=== PATIENT | male | born 1965 | race Caucasian/White ===

== ENCOUNTER 2018-01-13 07:07 | Inpatient (IN) | payer MEDICARE, SELFPAY ==
[2018-01-13] VITALS (44 sets, daily range): BP systolic 150–175; BP diastolic 70–99; PULSE 67–105; RESP 16–21; TEMP 36.5–37.9; O2SAT 87–97
--- NOTE | 2018-01-13 07:48 | DI.RAD_ITS ---
SYMPTOM/DIAGNOSIS: S/P FALL. RULE OUT ACUTE FRACTURE RIGHT WRIST: There is a nondisplaced fracture seen extending through the waist of the navicular. No additional fractures are seen. The carpal alignment appears normal. The distal radius and ulna appear intact. IMPRESSION: Nondisplaced scaphoid fracture.
--- NOTE | 2018-01-13 07:48 | DI.RAD_ITS ---
SYMPTOM/DIAGNOSIS: S/P FALL, R/O ACUTE FRACTURE RIGHT ELBOW: There is a fracture of the proximal radius which is intra-articular and mildly comminuted but not significantly displaced. The distal humerus and proximal ulna appear intact. IMPRESSION: Nondisplaced intra-articular fracture of the radial head.
--- NOTE | 2018-01-13 07:48 | DI.RAD_ITS ---
SYMPTOM/DIAGNOSIS: S/P FALL, R/O ACUTE FX RIGHT ANKLE: There is marked soft tissue swelling. There is a fracture seen extending transversely through the medial malleolus to the ankle mortise which is nondisplaced. No distal fibular fracture is seen. There is a comminuted fracture involving the mid portion of the calcaneus as well as the inferior portion of the tuberosity. There has been previous amputation of the 5th toe at the level of the mid 5th metatarsal. IMPRESSION: Nondisplaced medial malleolar fracture. No ankle mortise widening is seen. There is a comminuted calcaneal fracture.
--- NOTE | 2018-01-13 07:48 | DI.RAD_ITS ---
SYMPTOM/DIAGNOSIS: S/P FALL, H/O PELVIS FX, R/O ACUTE FX PELVIS: There has been no change in the hardware seen across the pubic symphysis. There are old fracture deformities. No acute fracture or dislocation is seen. There are mild degenerative changes of both hips, left greater than right. The S-I joints appear intact. IMPRESSION: Old pubic symphysis fractures with hardware. No acute abnormality.
--- NOTE | 2018-01-13 07:51 | W.ED.GENAD ---
Discharge Plan Disposition Patient Disposition: [facility] INPATIENT Condition: Stable Discharge Details Chief Complaint: Trauma Clinical Impression: Ankle fracture, right, Scaphoid fracture of wrist, Fracture of radial head, right, closed, Alcohol abuse Reason For Visit: R WRIST/R RADIAL HEAD/R ANKLE,FOOT FRACTURE,AMBULA Admit Date/Time: 01/13/18 13:22 Admit Provider: Paul Lazaro Attending Provider: Paul Lazaro Primary Care Provider: Sharon Sanabria V ED Provider: Sil Espinoza Discharge Data Discharge Date/Time-TO BE ENTERED AT DEPARTURE: 01/13/18 12:28 Medical Decision Making MDM Narrative Medical decision making narrative: 52-year-old male with history of daily alcohol use who presents with right wrist, right elbow, and right ankle injury after fall down 12 stairs yesterday. States he was drinking earlier in the day yesterday but denies any drinking at the time of the fall. Staff found the patient smelled of alcohol this morning but this was not significantly obvious to me. He does not appear acutely intoxicated. His blood pressure is 172/97. He has significant right wrist and right ankle edema and right ankle ecchymosis. He has tenderness to palpation of right radial head and right lateral epicondyle. He has no chest, abdomen, neck, back or head trauma or tenderness. Will check an alcohol level. Will obtain a right wrist, right forearm, right elbow, and right ankle x-ray. He denies head injury and does not appear acutely intoxicated for me, so I will not obtain head or C-spine CT. Also give a dose of Tylenol. 0955 -- labs and imaging reviewed -alcohol 42. Ankle notes nondisplaced medial malleolus fracture and comminuted calcaneal fracture but no ankle mortise widening. Wrist x-ray notes nondisplaced scaphoid fracture and elbow and forearm x-ray notes nondisplaced intra-articular radial head fracture. Pelvis x-ray notes old healed pelvic fractures with hardware intact but no acute fracture. We will plan for splint placement of ankle and upper extremity. Will call orthopedics for any recommendations as there are 2 fractures in the right upper extremity the patient will likely not be able to go home due to difficulty with ambulation. 1038 --discussed with Dr. Lazaro -recommends prepackaged thumb spica splint for right scaphoid and sling for radial head fracture. Will have orthopedic PA come down to place splint on right ankle. Agrees with plan for admission due to difficulty with ambulation with multiple fractures. Patient is agreeable to admission. Orthopedic PA placed splint at bedside. HPI - General Adult General Mode of arrival: wheelchair. Date/Time Provider Initiated Documentation: 01/13/18 07:35. Limitations to Documentation: no limitations. Information obtained by: patient. HPI Narrative: Patient is a 52-year-old male who presents with orthopedic pain after fall downstairs yesterday. Patient states he called out to him when he was inside the house and he turned around and slipped down approximately 12 stairs. Patient is complaining of pain in his right wrist, right elbow, and right ankle. He last took Motrin at 630 this morning. He denies head injury, neck pain, back pain, chest pain, abdominal pain, hip pain, knee pain, right shoulder pain or left upper extremity or left lower extremity pain. Patient was not able to ambulate on his right ankle this morning due to pain. Patient admits to drinking 3 beers daily and states he last drank yesterday but not around the time of the fall. Past medical history: Hypertension, gout, sarcoidosis Surgical history: Pelvis fracture ?5 due to trauma, bilateral knee arthroscopies, hernia repair, right fifth toe amputation Social history drinks 3 beers daily, denies tobacco or drugs Medications: Atenolol, hydrochlorothiazide, as needed ibuprofen Allergies: Denies PCP: Sharon Sanabria Related Data Home Medications Medication Instructions Recorded Confirmed atenolol 50 mg PO DAILY 07/13/12 01/13/18 hydrochlorothiazide 25 mg PO DAILY 01/15/13 01/13/18 ibuprofen [Ibuprofen Ib] 400 mg PO Q4H PRN PRN 02/16/16 01/13/18 Allergies Allergy/AdvReac Type Severity Reaction Status Date / Time No Known Allergies Allergy Unverified 01/13/18 07:41 General Stated Complaint: Trauma KALLI: 3 Review of Systems Review of Systems All systems reviewed & are unremarkable except as noted in HPI and below Constitutional Denies chills, Denies excessive sweating, Denies fatigue, Denies fever(s), Denies weakness and Denies weight loss Eyes Patient Reports system reviewed and no additional complaints, except as docu and Denies blurry vision ENT Denies vertigo, Denies dizziness, Denies otalgia, Denies nasal congestion, Denies sore throat and Denies throat swelling Cardiovascular Denies chest pain, Denies syncope, Denies rapid heart rate and Denies dyspnea Respiratory Denies dyspnea Gastrointestinal Denies abdominal pain, Denies diarrhea and Denies vomiting Genitourinary Denies hematuria, Denies dysuria and Denies flank pain Musculoskeletal Denies back pain and Reports other (Right wrist, right elbow, right ankle pain and swelling) Integumentary/Breasts Denies lesions and Denies rash Neurologic Denies behavioral changes, Denies confusion, Denies vertigo, Denies dizziness, Denies syncope and Denies weakness Psychiatric Denies behavioral changes, Denies confusion and Denies depression Endocrine Denies excessive sweating and Denies fatigue Hematologic/Lymphatic Denies easy bruising and Denies lymphadenopathy Allergic/Immunologic Denies throat swelling PFSH Social History Smoking/Tobacco Use Status: Never Exam Const General: cooperative Nutritional Appearance: well nourished Orientation: alert, awake and oriented x3 HENMT Head: normal to inspection Ears: hearing grossly normal bilaterally, external ears normal and TM's normal bilaterally General nose exam: external nose normal Face and sinus: normal facial exam Mouth: other (Tobacco chew noted in mouth and around oral mucosa. No oral or dental trauma.) Teeth and gingiva: dentition normal Throat: posterior oropharynx normal Eyes General: appearance normal, both eyes and all related structures Eyelids: eyelids normal Pupils: PERRL EOM: EOM intact bilaterally Neck Neck: normal visual inspection Lymphatic: no lymphadenopathy noted Chest Chest: normal inspection of the chest, normal palpation of entire chest wall, no crepitus, no localized rib tenderness and no tenderness Resp Effort & Inspection: normal respiratory effort and able to speak in complete sentences Auscultation: clear to auscultation bilaterally Cardio Rate: regular rate Rhythm: regular rhythm GI Inspection: normal to inspection Palpation: soft, not firm, no guarding, no hepatosplenomegaly, no masses and nontender Auscultation: normal bowel sounds Other: An approximate 2 x 3 cm area of ecchymosis with 1 cm superficial abrasion right lower quadrant which she states is from several days ago due to a superficial injury. There is no tenderness in this region. Male General Exam: Yes normal external exam Back/Spine/Pelvis Back: no CVA tenderness Thoracic/Lumbar Spine: thoracic and lumbar spine normal to inspection, No thoracic spinal tenderness and No lumbar spinal tenderness Skin General skin exam: no rashes or lesions noted Neuro General: alert and awake Cognition: normal cognition Speech: speech normal Gait: normal gait Motor: muscle tone normal throughout Sensory Exam: no sensory deficits noted Extrem Right upper extremity: shoulder/upper arm (Normal right shoulder exam.), elbow/forearm (Tenderness to palpation overlying right radial head and lateral epicondyle. No tenderness to palpation of olecranon or medial epicondyle. ) and wrist (Moderate edema and tenderness palpation of right dorsal and volar wrist. Right snuffbox tenderness. Moderate edema noted to right hand but without tenderness. No deformity noted) Left upper extremity: normal to inspection and full ROM Right lower extremity: hip/thigh (Hip with range of motion which patient states is chronic. No obvious hip deformity or pelvis instability.) and ankle (Moderate edema and ecchymosis and tenderness to palpation to right ankle, worse on medial aspect. No heel or plantar tenderness. No obvious deformity to right ankle. ) Left lower extremity: normal to inspection and full ROM Psych Appearance: grossly normal Mental Status: mental status grossly normal Speech and Movement: speech and movement normal Affect: normal affect Thought Process: normal Course Vital Signs Temperature 97.7 F 01/13/18 07:10 Pulse 90 01/13/18 07:10 Respiratory Rate 16 01/13/18 07:10 Blood Pressure 172/97 H 01/13/18 07:10 Pulse Oximetry 92 L 01/13/18 07:10 Temperature 97.7 F 01/13/18 07:10 Pulse 90 01/13/18 07:10 Respiratory Rate 16 01/13/18 07:10 Blood Pressure 172/97 H 01/13/18 07:10 Pulse Oximetry 92 L 01/13/18 07:10
--- NOTE | 2018-01-13 08:01 | ED.GENADUL_ITS ---
Discharge Plan Disposition Patient Disposition: [facility] INPATIENT Condition: Stable Discharge Details Chief Complaint: Trauma Clinical Impression: Ankle fracture, right, Scaphoid fracture of wrist, Fracture of radial head, right, closed, Alcohol abuse Reason For Visit: R WRIST/R RADIAL HEAD/R ANKLE,FOOT FRACTURE,AMBULA Admit Date/Time: 01/13/18 13:22 Admit Provider: Paul Lazaro Attending Provider: Paul Lazaro Primary Care Provider: Sharon Sanabria V ED Provider: Sil Espinoza Discharge Data Discharge Date/Time-TO BE ENTERED AT DEPARTURE: 01/13/18 12:28 Medical Decision Making MDM Narrative Medical decision making narrative: 52-year-old male with history of daily alcohol use who presents with right wrist, right elbow, and right ankle injury after fall down 12 stairs yesterday. States he was drinking earlier in the day yesterday but denies any drinking at the time of the fall. Staff found the patient smelled of alcohol this morning but this was not significantly obvious to me. He does not appear acutely intoxicated. His blood pressure is 172/97. He has significant right wrist and right ankle edema and right ankle ecchymosis. He has tenderness to palpation of right radial head and right lateral epicondyle. He has no chest, abdomen, neck, back or head trauma or tenderness. Will check an alcohol level. Will obtain a right wrist, right forearm, right elbow, and right ankle x-ray. He denies head injury and does not appear acutely intoxicated for me, so I will not obtain head or C-spine CT. Also give a dose of Tylenol. 0955 -- labs and imaging reviewed -alcohol 42. Ankle notes nondisplaced medial malleolus fracture and comminuted calcaneal fracture but no ankle mortise widening. Wrist x-ray notes nondisplaced scaphoid fracture and elbow and forearm x-ray notes nondisplaced intra-articular radial head fracture. Pelvis x -ray notes old healed pelvic fractures with hardware intact but no acute fracture. We will plan for splint placement of ankle and upper extremity. Will call orthopedics for any recommendations as there are 2 fractures in the right upper extremity the patient will likely not be able to go home due to difficulty with ambulation. 1038 --discussed with Dr. Lazaro -recommends prepackaged thumb spica splint for right scaphoid and sling for radial head fracture. Will have orthopedic PA come down to place splint on right ankle. Agrees with plan for admission due to difficulty with ambulation with multiple fractures. Patient is agreeable to admission. Orthopedic PA placed splint at bedside. HPI - General Adult General Mode of arrival: wheelchair . Date/Time Provider Initiated Documentation: 01/13/18 07:35 . Limitations to Documentation: no limitations . Information obtained by: patient . HPI Narrative: Patient is a 52-year-old male who presents with orthopedic pain after fall downstairs yesterday. Patient states he called out to him when he was inside the house and he turned around and slipped down approximately 12 stairs. Patient is complaining of pain in his right wrist, right elbow, and right ankle. He last took Motrin at 630 this morning. He denies head injury, neck pain, back pain, chest pain, abdominal pain, hip pain, knee pain, right shoulder pain or left upper extremity or left lower extremity pain. Patient was not able to ambulate on his right ankle this morning due to pain. Patient admits to drinking 3 beers daily and states he last drank yesterday but not around the time of the fall. Past medical history: Hypertension, gout, sarcoidosis Surgical history: Pelvis fracture ?5 due to trauma, bilateral knee arthroscopies , hernia repair, right fifth toe amputation Social history drinks 3 beers daily, denies tobacco or drugs Medications: Atenolol, hydrochlorothiazide, as needed ibuprofen Allergies: Denies PCP: Sharon Sanabria Related Data Home Medications Medication Instructions Recorded Confirmed atenolol 50 mg PO DAILY 07/13/12 01/13/18 hydrochlorothiazide 25 mg PO DAILY 01/15/13 01/13/18 ibuprofen [Ibuprofen Ib] 400 mg PO Q4H PRN PRN 02/16/16 01/13/18 Allergies Allergy/AdvReac Type Severity Reaction Status Date / Time No Known Allergies Allergy Unverified 01/13/18 07:41 General Stated Complaint: Trauma KALLI: 3 Review of Systems Review of Systems All systems reviewed & are unremarkable except as noted in HPI and below Constitutional Denies chills, Denies excessive sweating, Denies fatigue, Denies fever(s), Denies weakness and Denies weight loss Eyes Patient Reports system reviewed and no additional complaints, except as docu and Denies blurry vision ENT Denies vertigo, Denies dizziness, Denies otalgia, Denies nasal congestion, Denies sore throat and Denies throat swelling Cardiovascular Denies chest pain, Denies syncope, Denies rapid heart rate and Denies dyspnea Respiratory Denies dyspnea Gastrointestinal Denies abdominal pain, Denies diarrhea and Denies vomiting Genitourinary Denies hematuria, Denies dysuria and Denies flank pain Musculoskeletal Denies back pain and Reports other (Right wrist, right elbow, right ankle pain and swelling) Integumentary/Breasts Denies lesions and Denies rash Neurologic Denies behavioral changes, Denies confusion, Denies vertigo, Denies dizziness, Denies syncope and Denies weakness Psychiatric Denies behavioral changes, Denies confusion and Denies depression Endocrine Denies excessive sweating and Denies fatigue Hematologic/Lymphatic Denies easy bruising and Denies lymphadenopathy Allergic/Immunologic Denies throat swelling PFSH Social History Smoking/Tobacco Use Status: Never Exam Const General: cooperative Nutritional Appearance: well nourished Orientation: alert, awake and oriented x3 HENMT Head: normal to inspection Ears: hearing grossly normal bilaterally, external ears normal and TM's normal bilaterally General nose exam: external nose normal Face and sinus: normal facial exam Mouth: other (Tobacco chew noted in mouth and around oral mucosa. No oral or dental trauma.) Teeth and gingiva: dentition normal Throat: posterior oropharynx normal Eyes General: appearance normal, both eyes and all related structures Eyelids: eyelids normal Pupils: PERRL EOM: EOM intact bilaterally Neck Neck: normal visual inspection Lymphatic: no lymphadenopathy noted Chest Chest: normal inspection of the chest, normal palpation of entire chest wall, no crepitus, no localized rib tenderness and no tenderness Resp Effort & Inspection: normal respiratory effort and able to speak in complete sentences Auscultation: clear to auscultation bilaterally Cardio Rate: regular rate Rhythm: regular rhythm GI Inspection: normal to inspection Palpation: soft, not firm, no guarding, no hepatosplenomegaly, no masses and nontender Auscultation: normal bowel sounds Other: An approximate 2 x 3 cm area of ecchymosis with 1 cm superficial abrasion right lower quadrant which she states is from several days ago due to a superficial injury. There is no tenderness in this region. Male General Exam: Yes normal external exam Back/Spine/Pelvis Back: no CVA tenderness Thoracic/Lumbar Spine: thoracic and lumbar spine normal to inspection, No thoracic spinal tenderness and No lumbar spinal tenderness Skin General skin exam: no rashes or lesions noted Neuro General: alert and awake Cognition: normal cognition Speech: speech normal Gait: normal gait Motor: muscle tone normal throughout Sensory Exam: no sensory deficits noted Extrem Right upper extremity: shoulder/upper arm (Normal right shoulder exam.), elbow/ forearm (Tenderness to palpation overlying right radial head and lateral epicondyle. No tenderness to palpation of olecranon or medial epicondyle. ) and wrist (Moderate edema and tenderness palpation of right dorsal and volar wrist. Right snuffbox tenderness. Moderate edema noted to right hand but without tenderness. No deformity noted) Left upper extremity: normal to inspection and full ROM Right lower extremity: hip/thigh (Hip with range of motion which patient states is chronic. No obvious hip deformity or pelvis instability.) and ankle ( Moderate edema and ecchymosis and tenderness to palpation to right ankle, worse on medial aspect. No heel or plantar tenderness. No obvious deformity to right ankle. ) Left lower extremity: normal to inspection and full ROM Psych Appearance: grossly normal Mental Status: mental status grossly normal Speech and Movement: speech and movement normal Affect: normal affect Thought Process: normal Course Vital Signs Temperature 97.7 F 01/13/18 07:10 Pulse 90 01/13/18 07:10 Respiratory Rate 16 01/13/18 07:10 Blood Pressure 172/97 H 01/13/18 07:10 Pulse Oximetry 92 L 01/13/18 07:10 Temperature 97.7 F 01/13/18 07:10 Pulse 90 01/13/18 07:10 Respiratory Rate 16 01/13/18 07:10 Blood Pressure 172/97 H 01/13/18 07:10 Pulse Oximetry 92 L 01/13/18 07:10
[2018-01-13] MEDS: Acetaminophen 325 MG TAB 650 MG PO ×2 (08:05→19:54)
[2018-01-13 08:26] LABS: ETHANOL BLOOD 42.1 mg/dL (<3)
--- NOTE | 2018-01-13 08:59 | DI.RAD_ITS ---
SYMPTOM/DIAGNOSIS: S/P FALL, R/O ACUTE FRACTURE RIGHT FOREARM: There is a fracture of the radial head which was nondisplaced. No additional fractures are seen more distally in the radius or ulna. IMPRESSION: Nondisplaced radial head fracture.
[2018-01-13] MEDS: oxyCODONE 5 MG TAB PO (10:26)
--- NOTE | 2018-01-13 12:37 | NUR.NOTE ---
Pt is admitted to [facility] room 234. Pts vitals are stable. Pt is in 10/10 pain. Awaiting doctors orders. Nursing Note:
[2018-01-13] MEDS: MORPHine 10 MG/ML VIAL IVP ×8 (13:40→22:27)
[2018-01-13] MEDS: Normal Saline Flush 10 ML SYR ×2 (13:41→17:29)
[2018-01-13] MEDS: Ketorolac 30 MG/ML VIAL IVP ×2 (14:08→19:55)
[2018-01-13] MEDS: Normal Saline Flush 10 ML SYR 20 ML ×2 (15:06→20:56)
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
--- NOTE | 2018-01-13 16:45 | W.PM.HP.N ---
Assessment and Plan (1) Alcoholism: Current visit: Yes Status: Chronic Robb relates that he has never had withdrawal symptomatology or DTs when he is not had his typical 3-4 beers a day. 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 History of fall with multiple fractures- plan is admit to Dr. Lazaro for pain control and long-term fracture management. All his fractures are appropriately splinted today. Dr. Lazaro will devise a fracture management plan. (2) Multiple fractures: Current visit: Yes Status: Acute Robb is a 52-year-old male who was admitted today under Dr. Lazaro service following a fall yesterday at 5-6 PM down approximately 12 stairs. robb relates he was with another person at the time who helped him out to his pickup truck and there was no loss of consciousness noted. He drove himself home and then had to crawl into his bedroom. Multiple pain complaints today resulted in him being evaluated in [facility] er where multiple fractures were found during his workup to include right dominant scaphoid fracture through the waist, right nondisplaced medial malleolar fracture without mortise widenin, right comminuted mid calcaneal fracture. 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 These fractures were appropriately splinted and his radial head fracture was treated with a sling. robb is being admitted to [facility] for pain control and for assistance with activities of daily living secondary to his multiple fractures. his present living situation is that he lives with his elderly dad Review of Systems Cardiovascular Denies chest pain and Denies irregular heart rhythm Respiratory Denies cough Gastrointestinal Denies abdominal pain, Denies nausea and Denies vomiting Musculoskeletal Reports as per [facility] Social History Smoking/Tobacco Use Status: Never Meds Home Medications Medication Instructions Recorded Confirmed Type atenolol 50 mg PO DAILY 07/13/12 01/13/18 History hydrochlorothiazide 25 mg PO DAILY 01/15/13 01/13/18 History ibuprofen [Ibuprofen Ib] 400 mg PO Q4H PRN PRN 02/16/16 01/13/18 History Allergies Allergy/AdvReac Type Severity Reaction Status Date / Time No Known Allergies Allergy Unverified 01/13/18 07:41 Exam Chest Chest: normal inspection of the chest and no localized rib tenderness Resp Effort & Inspection: normal respiratory effort and able to speak in complete sentences Auscultation: clear to auscultation bilaterally Cardio Rate: regular rate Rhythm: regular rhythm Heart Sounds: S1 normal and S2 normal Bruits: no abdominal aortic bruits Extrem Right lower extremity: edema Results Labs : 01/14/18 07:05 01/14/18 07:05 Laboratory Results - last 24 hr 01/13/18 08:09 Ethyl Alcohol 42.1
[2018-01-13] MEDS: Enoxaparin 40 MG/0.4 ML SYR SC (17:08)
[2018-01-13] MEDS: oxyCODONE-CR 10 MG TABCR PO (17:08)
--- NOTE | 2018-01-13 17:09 | HPE_ITS ---
Assessment and Plan (1) Alcoholism: Current visit: Yes Status: Chronic Robb relates that he has never had withdrawal symptomatology or DTs when he is not had his typical 3-4 beers a day. 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 History of fall with multiple fractures- plan is admit to Dr. Lazaro for pain control and long-term fracture management. All his fractures are appropriately splinted today. Dr. Lazaro will devise a fracture management plan. (2) Multiple fractures: Current visit: Yes Status: Acute Robb is a 52-year-old male who was admitted today under Dr. Lazaro service following a fall yesterday at 5-6 PM down approximately 12 stairs. robb relates he was with another person at the time who helped him out to his pickup truck and there was no loss of consciousness noted. He drove himself home and then had to crawl into his bedroom. Multiple pain complaints today resulted in him being evaluated in [facility] er where multiple fractures were found during his workup to include right dominant scaphoid fracture through the waist, right nondisplaced medial malleolar fracture without mortise widenin, right comminuted mid calcaneal fracture. 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 These fractures were appropriately splinted and his radial head fracture was treated with a sling. robb is being admitted to [facility] for pain control and for assistance with activities of daily living secondary to his multiple fractures. his present living situation is that he lives with his elderly dad Review of Systems Cardiovascular Denies chest pain and Denies irregular heart rhythm Respiratory Denies cough Gastrointestinal Denies abdominal pain, Denies nausea and Denies vomiting Musculoskeletal Reports as per [facility] Social History Smoking/Tobacco Use Status: Never Meds Home Medications Medication Instructions Recorded Confirmed Type atenolol 50 mg PO DAILY 07/13/12 01/13/18 History hydrochlorothiazide 25 mg PO DAILY 01/15/13 01/13/18 History ibuprofen [Ibuprofen Ib] 400 mg PO Q4H PRN PRN 02/16/16 01/13/18 History Allergies Allergy/AdvReac Type Severity Reaction Status Date / Time No Known Allergies Allergy Unverified 01/13/18 07:41 Exam Chest Chest: normal inspection of the chest and no localized rib tenderness Resp Effort & Inspection: normal respiratory effort and able to speak in complete sentences Auscultation: clear to auscultation bilaterally Cardio Rate: regular rate Rhythm: regular rhythm Heart Sounds: S1 normal and S2 normal Bruits: no abdominal aortic bruits Extrem Right lower extremity: edema Results Labs : 01/14/18 07:05 01/14/18 07:05 Laboratory Results - last 24 hr 01/13/18 08:09 Ethyl Alcohol 42.1
[2018-01-13] MEDS: Docusate Sodium 100 MG CAP PO (19:53)
[2018-01-13] MEDS: LORazepam 1 MG TAB PO/SL (19:56)
[2018-01-13] MEDS: DEXTROSE 5%-0.9% SALINE 1,000 ML 60 ML IV (22:58)
[2018-01-14] MEDS: Ketorolac 30 MG/ML VIAL IVP ×4 (01:57→19:34)
[2018-01-14] MEDS: MORPHine 10 MG/ML VIAL IVP ×10 (03:56→22:11)
[2018-01-14] MEDS: oxyCODONE-CR 10 MG TABCR PO ×2 (05:53→17:16)
[2018-01-14] MEDS: Normal Saline Flush 10 ML SYR 20 ML (07:37)
[2018-01-14 07:41] LABS: Anion Gap 5.2 mmol/L (3-11); BUN 16 mg/dL (7-18); CO2 29.8 mmol/L (21.0-32.0); CREATININE 0.88 mg/dL (0.70-1.30); Calcium 8.4 mg/dL (8.5-10.1); Chloride 101 mmol/L (98-107); Glucose 114 mg/dL (70-100); Potassium 3.8 mmol/L (3.5-5.1); Sodium 136 mmol/L (136-145)
[2018-01-14 07:42] LABS: HCT 41.4 % (40.0-50.0); HGB 13.7 g/dL (13.5-17.5); Mean Corp. HGB Concentration 33.1 g/dL (32.0-36.0); Mean Corpuscular Hemoglobin 33.3 pg (27.0-33.0); Mean Corpuscular Volume 100.5 fL (80-95); Mean Platelet Volume 11.1 fL (8.0-11.0); Platelet Count 234 x1000/uL (130-400); RBC 4.12 m/cumm (4.50-6.00); RBC Distribution Width 13.9 % (11.8-14.1); White Blood Cell Count 9.83 k/cumm (4.4-10.8)
[2018-01-14 07:45] VITALS: BP 178/97; PULSE 82; RESP 19; TEMP 37.8; O2SAT 92
[2018-01-14] MEDS: Atenolol 50 MG TAB PO (08:29)
[2018-01-14] MEDS: Multivitamin w/Minerals TAB 1 TAB PO (08:29)
[2018-01-14] MEDS: Folic Acid 1 MG TAB PO (08:29)
[2018-01-14] MEDS: Docusate Sodium 100 MG CAP PO ×2 (08:29→19:33)
[2018-01-14] MEDS: Acetaminophen 325 MG TAB 650 MG PO (08:29)
[2018-01-14] MEDS: Thiamine 100 MG TAB PO (08:30)
[2018-01-14] MEDS: Pantoprazole 40 MG TABCR PO (08:30)
[2018-01-14] MEDS: Hydrochlorothiazide 25 MG TAB PO (08:30)
--- NOTE | 2018-01-14 08:44 | PHARADMIT ---
Addendum entered by Ksenia Sanchez 01/16/18 09:01: Pharmacy Note Subjective Multiple right side fractures, Discharge once comfortable taking PO pain Meds Objective BP 170/95, PAIN 7/10, NO LABS Assessment still getting Morphine 6mg IV also has fentanyl patch and PO oxycontin, CIWA med ordered but no CIWA score listed Plan follow pain control Original Note: Addendum entered by Jose Guzman III 01/15/18 09:04: Pharmacy Note Subjective Multiple right side fractures (wrist ankle) from fall down a flight of stairs. Patient admits to 3-4 beers per day, but told he does not need CIWA. Objective VS-OK (BP-157/89) pain:8/10 no new Labs, No BM since admission. Assessment On Oxycontin & Percoet fot PO pain control, still getting Morphine 6mg IV. Plan Will be non-weight bearing on right leg x 6 weeks, CM working on setting things up for discharge. Discharge once comfortable taking PO pain Meds. Original Note: Admission Pharmacy Clinical Review R.WRIST, RAIDAL HEAD/R ANKLE, FOOT FRACTURE, Code Status Full Code Current Weight Wgt- 120.5 kg Renally Cleared and Narrow Therapeutic Index Meds CrCl~ 112 mL/min Meds-OK QTc Value / Action Taken program na BP Control, Fever BP-150/81 Tmax-37.3 Electrolytes reviewed Na- 136 K+3.8 DVT Prophylaxis Lovenox 40m Opiate Usage / Scheduled Bowel Regimen Ordered Yes Yes Plt/SCr for Heparin / Enoxaparin Plts-234 SCr- 0.88 INR for Warfarin na H/H stable, WBC/Bands h&h- 13.7/41.4 WBC-9.83 Antibiotic appropriateness none Cultures and Sensitivities none Surgical ABX d/c within 24 hr na DM control / Insulin Dosing BG- 114 Heart Failure (Check EF%) (KIP's, B-Block, Diuretics) Atenolol, HCTZ IV to PO Switch No Home Meds Reviewed Yes Home Meds Not Ordered Ibuprofen Comments ETOH-42.1
[2018-01-14 09:05] VITALS: O2SAT 93
[2018-01-14] MEDS: Normal Saline Flush 10 ML SYR IVP ×6 (09:15→19:40)
--- NOTE | 2018-01-14 09:44 | PT.INIE ---
PT Notes Inpatient Physical Therapy Evaluation Date: 01/14/18 Referring Doctor: Paul Lazaro PT Orders: PT CONSULT: multiple fractures, mobilize bed to chair. NWB on R Precautions: NWB R UE, NWB R LE, Fall precautions Patient Profile/Admitting Diagnosis: Pt is a 52yr old male who fell down stairs and sustained right ankle non displaced medial malleolus fracture, comminuted right calcaneal fracture, right wrist non displaced scaphoid fracture, right non displaced radial head fracture PMHX: pelvic fractures x5, alcohol abuse, right 5th toe amputations, gout, sarcoidosis s/p splenectomy, hernia repair, bilateral knee arthroscopies Social History/Home Situation: Lives in a home that has one step no railings to enter, one step into living room, one step into other room downstairs and flight of 12 steps to upstairs bedroom. Home is not one level on either story. Baseline mobility is independent gait with no device, independent with ADLS. Equipment Owned/DME: none Subjective: Pt lying on gurney bed, states he is more sore today than he was yesterday. Agreeable to PT consult. States he doesn't know where he is going to go when he leaves, he can't manage in home setting because it is not one level and he is going to need to be wheelchair dependent x6-8weeks until he can begin weight bearing on his right uppper or lower extermity. Pt is very concerned about discharge planning, he is open to going to a rehab facility if needed until he can be more mobile. Objective: General Observation: IV L UE. sling R UE, right wrist splint, right ankle splint and dressing Mental Status: A& O x3 Pain: 5/10 pain all over, RN provided pain medication ROM: Right Upper Extremity: NT due to fractures Left Upper Extremity: AROM WNL Right Lower Extremity: AROM hip and knee WNL, ankle NT due to splint Left Lower Extremity: AROM WNL Strength: Right Upper Extremity: NT Left Upper Extremity: 5/5 throughout Right Lower Extremity: NT Left Lower Extremity: 5/5 throughout Bed Mobility/Transfers: Supine-sit: HOB 35 degrees, minAx1 to assist trunk to sitting due to inability to use right arm to assist with transfer Sit-stand: CGA with no device Bed-wheelchair: transferring to left side, CGA stand pivot transfer bed to wheelchair Stand-sit: CGA Pt positioned in wheelchair with R LE elevated, R UE in sling and supported with pillow under elbow Gait: unable- due to inability to weight bear with right upper or lower extremity. Balance: Static Sitting: normal Dynamic Sitting: normal Static Standing: poor Dynamic Standing: poor Special Tests: Mobility Limitations Standardized Measure [facility] AM-PAC 6 clicks Basic Mobility Inpatient Short Form: Raw Score: 13 Standardized Score: 36.74 CMS Score: 64.91% CMS Modifier: CL Informed Consent/Education: Patient instructed in purpose of PT consult and plan of care. Assessment: Pt is a 52yr old male who fell down stairs and sustained right ankle non displaced medial malleolus fracture, comminuted right calcaneal fracture, right wrist non displaced scaphoid fracture, right non displaced radial head fracture in setting of pelvic fractures x5, alcohol abuse, right 5th toe amputations. Patient presents with clinical signs and symptoms consistent with diagnosis, as demonstrated by the following impairment level findings: pain in right upper and lower extremities with all movement, decreased ability to transfer out of bed due to inability to use right UE, decreased static and dynamic standing balance due to NWB status R LE, unable to perform gait mobility due to NWB status R UE & LE requiring him to perform stand pivot transfers on left leg bed to wheelchair, wheelchair to toilet etc., inability to self propel wheelchair for mobility due to inability to use R UE due to multiple fractures. Pt was able to perform bed to wheelchair transfers with one person assist at this time. He will benefit from continued PT for transfer training to/from wheelchair and for bed mobility. Pt will be wheelchair dependent x 6-8 weeks until fractures heal and clears for weight bearing in right UE or LE. Discharge planning is a challenge, as patient has 1 step to enter this home and single steps between living areas on the first floor, making him unable to mobilize in wheelchair on first level of home setting, he also has a bedroom on the second floor of home and he is unable to do stairs at this time. He will require discharge to a single level home and will require assistance with wheelchair propulsion, ADLS, meals etc. If family or friend single level home is unavailable to accommodate these needs, he would benefit from transfer to a dedicated intermodal truck driver care facility x 6-8 weeks until he can become weight bearing with R UE or LE. Pt will require a wheelchair with removable arms and elevating leg rests at discharge for his primary mode of mobility. He will be homebound. He will also require a 3 in 1 commode for toileting to stay on single level of home and tub bench is recommended for bathing unless he plans to sponge bath only. Impairments are contributing to the following functional limitations: AMPAC score CMS Score: 64.91% Patient is assessed as a *Moderate 76914 complexity based on the following: History: see above Examination: R elbow, R wrist, R ankle, functional limitations listed above Presentation: evolving Decision Making: AMPAC score CMS Score: 64.91% Goals: Goals X1 week 1. Supine-Sit independent 2. Sit-Supine independent 3. Sit-Stand SBA no device 4. Stand-Sit SBA 5. Bed-Chair SBA no device 6. Chair-Bed SBA no device 7. Gait: not a goal Plan of Care/Treatment Plan: 1-2x/day, 7 days/week x 1 week. Plan of care has been reviewed with the CLASSROOM PARAPROFESSIONAL providing the service under Physical Therapy direction. Initiate Physical Therapy intervention for strengthening, bed mobility, transfers, gait, stairs, balance training, use of assistive device. DISCHARGE RECOMMENDATIONS: Home to family or friend with single level home or transfer to dedicated intermodal truck driver care facility for 6-8weeks DME: will require standard wheelchair with removable arms and elevating leg rests, 3 in 1 commode and tub transfer bench TREATMENT CODE/TIME: 25min IE 9:35 G Codes in the area mobility of walking and moving around: current status [id number] CL; projected status GP [id number]. Discharge status (if discharging) GP [id number] based on AMPAC score CMS Score: 64.91% Shelley Capone PT Intake Vital Signs 01/13/18 07:07 01/13/18 07:10 01/13/18 07:15 01/13/18 08:00 01/13/18 09:21 01/13/18 09:22 01/13/18 09:30 01/13/18 09:31 01/13/18 09:40 01/13/18 09:46 01/13/18 09:50 01/13/18 10:00 01/13/18 10:01 01/13/18 10:10 01/13/18 10:16 01/13/18 10:20 01/13/18 10:30 01/13/18 10:31 01/13/18 10:40 01/13/18 10:45 01/13/18 10:50 01/13/18 11:00 01/13/18 11:01 01/13/18 11:10 01/13/18 11:20 01/13/18 11:30 01/13/18 11:33 01/13/18 11:40 01/13/18 11:45 01/13/18 11:52 01/13/18 11:52 Height 6 ft 2 in 6 ft 2 in 6 ft 2 in Weight 120.5 kg 120.5 kg BP 172/97 H 164/84 H 171/88 H 162/81 H 164/88 H 157/91 H 161/70 H 164/82 H 166/98 H 175/79 H 153/88 H 154/88 H Position Supine Respiration 16 21 Pulse 90 71 76 68 69 67 74 72 71 105 H 101 H 98 H Temp 36.5 C 37.3 C Temp Source Skin Pulse Oximetry (%) 92 L 91 L 92 L 88 L 90 L 89 L 93 L 93 L 92 L 91 L 89 L 92 L 92 L 93 L 89 L 92 L 90 L 89 L 90 L 89 L 90 L 91 L 92 L 87 L 91 L 88 L 89 L 92 L 91 L Oxygen Flow Rate 0 01/13/18 12:00 01/13/18 12:01 01/13/18 12:10 01/13/18 12:15 01/13/18 12:33 01/13/18 14:09 01/13/18 15:53 01/13/18 16:30 01/13/18 19:31 01/13/18 19:54 01/13/18 20:14 01/13/18 20:54 01/13/18 20:55 01/13/18 21:53 01/13/18 22:17 01/13/18 22:27 01/13/18 23:08 01/14/18 07:45 6 ft 2 in 120.5 kg 168/90 H 166/90 H 154/88 H 162/84 H 161/88 H 171/99 H 150/81 H 178/97 H 21 20 20 18 18 19 99 H 84 98 H 76 87 87 69 82 37.3 C 37.5 C 37.9 C H 37.9 C H 37.9 C H 37.4 C 37.4 C 37.4 C 37.2 C 37.2 C 37.3 C 37.8 C H Tympanic Tympanic Tympanic Tympanic Tympanic Tympanic Tympanic 91 L 87 L 92 L 87 L 92 L 92 L 94 L 93 L 97 96 92 L 0 0 0 0 0 0 0
--- NOTE | 2018-01-14 10:11 | IN_ITS ---
PT Notes Inpatient Physical Therapy Evaluation Date: 01/14/18 Referring Doctor: Paul Lazaro PT Orders: PT CONSULT: multiple fractures, mobilize bed to chair. NWB on R Precautions: NWB R UE, NWB R LE, Fall precautions Patient Profile/Admitting Diagnosis: Pt is a 52yr old male who fell down stairs and sustained right ankle non displaced medial malleolus fracture, comminuted right calcaneal fracture, right wrist non displaced scaphoid fracture, right non displaced radial head fracture PMHX: pelvic fractures x5, alcohol abuse, right 5th toe amputations, gout, sarcoidosis s/p splenectomy, hernia repair, bilateral knee arthroscopies Social History/Home Situation: Lives in a home that has one step no railings to enter, one step into living room, one step into other room downstairs and flight of 12 steps to upstairs bedroom. Home is not one level on either story. Baseline mobility is independent gait with no device, independent with ADLS. Equipment Owned/DME: none Subjective: Pt lying on gurney bed, states he is more sore today than he was yesterday. Agreeable to PT consult. States he doesn't know where he is going to go when he leaves, he can't manage in home setting because it is not one level and he is going to need to be wheelchair dependent x6-8weeks until he can begin weight bearing on his right uppper or lower extermity. Pt is very concerned about discharge planning, he is open to going to a rehab facility if needed until he can be more mobile. Objective: General Observation: IV L UE. sling R UE, right wrist splint, right ankle splint and dressing Mental Status: A& O x3 Pain: 5/10 pain all over, RN provided pain medication ROM: Right Upper Extremity: NT due to fractures Left Upper Extremity: AROM WNL Right Lower Extremity: AROM hip and knee WNL, ankle NT due to splint Left Lower Extremity: AROM WNL Strength: Right Upper Extremity: NT Left Upper Extremity: 5/5 throughout Right Lower Extremity: NT Left Lower Extremity: 5/5 throughout Bed Mobility/Transfers: Supine-sit: HOB 35 degrees, minAx1 to assist trunk to sitting due to inability to use right arm to assist with transfer Sit-stand: CGA with no device Bed-wheelchair: transferring to left side, CGA stand pivot transfer bed to wheelchair Stand-sit: CGA Pt positioned in wheelchair with R LE elevated, R UE in sling and supported with pillow under elbow Gait: unable- due to inability to weight bear with right upper or lower extremity. Balance: Static Sitting: normal Dynamic Sitting: normal Static Standing: poor Dynamic Standing: poor Special Tests: Mobility Limitations Standardized Measure [facility] AM-PAC 6 clicks Basic Mobility Inpatient Short Form: Raw Score: 13 Standardized Score: 36.74 CMS Score: 64.91% CMS Modifier: CL Informed Consent/Education: Patient instructed in purpose of PT consult and plan of care. Assessment: Pt is a 52yr old male who fell down stairs and sustained right ankle non displaced medial malleolus fracture, comminuted right calcaneal fracture, right wrist non displaced scaphoid fracture, right non displaced radial head fracture in setting of pelvic fractures x5, alcohol abuse, right 5th toe amputations. Patient presents with clinical signs and symptoms consistent with diagnosis, as demonstrated by the following impairment level findings: pain in right upper and lower extremities with all movement, decreased ability to transfer out of bed due to inability to use right UE, decreased static and dynamic standing balance due to NWB status R LE, unable to perform gait mobility due to NWB status R UE & LE requiring him to perform stand pivot transfers on left leg bed to wheelchair, wheelchair to toilet etc., inability to self propel wheelchair for mobility due to inability to use R UE due to multiple fractures. Pt was able to perform bed to wheelchair transfers with one person assist at this time. He will benefit from continued PT for transfer training to/from wheelchair and for bed mobility. Pt will be wheelchair dependent x 6-8 weeks until fractures heal and clears for weight bearing in right UE or LE. Discharge planning is a challenge, as patient has 1 step to enter this home and single steps between living areas on the first floor, making him unable to mobilize in wheelchair on first level of home setting, he also has a bedroom on the second floor of home and he is unable to do stairs at this time. He will require discharge to a single level home and will require assistance with wheelchair propulsion, ADLS, meals etc. If family or friend single level home is unavailable to accommodate these needs , he would benefit from transfer to a senior care care facility x 6-8 weeks until he can become weight bearing with R UE or LE. Pt will require a wheelchair with removable arms and elevating leg rests at discharge for his primary mode of mobility. He will be homebound. He will also require a 3 in 1 commode for toileting to stay on single level of home and tub bench is recommended for bathing unless he plans to sponge bath only. Impairments are contributing to the following functional limitations: AMPAC score CMS Score: 64.91% Patient is assessed as a *Moderate 43788 complexity based on the following: History: see above Examination: R elbow, R wrist, R ankle, functional limitations listed above Presentation: evolving Decision Making: AMPAC score CMS Score: 64.91% Goals: Goals X1 week 1. Supine-Sit independent 2. Sit-Supine independent 3. Sit-Stand SBA no device 4. Stand-Sit SBA 5. Bed-Chair SBA no device 6. Chair-Bed SBA no device 7. Gait: not a goal Plan of Care/Treatment Plan: 1-2x/day, 7 days/week x 1 week. Plan of care has been reviewed with the PSYCHIATRIC ATTENDANT providing the service under Physical Therapy direction. Initiate Physical Therapy intervention for strengthening, bed mobility, transfers, gait, stairs, balance training, use of assistive device. DISCHARGE RECOMMENDATIONS: Home to family or friend with single level home or transfer to long term care social worker care facility for 6-8weeks DME: will require standard wheelchair with removable arms and elevating leg rests, 3 in 1 commode and tub transfer bench TREATMENT CODE/TIME: 25min IE 9:35 G Codes in the area mobility of walking and moving around: current status [id number] CL; projected status GP [id number]. Discharge status (if discharging) GP [id number] based on AMPAC score CMS Score: 64.91% Shelley Capone PT Intake Vital Signs 3 l l l l 01/13/18 07:07 l l 01/13/18 07:10 l l 01/13/18 07:15 l l 01/13/18 08:00 l l 01/13/18 09:21 l l 01/13/18 09:22 l l 01/13/18 09:30 l l 01/13/18 09:31 l l 01/13/18 09:40 l l 01/13/18 09:46 l l 01/13/18 09:50 l l 01/13/18 10:00 l l 01/13/18 10:01 l l 01/13/18 10:10 l l 01/13/18 10:16 l l 01/13/18 10:20 l l 01/13/18 10:30 l l 01/13/18 10:31 l l 01/13/18 10:40 l l 01/13/18 10:45 l l 01/13/18 10:50 l l 01/13/18 11:00 l l 01/13/18 11:01 l l 01/13/18 11:10 l l 01/13/18 11:20 l l 01/13/18 11:30 l l 01/13/18 11:33 l l 01/13/18 11:40 l l 01/13/18 11:45 l l 01/13/18 11:52 l l 01/13/18 11:52 l l 01/13/18 12:00 l l 01/13/18 12:01 l l 01/13/18 12:10 l l 01/13/18 12:15 l l 01/13/18 12:33 l l 01/13/18 14:09 l l 01/13/18 15:53 l l 01/13/18 16:30 l l 01/13/18 19:31 l l 01/13/18 19:54 l l 01/13/18 20:14 l l 01/13/18 20:54 l l 01/13/18 20:55 l l 01/13/18 21:53 l l 01/13/18 22:17 l l 01/13/18 22:27 l l 01/13/18 23:08 l l 01/14/18 07:45 l l Height 6 ft 2 in 6 ft 2 in 6 ft 2 in 6 ft 2 in l l Weight 120.5 kg 120.5 kg 120.5 kg l l BP 172/97 H 164/84 H 171/88 H 162/81 H 164/88 H 157/91 H 161/70 H 164/82 H 166/98 H 175/ 79 H 153/88 H 154/88 H 168/90 H 166/90 H 154/88 H 162 /84 H 161/88 H 171/99 H 150/81 H 178/97 H l l Position Supine l l Respiration 16 21 21 20 20 18 18 19 l l Pulse 90 71 76 68 69 67 74 72 71 105 H 101 H 98 H 99 H 84 98 H 76 87 87 69 82 l l Temp 36.5 C 37.3 C 37.3 C 37.5 C 37.9 C H 37.9 C H 37.9 C H 37.4 C 37.4 C 37.4 C 37.2 C 37.2 C 37.3 C 37.8 C H l l Temp Source Skin Tympanic Tympanic Tympanic Tympanic Tympanic Tympanic Tympanic l l Pulse Oximetry (%) 92 L 91 L 92 L 88 L 90 L 89 L 93 L 93 L 92 L 91 L 89 L 92 L 92 L 93 L 89 L 92 L 90 L 89 L 90 L 89 L 90 L 91 L 92 L 87 L 91 L 88 L 89 L 92 L 91 L 91 L 87 L 92 L 87 L 92 L 92 L 94 L 93 L 97 96 92 L l l Oxygen Flow Rate 0 0 0 0 0 0 0 0
--- NOTE | 2018-01-14 10:51 | PT.INTREAT ---
PT Notes Inpatient Physical Therapy Treatment Note Date: 01/14/18 PRECAUTIONS: Fall precautions, NWB R UE, NWB R LE SUBJECTIVE: Pt sore and tired after sitting up in wheelchair for 45min. Asking to get back to bed. OBJECTIVE: General observation: sling R UE, splint R hand, dressing/splint R ankle PAIN: 8/10 right side Bed Mobility/Transfers: Sit-stand: CGA with no device Wheelchair-bed: transferring to left side, CGA stand pivot transfer bed to wheelchair Stand-sit: CGA Sit-supine: HOB flat, supervision. Pt positioned with R LE elevated on 2 pillows and pillow supporting R UE Gait: unable- due to inability to weight bear with right upper or lower extremity. Balance: Static Sitting: normal Dynamic Sitting: normal Static Standing: poor Dynamic Standing: poor ASSESSMENT: Pt able to transfer to/from wheelchair this morning with one person assist, up in wheelchair with R LE elevated x 45 min. Pain increased today compared to yesterday. See evaluation for dicharge needs/recommendations. PLAN: Progress transfers TREATMENT CODE/TIME: 10min TAx1 10:15 Intake Vital Signs 01/13/18 07:07 01/13/18 07:10 01/13/18 07:15 01/13/18 08:00 01/13/18 09:21 01/13/18 09:22 01/13/18 09:30 01/13/18 09:31 01/13/18 09:40 01/13/18 09:46 01/13/18 09:50 01/13/18 10:00 01/13/18 10:01 01/13/18 10:10 01/13/18 10:16 01/13/18 10:20 01/13/18 10:30 01/13/18 10:31 01/13/18 10:40 01/13/18 10:45 01/13/18 10:50 01/13/18 11:00 01/13/18 11:01 01/13/18 11:10 01/13/18 11:20 01/13/18 11:30 01/13/18 11:33 01/13/18 11:40 01/13/18 11:45 01/13/18 11:52 01/13/18 11:52 Height 6 ft 2 in 6 ft 2 in 6 ft 2 in Weight 120.5 kg 120.5 kg BP 172/97 H 164/84 H 171/88 H 162/81 H 164/88 H 157/91 H 161/70 H 164/82 H 166/98 H 175/79 H 153/88 H 154/88 H Position Supine Respiration 16 21 Pulse 90 71 76 68 69 67 74 72 71 105 H 101 H 98 H Temp 36.5 C 37.3 C Temp Source Skin Pulse Oximetry (%) 92 L 91 L 92 L 88 L 90 L 89 L 93 L 93 L 92 L 91 L 89 L 92 L 92 L 93 L 89 L 92 L 90 L 89 L 90 L 89 L 90 L 91 L 92 L 87 L 91 L 88 L 89 L 92 L 91 L Oxygen Flow Rate 0 01/13/18 12:00 01/13/18 12:01 01/13/18 12:10 01/13/18 12:15 01/13/18 12:33 01/13/18 14:09 01/13/18 15:53 01/13/18 16:30 01/13/18 19:31 01/13/18 19:54 01/13/18 20:14 01/13/18 20:54 01/13/18 20:55 01/13/18 21:53 01/13/18 22:17 01/13/18 22:27 01/13/18 23:08 01/14/18 07:45 6 ft 2 in 120.5 kg 168/90 H 166/90 H 154/88 H 162/84 H 161/88 H 171/99 H 150/81 H 178/97 H 21 20 20 18 18 19 99 H 84 98 H 76 87 87 69 82 37.3 C 37.5 C 37.9 C H 37.9 C H 37.9 C H 37.4 C 37.4 C 37.4 C 37.2 C 37.2 C 37.3 C 37.8 C H Tympanic Tympanic Tympanic Tympanic Tympanic Tympanic Tympanic 91 L 87 L 92 L 87 L 92 L 92 L 94 L 93 L 97 96 92 L 0 0 0 0 0 0 0
--- NOTE | 2018-01-14 10:55 | PTTR_ITS ---
PT Notes Inpatient Physical Therapy Treatment Note Date: 01/14/18 PRECAUTIONS: Fall precautions, NWB R UE, NWB R LE SUBJECTIVE: Pt sore and tired after sitting up in wheelchair for 45min. Asking to get back to bed. OBJECTIVE: General observation: sling R UE, splint R hand, dressing/splint R ankle PAIN: 8/10 right side Bed Mobility/Transfers: Sit-stand: CGA with no device Wheelchair-bed: transferring to left side, CGA stand pivot transfer bed to wheelchair Stand-sit: CGA Sit-supine: HOB flat, supervision. Pt positioned with R LE elevated on 2 pillows and pillow supporting R UE Gait: unable- due to inability to weight bear with right upper or lower extremity. Balance: Static Sitting: normal Dynamic Sitting: normal Static Standing: poor Dynamic Standing: poor ASSESSMENT: Pt able to transfer to/from wheelchair this morning with one person assist, up in wheelchair with R LE elevated x 45 min. Pain increased today compared to yesterday. See evaluation for dicharge needs/recommendations. PLAN: Progress transfers TREATMENT CODE/TIME: 10min TAx1 10:15 Intake Vital Signs 3 l l l l 01/13/18 07:07 l l 01/13/18 07:10 l l 01/13/18 07:15 l l 01/13/18 08:00 l l 01/13/18 09:21 l l 01/13/18 09:22 l l 01/13/18 09:30 l l 01/13/18 09:31 l l 01/13/18 09:40 l l 01/13/18 09:46 l l 01/13/18 09:50 l l 01/13/18 10:00 l l 01/13/18 10:01 l l 01/13/18 10:10 l l 01/13/18 10:16 l l 01/13/18 10:20 l l 01/13/18 10:30 l l 01/13/18 10:31 l l 01/13/18 10:40 l l 01/13/18 10:45 l l 01/13/18 10:50 l l 01/13/18 11:00 l l 01/13/18 11:01 l l 01/13/18 11:10 l l 01/13/18 11:20 l l 01/13/18 11:30 l l 01/13/18 11:33 l l 01/13/18 11:40 l l 01/13/18 11:45 l l 01/13/18 11:52 l l 01/13/18 11:52 l l 01/13/18 12:00 l l 01/13/18 12:01 l l 01/13/18 12:10 l l 01/13/18 12:15 l l 01/13/18 12:33 l l 01/13/18 14:09 l l 01/13/18 15:53 l l 01/13/18 16:30 l l 01/13/18 19:31 l l 01/13/18 19:54 l l 01/13/18 20:14 l l 01/13/18 20:54 l l 01/13/18 20:55 l l 01/13/18 21:53 l l 01/13/18 22:17 l l 01/13/18 22:27 l l 01/13/18 23:08 l l 01/14/18 07:45 l l Height 6 ft 2 in 6 ft 2 in 6 ft 2 in 6 ft 2 in l l Weight 120.5 kg 120.5 kg 120.5 kg l l BP 172/97 H 164/84 H 171/88 H 162/81 H 164/88 H 157/91 H 161/70 H 164/82 H 166/98 H 175/ 79 H 153/88 H 154/88 H 168/90 H 166/90 H 154/88 H 162 /84 H 161/88 H 171/99 H 150/81 H 178/97 H l l Position Supine l l Respiration 16 21 21 20 20 18 18 19 l l Pulse 90 71 76 68 69 67 74 72 71 105 H 101 H 98 H 99 H 84 98 H 76 87 87 69 82 l l Temp 36.5 C 37.3 C 37.3 C 37.5 C 37.9 C H 37.9 C H 37.9 C H 37.4 C 37.4 C 37.4 C 37.2 C 37.2 C 37.3 C 37.8 C H l l Temp Source Skin Tympanic Tympanic Tympanic Tympanic Tympanic Tympanic Tympanic l l Pulse Oximetry (%) 92 L 91 L 92 L 88 L 90 L 89 L 93 L 93 L 92 L 91 L 89 L 92 L 92 L 93 L 89 L 92 L 90 L 89 L 90 L 89 L 90 L 91 L 92 L 87 L 91 L 88 L 89 L 92 L 91 L 91 L 87 L 92 L 87 L 92 L 92 L 94 L 93 L 97 96 92 L l l Oxygen Flow Rate 0 0 0 0 0 0 0 0
[2018-01-14 11:30] VITALS: BP 143/80; PULSE 65; RESP 19; TEMP 36.6; O2SAT 96
--- NOTE | 2018-01-14 15:09 | W.PM.PROGNOT ---
Date of service: 01/14/18 Time of Service: 14:30 Exam Narrative Exam Narrative: Robb is feeling much better today. He is taking the scheduled narcotics and they seem to be working fairly well. He slept well last night. Extrem Other: He has a mild swelling over the knuckles of his right hand however he has excellent finger flexion extension on the right hand. He has good sensation and Capillary refill to the fingers of his right hand. Right lower extremity is in a Boykin dressing and posterior splint. He is able to actively flex and extend the toes of his right foot without particular pain. Good capillary refill and sensation in the toes of his right foot. He is sitting at the bedside and is fairly comfortable. Assessment is some multiple fractures in the right upper and lower extremities. He will not be able to bear weight on the right foot for a minimum of 6 weeks. So far his pain appears to be under fairly good control. Plan: Continue to mobilize with physical therapy. Try to taper his IV narcotics to p.o. discharge planning will work on him with to make arrangements for home discharge once he is on oral pain meds. Objective Objective Clinical Data: Abnormal lab results 01/14/18 01/14/18 Range/Units 07:05 07:05 RBC 4.12 L (4.50-6.00) m/cumm MCV 100.5 H (80-95) fL MCH 33.3 H (27.0-33.0) pg MPV 11.1 H (8.0-11.0) fL Glucose 114 H (70-100) mg/dL Calcium 8.4 L (8.5-10.1) mg/dL Vital Signs Temp 36.6 C 01/14/18 11:30 Pulse 65 01/14/18 11:30 Resp 19 01/14/18 11:30 BP 143/80 H 01/14/18 11:30 Pulse Ox 96 01/14/18 11:30 Intake & Output 01/13/18 01/14/18 01/14/18 23:59 11:59 23:59 Intake Total 480 / 480 250 / 250 300 / 300 Output Total 650 / 650 600 / 600 550 / 550 Balance -170 / -170 -350 / -350 -250 / -250 Weight 120.5 kg Intake: Oral 480 / 480 250 / 250 300 / 300 Output: Urine 650 / 650 600 / 600 550 / 550 Other: Urine Color Dark Nadine Yellow Yellow Urine Appearance Clear Clear Clear Urine Odor None Voiding Methods Urinal Urinal Urinal Laboratory Results WBC 9.83 k/cumm (4.4-10.8) 01/14/18 07:05 RBC 4.12 m/cumm (4.50-6.00) L 01/14/18 07:05 Hgb 13.7 g/dL (13.5-17.5) 01/14/18 07:05 Hct 41.4 % (40.0-50.0) 01/14/18 07:05 MCV 100.5 fL (80-95) H 01/14/18 07:05 MCH 33.3 pg (27.0-33.0) H 01/14/18 07:05 MCHC 33.1 g/dL (32.0-36.0) 01/14/18 07:05 RDW 13.9 % (11.8-14.1) 01/14/18 07:05 Plt Count 234 x1000/uL (130-400) 01/14/18 07:05 MPV 11.1 fL (8.0-11.0) H 01/14/18 07:05 Sodium 136 mmol/L (136-145) 01/14/18 07:05 Potassium 3.8 mmol/L (3.5-5.1) 01/14/18 07:05 Chloride 101 mmol/L (98-107) 01/14/18 07:05 Carbon Dioxide 29.8 mmol/L (21.0-32.0) 01/14/18 07:05 Anion Gap 5.2 mmol/L (3-11) 01/14/18 07:05 BUN 16 mg/dL (7-18) 01/14/18 07:05 Creatinine 0.88 mg/dL (0.70-1.30) 01/14/18 07:05 Estimated GFR/1.73 m2 >= 60.00 (mL/min/1.73m2) 01/14/18 07:05 Glucose 114 mg/dL (70-100) H 01/14/18 07:05 Calcium 8.4 mg/dL (8.5-10.1) L 01/14/18 07:05 Ethyl Alcohol 42.1 mg/dL (<3) 01/13/18 08:09
[2018-01-14] MEDS: Enoxaparin 40 MG/0.4 ML SYR SC (17:16)
[2018-01-14 18:24] VITALS: BP 149/77; PULSE 78; RESP 19; TEMP 37.7; O2SAT 97
[2018-01-14 21:07] VITALS: BP 140/91; PULSE 82; RESP 18; TEMP 37.2; O2SAT 95
[2018-01-15] MEDS: MORPHine 10 MG/ML VIAL IVP ×8 (00:21→22:29)
[2018-01-15 00:40] VITALS: BP 152/96; PULSE 77; RESP 20; TEMP 36.4; O2SAT 96
[2018-01-15] MEDS: Ketorolac 30 MG/ML VIAL IVP ×4 (02:07→19:55)
[2018-01-15] MEDS: Normal Saline Flush 10 ML SYR IVP ×8 (05:05→22:30)
[2018-01-15] MEDS: oxyCODONE-CR 10 MG TABCR PO ×2 (05:31→18:28)
[2018-01-15] MEDS: Pantoprazole 40 MG TABCR PO (07:37)
[2018-01-15] MEDS: Hydrochlorothiazide 25 MG TAB PO (07:37)
[2018-01-15] MEDS: Folic Acid 1 MG TAB PO (07:37)
[2018-01-15] MEDS: Docusate Sodium 100 MG CAP PO ×2 (07:37→19:54)
[2018-01-15] MEDS: Atenolol 50 MG TAB PO (07:37)
[2018-01-15] MEDS: Acetaminophen 325 MG TAB 650 MG PO ×2 (07:38→14:08)
[2018-01-15] MEDS: Multivitamin w/Minerals TAB 1 TAB PO (07:38)
[2018-01-15] MEDS: Thiamine 100 MG TAB PO (07:38)
[2018-01-15 07:45] VITALS: BP 157/89; PULSE 76; RESP 22; TEMP 36.2; O2SAT 94
--- NOTE | 2018-01-15 08:14 | PDOC.CMIN ---
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 He reports moving in to his parents to be helpful. He was previously independent with ADLs in the community though reports being on disability jail for a pelvic fracture. CURRENT FUNCTIONAL STATUS:: Robb is lying in bed when meets with him, he shares being uncomfortable as he is in pain with his multiple fractures. He reports he will be unable to return home due to stairs in each entry of his home. He reports being open and willing to attend rehab upon discharge. ADVANCE DIRECTIVES:: None on file at [facility]. Has patient been provided with information about the portal?: Yes Did the patient sign up for the portal?: No CODE STATUS:: Full Code INSURANCE COVERAGE / FINANCIAL ISSUES:: Medicaid. Medicare CURRENT HOME/COMMUNITY SERVICES/EQUIPMENT:: No current services or equipment. PRIMARY CARE PHYSICIAN:: Sharon Sanabria POTENTIAL DISCHARGE NEEDS:: Coordination of SNF placement, PT evaluation; PT reports if Robb returns home he will require a new Standard wheelchair with removable arms and elevating arm rests, a [id number] commode and a tub transfer bench. PATIENT/FAMILY EDUCATION NEEDS:: Review of insurance coverage and limitations, discuss discharge recommendations-Ask Me Three. ANTICIPATED BARRIERS TO DISCHARGE:: None identified. TRANSPORTATION:: [facility]/C Van; either [facility] or [facility]. PLAN:: Robb will discharge to rehab when ready per MD. Referrals were faxed and are currently being reviewed by Oscar at [facility] and Nkechi at [facility]. Robb will transport via W[facility] [email or web address], coordinated by this race and sports book writer.
--- NOTE | 2018-01-15 08:55 | INITIAL_ITS ---
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 He reports moving in to his parents to be helpful. He was previously independent with ADLs in the community though reports being on disability halfway for a pelvic fracture. CURRENT FUNCTIONAL STATUS:: Robb is lying in bed when meets with him, he shares being uncomfortable as he is in pain with his multiple fractures. He reports he will be unable to return home due to stairs in each entry of his home. He reports being open and willing to attend rehab upon discharge. ADVANCE DIRECTIVES:: None on file at [facility]. Has patient been provided with information about the portal?: Yes Did the patient sign up for the portal?: No CODE STATUS:: Full Code INSURANCE COVERAGE / FINANCIAL ISSUES:: Medicaid. Medicare CURRENT HOME/COMMUNITY SERVICES/EQUIPMENT:: No current services or equipment. PRIMARY CARE PHYSICIAN:: Sharon Sanabria POTENTIAL DISCHARGE NEEDS:: Coordination of SNF placement, PT evaluation; PT reports if Robb returns home he will require a new Standard wheelchair with removable arms and elevating arm rests, a [id number] commode and a tub transfer bench. PATIENT/FAMILY EDUCATION NEEDS:: Review of insurance coverage and limitations, discuss discharge recommendations-Ask Me Three. ANTICIPATED BARRIERS TO DISCHARGE:: None identified. TRANSPORTATION:: W/C Van; [facility] or [facility]. PLAN:: Robb will discharge to rehab when ready per MD. Referrals were faxed and are currently being reviewed by Oscar at [facility] and Nkechi at [facility]. Robb will transport via [employer], coordinated by this race and sports book writer.
--- NOTE | 2018-01-15 09:01 | PT.INDS ---
PT Notes Inpatient Physical Therapy Discharge Summary Date: 01/15/18 Dates of Service: 01/14/18-01/15/18 SUBJECTIVE: Pt lying in bed, states he is hoping to go to a rehab facility for his recovery because he is unable to go to his parent's home due to stairs to enter and steps between rooms. He will be unable to care for himself in home setting. OBJECTIVE: General Observation: sling R UE, right wrist splint, right ankle splint and dressing Pain: 07/13, RN provided pain medication Bed Mobility/Transfers: Supine-sit: independent from hospital bed with use of bed rail Sit-stand: independent with no device Bed-wheelchair: transferring to left side, supervision stand pivot transfer bed to wheelchair Stand-sit: independent Pt positioned in wheelchair with R LE elevated, R UE in sling Gait: unable- due to inability to weight bear with right upper or lower extremity. Balance: Static Sitting: normal Dynamic Sitting: normal Static Standing: fair Dynamic Standing: poor - due to NWB R LE. Assessment: Pt is a 52yr old male who fell down stairs and sustained right ankle non displaced medial malleolus fracture, comminuted right calcaneal fracture, right wrist non displaced scaphoid fracture, right non displaced radial head fracture in setting of pelvic fractures x5, alcohol abuse, right 5th toe amputations. Patient has been seen for 3 PT visits. Progressed from Cristino bed transfers to supervision, from CGA standing transfers to independent, from CGA transfers bed to wheelchair to supervision. Pt with good maintenance of NWB R UE and R LE. Pt will be wheelchair dependent x 6-8 weeks until fractures heal and MD clears for weight bearing in right UE or LE. Discharge planning is a challenge, as patient has 1 step to enter this home and single steps between living areas on the first floor, making him unable to mobilize in wheelchair on first level of home setting, he also has a bedroom on the second floor of home and he is unable to do stairs at this time. He will require discharge to a single level home and will require assistance with wheelchair propulsion, ADLS, meals etc. If family or friend single level home is unable to accommodate these needs, he would benefit from transfer to a computer terminal operator care facility x 6-8 weeks until he can become weight bearing with R UE or LE. Pt will require a wheelchair with removable arms and elevating leg rests at discharge for his primary mode of mobility. He will be homebound. He will also require a 3 in 1 commode for toileting to stay on single level of home and tub bench is recommended for bathing unless he plans to sponge bath only. Goals: Goals X1 week 1. Supine-Sit independent 2. Sit-Supine independent 3. Sit-Stand SBA no device 4. Stand-Sit SBA 5. Bed-Chair SBA no device 6. Chair-Bed SBA no device 7. Gait: not a goal Pt met goals # 1-6 DISCHARGE RECOMMENDATIONS: Home to family or friend's house with single level home OR transfer to computer terminal operator care facility for 6-8weeks DME: will require standard wheelchair with removable arms and elevating leg rests, 3 in 1 commode and tub transfer bench TREATMENT CODE/TIME: 15min Tax1 8:50 G Codes in the area mobility of walking and moving around; projected status GP [id number]. Discharge status (if discharging) GP [id number]- CL Shelley Capone PT
--- NOTE | 2018-01-15 09:09 | INDS_ITS ---
PT Notes Inpatient Physical Therapy Discharge Summary Date: 01/15/18 Dates of Service: 01/14/18-01/15/18 SUBJECTIVE: Pt lying in bed, states he is hoping to go to a rehab facility for his recovery because he is unable to go to his parent's home due to stairs to enter and steps between rooms. He will be unable to care for himself in home setting. OBJECTIVE: General Observation: sling R UE, right wrist splint, right ankle splint and dressing Pain: 07/13, RN provided pain medication Bed Mobility/Transfers: Supine-sit: independent from hospital bed with use of bed rail Sit-stand: independent with no device Bed-wheelchair: transferring to left side, supervision stand pivot transfer bed to wheelchair Stand-sit: independent Pt positioned in wheelchair with R LE elevated, R UE in sling Gait: unable- due to inability to weight bear with right upper or lower extremity. Balance: Static Sitting: normal Dynamic Sitting: normal Static Standing: fair Dynamic Standing: poor - due to NWB R LE. Assessment: Pt is a 52yr old male who fell down stairs and sustained right ankle non displaced medial malleolus fracture, comminuted right calcaneal fracture, right wrist non displaced scaphoid fracture, right non displaced radial head fracture in setting of pelvic fractures x5, alcohol abuse, right 5th toe amputations. Patient has been seen for 3 PT visits. Progressed from Cristino bed transfers to supervision, from CGA standing transfers to independent, from CGA transfers bed to wheelchair to supervision. Pt with good maintenance of NWB R UE and R LE. Pt will be wheelchair dependent x 6-8 weeks until fractures heal and MD clears for weight bearing in right UE or LE. Discharge planning is a challenge, as patient has 1 step to enter this home and single steps between living areas on the first floor, making him unable to mobilize in wheelchair on first level of home setting, he also has a bedroom on the second floor of home and he is unable to do stairs at this time. He will require discharge to a single level home and will require assistance with wheelchair propulsion, ADLS, meals etc. If family or friend single level home is unable to accommodate these needs, he would benefit from transfer to a bed bug exterminator care facility x 6-8 weeks until he can become weight bearing with R UE or LE. Pt will require a wheelchair with removable arms and elevating leg rests at discharge for his primary mode of mobility. He will be homebound. He will also require a 3 in 1 commode for toileting to stay on single level of home and tub bench is recommended for bathing unless he plans to sponge bath only. Goals: Goals X1 week 1. Supine-Sit independent 2. Sit-Supine independent 3. Sit-Stand SBA no device 4. Stand-Sit SBA 5. Bed-Chair SBA no device 6. Chair-Bed SBA no device 7. Gait: not a goal Pt met goals # 1-6 DISCHARGE RECOMMENDATIONS: Home to family or friend's house with single level home OR transfer to bed bug exterminator care facility for 6-8weeks DME: will require standard wheelchair with removable arms and elevating leg rests, 3 in 1 commode and tub transfer bench TREATMENT CODE/TIME: 15min Tax1 8:50 G Codes in the area mobility of walking and moving around; projected status GP [id number]. Discharge status (if discharging) GP [id number]- CL Shelley Capone PT
[2018-01-15 09:40] VITALS: O2SAT 94
[2018-01-15 11:00] VITALS: BP 143/87; PULSE 66; RESP 17; TEMP 36.4; O2SAT 94
[2018-01-15] MEDS: fentaNYL 50 MCG PATCH TD (11:48)
--- NOTE | 2018-01-15 14:24 | PDOC.CMPRO ---
Care Management Progress Note S/O: Robb has been appropriate through out the day. He met with Oscar of [facility] to complete paperwork and ask questions. Robb had his choice between the [facility] and [facility]. He chose [facility] due to the proximity of his parents house in [facility] [place] [facility]. Per POLINA; Christina, Robb's pain increased today and he required a fentynl patch for relief; this will be a factor in discharge readiness for tomorrow morning. Oscar is requesting 1100 discharge time as he reports the [facility] W[facility]C van is available @1100, and the facility has other admissions planned for the afternoon. SHAN notified Bob FISH of this information and will continue to follow. A: 52 year old male admitted to [facility] 01/13/18 for multiple fractures after a fall. P: Robb will discharge to [facility] when ready per MD. Tentative plan is to discharge to [facility] if ready per MD at 1100 tomorrow; 01/16/18; SHAN will continue to follow. Referrals were faxed and are currently being reviewed by Oscar at [facility] and Nkechi at the [facility]. Robb will transport via [facility] van, coordinated by this advertising copywriter.
--- NOTE | 2018-01-15 14:29 | CMPROGNOTE_ITS ---
Care Management Progress Note S/O: Robb has been appropriate through out the day. He met with Oscar of [facility] to complete paperwork and ask questions. Robb had his choice between the [facility] and [facility]. He chose [facility] due to the proximity of his parents house in [facility]. Per POLINA; Christina, Robb's pain increased today and he required a fentynl patch for relief; this will be a factor in discharge readiness for tomorrow morning. Oscar is requesting 1100 discharge time as he reports the [facility] W[facility]C van is available @1100, and the facility has other admissions planned for the afternoon. SHAN notified Bob FISH of this information and will continue to follow. A: 52 year old male admitted to [facility] 01/13/18 for multiple fractures after a fall. P: Robb will discharge to [facility] when ready per MD. Tentative plan is to discharge to [facility] if ready per MD at 1100 tomorrow; ; SHAN will continue to follow. Referrals were faxed and are currently being reviewed by Oscar at [facility] and Nkechi at the [facility]. Robb will transport via [facility] van, coordinated by this automobile service writer.
[2018-01-15 16:02] VITALS: BP 168/101; PULSE 68; RESP 18; TEMP 36; O2SAT 97
--- NOTE | 2018-01-15 17:04 | W.PM.PROGNOT ---
Date of service: 01/15/18 Time of Service: 17:24 Assessment and Plan (1) Alcoholism: Current visit: Yes Status: Chronic Robb relates that he has never had withdrawal symptomatology or DTs when he is not had his typical 3-4 beers a day. 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 History of fall with multiple fractures- plan is admit to Dr. Lazaro for pain control and long-term fracture management. All his fractures are appropriately splinted today. Dr. Lazaro will devise a fracture management plan. (2) Multiple fractures: Current visit: Yes Status: Acute Slow improvement in mobility. He is tolerating tapering of his IV narcotics. He has a fentanyl patch 50 mcg, I have decreased his morphine to every 6 hours as needed. Once he is on only p.o. pain meds, he will be ready for discharge. Discharge planning will be working on where he will go after discharge from the hospital. Subjective Patient reports: feels better and pain is less Exam Extrem Other: He is able to flex and extend the fingers of his right hand better today. He actually can do some active supination and pronation of his forearm. Toes of his right foot have good capillary refill and good sensation to light touch. He is able to actively flex and extend the toes of his right foot. He has been getting up from bed to chair with physical therapy. He has been able to sit for extended periods of time in the recliner. Objective Objective Clinical Data: Vital Signs Temp 36.0 C L 01/15/18 16:02 Pulse 68 01/15/18 16:02 Resp 18 01/15/18 16:02 BP 168/101 H 01/15/18 16:02 Pulse Ox 97 01/15/18 16:02 Intake & Output 01/14/18 01/15/18 01/15/18 23:59 11:59 23:59 Intake Total 850 / 850 1130 / 1130 250 / 250 Output Total 1550 / 1550 1300 / 1300 Balance -700 / -700 -170 / -170 250 / 250 Intake: IV 40 / 40 Oral 850 / 850 1090 / 1090 250 / 250 Output: Urine 1550 / 1550 1300 / 1300 Other: Urine Color Light Nadine Straw Urine Appearance Clear Clear Urine Odor Normal Normal Voiding Methods Urinal Urinal Laboratory Results WBC 9.83 k/cumm (4.4-10.8) 01/14/18 07:05 RBC 4.12 m/cumm (4.50-6.00) L 01/14/18 07:05 Hgb 13.7 g/dL (13.5-17.5) 01/14/18 07:05 Hct 41.4 % (40.0-50.0) 01/14/18 07:05 MCV 100.5 fL (80-95) H 01/14/18 07:05 MCH 33.3 pg (27.0-33.0) H 01/14/18 07:05 MCHC 33.1 g/dL (32.0-36.0) 01/14/18 07:05 RDW 13.9 % (11.8-14.1) 01/14/18 07:05 Plt Count 234 x1000/uL (130-400) 01/14/18 07:05 MPV 11.1 fL (8.0-11.0) H 01/14/18 07:05 Sodium 136 mmol/L (136-145) 01/14/18 07:05 Potassium 3.8 mmol/L (3.5-5.1) 01/14/18 07:05 Chloride 101 mmol/L (98-107) 01/14/18 07:05 Carbon Dioxide 29.8 mmol/L (21.0-32.0) 01/14/18 07:05 Anion Gap 5.2 mmol/L (3-11) 01/14/18 07:05 BUN 16 mg/dL (7-18) 01/14/18 07:05 Creatinine 0.88 mg/dL (0.70-1.30) 01/14/18 07:05 Estimated GFR/1.73 m2 >= 60.00 (mL/min/1.73m2) 01/14/18 07:05 Glucose 114 mg/dL (70-100) H 01/14/18 07:05 Calcium 8.4 mg/dL (8.5-10.1) L 01/14/18 07:05 Ethyl Alcohol 42.1 mg/dL (<3) 01/13/18 08:09
[2018-01-15] MEDS: Enoxaparin 40 MG/0.4 ML SYR SC (18:27)
[2018-01-15 19:54] VITALS: BP 164/90; PULSE 70; RESP 18; TEMP 36.5; O2SAT 98
[2018-01-16] MEDS: Ketorolac 30 MG/ML VIAL IVP ×4 (01:40→20:35)
[2018-01-16] MEDS: Normal Saline Flush 10 ML SYR IVP ×5 (01:40→20:35)
[2018-01-16 05:24] VITALS: BP 170/95; PULSE 65; RESP 20; TEMP 36.5; O2SAT 98
[2018-01-16] MEDS: oxyCODONE-CR 10 MG TABCR PO ×2 (05:47→17:22)
[2018-01-16] MEDS: Acetaminophen 325 MG TAB 650 MG PO (05:47)
[2018-01-16] MEDS: MORPHine 10 MG/ML VIAL IVP (05:47)
[2018-01-16 07:40] VITALS: BP 157/89; PULSE 66; RESP 18; TEMP 36.2; O2SAT 97
[2018-01-16] MEDS: Thiamine 100 MG TAB PO (07:48)
[2018-01-16] MEDS: Pantoprazole 40 MG TABCR PO (07:48)
[2018-01-16] MEDS: Multivitamin w/Minerals TAB 1 TAB PO (07:48)
[2018-01-16] MEDS: Atenolol 50 MG TAB PO (07:48)
[2018-01-16] MEDS: Hydrochlorothiazide 25 MG TAB PO (07:49)
[2018-01-16] MEDS: Folic Acid 1 MG TAB PO (07:49)
[2018-01-16] MEDS: Docusate Sodium 100 MG CAP PO ×2 (07:51→20:36)
--- NOTE | 2018-01-16 08:45 | CMPROGNOTE_ITS ---
- If Service Date Differs Date of service: 01/16/18 Time of Service: 08:43 Care Management Progress Note S/O: SHAN met with Robb at the bedside. He was hopeful he could be discharge today however he continues to have difficulty with pain management. Today he is trying to avoid use of IV pain medication. He states that he would like to be discharged to [facility] in the morning. SHAN spoke with [place] admission coordinator at [facility], he can accept Robb on Saturday as long as he is discharged by 11:00 with the wheelchair van. SHAN will review this plan with and have SNF paperwork in the front of patients chart. A: 52 year old male admitted to [facility] 01/13/18 for multiple fractures after a fall. P: Robb will discharge to [facility] when ready per MD. Robb has a Fentanyl patch in place, he is trying to use oral pain management for breakthrough pain. He plans to transition to [facility] on Saturday. CM will continue to follow. Robb will transport via [facility].
--- NOTE | 2018-01-16 10:31 | PT.INTREAT ---
Date of service: 01/14/18 Time of Service: 10:50 PT Notes Inpatient Physical Therapy Treatment Note Date: 01/14/18 PRECAUTIONS: Fall precautions, NWB R UE, NWB R LE SUBJECTIVE: Pt sore and tired after sitting up in wheelchair for 45min. Asking to get back to bed. OBJECTIVE: General observation: sling R UE, splint R hand, dressing/splint R ankle PAIN: 8/10 right side Bed Mobility/Transfers: Sit-stand: CGA with no device Wheelchair-bed: transferring to left side, CGA stand pivot transfer bed to wheelchair Stand-sit: CGA Sit-supine: HOB flat, supervision. Pt positioned with R LE elevated on 2 pillows and pillow supporting R UE Gait: unable- due to inability to weight bear with right upper or lower extremity. Balance: Static Sitting: normal Dynamic Sitting: normal Static Standing: poor Dynamic Standing: poor ASSESSMENT: Pt able to transfer to/from wheelchair this morning with one person assist, up in wheelchair with R LE elevated x 45 min. Pain increased today compared to yesterday. See evaluation for dicharge needs/recommendations. PLAN: Progress transfers TREATMENT CODE/TIME: 10min TAx1 10:15
[2018-01-16 11:20] VITALS: BP 136/81; PULSE 58; RESP 18; TEMP 36.1; O2SAT 95
--- NOTE | 2018-01-16 13:16 | IN_ITS ---
Date of service: 01/14/18 Time of Service: 09:30 PT Notes Inpatient Physical Therapy Evaluation Date: 01/14/18 Referring Doctor: Paul Lazaro PT Orders: PT CONSULT: multiple fractures, mobilize bed to chair. NWB on R Precautions: NWB R UE, NWB R LE, Fall precautions Patient Profile/Admitting Diagnosis: Pt is a 52yr old male who fell down stairs and sustained right ankle non displaced medial malleolus fracture, comminuted right calcaneal fracture, right wrist non displaced scaphoid fracture, right non displaced radial head fracture PMHX: pelvic fractures x5, alcohol abuse, right 5th toe amputations, gout, sarcoidosis s/p splenectomy, hernia repair, bilateral knee arthroscopies Social History/Home Situation: Lives in a home that has one step no railings to enter, one step into living room, one step into other room downstairs and flight of 12 steps to upstairs bedroom. Home is not one level on either story. Baseline mobility is independent gait with no device, independent with ADLS. Equipment Owned/DME: none Subjective: Pt lying on gurney bed, states he is more sore today than he was yesterday. Agreeable to PT consult. States he doesn't know where he is going to go when he leaves, he can't manage in home setting because it is not one level and he is going to need to be wheelchair dependent x6-8weeks until he can begin weight bearing on his right uppper or lower extermity. Pt is very concerned about discharge planning, he is open to going to a rehab facility if needed until he can be more mobile. Objective: General Observation: IV L UE. sling R UE, right wrist splint, right ankle splint and dressing Mental Status: A& O x3 Pain: 5/10 pain all over, RN provided pain medication ROM: Right Upper Extremity: NT due to fractures Left Upper Extremity: AROM WNL Right Lower Extremity: AROM hip and knee WNL, ankle NT due to splint Left Lower Extremity: AROM WNL Strength: Right Upper Extremity: NT Left Upper Extremity: 5/5 throughout Right Lower Extremity: NT Left Lower Extremity: 5/5 throughout Bed Mobility/Transfers: Supine-sit: HOB 35 degrees, minAx1 to assist trunk to sitting due to inability to use right arm to assist with transfer Sit-stand: CGA with no device Bed-wheelchair: transferring to left side, CGA stand pivot transfer bed to wheelchair Stand-sit: CGA Pt positioned in wheelchair with R LE elevated, R UE in sling and supported with pillow under elbow Gait: unable- due to inability to weight bear with right upper or lower extremity. Balance: Static Sitting: normal Dynamic Sitting: normal Static Standing: poor Dynamic Standing: poor Special Tests: Mobility Limitations Standardized Measure [facility] 6 clicks Basic Mobility Inpatient Short Form: Raw Score: 13 Standardized Score: 36.74 CMS Score: 64.91% CMS Modifier: CL Informed Consent/Education: Patient instructed in purpose of PT consult and plan of care. Assessment: Pt is a 52yr old male who fell down stairs and sustained right ankle non displaced medial malleolus fracture, comminuted right calcaneal fracture, right wrist non displaced scaphoid fracture, right non displaced radial head fracture in setting of pelvic fractures x5, alcohol abuse, right 5th toe amputations. Patient presents with clinical signs and symptoms consistent with diagnosis, as demonstrated by the following impairment level findings: pain in right upper and lower extremities with all movement, decreased ability to transfer out of bed due to inability to use right UE, decreased static and dynamic standing balance due to NWB status R LE, unable to perform gait mobility due to NWB status R UE & LE requiring him to perform stand pivot transfers on left leg bed to wheelchair, wheelchair to toilet etc., inability to self propel wheelchair for mobility due to inability to use R UE due to multiple fractures. Pt was able to perform bed to wheelchair transfers with one person assist at this time. He will benefit from continued PT for transfer training to/from wheelchair and for bed mobility. Pt will be wheelchair dependent x 6-8 weeks until fractures heal and clears for weight bearing in right UE or LE. Discharge planning is a challenge, as patient has 1 step to enter this home and single steps between living areas on the first floor, making him unable to mobilize in wheelchair on first level of home setting, he also has a bedroom on the second floor of home and he is unable to do stairs at this time. He will require discharge to a single level home and will require assistance with wheelchair propulsion, ADLS, meals etc. If family or friend single level home is unavailable to accommodate these needs , he would benefit from transfer to a nursing home care facility x 6-8 weeks until he can become weight bearing with R UE or LE. Pt will require a wheelchair with removable arms and elevating leg rests at discharge for his primary mode of mobility. He will be homebound. He will also require a 3 in 1 commode for toileting to stay on single level of home and tub bench is recommended for bathing unless he plans to sponge bath only. Impairments are contributing to the following functional limitations: AMPAC score CMS Score: 64.91% Patient is assessed as a *Moderate 27618 complexity based on the following: History: see above Examination: R elbow, R wrist, R ankle, functional limitations listed above Presentation: evolving Decision Making: AMPAC score CMS Score: 64.91% Goals: Goals X1 week 1. Supine-Sit independent 2. Sit-Supine independent 3. Sit-Stand SBA no device 4. Stand-Sit SBA 5. Bed-Chair SBA no device 6. Chair-Bed SBA no device 7. Gait: not a goal Plan of Care/Treatment Plan: 1-2x/day, 7 days/week x 1 week. Plan of care has been reviewed with the CHILD CARE SPECIALIST providing the service under Physical Therapy direction. Initiate Physical Therapy intervention for strengthening, bed mobility, transfers, gait, stairs, balance training, use of assistive device. DISCHARGE RECOMMENDATIONS: Home to family or friend with single level home or transfer to intermediate project manager care facility for 6-8weeks DME: will require standard wheelchair with removable arms and elevating leg rests, 3 in 1 commode and tub transfer bench TREATMENT CODE/TIME: 25min IE 9:35 G Codes in the area mobility of walking and moving around: current status [id number] CL; projected status GP [id number]. Discharge status (if discharging) GP [id number] based on AMPAC score CMS Score: 64.91% Shelley Capone PT
--- NOTE | 2018-01-16 14:47 | PGE_ITS ---
Date of service: 01/16/18 Time of Service: 14:47 Assessment and Plan (1) Multiple fractures: Current visit: Yes Status: Acute Robb is making progress in terms of decreased opioid use to treat the pain from his multiple fractures. Arrangements have been made for him to go to the [facility] tomorrow at 10 AM[facility] Subjective Patient reports: feels better Interval history since last seen: Robb said he had 1 dose of morphine this morning and he has been able to go all day without further IV narcotics. Exam Extrem Other: No change from yesterday. Objective Objective Clinical Data: Vital Signs Temp 36.1 C L 01/16/18 11:20 Pulse 58 L 01/16/18 11:20 Resp 18 01/16/18 11:20 BP 136/81 01/16/18 11:20 Pulse Ox 95 01/16/18 11:20 Intake & Output 01/15/18 01/16/18 01/16/18 23:59 11:59 23:59 Intake Total 520 / 520 480 / 480 780 / 780 Output Total 1400 / 1400 450 / 450 700 / 700 Balance -880 / -880 30 / 30 80 / 80 Intake: IV 30 / 30 10 / 10 Oral 490 / 490 470 / 470 780 / 780 Output: Urine 1400 / 1400 450 / 450 700 / 700 Other: Urine Color Yellow Yellow Light Nadine Urine Appearance Clear Clear Clear Urine Odor None Normal Normal Voiding Methods Urinal Urinal Urinal Laboratory Results WBC 9.83 k/cumm (4.4-10.8) 01/14/18 07:05 RBC 4.12 m/cumm (4.50-6.00) L 01/14/18 07:05 Hgb 13.7 g/dL (13.5-17.5) 01/14/18 07:05 Hct 41.4 % (40.0-50.0) 01/14/18 07:05 MCV 100.5 fL (80-95) H 01/14/18 07:05 MCH 33.3 pg (27.0-33.0) H 01/14/18 07:05 MCHC 33.1 g/dL (32.0-36.0) 01/14/18 07:05 RDW 13.9 % (11.8-14.1) 01/14/18 07:05 Plt Count 234 x1000/uL (130-400) 01/14/18 07:05 MPV 11.1 fL (8.0-11.0) H 01/14/18 07:05 Sodium 136 mmol/L (136-145) 01/14/18 07:05 Potassium 3.8 mmol/L (3.5-5.1) 01/14/18 07:05 Chloride 101 mmol/L (98-107) 01/14/18 07:05 Carbon Dioxide 29.8 mmol/L (21.0-32.0) 01/14/18 07:05 Anion Gap 5.2 mmol/L (3-11) 01/14/18 07:05 BUN 16 mg/dL (7-18) 01/14/18 07:05 Creatinine 0.88 mg/dL (0.70-1.30) 01/14/18 07:05 Estimated GFR/1.73 m2 >= 60.00 (mL/min/1.73m2) 01/14/18 07:05 Glucose 114 mg/dL (70-100) H 01/14/18 07:05 Calcium 8.4 mg/dL (8.5-10.1) L 01/14/18 07:05 Ethyl Alcohol 42.1 mg/dL (<3) 01/13/18 08:09
[2018-01-16] MEDS: oxyCODONE 5 mg/Acetaminophen 325 mg TAB 1 TAB PO ×2 (15:42→20:36)
[2018-01-16 16:03] VITALS: BP 159/71; PULSE 67; RESP 18; TEMP 36.4; O2SAT 99
[2018-01-16] MEDS: Enoxaparin 40 MG/0.4 ML SYR SC (17:22)
[2018-01-16 20:00] VITALS: BP 179/108; PULSE 74; RESP 18; TEMP 37; O2SAT 96
[2018-01-17 01:00] VITALS: BP 178/111; PULSE 68; TEMP 36.9; O2SAT 97
[2018-01-17] MEDS: oxyCODONE 5 mg/Acetaminophen 325 mg TAB 1 TAB PO ×3 (01:30→10:05)
[2018-01-17] MEDS: Ketorolac 30 MG/ML VIAL IVP ×2 (01:30→07:51)
[2018-01-17 04:31] VITALS: BP 189/115; PULSE 64; RESP 16; TEMP 35.5; O2SAT 98
[2018-01-17] MEDS: oxyCODONE-CR 10 MG TABCR PO (05:58)
[2018-01-17] MEDS: Normal Saline Flush 10 ML SYR IVP (07:50)
[2018-01-17 08:06] VITALS: BP 172/99; PULSE 61; RESP 18; TEMP 36.7; O2SAT 95
[2018-01-17] MEDS: Thiamine 100 MG TAB PO (08:41)
[2018-01-17] MEDS: Multivitamin w/Minerals TAB 1 TAB PO (08:42)
[2018-01-17] MEDS: Pantoprazole 40 MG TABCR PO (08:42)
[2018-01-17] MEDS: Folic Acid 1 MG TAB PO (08:42)
[2018-01-17] MEDS: Hydrochlorothiazide 25 MG TAB PO (08:42)
[2018-01-17] MEDS: Atenolol 50 MG TAB PO (08:42)
[2018-01-17] MEDS: Docusate Sodium 100 MG CAP PO (08:49)
--- NOTE | 2018-01-17 09:21 | W.PM.DS.N ---
Date of service: 01/17/18 Time of Service: 09:23 DS: Diagnosis Discharge Diagnosis (1) Multiple fractures: Status: Acute Discharge Plan Disposition Patient Disposition: SNF (LEVEL 1) TH & REHAB Condition: Stable Discharge Details Reason For Visit: R WRIST/R RADIAL HEAD/R ANKLE,FOOT FRACTURE,AMBULA Admit Date/Time: 01/13/18 13:22 Admit Provider: Paul Lazaro Attending Provider: Paul Lazaro Primary Care Provider: Sharon Sanabria [facility]pt[facility] Course Hospital Course: The patient had a [place] compressive dressing and a short leg posterior fiberglass splint applied to his right lower extremity to splint his calcaneal fracture in his medial malleolus fracture. He had a commercial short arm thumb spica splint applied to his right wrist to splint his scaphoid fracture. He had a sling applied to his right upper extremity to splint his radial head fracture. Multi modal pain measures were instituted to control the pain from his multiple fractures. He was mobilized bed to chair with physical therapy. His pain came under control so that he no longer required IV narcotics. He was mobilized to the point where he could transfer from bed to chair with minimal assist. Discharge planning was consulted. After discussion with the patient, we felt he would best be served by transfer to a long term facility for further rehab until he was able to bear weight on his right lower extremity. I felt he would be able to begin weightbearing at approximately 6 weeks post injury. He was discharged to the [facility] having achieved all acute care goals on 01/17/2018. Home Meds and New Rx's Prescriptions: New celecoxib [Celebrex] 200 mg capsule 200 mg PO BID Qty: 60 RF: 0 fentanyl 50 mcg/hr patch 72 hour 1 patch TD Q72H Qty: 5 RF: 0 hydrocodone-acetaminophen 5-325 mg tablet 1 - 2 tab PO Q6H PRN (Reason: pain) Qty: 30 RF: 0 Continue atenolol 50 MG tablet 50 mg PO DAILY RF: 0 hydrochlorothiazide 25 MG tablet 25 mg PO DAILY RF: 0 Discontinued ibuprofen [Ibuprofen IB] 200 MG tablet 400 mg PO Q4H PRN PRNRF: 0 Discharge Instructions Additional Instructions: He should elevate his right ankle when sitting. He will continue non-weightbearing on the right. He may pivot transfer from bed to chair. Should try to sit in the chair 3-4 times a day for as long as he can tolerate. He may remove the sling and perform gentle range of motion exercises to his right elbow as pain allows. He needs to keep his thumb spica splint on at all times. I plan to apply a short arm thumb spica cast to replace the short arm splint in a couple of weeks. Should follow-up in Dr. Lazaro's office in 10-14 days. Care Plan Goals: Goal is to eventually be independently ambulatory, so he can go home. Activity:: described above Equipment/Supplies:: No Equipment Needed Diet:: normal Discharge Orders Discharge Orders: Discharge Order (Routine); Ordered 01/17/18 Ordered By: Paul Lazaro DS: Data Vitals/I&O Vitals and I&O: Vital Signs Temp 36.7 C 01/17/18 08:06 Pulse 61 01/17/18 08:06 Resp 18 01/17/18 08:06 BP 172/99 H 01/17/18 08:06 Pulse Ox 95 01/17/18 08:06 Intake & Output 01/16/18 01/16/18 01/17/18 11:59 23:59 11:59 Intake Total 480 / 480 1140 / 1140 860 / 860 Output Total 450 / 450 700 / 700 1500 / 1500 Balance 30 / 30 440 / 440 -640 / -640 Intake: IV Oral 470 / 470 1140 / 1140 850 / 850 Output: Urine 450 / 450 700 / 700 1500 / 1500 Other: Urine Color Yellow Light Nadine Yellow Urine Appearance Clear Clear Clear Urine Odor Normal Normal Normal Stool Size Large Stool Characteristics Formed Voiding Methods Urinal Urinal Urinal
--- NOTE | 2018-01-17 10:08 | CMDISCH_ITS ---
LACE Index Scoring Tool - Questions: Length of Stay (in days): 4 - 6 Acuity (Admit via E.D.?): Yes E.D. Visits: 1 - Answers: Total Score: 8 Risk of Readmission: Low Risk Care Management Discharge Reason for Hospitalization: R Wrist/R radial Head/R Ankle, Foot Fracture Discharge Plan: [facility] MD. He will transport via the rehab's W/C van. The facility will manage his further service and equipment needs. Patient/Family Education Needs: Review discharge instructions, insurance coverage considerations for SNF stay; transition process. Services Needed at Discharge: [facility]
[2018-03-04] MEDS: Normal Saline Flush 10 ML SYR IVP (14:03)
== END 2018-01-17 10:25 | disposition skilled nursing facility (03) | DRG 563 ==
LOC: ER 11:06 → MS 12:34
PROVIDERS: Admitting Provider Orthopaedic Surgery; Emergency Provider Physician Assistant; PCP Family Medicine; Visit Provider Orthopaedic Surgery
DX: S92.041A Displaced other fracture of tuberosity of right calcaneus, initial encounter for closed fracture (principal); S82.54XA Nondisplaced fracture of medial malleolus of right tibia, initial encounter for closed fracture; S62.001A Unspecified fracture of navicular [scaphoid] bone of right wrist, initial encounter for closed fracture; S52.124A Nondisplaced fracture of head of right radius, initial encounter for closed fracture; W10.9XXA Fall (on) (from) unspecified stairs and steps, initial encounter; Y90.2 Blood alcohol level of 40-59 mg/100 ml; F10.20 Alcohol dependence, uncomplicated
CPT/HCPCS: 24650; 25622; 27760; 28400; 36415; 80048; 85027; 97162; 97530; 99232; 99233; 99239; 99285; J1650; 72170; 73080; 73090; 73110; 73610; 80320; 99283; G8978; J1885; J2270; J7042; L3650; L3908

== ENCOUNTER 2018-01-18 12:27 | Emergency (ER) | payer MEDICARE, SELFPAY ==
[2018-01-18] VITALS (45 sets, daily range): BP systolic 152–198; BP diastolic 93–126; PULSE 58–74; RESP 11–21; TEMP 36.6; O2SAT 89–97
--- NOTE | 2018-01-18 12:55 | ED.GENADUL_ITS ---
Discharge Plan Disposition Patient Disposition: SNF (LEVEL 1) [facility] Condition: Improving Discharge Details Chief Complaint: Chest Pain Clinical Impression: Hypertension, Chest pain, Elevated LFTs Reason For Visit: XAVIER Primary Care Provider: Sharon Sanabria V ED Provider: Jong Dyson Home Meds and New Rx's Prescriptions: New lisinopril 10 mg tablet 10 mg PO DAILY Qty: 30 RF: 0 Continue atenolol 50 MG tablet 50 mg PO DAILY RF: 0 hydrochlorothiazide 25 MG tablet 25 mg PO DAILY RF: 0 celecoxib [Celebrex] 200 mg capsule 200 mg PO BID Qty: 60 RF: 0 fentanyl 50 mcg/hr patch 72 hour 1 patch TD Q72H Qty: 5 RF: 0 hydrocodone-acetaminophen 5-325 mg tablet 1 - 2 tab PO Q6H PRN (Reason: pain) Qty: 30 RF: 0 aspirin [Aspirin Low Dose] 81 mg Tablet,Delayed Release (Dr/Ec) 81 mg PO BID RF: 0 acetaminophen [Tylenol Extra Strength] 500 mg Tablet 500 mg PO Q8H PRN PRNRF: 0 magnesium hydroxide [Milk of Magnesia] 400 mg/5 mL Suspension 30 ml PO DAILY PRNRF: 0 bisacodyl 10 mg Suppository 10 mg [place] DAILY PRNRF: 0 docusate sodium [Colace] 100 mg Capsule 100 mg PO TID RF: 0 atenolol 50 mg Tablet 50 mg PO ONCE RF: 0 Discontinued sodium phosphates [Fleet Enema] 19-7 gram/118 mL Enema 118 ml W[place] DIRECTED RF: 0 Discharge Instructions Instructions: Chest Pain (ED), Hypertension (ED) Additional Instructions: Please follow-up with your primary treating provider. Be sure to discuss your elevated blood pressure. I have restarted your lisinopril today. Your next dose will be tomorrow. Be sure to discuss continued dosing with your doctor. You were seen today for chest pain. Blood testing and ECG testing were nondiagnostic. It is recommended that you have a stress test to be performed as soon as possible and ideally within the next 72 hours in the outpatient setting --discussed this with your doctor. Blood testing revealed elevation of your liver function test. Be sure to discuss this with your doctor as additional diagnostic testing may be necessary. Return to the ER should you have any worsening or new concerning symptoms. Medical Decision Making MDM Narrative Medical decision making narrative: 12:55 --52-year-old male with HTN here from rehab facility, recent fracture with current immobilization right ankle, decreased mobility, who is experiencing mild left chest pain described as an ache over the past few hours and also with elevated blood pressure. Patient also experienced sharp brief left lower lateral chest pain with deep inspiration. Hypertensive. Consider pulmonary embolism versus less likely aortic dissection. Consider ACS. ECG nondiagnostic. Plan to check troponin. Will obtain CTA of the chest. 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 No other significant focal consolidation. No pleural effusion. No pneumothorax. Old granulomatous disease with calcified hilar and mediastinal lymph nodes. No acute mediastinal or aortic abnormality. Labs reviewed and initial trop negative. Mild elevation of LFTs -unclear etiology. Patient reassessed and notes pain completely resolved spontaneously. Remains hypertensive 190s/110s. Patient took his prescribed hydrochlorothiazide 25 mg this a.m. as well as atenolol 50 mg an additional 50 mg later in the morning. -- Plan to treat with lisinopril as previously prescribed. 16:30 --second troponin reviewed: Negative and unchanged from prior. 16:52--Repeat ECG reviewed and interpreted by me: Sinus rhythm, 65 bpm, normal axis, V1 is change compared to prior EKG and now exhibits an inverted p wave, more dominant S wave, and T-wave inversion -I suspect this is related to lead placement and there are no other changes noted on ECG. 17:04 -- A 3rd ecg was performed and without significant change noted. Patient reassessed and remains asymptomatic at this time. No CP. BP improved. Plan to discharge patient back to rehab facility. Given risk factors for ACS, patient should have outpatient stress testing arranged as soon as possible and ideally within the next 72 hours. ECG Data Attestation: I personally reviewed and interpreted this ECG (s) as follows: (62 bpm, normal axis, no STEMI, nondiagnostic) HPI - General Adult General Date/Time Provider Initiated Documentation: 01/18/18 12:35 . History of Present Illness 52 year old M presents to the emergency department with the chief complaint of chest pain, described as mild, with intensity rated at 1. Quality is described as aching, and is localized to the chest (left anterior). Patient reports no radiation. Patient started experiencing this hour(s) (3) and it has been intermittent. No relieving factors improve symptom(s), No exacerbating factors reported . Patient notes no other symptoms.. Patient did receive the following treatments prior to arrival, none HPI Narrative: Patient recently treated for ankle fracture after fall, currently immobilized, and just transferred to rehab facility. Patient notes that his blood pressure has been elevated today despite taking antihypertensives as administered at residential - HCTZ and atenolol. Patient notes that he used to be on lisinopril and that he has not had this recently. Is unsure why this has not yet been prescribed for him. He has medication at home but has not been taking while hospitalized. He notes he has never had any adverse reaction to lisinopril. Related Data Home Medications Medication Instructions Recorded Confirmed atenolol 50 mg PO DAILY 07/13/12 01/18/18 hydrochlorothiazide 25 mg PO DAILY 01/15/13 01/18/18 acetaminophen [Tylenol Extra 500 mg PO Q8H PRN PRN 01/18/18 01/18/18 Strength] aspirin [Aspirin Low Dose] 81 mg PO BID 01/18/18 01/18/18 atenolol 50 mg PO ONCE 01/18/18 01/18/18 bisacodyl 10 mg [place] DAILY PRN 01/18/18 01/18/18 docusate sodium [Colace] 100 mg PO TID 01/18/18 01/18/18 magnesium hydroxide [Milk of 30 ml PO DAILY PRN 01/18/18 01/18/18 Magnesia] Previous Rx's Medication Instructions Recorded celecoxib [Celebrex] 200 mg PO BID #60 cap 01/17/18 fentanyl 1 patch TD Q72H #5 each 01/17/18 hydrocodone-acetaminophen 1 - 2 tab PO Q6H PRN #30 tab 01/17/18 lisinopril 10 mg PO DAILY #30 tab 01/18/18 Allergies Allergy/AdvReac Type Severity Reaction Status Date / Time No Known Allergies Allergy Unverified 01/18/18 12:41 General Stated Complaint: Chest Pain KALLI: 3 Review of Systems Review of Systems All systems reviewed & are unremarkable except as noted in HPI and below Cardiovascular Reports as per HPI, Reports chest pain at rest, Denies syncope, Denies rapid heart rate, Denies irregular heart rhythm and Denies dyspnea Respiratory Denies dyspnea Neurologic Denies syncope Exam Const General: cooperative, no acute distress and well developed Nutritional Appearance: well nourished Orientation: alert and awake [facility] Mouth: moist mucous membranes Eyes Conjunctivae: conjunctivae normal EOM: EOM intact bilaterally Neck Neck: no JVD Chest Chest: normal inspection of the chest Resp Effort & Inspection: normal respiratory effort and no tracheal deviation Auscultation: clear to auscultation bilaterally Other: Pain with deep inspiration, sharp and localized to left lower lateral chest Cardio Jugular venous pressure: no JVD Rate: regular rate Rhythm: regular rhythm Heart Sounds: S1 normal and S2 normal Skin General skin exam: dry skin Neuro General: alert and awake Speech: speech normal Extrem General: other (Distal right leg splinted, swelling of the foot) Course Vital Signs Temperature 36.6 C 01/18/18 12:30 Pulse 65 01/18/18 12:30 Respiratory Rate 20 01/18/18 12:30 Blood Pressure 198/97 H 01/18/18 12:30 Pulse Oximetry 96 01/18/18 12:30 Temperature 36.6 C 01/18/18 12:30 Pulse 65 01/18/18 12:30 Respiratory Rate 16 01/18/18 12:34 Blood Pressure 198/97 H 01/18/18 12:30 Pulse Oximetry 96 01/18/18 12:30
[2018-01-18 13:02] LABS: Abs Immature Grans 0.03 k/cumm (0.0-0.09); Absolute Basophil Count 0.02 k/cumm (0.0-0.2); Absolute Eosinophil Count 0.12 k/cumm (0.0-0.7); Absolute Lymphocyte Count 2.37 k/cumm (1.2-3.4); Absolute Monocyte Count 1.04 k/cumm (0.11-0.7); Basophils % 0.2; Eosinophils % 1.2; HCT 42.5 % (40.0-50.0); HGB 14.3 g/dL (13.5-17.5); Immature Grans % 0.3; Lymphocytes % 23.1; Mean Corp. HGB Concentration 33.6 g/dL (32.0-36.0); Mean Corpuscular Hemoglobin 33.3 pg (27.0-33.0); Mean Corpuscular Volume 99.1 fL (80-95); Mean Platelet Volume 10.6 fL (8.0-11.0); Monocytes % 10.1; Neutrophils % 65.1; Platelet Count 315 x1000/uL (130-400); RBC 4.29 m/cumm (4.50-6.00); RBC Distribution Width 13.3 % (11.8-14.1); White Blood Cell Count 10.28 k/cumm (4.4-10.8)
[2018-01-18 13:19] LABS: ALT 100 U/L (12-78); AST 76 U/L (15-37); Albumin 3.4 g/dL (3.4-5.0); Alkaline Phosphatase 177 U/L (46-116); Anion Gap 6.8 mmol/L (3-11); BUN 15 mg/dL (7-18); Bilirubin, Total 0.7 mg/dL (0.2-1.0); CO2 32.2 mmol/L (21.0-32.0); CREATININE 0.99 mg/dL (0.70-1.30); Calcium 9.2 mg/dL (8.5-10.1); Chloride 100 mmol/L (98-107); Glucose 104 mg/dL (70-100); Sodium 139 mmol/L (136-145); Total Protein 8.3 g/dL (6.4-8.2); Troponin I 0.02 ng/mL (0.00-0.06)
[2018-01-18] MEDS: Omnipaque 350 MG/ML 100 ML BTL IJ (13:42)
--- NOTE | 2018-01-18 13:45 | DI.CT_ITS ---
SYMPTOM/DIAGNOSIS: LT CHEST PAIN, RECENT ORTHO FX, HYPERTENSION PE CHEST CT: CT angiography was performed with multi slice acquisition and multi planar and 3D reconstruction. PE CT was performed. The thoracic aorta is of normal caliber without aneurysmal dissection. There is no evidence of a pulmonary embolus. Heart size is within normal limits. No significant pericardial effusion. No findings to suggest right ventricular dysfunction is present. Coronary artery calcifications are seen. Calcified lymph nodes are seen in the mediastinum suggesting prior granulomatous disease. No significant pathologic adenopathy is present. No pleural effusion or pneumothorax is identified. There is diffuse interstitial prominence which is likely chronic suggesting interstitial fibrosis. There do appear to be ground glass opacities scattered throughout the lungs, probably chronic. No focal consolidating infiltrates are seen. The bones are intact. Degenerative changes are seen in the spine. IMPRESSION: 1. No evidence of pulmonary embolus, thoracic aortic aneurysm or dissection. 2. Diffuse interstitial disease, likely chronic.
--- NOTE | 2018-01-18 13:57 | DI.VRAD_ITS ---
EXAM: CT Angiography Chest With Intravenous Contrast CLINICAL HISTORY: 52 years old, male; Pain; Chest pain; Left-sided chest pain; Patient HX: Chest pain left sided, recent ortho FX, hypertension. ; Additional info: Suboptimal images due to patient unable to raise right arm above head to reduce artifact from arm, due to elbow FX. TECHNIQUE: Axial computed tomographic angiography images of the chest with intravenous contrast using pulmonary embolism protocol. All CT scans at this facility use at least one of these dose optimization techniques: automated exposure control; mA and/or kV adjustment per patient size (includes targeted exams where dose is matched to clinical indication); or iterative reconstruction. MIP reconstructed images were created and reviewed. Coronal and sagittal reformatted images were created and reviewed. COMPARISON: CT - CHEST WITH CONTRAST 03/20/2011 5:18 PM FINDINGS: No evidence of PE. Marked diffuse interstitial lung disease most keeping with interstitial fibrosis with some areas of groundglass opacity suggesting a superimposed alveolitis more likely chronic than acute. No other significant focal consolidation. No pleural effusion. No pneumothorax. Old granulomatous disease with calcified hilar and mediastinal lymph nodes. Unremarkable upper abdomen. No acute mediastinal or aortic abnormality. IMPRESSION: Marked diffuse interstitial lung disease as outlined above. No specific etiology identified for the patient's symptoms. Dictated and Authenticated by: Nadeem Padilla MD. Ordering:RAFA GIL MD
[2018-01-18] MEDS: Lisinopril 10 MG TAB PO (14:58)
[2018-01-18 16:13] LABS: Troponin I < 0.02 ng/mL (0.00-0.06)
== END 2018-01-18 17:04 | disposition skilled nursing facility (03) ==
PROVIDERS: Emergency Provider Student in an Organized Health Care Education/Training Program; PCP Family Medicine
DX: R07.9 Chest pain, unspecified (principal); R74.8 Abnormal levels of other serum enzymes; I10 Essential (primary) hypertension
CPT/HCPCS: 36415; 71275; 80053; 93005; 99285; 83735; 84484; 85025; 93010; 99284; J3490

== ENCOUNTER 2018-02-27 09:14 | Outpatient (CLI) | payer MEDICARE, SELFPAY ==
--- NOTE | 2018-02-27 09:06 | DI.RAD_ITS ---
SYMPTOM/DIAGNOSIS: F/U CALCANEAL FX, F/U NAVICULAR FX RIGHT FOOT: Two views were obtained and show the previously described comminuted calcaneal fracture with little overall change in alignment of fracture fragments allowing for differences in projection in comparison with examination of 01/28/18. RIGHT WRIST: Two views were obtained. The patient had a previously described nondisplaced fracture of the navicular. Allowing for differences in projection, there is little interval change in alignment in comparison with examination of 01/13/18 but I would note that with only two views, a full assessment of alignment is suboptimal.
== END 2018-02-27 09:34 ==
PROVIDERS: PCP Family Medicine; Referring Provider Family Medicine; Visit Provider Orthopaedic Surgery
DX: S52.124D Nondisplaced fracture of head of right radius, subsequent encounter for closed fracture with routine healing (principal); S92.011D Displaced fracture of body of right calcaneus, subsequent encounter for fracture with routine healing; W10.8XXD Fall (on) (from) other stairs and steps, subsequent encounter
CPT/HCPCS: 99213; 73100; 73620; L3908

== ENCOUNTER 2018-03-26 10:39 | Outpatient (CLI) | payer MEDICARE, SELFPAY ==
--- NOTE | 2018-03-26 10:25 | DI.RAD_ITS ---
SYMPTOM/DIAGNOSIS: F/U CALCANEAL FX, F/U SCAPHOID FX RIGHT WRIST: A single view of the wrist was obtained and shows no gross interval change in alignment of navicular fracture fragments in comparison with examination of . RIGHT FOOT: Two views were obtained and show a previously noted comminuted calcaneal fracture with no gross interval change in alignment of fracture fragments in comparison with examination of 02/27.
== END 2018-03-26 10:59 ==
PROVIDERS: PCP Family Medicine; Referring Provider Family Medicine; Visit Provider Orthopaedic Surgery
DX: S52.124D Nondisplaced fracture of head of right radius, subsequent encounter for closed fracture with routine healing (principal); S92.041D Displaced other fracture of tuberosity of right calcaneus, subsequent encounter for fracture with routine healing; S82.54XD Nondisplaced fracture of medial malleolus of right tibia, subsequent encounter for closed fracture with routine healing; S62.001D Unspecified fracture of navicular [scaphoid] bone of right wrist, subsequent encounter for fracture with routine healing; W10.9XXD Fall (on) (from) unspecified stairs and steps, subsequent encounter
CPT/HCPCS: 99213; 73100; 73620

== ENCOUNTER 2018-04-23 10:29 | Outpatient (CLI) | payer MEDICARE, SELFPAY ==
--- NOTE | 2018-04-23 10:02 | DI.RAD_ITS ---
SYMPTOMS/DIAGNOSIS: F/U FX RIGHT HEEL: Lateral and Pena projections were obtained. A heeling comminuted fracture of the calcaneus is demonstrated. The fracture line entering the talocalcaneal joint. There has been no significant overall interval change in the alignment of the fracture when compared with the prior study of 01/13/18.
== END 2018-04-23 10:49 ==
PROVIDERS: PCP Family Medicine; Visit Provider Orthopaedic Surgery
DX: S92.041D Displaced other fracture of tuberosity of right calcaneus, subsequent encounter for fracture with routine healing (principal); S52.124D Nondisplaced fracture of head of right radius, subsequent encounter for closed fracture with routine healing; S82.54XD Nondisplaced fracture of medial malleolus of right tibia, subsequent encounter for closed fracture with routine healing; S62.001D Unspecified fracture of navicular [scaphoid] bone of right wrist, subsequent encounter for fracture with routine healing; W10.9XXD Fall (on) (from) unspecified stairs and steps, subsequent encounter
CPT/HCPCS: 99213; 99214; 73650; L1902

== ENCOUNTER 2018-09-01 07:28 | Emergency (ER) | payer MEDICARE, SELFPAY ==
[2018-09-01 07:37] VITALS: BP 168/96; PULSE 84; RESP 18; TEMP 36.5; O2SAT 93
--- NOTE | 2018-09-01 07:49 | W.ED.GENAD ---
Discharge Plan Disposition Patient Disposition: HOME Condition: Stable Discharge Details Chief Complaint: Orthopedic Clinical Impression: Ankle pain Primary Care Provider: Sharon Sanabria V ED Provider: Christina Dyson Home Meds and New Rx's Prescriptions: Continued hydrochlorothiazide 25 MG tablet 25 mg PO DAILY RF: 0 aspirin [Aspirin Low Dose] 81 mg Tablet,Delayed Release (Dr/Ec) 81 mg PO BID RF: 0 acetaminophen [Tylenol Extra Strength] 500 mg Tablet 1,000 mg PO Q8H PRN PRNRF: 0 atenolol 50 mg Tablet 50 mg PO ONCE RF: 0 lisinopril 10 mg tablet 10 mg PO DAILY Qty: 30 RF: 0 Discharge Instructions Instructions: Achilles Tendinitis (ED), Arthralgia (ED), Swollen Joint (ED) Additional Instructions: Please return immediately to the emergency department if you develop any new or worsening symptoms or if you become otherwise concerned. It is extremely important to make an appointment to see him soon as possible by your primary care doctor and also by an orthopedic surgeon. Referrals: Sharon Sanabria MD [Primary Care Provider] - Noah Reardon MD [ [facility] STAFF PHYSICIAN] - Discharge Data Discharge Date/Time-TO BE ENTERED AT DEPARTURE: 09/01/18 18:40 Medical Decision Making Robbyeimi Anton is a 53 y/o man with h/o HTN, gout, alcoholism, sarcoidosis presenting to the emergency department with acute on chronic right ankle pain, swelling with increased use yesterday but no known trauma, no other joint or MSK pain. On exam Pt is well and non-toxic appearing, Pt with right ankle edema, diffuse TTP of the ankle worst over the achilles, plantar/dorsiflexion intact, RLE NVI. Concern for migration of hardware, occult fx, tendonitis, less likely gout. Doubt DVT. Exam/hx not c/w septic joint, sepsis, cellulitis, other acute emergent life/limb threatening process. Plan for xray foot and ankle, US. Pt declines pain meds. xrays, US okay. Plan for walking boot, ibuprofen, weight bearing as tolerated, outpt ortho f/u. Pt states he has crutches at home. Lengthy discussion with the Pt re: RTED precautions, importance of outpt f/u, home care. Pt was d/natalya to home with clear plan for outpt f/u. Pt verbalized understanding of the plan and was amenable. All questions were answered. Medical Records Medical records reviewed: Yes I reviewed the patient's medical records. Imaging Data Radiologic Study: Attestation: I personally reviewed and interpreted this imaging study as follows: Radiologist's impression: RIGHT FOOT: Three views. Comparison is made with 03/26/18. Post surgical and post traumatic changes are seen in the right foot. No acute fracture or dislocation is seen. No suspicious lytic or sclerotic lesions are appreciated. There is mild soft tissue swelling about the foot. No radiopaque foreign bodies are seen in the soft tissues. Degenerative changes are seen in the mid foot. IMPRESSION: No acute abnormality. RIGHT ANKLE: Three views. No acute fracture, dislocation, lytic or sclerotic lesion is seen. Post surgical and post traumatic changes are seen in the hind foot and ankle. Mild soft tissue swelling is seen about the ankle. No radiopaque foreign bodies are seen in the soft tissues. IMPRESSION: No acute abnormality. RIGHT LOWER EXTREMITY ULTRASOUND: The deep veins of the right lower extremity show normal compression, augmentation and color flow. There is no evidence of a deep venous thrombus present. The saphenofemoral junction appears unremarkable. Benign appearing lymph nodes are seen in the right inguinal region. The largest measures 3.0 cm. IMPRESSION: No evidence of a right lower extremity deep venous thrombus. HPI General Mode of arrival: ambulatory. Date/Time Provider Initiated Documentation: 09/01/18 07:49. Limitations to Documentation: no limitations. Information obtained by: patient, RN notes reviewed and old records reviewed. HPI Narrative: Robb Anton is a 53 y/o man with h/o HTN, gout, sarcoidosis, alcoholism presenting to the emergency department with right ankle pain. Pt reports that he fractured his right foot in several places last summer. Also had pinning of a right ankle fracture in [place] 05/24. Pt reports that he has chronic mild to moderate pain in his right foot and ankle since sustaining these injuries. He reports that yesterday he was doing yard work, and he gradually began to have worsening pain in his ankle. When he woke up pain in his right ankle was much worse than usual. He does not recall any specific trauma or sudden change in pain level. Pain is worst at back of ankle, worse with weight bearing but has been walking/bearing weight this am. Has never had gout in his ankle or foot in the past, reports this is not like prior episodes of gout. Has been eating and drinking as usual, no recent illness, no fever, rash, other pain, weakness, numbness, tingling. Related Data Home Medications Medication Instructions Recorded Confirmed hydrochlorothiazide 25 mg PO DAILY 01/15/13 04/23/18 acetaminophen [Tylenol Extra 1,000 mg PO Q8H PRN PRN 01/18/18 09/01/18 Strength] aspirin [Aspirin Low Dose] 81 mg PO BID 01/18/18 09/01/18 atenolol 50 mg PO ONCE 01/18/18 04/23/18 lisinopril 10 mg PO DAILY #30 tab 01/18/18 04/23/18 Previous Rx's Medication Instructions Recorded lisinopril 10 mg PO DAILY #30 tab 01/18/18 Allergies Allergy/AdvReac Type Severity Reaction Status Date / Time No Known Allergies Allergy Verified 09/01/18 07:41 General Stated Complaint: Orthopedic KALLI: 4 Review of Systems Review of Systems Constitutional: denies fevers Eyes: denies eye pain ENT: denies facial pain, dental pain, sore throat Cardiovascular: denies chest pain Respiratory: denies SOB, cough GI: denies abdominal pain, vomiting, diarrhea : denies flank pain MSK: denies back pain, neck pain, reports right ankle pain and swelling Skin: denies rash Neuro: denies headaches, numbness, weakness PFSH Medical History History of multiple trauma (Chronic) Sarcoidosis (Chronic) Gout (Chronic) Hypertension (Chronic) Social History Smoking/Tobacco Use Status: Never Alcohol Intake: current Alcohol Intake frequency: 3 or more drinks per day Alcohol type: beer Details: Robb relates she has not had any withdrawal symptomatology when he is not h Drug use: Never Substance use type: does not use current occupation: [employer] [place] Do you feel safe at home: Yes Do you feel safe in your relationship?: Yes Exam Narrative Exam Narrative: Constitutional: well and [id number], pleasant, conversing normally HENT: head atraumatic/normocephalic/normal inspection, mucous membranes moist Eyes: conjunctiva normal, sclera normal, pupils 3mm b/l Neck: no stridor, normal ROM, trachea midline Resp: normal work of breathing, LCTAB Cardio: normal rate, normal rhythm, no murmur appreciated Skin: warm, dry, normal color, no rash Neuro: alert, not altered, grossly non-focal, normal tone Ext: right ankle with mild to mod edema, no erythema, TTP b/l malleoli and over achilles, foot NTTP, proximal tib/pfib NTTP, no posterior calf TTP, DP pulses intact and symmetric, brisk cap refill, pain reproduced with palpation, eversion and inversion, plantar and dorsiflexion. Worst pain with plantar/doriflexion. ROM intact. Motor 5/5, sensation intact. Normal exam of LLE. Psych: normal mood, normal affect, normal behavior Course Vital Signs Temperature 36.5 C 09/01/18 07:37 Pulse 84 09/01/18 07:37 Respiratory Rate 18 09/01/18 07:37 Blood Pressure 168/96 H 09/01/18 07:37 Pulse Oximetry 93 L 09/01/18 07:37 Temperature 36.5 C 09/01/18 07:37 Temperature Source Temporal Artery Scan 09/01/18 07:37 Pulse 84 09/01/18 07:37 Respiratory Rate 18 09/01/18 07:37 Respiratory Effort Non-Labored 09/01/18 07:40 Blood Pressure 168/96 H 09/01/18 07:37 Blood Pressure Position Supine 09/01/18 07:37 Pulse Oximetry 93 L 09/01/18 07:37 Oxygen Delivery Method Room Air 09/01/18 07:37 Oxygen Flow Rate 0 09/01/18 07:37 Pain Level 10 09/01/18 07:43
--- NOTE | 2018-09-01 07:57 | DI.RAD_ITS ---
SYMPTOM/DIAGNOSIS: H/O PREVIOUS FRACTURES, WORSENING PAIN RIGHT FOOT: Three views. Comparison is made with 03/26/18. Post surgical and post traumatic changes are seen in the right foot. No acute fracture or dislocation is seen. No suspicious lytic or sclerotic lesions are appreciated. There is mild soft tissue swelling about the foot. No radiopaque foreign bodies are seen in the soft tissues. Degenerative changes are seen in the mid foot. IMPRESSION: No acute abnormality. RIGHT ANKLE: Three views. No acute fracture, dislocation, lytic or sclerotic lesion is seen. Post surgical and post traumatic changes are seen in the hind foot and ankle. Mild soft tissue swelling is seen about the ankle. No radiopaque foreign bodies are seen in the soft tissues. IMPRESSION: No acute abnormality.
--- NOTE | 2018-09-01 08:00 | ED.GENADUL_ITS ---
Discharge Plan Disposition Patient Disposition: HOME Condition: Stable Discharge Details Chief Complaint: Orthopedic Clinical Impression: Ankle pain Primary Care Provider: Sharon Sanabria V ED Provider: Christina Dyson Home Meds and New Rx's Prescriptions: Continued hydrochlorothiazide 25 MG tablet 25 mg PO DAILY RF: 0 aspirin [Aspirin Low Dose] 81 mg Tablet,Delayed Release (Dr/Ec) 81 mg PO BID RF: 0 acetaminophen [Tylenol Extra Strength] 500 mg Tablet 1,000 mg PO Q8H PRN PRNRF: 0 atenolol 50 mg Tablet 50 mg PO ONCE RF: 0 lisinopril 10 mg tablet 10 mg PO DAILY Qty: 30 RF: 0 Discharge Instructions Instructions: Achilles Tendinitis (ED), Arthralgia (ED), Swollen Joint (ED) Additional Instructions: Please return immediately to the emergency department if you develop any new or worsening symptoms or if you become otherwise concerned. It is extremely important to make an appointment to see him soon as possible by your primary care doctor and also by an orthopedic surgeon. Referrals: Sharon Sanabria MD [Primary Care Provider] - Noah Reardon MD [ [facility] STAFF PHYSICIAN] - Discharge Data Discharge Date/Time-TO BE ENTERED AT DEPARTURE: 09/01/18 18:40 Medical Decision Making Robbyeimi Anton is a 53 y/o man with h/o HTN, gout, alcoholism, sarcoidosis presenting to the emergency department with acute on chronic right ankle pain, swelling with increased use yesterday but no known trauma, no other joint or MSK pain. On exam Pt is well and non-toxic appearing, Pt with right ankle edema, diffuse TTP of the ankle worst over the achilles, plantar/dorsiflexion intact, RLE NVI. Concern for migration of hardware, occult fx, tendonitis, less likely gout. Doubt DVT. Exam/hx not c/w septic joint, sepsis, cellulitis, other acute emergent life/limb threatening process. Plan for xray foot and ankle, US. Pt declines pain meds. xrays, US okay. Plan for walking boot, ibuprofen, weight bearing as tolerated, outpt ortho f/u. Pt states he has crutches at home. Lengthy discussion with the Pt re: RTED precautions, importance of outpt f/u, home care. Pt was d/natalya to home with clear plan for outpt f/u. Pt verbalized understanding of the plan and was amenable. All questions were answered. Medical Records Medical records reviewed: Yes I reviewed the patient's medical records. Imaging Data Radiologic Study: Attestation: I personally reviewed and interpreted this imaging study as follows: Radiologist's impression: RIGHT FOOT: Three views. Comparison is made with 03/26/18. Post surgical and post traumatic changes are seen in the right foot. No acute fracture or dislocation is seen. No suspicious lytic or sclerotic lesions are appreciated. There is mild soft tissue swelling about the foot. No radiopaque foreign bodies are seen in the soft tissues. Degenerative changes are seen in the mid foot. IMPRESSION: No acute abnormality. RIGHT ANKLE: Three views. No acute fracture, dislocation, lytic or sclerotic lesion is seen. Post surgical and post traumatic changes are seen in the hind foot and ankle. Mild soft tissue swelling is seen about the ankle. No radiopaque foreign bodies are seen in the soft tissues. IMPRESSION: No acute abnormality. RIGHT LOWER EXTREMITY ULTRASOUND: The deep veins of the right lower extremity show normal compression, augmentation and color flow. There is no evidence of a deep venous thrombus present. The saphenofemoral junction appears unremarkable. Benign appearing lymph nodes are seen in the right inguinal region. The largest measures 3.0 cm. IMPRESSION: No evidence of a right lower extremity deep venous thrombus. HPI General Mode of arrival: ambulatory . Date/Time Provider Initiated Documentation: 09/01/18 07:49 . Limitations to Documentation: no limitations . Information obtained by: patient, RN notes reviewed and old records reviewed . HPI Narrative: Robb Anton is a 53 y/o man with h/o HTN, gout, sarcoidosis, alcoholism presenting to the emergency department with right ankle pain. Pt reports that he fractured his right foot in several places last summer. Also had pinning of a right ankle fracture in [place] 05/24. Pt reports that he has chronic mild to moderate pain in his right foot and ankle since sustaining these injuries. He reports that yesterday he was doing yard work, and he gradually began to have worsening pain in his ankle. When he woke up pain in his right ankle was much worse than usual. He does not recall any specific trauma or sudden change in pain level. Pain is worst at back of ankle, worse with weight bearing but has been walking/bearing weight this am. Has never had gout in his ankle or foot in the past, reports this is not like prior episodes of gout. Has been eating and drinking as usual, no recent illness, no fever, rash, other pain, weakness, numbness, tingling. Related Data Home Medications Medication Instructions Recorded Confirmed hydrochlorothiazide 25 mg PO DAILY 01/15/13 04/23/18 acetaminophen [Tylenol Extra 1,000 mg PO Q8H PRN PRN 01/18/18 09/01/18 Strength] aspirin [Aspirin Low Dose] 81 mg PO BID 01/18/18 09/01/18 atenolol 50 mg PO ONCE 01/18/18 04/23/18 lisinopril 10 mg PO DAILY #30 tab 01/18/18 04/23/18 Previous Rx's Medication Instructions Recorded lisinopril 10 mg PO DAILY #30 tab 01/18/18 Allergies Allergy/AdvReac Type Severity Reaction Status Date / Time No Known Allergies Allergy Verified 09/01/18 07:41 General Stated Complaint: Orthopedic KALLI: 4 Review of Systems Review of Systems Constitutional: denies fevers Eyes: denies eye pain ENT: denies facial pain, dental pain, sore throat Cardiovascular: denies chest pain Respiratory: denies SOB, cough GI: denies abdominal pain, vomiting, diarrhea : denies flank pain MSK: denies back pain, neck pain, reports right ankle pain and swelling Skin: denies rash Neuro: denies headaches, numbness, weakness PFSH Medical History History of multiple trauma (Chronic) Sarcoidosis (Chronic) Gout (Chronic) Hypertension (Chronic) Social History Smoking/Tobacco Use Status: Never Alcohol Intake: current Alcohol Intake frequency: 3 or more drinks per day Alcohol type: beer Details: Robb relates she has not had any withdrawal symptomatology when he is not h Drug use: Never Substance use type: does not use current occupation: [employer] Do you feel safe at home: Yes Do you feel safe in your relationship?: Yes Exam Narrative Exam Narrative: Constitutional: well and [id number], pleasant, conversing normally HENT: head atraumatic/normocephalic/normal inspection, mucous membranes moist Eyes: conjunctiva normal, sclera normal, pupils 3mm b/l Neck: no stridor, normal ROM, trachea midline Resp: normal work of breathing, LCTAB Cardio: normal rate, normal rhythm, no murmur appreciated Skin: warm, dry, normal color, no rash Neuro: alert, not altered, grossly non-focal, normal tone Ext: right ankle with mild to mod edema, no erythema, TTP b/l malleoli and over achilles, foot NTTP, proximal tib/pfib NTTP, no posterior calf TTP, DP pulses intact and symmetric, brisk cap refill, pain reproduced with palpation, eversion and inversion, plantar and dorsiflexion. Worst pain with plantar/doriflexion. ROM intact. Motor 5/5, sensation intact. Normal exam of LLE. Psych: normal mood, normal affect, normal behavior Course Vital Signs Temperature 36.5 C 09/01/18 07:37 Pulse 84 09/01/18 07:37 Respiratory Rate 18 09/01/18 07:37 Blood Pressure 168/96 H 09/01/18 07:37 Pulse Oximetry 93 L 09/01/18 07:37 Temperature 36.5 C 09/01/18 07:37 Temperature Source Temporal Artery Scan 09/01/18 07:37 Pulse 84 09/01/18 07:37 Respiratory Rate 18 09/01/18 07:37 Respiratory Effort Non-Labored 09/01/18 07:40 Blood Pressure 168/96 H 09/01/18 07:37 Blood Pressure Position Supine 09/01/18 07:37 Pulse Oximetry 93 L 09/01/18 07:37 Oxygen Delivery Method Room Air 09/01/18 07:37 Oxygen Flow Rate 0 09/01/18 07:37 Pain Level 10 09/01/18 07:43
--- NOTE | 2018-09-01 08:52 | DI.US_ITS ---
SYMPTOMS/DIAGNOSIS: ANKLE AND FOOT SWELLING, NO TRAUMA RIGHT LOWER EXTREMITY ULTRASOUND: The deep veins of the right lower extremity show normal compression, augmentation and color flow. There is no evidence of a deep venous thrombus present. The saphenofemoral junction appears unremarkable. Benign appearing lymph nodes are seen in the right inguinal region. The largest measures 3.0 cm. IMPRESSION: No evidence of a right lower extremity deep venous thrombus.
[2018-09-01] MEDS: Ibuprofen 600 MG TAB PO (10:55)
== END 2018-09-01 18:40 | disposition home or self-care (01) ==
PROVIDERS: Emergency Provider Student in an Organized Health Care Education/Training Program; PCP Family Medicine
DX: M25.571 Pain in right ankle and joints of right foot (principal); R22.41 Localized swelling, mass and lump, right lower limb; Z96.7 Presence of other bone and tendon implants; I10 Essential (primary) hypertension
CPT/HCPCS: 99284; 73610; 73630; 93971; L4361

== ENCOUNTER 2018-09-17 09:03 | Outpatient (CLI) | payer MEDICARE, SELFPAY ==
--- NOTE | 2018-09-17 08:36 | DI.RAD_ITS ---
SYMPTOM/DIAGNOSIS: SWELLING AND PAIN RT LATERAL ANKLE, H/O CALCIFIC FX RIGHT CALCANEUS: Two views were obtained and show the previously described calcaneal fracture with no gross interval change in alignment in comparison with examination of 09/01. Note is again made of medial malleolar fixation screws.
== END 2018-09-17 09:23 ==
PROVIDERS: PCP Family Medicine; Referring Provider Family Medicine; Visit Provider Student in an Organized Health Care Education/Training Program
DX: M25.571 Pain in right ankle and joints of right foot (principal); M79.89 Other specified soft tissue disorders; S92.041D Displaced other fracture of tuberosity of right calcaneus, subsequent encounter for fracture with routine healing; X58.XXXD Exposure to other specified factors, subsequent encounter; G89.29 Other chronic pain; M19.171 Post-traumatic osteoarthritis, right ankle and foot
CPT/HCPCS: 99212; 99214; 73650

== ENCOUNTER 2018-09-26 00:44 | Outpatient (CLI) | payer MEDICARE, SELFPAY ==
--- NOTE | 2018-09-26 10:12 | DI.MRI_ITS ---
SYMPTOMS/DIAGNOSIS: RT ANKLE PAIN, HX OF MULTIPLE TRAUMA, PAIN LATERAL PORTION RT ANKLE, Z87.828, M25.571 MRI OF THE RIGHT ANKLE: Comparison is made with plain films dated [id number] and MRI of the foot dated [id number]. T 1 and fat suppressed T 2 axial, sagittal and coronal sequences were performed. There is hardware in the medial malleolus which creates artifact on the images and interferes with fat suppression. Fracture lines remain visible in the calcaneus with extension through the mid portion of the calcaneus as well as a portion of the fracture extending in the sagittal plane to the calcaneal cuboid joint. There is a large amount of edema around the tibiotalar joint and around the calcaneus around the fracture. There are also severe degenerative changes at the talocalcaneal joint posteriorly. No tendon abnormalities are identified. The talar dome appears intact. IMPRESSION: Comminuted calcaneal fracture with delayed union or nonunion. Severe degenerative changes of the posterior talocalcaneal joint. Hardware also limits the exam.
== END 2018-09-26 01:04 ==
PROVIDERS: PCP Family Medicine; Visit Provider Physician Assistant
DX: M25.571 Pain in right ankle and joints of right foot (principal); Z87.828 Personal history of other (healed) physical injury and trauma; M19.071 Primary osteoarthritis, right ankle and foot; S92.041 Displaced other fracture of tuberosity of right calcaneus
CPT/HCPCS: 73721

== ENCOUNTER → 2018-10-06 12:59 | Outpatient (BNVA) | payer MEDICARE, SELFPAY | PROVIDERS: PCP Family Medicine; Referring Provider Family Medicine; Visit Provider Student in an Organized Health Care Education/Training Program | DX: M25.571 Pain in right ankle and joints of right foot (principal); Z87.81 Personal history of (healed) traumatic fracture | CPT/HCPCS: 99212; 99213 ==

== ENCOUNTER 2020-12-27 07:37 | Observation (INO) | payer MEDICARE, SELFPAY ==
[2020-12-27 07:39] VITALS: BP 139/101; PULSE 113; TEMP 36.6; O2SAT 95
--- NOTE | 2020-12-27 08:11 | W.ED.GENAD ---
Discharge Plan Disposition Patient Disposition: [facility] INPATIENT Condition: Stable Discharge Details Chief Complaint: Cellulitis Clinical Impression: Right foot infection Primary Care Provider: Sharon Sanabria V ED Provider: Paul Arndt Home Meds and New Rx's Prescriptions: No Action hydrochlorothiazide 25 MG tablet 25 mg PO DAILY RF: 0 aspirin [Aspirin Low Dose] 81 mg Tablet,Delayed Release (Dr/Ec) 81 mg PO BID RF: 0 acetaminophen [Tylenol Extra Strength] 500 mg Tablet 1,000 mg PO Q8H PRN PRNRF: 0 atenolol 50 mg Tablet 50 mg PO ONCE RF: 0 lisinopril 10 mg tablet 10 mg PO DAILY Qty: 30 RF: 0 Medical Decision Making 55-year-old male presents with right great toe erythema, swelling and pain following the onset of a blood blister on the distal edge 2 to 3 weeks ago. Now with ulceration, redness, pain to that digit, in the context of chronically deformed ankle that has previous ORIF of comminuted calcaneal and talus fractures. No history of diabetes, but after mentioned chronic swelling and deformity of the affected ankle. Will obtain labs including lactate and blood culture, referred for x-ray, rule out DVT by ultrasound, initiate antibiotics. Patient is a significant daily drinker, was given 1 mg Ativan for anxiolysis. No evidence of DVT on ultrasound. X-ray without evidence of bony erosions or fracture. Soft tissue swelling noted. Labs noted elevated CRP, otherwise essentially reassuring. Given the initial presentation and fairly impressive erythema with warmth, ulceration of the toe, I will advocate for further parenteral antibiotics and observation. HPI General Mode of arrival: ambulatory. Date/Time Provider Initiated Documentation: 12/27/20 07:56. Limitations to Documentation: no limitations. Information obtained by: patient. History of Present Illness 55 year old M presents to the emergency department with the chief complaint of Right great toe pain, ulceration, erythema, described as moderate, Quality is described as dull and constant, and is localized to the right and lower extremity. Patient reports no radiation. and it has been constant. No relieving factors improve symptom(s), No exacerbating factors reported . Patient did receive the following treatments prior to arrival, other ([employer]) Related Data Home Medications Medication Instructions Recorded Confirmed hydrochlorothiazide 25 mg PO DAILY 01/15/13 12/27/20 acetaminophen [Tylenol Extra 1,000 mg PO Q8H PRN PRN 01/18/18 12/27/20 Strength] aspirin [Aspirin Low Dose] 81 mg PO BID 01/18/18 12/27/20 atenolol 50 mg PO ONCE 01/18/18 12/27/20 lisinopril 10 mg PO DAILY #30 tab 01/18/18 12/27/20 Previous Rx's Medication Instructions Recorded lisinopril 10 mg PO DAILY #30 tab 01/18/18 Allergies Allergy/AdvReac Type Severity Reaction Status Date / Time No Known Allergies Allergy Verified 12/27/20 07:44 General Stated Complaint: Cellulitis KALLI: 3 Review of Systems Narrative: Generally achy and poor feeling. History of calcaneal and talus injury to the right ankle for which she is seeing both [facility] and [facility] orthopedics, currently with internal fixation, patient ambulatory but with pain. 6 systems reviewed and otherwise negative [facility] Medical History (Updated 12/27/20 @ 11:21 by Paul Arndt MD) Gout History of multiple trauma Hypertension Sarcoidosis Surgical History H/O splenectomy Social History Smoking/Tobacco Use Status: Current every day Tobacco Type: smokeless tobacco Smoking risk assessment performed?: Yes Alcohol Intake: current Alcohol Intake frequency: 3 or more drinks per day Alcohol type: beer Details: Robb relates she has not had any withdrawal symptomatology when he is not h Drug use: Never Substance use type: does not use current occupation: [employer] Do you feel safe at home: Yes Do you feel safe in your relationship?: Yes Exam Narrative Exam Narrative: GEN: awake, alert, oriented 3. Pleasant, well groomed, interactive. HEAD: Normocephalic, atraumatic ENT: Mucous membranes moist, oropharynx unremarkable, External ear exam unremarkable EYES: PERRL, EOMI NECK: Full ROM, no GRAY, no menigismus CHEST/RESP: Nontender, clear to auscultation bilateral, no wheeze/rhonchi/rales CARDIOVASCULAR: RRR, no murmur, rub celia. 2+ Rad pulse bilateral ABDOMEN: Soft, nontender, no mass. +Bowel sounds EXT: Normal motor throughout, limited range of motion right ankle which is fusiformly swollen, with healed surgical scars. The right great toe has distal ulceration, swelling and erythema proximal. Warmth is palpable through the foot and ankle. Palpable DP. Neuro: Grossly normal neurologic exam, conversant, interactive. Psych: Speech fluent, thoughts congruent, affect normal Course Vital Signs Vital signs: Vital Signs Temperature 36.6 C 12/27/20 07:39 Pulse 113 H 12/27/20 07:39 Blood Pressure 139/101 H 12/27/20 07:39 Pulse Oximetry 95 12/27/20 07:39 Temperature 36.6 C 12/27/20 07:39 Temperature Source Temporal Artery Scan 12/27/20 07:39 Pulse 113 H 12/27/20 07:39 Respiratory Effort 12/27/20 07:43 Blood Pressure 139/101 H 12/27/20 07:39 Blood Pressure Position Sitting 12/27/20 07:39 Pulse Oximetry 95 12/27/20 07:39 Oxygen Delivery Method Room Air 12/27/20 07:39 Oxygen Flow Rate 0 12/27/20 07:39 Pain Level 10 12/27/20 07:39 Lab/Test Results Lab/Test Results: 12/27/20 08:06 Blood Blood Culture - Pending 12/27/20 08:06 Blood Blood Culture - Pending
--- NOTE | 2020-12-27 08:15 | DI.US_ITS ---
Exam(s) US LOWER EXTREMITY VENOUS RT EXAM: US LOWER EXTREMITY VENOUS RT CLINICAL HISTORY: pain, swelling. TECHNIQUE: Lower extremity venous ultrasound performed using grayscale, color-flow, and spectral Do ppler analysis. COMPARISON: No exams were available for comparison FINDINGS: The common femoral, femoral and popliteal veins demonstrate normal compressibility, augmentation, and color Doppler. The posterior tibial veins are patent. No saphenous vein thrombosis or other superfi cial venous thrombosis is seen. No hematoma or Kong's cyst is seen. IMPRESSION: Negative right lower extremity ultrasound. No evidence of DVT. DATA REPOSITORY:
[2020-12-27 08:20] LABS: Source Nasal/Nares
[2020-12-27] MEDS: HYDROmorphone 2 MG/ML VIAL 0.5 MG IVP (08:43)
[2020-12-27] MEDS: Ketorolac 15 MG/ML VIAL IVP (08:44)
[2020-12-27] MEDS: PIPERACILLIN/TAZO 3.375 GM in Normal Saline 50 ML IVPB ×3 (08:45→21:07)
[2020-12-27] MEDS: Normal Saline Flush 10 ML SYR IVP (08:45)
[2020-12-27 08:51] LABS: Abs Immature Grans 0.04 10^3/uL (0.0-0.06); Absolute Basophil Count 0.07 10^3/uL (0.0-0.2); Absolute Lymphocyte Count 2.19 10^3/uL (1.2-3.4); Absolute Monocyte Count 1.18 10^3/uL (0.1-0.8); Absolute Neutrophil Count 5.06 10^3/uL (1.2-6.7); Basophils % 0.8; Eosinophils % 1.2; HCT 44.7 % (40.0-50.0); Immature Grans % 0.5; Lymphocytes % 25.3; MCH 33.9 pg (27.0-33.0); MCHC 33.6 % (32.0-36.0); MCV 101.1 fL (80-95); MPV 10.6 fL (8.0-11.0); Monocytes % 13.7; Neutrophils % 58.5; Nucleated RBC 0 %; Platelet Count 192 10^3/uL (130-400); RBC 4.42 10^6/uL (4.36-5.78); RDW 12.6 % (11.8-14.1); RDW-SD 47.2 fL; WBC 8.64 10^3/uL (4.4-10.8)
[2020-12-27 08:55] LABS: ESR 12 mm/hr (0-20)
[2020-12-27 08:59] LABS: Magnesium 1.9 mg/dL (1.8-2.4)
[2020-12-27 09:07] LABS: ALT 25 U/L (16-63); AST 22 U/L (15-37); Albumin 3.5 g/dL (3.4-5.0); Alkaline Phosphatase 117 U/L (46-116); Anion Gap 4.6 mmol/L (3-11); BUN 21 mg/dL (7-18); Bilirubin, Total 1.1 mg/dL (0.2-1.0); C-Reactive Protein 2.48 mg/dL (0.0-0.3); CO2 30.4 mmol/L (21.0-32.0); CREATININE 1.2 mg/dL (0.70-1.30); Calcium 8.7 mg/dL (8.5-10.1); Chloride 101 mmol/L (98-107); Glucose 105 mg/dL (74-106); Sodium 136 mmol/L (136-145)
[2020-12-27] MEDS: LORazepam 2 MG/ML VIAL 1 MG IVP (09:18)
[2020-12-27 09:24] LABS: COVID-19 PCR Negative (Negative)
[2020-12-27] MEDS: Normal Saline 1,000 ML 125 ML IV (09:33)
[2020-12-27 09:36] LABS: Hemoglobin A1C 5.8 % (<5.7)
--- NOTE | 2020-12-27 10:26 | DI.RAD_ITS ---
Exam(s) XR TOE RT GREAT EXAM: XR TOE RT GREAT CLINICAL HISTORY: ulcer, pain. TECHNIQUE: 2D digital imaging was performed. COMPARISON: CR XR foot RT complete from 09/01/2018 FINDINGS: There is soft tissue swelling around the great toe distally and a distal common medial medial ulcerat ion. No fracture, foreign body or bony erosion is seen. 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 IMPRESSION: Soft tissue swelling of the great toe. No evidence of fracture or bony erosion. DATA REPOSITORY: RADIATION DOSE DELIVERED:
[2020-12-27 10:32] VITALS: BP 138/96; PULSE 74; RESP 14; TEMP 36.8; O2SAT 95
[2020-12-27 10:58] LABS: Bilirubin Negative (Negative); Blood Negative (Negative); Clarity Clear (Clear); Glucose Negative (Negative); Ketones Negative (Negative); Leukocyte Esterase Negative (Negative); Nitrite Negative (Negative); Specific Gravity 1.025 (1.005-1.025); Urobilinogen 0.2 EU/dL (Up TO 0.2); pH 5.5 (5-8)
--- NOTE | 2020-12-27 11:24 | HPE_ITS ---
Date of service: 12/27/20 Time of Service: 11:24 Assessment and Plan Assessment and plan (1) Right foot infection: Status: Acute Assessment and plan: referred to observation. has not had fever, normal white count, blood cultures pending continue zosyn elevation blood cultures pending (2) Hypertension: Status: Chronic Assessment and plan: will continue home medications and monitor, per armacy review has not been filling hctz, will hold (3) Gout: Status: Chronic Assessment and plan: suspect his symptoms could be related to gout. toradol for pain as needed patient declines colchicine discussed with DR Wisdom History of Present Illness History of Present Illness Chief Complaint: right toe erythema Narrative: presents to the ED with right great toe redness, swelling and pain. Had an injury to toe 1-2 weeks ago, developed a blister, now scabbed over. had remote surgery to that ankle years ago. no fevers or chills, reports history of gout but states this pain is not similar. work up in the ED concerning for cellulitis, given zosyn with improvement in his erythema. observation request made for a day of IV antibitoics and possible podiatry consult. xray shows no evidence of osteomyelitis. Review of Systems Constitutional Constitutional: Denies fever(s) Musculoskeletal Musculoskeletal: Reports arthralgias and Reports joint swelling Integumentary/Breasts Skin/Breast: Reports lesions (right great toe) and Reports rash (right great toe) PFSH Medical History Gout History of multiple trauma Hypertension Sarcoidosis Surgical History H/O splenectomy Social History Smoking/Tobacco Use Status: Current every day Tobacco Type: smokeless tobacco Smoking risk assessment performed?: Yes Alcohol Intake: current Alcohol Intake frequency: 3 or more drinks per day [place] type: beer Details: Robb relates she has not had any withdrawal symptomatology when he is not h Drug use: Never Substance use type: does not use current occupation: [employer] Do you feel safe at home: Yes Do you feel safe in your relationship?: Yes Meds Allergies and Home Medications Allergies Allergy/AdvReac Type Severity Reaction Status Date / Time No Known Allergies Allergy Verified 12/27/20 07:44 Home Medications Medication Instructions Recorded Confirmed Type acetaminophen [Tylenol Extra 1,000 mg PO Q8H PRN PRN 01/18/18 12/27/20 History Strength] aspirin [Aspirin Low Dose] 81 mg PO DAILY 01/18/18 12/27/20 History atenolol 50 mg PO DAILY 01/18/18 12/27/20 History lisinopril 40 mg PO DAILY 12/27/20 12/27/20 History Exam Narrative Exam Narrative: GEN: awake, alert, oriented 3. Pleasant, older appearing than stated age HEAD: Normocephalic, atraumatic ENT: Mucous membranes moist, oropharynx unremarkable, External ear exam unr emarkable EYES: anicteric NECK: Full ROM, No JVD CHEST/RESP: respirations even and unlabored CARDIOVASCULAR: RRR, good pedal pulse ABDOMEN: Soft, nontender +Bowel sounds EXT: Normal motor throughout, limited range of motion right ankle which is fusiformly swollen, with healed surgical scars. The right great toe has distal ulceration, swelling and erythema proximal. Warmth is palpable through the foot and ankle. Palpable DP. Neuro: Grossly normal neurologic exam, conversant, interactive. Psych: Speech fluent, thoughts congruent, affect normal Results Labs Result diagrams: 12/27/20 08:38 12/27/20 08:38 Labs: Laboratory Results - last 24 hr 12/27/20 12/27/20 12/27/20 08:13 08:38 08:38 WBC RBC Hgb Hct MCV MCH MCHC RDW Plt Count MPV Immature Gran % Neutrophils % Lymphocytes % Monocytes % Eosinophils % Basophils % Nucleated RBC % Absolute Neutrophils Absolute Lymphocytes Absolute Monocytes Absolute Eosinophils Absolute Basophils ESR VBG Lactate Sodium 136 Potassium 5.0 Chloride 101 Carbon Dioxide 30.4 Anion Gap 4.6 BUN 21 H Creatinine 1.2 Estimated GFR/1.73 m2 >= 60.00 Glucose 105 Hemoglobin A1c 5.8 H Calcium 8.7 Magnesium Total Bilirubin 1.1 H AST 22 ALT 25 Alkaline Phosphatase 117 H C-Reactive Protein 2.48 H Total Protein 8.0 Albumin 3.5 Urine Color Urine Clarity Urine pH Ur Specific [place] Urine Protein Urine Ketones Urine Blood Urine Nitrite Urine Bilirubin Urine Urobilinogen Ur Leukocyte Esterase Urine Glucose COVID-19 Source Nasal/Nares SARS-CoV-2 (PCR) Negative 12/27/20 12/27/20 12/27/20 08:38 08:38 08:38 WBC RBC Hgb Hct MCV MCH MCHC RDW Plt Count MPV Immature Gran % Neutrophils % Lymphocytes % Monocytes % Eosinophils % Basophils % Nucleated RBC % Absolute Neutrophils Absolute Lymphocytes Absolute Monocytes Absolute Eosinophils Absolute Basophils ESR 12 VBG Lactate 1.0 Sodium Potassium Chloride Carbon Dioxide Anion Gap BUN Creatinine Estimated GFR/1.73 m2 Glucose Hemoglobin A1c Calcium Magnesium 1.9 Total Bilirubin AST ALT Alkaline Phosphatase C-Reactive Protein Total Protein Albumin Urine Color Urine Clarity Urine pH Ur Specific [place] Urine Protein Urine Ketones Urine Blood Urine Nitrite Urine Bilirubin Urine Urobilinogen Ur Leukocyte Esterase Urine Glucose COVID-19 Source SARS-CoV-2 (PCR) 12/27/20 12/27/20 08:38 10:47 WBC 8.64 RBC 4.42 Hgb 15.0 Hct 44.7 MCV 101.1 H MCH 33.9 H MCHC 33.6 RDW 12.6 Plt Count 192 MPV 10.6 Immature Gran % 0.5 Neutrophils % 58.5 Lymphocytes % 25.3 Monocytes % 13.7 Eosinophils % 1.2 Basophils % 0.8 Nucleated RBC % 0 Absolute Neutrophils 5.06 Absolute Lymphocytes 2.19 Absolute Monocytes 1.18 H Absolute Eosinophils 0.10 Absolute Basophils 0.07 ESR VBG Lactate Sodium Potassium Chloride Carbon Dioxide Anion Gap BUN Creatinine Estimated GFR/1.73 m2 Glucose Hemoglobin A1c Calcium Magnesium Total Bilirubin AST ALT Alkaline Phosphatase C-Reactive Protein Total Protein Albumin Urine Color Nadine Urine Clarity Clear Urine pH 5.5 Ur Specific [place] 1.025 Urine Protein Negative Urine Ketones Negative Urine Blood Negative Urine Nitrite Negative Urine Bilirubin Negative Urine Urobilinogen 0.2 Ur Leukocyte Esterase Negative Urine Glucose Negative COVID-19 Source SARS-CoV-2 (PCR) Last Vital Signs Temp 36.8 C 12/27/20 10:32 Pulse 74 12/27/20 10:32 Resp 14 12/27/20 10:32 BP 138/96 H 12/27/20 10:32 Pulse Ox 95 12/27/20 10:32
[2020-12-27 12:57] VITALS: BP 146/87; PULSE 88; RESP 18; TEMP 36.5; O2SAT 94
[2020-12-27] MEDS: Enoxaparin 40 MG/0.4 ML SYR SC (14:10)
[2020-12-27] MEDS: Ketorolac 30 MG/ML VIAL IVP (14:50)
[2020-12-27] MEDS: Acetaminophen 500 MG TAB 1000 MG PO (14:50)
[2020-12-27 15:15] VITALS: BP 131/74; PULSE 76; RESP 19; TEMP 36.7; O2SAT 93
[2020-12-27 17:00] VITALS: BP 143/88; PULSE 82; RESP 18; TEMP 36; O2SAT 97
--- NOTE | 2020-12-27 19:12 | W.PODCONSULT ---
Date of service: 12/27/20 Time of Service: 19:13 History of Present Illness History of Present Illness Chief Complaint: ulceration tip of the right great toe. Narrative: 55-year-old male who developed a blood blister at the tip of his right great toe approximately 3 weeks ago which is subsequently broken down, has ulcerated and has failed to show signs of healing. He was admitted through the ER earlier today with increasing pain and redness affecting his right great toe. He states that he lost his right fifth toe about 4 years ago following a similar type of episode. [facility] Medical History Gout History of multiple trauma Hypertension Sarcoidosis Surgical History H/O splenectomy Social History Smoking/Tobacco Use Status: Current every day Tobacco Type: smokeless tobacco Smoking risk assessment performed?: Yes Alcohol Intake: current Alcohol Intake frequency: 3 or more drinks per day Alcohol type: beer Details: Robb relates she has not had any withdrawal symptomatology when he is not h Drug use: Never Substance use type: does not use current occupation: [employer] Do you feel safe at home: Yes Do you feel safe in your relationship?: Yes Exam Narrative Exam Narrative: 55-year-old male seen at bedside appearing slightly anxious and appearing chronically ill but in no acute distress. Labs have been reviewed as well as his admission history and physical. Peripheral pulses are easily palpable at the ankle graded 2 out of 4 bilaterally, capillary refills under 3 seconds to all toes. Venous Doppler studies performed earlier today did not reveal any findings of DVT to the right lower extremity. No edema or is noted at this time. He has a necrotic appearing ulceration affecting the distal tip of the right great toe with significant hypertrophy of tissue surrounding the wound. The base of the wound is yellowish-parry and fibrotic. He does have sensation and is somewhat hyperesthetic to palpation. The toenail is grossly thickened and likely fungal. Erythema is noted extending to the interphalangeal joint but apparently was more proximally located prior to his admission. He is on Zosyn and responding favorably. Muscle groups are 5 out of 5 bilaterally Skeletal exam reveals a painful right ankle which underwent a ORIF at least 2 years ago which apparently remains problematic. No active signs of infection noted at this level. Neurologically he appears to be hyperesthetic in his digits. Impressions: Ulceration distal tip right hallux possible osteomyelitis Plan: With a #10 scalpel the wound was sharply debrided removing the hypertrophic margin as well as removing some of the debris at the base of the wound. Incomplete debridement occurred due to hyperesthesia but bleeding edges were encountered. The wound measured 1 cm x 1.2 cm and is 2-3 mm deep the wound was covered with gauze and flex netting. Recommend we get an MRI to determine if a acute osteomyelitis is present in the distal phalanx of the hallux. This information will help guide surgical intervention if needed and or length of antibiotic infusions. Thank you for this consultation. Results Last Vital Signs Temp 36 C L 12/27/20 17:00 Pulse 82 12/27/20 17:00 Resp 18 12/27/20 17:00 BP 143/88 H 12/27/20 17:00 Pulse Ox 97 12/27/20 17:00 Labs Result diagrams: 12/27/20 08:38 12/27/20 08:38 Labs: Laboratory Results - last 24 hr 12/27/20 12/27/20 12/27/20 08:13 08:38 08:38 WBC RBC Hgb Hct MCV MCH MCHC RDW Plt Count MPV Immature Gran % Neutrophils % Lymphocytes % Monocytes % Eosinophils % Basophils % Nucleated RBC % Absolute Neutrophils Absolute Lymphocytes Absolute Monocytes Absolute Eosinophils Absolute Basophils ESR VBG Lactate Sodium 136 Potassium 5.0 Chloride 101 Carbon Dioxide 30.4 Anion Gap 4.6 BUN 21 H Creatinine 1.2 Estimated GFR/1.73 m2 >= 60.00 Glucose 105 Hemoglobin A1c 5.8 H Calcium 8.7 Magnesium Total Bilirubin 1.1 H AST 22 ALT 25 Alkaline Phosphatase 117 H C-Reactive Protein 2.48 H Total Protein 8.0 Albumin 3.5 Urine Color Urine Clarity Urine pH Ur Specific Benton Urine Protein Urine Ketones Urine Blood Urine Nitrite Urine Bilirubin Urine Urobilinogen Ur Leukocyte Esterase Urine Glucose COVID-19 Source Nasal/Nares SARS-CoV-2 (PCR) Negative 12/27/20 12/27/20 12/27/20 08:38 08:38 08:38 WBC RBC Hgb Hct MCV MCH MCHC RDW Plt Count MPV Immature Gran % Neutrophils % Lymphocytes % Monocytes % Eosinophils % Basophils % Nucleated RBC % Absolute Neutrophils Absolute Lymphocytes Absolute Monocytes Absolute Eosinophils Absolute Basophils ESR 12 VBG Lactate 1.0 Sodium Potassium Chloride Carbon Dioxide Anion Gap BUN Creatinine Estimated GFR/1.73 m2 Glucose Hemoglobin A1c Calcium Magnesium 1.9 Total Bilirubin AST ALT Alkaline Phosphatase C-Reactive Protein Total Protein Albumin Urine Color Urine Clarity Urine pH Ur Specific Benton Urine Protein Urine Ketones Urine Blood Urine Nitrite Urine Bilirubin Urine Urobilinogen Ur Leukocyte Esterase Urine Glucose COVID-19 Source SARS-CoV-2 (PCR) 12/27/20 12/27/20 08:38 10:47 WBC 8.64 RBC 4.42 Hgb 15.0 Hct 44.7 MCV 101.1 H MCH 33.9 H MCHC 33.6 RDW 12.6 Plt Count 192 MPV 10.6 Immature Gran % 0.5 Neutrophils % 58.5 Lymphocytes % 25.3 Monocytes % 13.7 Eosinophils % 1.2 Basophils % 0.8 Nucleated RBC % 0 Absolute Neutrophils 5.06 Absolute Lymphocytes 2.19 Absolute Monocytes 1.18 H Absolute Eosinophils 0.10 Absolute Basophils 0.07 ESR VBG Lactate Sodium Potassium Chloride Carbon Dioxide Anion Gap BUN Creatinine Estimated GFR/1.73 m2 Glucose Hemoglobin A1c Calcium Magnesium Total Bilirubin AST ALT Alkaline Phosphatase C-Reactive Protein Total Protein Albumin Urine Color Nadine Urine Clarity Clear Urine pH 5.5 Ur Specific Benton 1.025 Urine Protein Negative Urine Ketones Negative Urine Blood Negative Urine Nitrite Negative Urine Bilirubin Negative Urine Urobilinogen 0.2 Ur Leukocyte Esterase Negative Urine Glucose Negative COVID-19 Source SARS-CoV-2 (PCR)
[2020-12-27] MEDS: traMADol 50 MG TAB 100 MG PO (19:14)
[2020-12-27 19:35] VITALS: BP 144/96; PULSE 69; RESP 18; TEMP 36.8; O2SAT 91
[2020-12-27] MEDS: THIAMINE 100 MG in Normal Saline 100 ML 200 MG IVPB (20:06)
[2020-12-27] MEDS: LORazepam 1 MG TAB PO/SL (20:07)
--- NOTE | 2020-12-28 | DI.MRI_ITS ---
Exam(s) MR LOWER EXTREMITY RT WO/W EXAM: MR LOWER EXTREMITY RT WO/W CLINICAL HISTORY: ulcer right hallux, osteomyelitis? TECHNIQUE: Multiplanar multisequence MRI was performed. Pre and post contrast infused sequences wer e performed. Contrast injected was 20 mL Dotarem. COMPARISON: MR MRI - R LOWER EXT WO/W from 07/10/2016 CR XR TOE RT GREAT from 12/27/2020 FINDINGS: SOFT TISSUES: There is an ulcer and what appears to be the nailbed level great toe. MARROW:There is significant normal signal within the distal phalanx of the great toe. There is abnor mal signal throughout this bone as seen on the STIR sequence. The entire distal phalanx enhances aft er contrast injection. On noncontrast non fat suppressed T1 weighted sequences there is confluent hy pointense signal seen within the mid-distal aspect of the distal phalanx and cortical thinning, these findings quite specific for osteomyelitis. There is also edema in the overlying soft tissues. There is no significant signal abnormality/involvement of the proximal phalanx of the great toe. No p rominent joint effusion. Other metatarsals appear unremarkable as do the phalanges of the other toes. MUSCLES: Edema but no distinct abscess EXTRAMUSCULAR SOFT TISSUES: Edema but no distinct abscess OTHER: No tendon tears nor prominent tenosynovitis IMPRESSION: 1. Findings are consistent with osteomyelitis of the distal phalanx of the great toe. DATA REPOSITORY:
[2020-12-28 00:27] LABS: HCT 41.3 % (40.0-50.0); HGB 13.5 g/dL (13.5-17.5); MCH 33.6 pg (27.0-33.0); MCHC 32.7 % (32.0-36.0); MCV 102.7 fL (80-95); MPV 10.4 fL (8.0-11.0); Platelet Count 165 10^3/uL (130-400); RBC 4.02 10^6/uL (4.36-5.78); RDW 12.5 % (11.8-14.1); RDW-SD 47.5 fL; WBC 7.45 10^3/uL (4.4-10.8)
[2020-12-28] MEDS: PIPERACILLIN/TAZO 3.375 GM in Normal Saline 50 ML IVPB ×2 (01:35→08:40)
[2020-12-28 02:31] VITALS: BP 152/94; PULSE 68; RESP 16; TEMP 36.6; O2SAT 95
[2020-12-28 04:30] VITALS: BP 144/94; PULSE 60; RESP 18; TEMP 36.2; O2SAT 94
[2020-12-28 06:31] VITALS: BP 163/113; PULSE 60; RESP 18; TEMP 36; O2SAT 97
[2020-12-28] MEDS: traMADol 50 MG TAB 100 MG PO (06:35)
[2020-12-28] MEDS: Acetaminophen 500 MG TAB 1000 MG PO (06:36)
[2020-12-28 07:47] LABS: Anion Gap 4.7 mmol/L (3-11); BUN 21 mg/dL (7-18); CO2 31.3 mmol/L (21.0-32.0); CREATININE 1.1 mg/dL (0.70-1.30); Calcium 8.4 mg/dL (8.5-10.1); Chloride 104 mmol/L (98-107); Glucose 100 mg/dL (74-106); Potassium 5.3 mmol/L (3.5-5.1); Sodium 140 mmol/L (136-145)
[2020-12-28] MEDS: Aspirin E.C. 81 MG TABEC PO (08:39)
[2020-12-28] MEDS: Thiamine 100 MG TAB PO (08:39)
[2020-12-28] MEDS: Folic Acid 1 MG TAB PO (08:39)
[2020-12-28] MEDS: Multivitamin TAB 1 TAB PO (08:40)
[2020-12-28] MEDS: Normal Saline Flush 10 ML SYR IVP ×2 (08:40→12:12)
[2020-12-28] MEDS: Lisinopril 20 MG TAB 40 MG PO (08:40)
[2020-12-28 08:47] VITALS: BP 159/89; PULSE 67; RESP 20; TEMP 36.4; O2SAT 96
--- NOTE | 2020-12-28 09:30 | INITIAL_ITS ---
- If Service Date Differs Date of service: 12/28/20 Time of Service: 09:30 Care Management Initial Assess REASON FOR HOSPITALIZATION:: Cellulitis PAST MEDICAL HISTORY/PAST SURGICAL HISTORY:: Medical History. Gout. History of multiple trauma. Hypertension. Sarcoidosis. Surgical History. H/O splenectomy PREVIOUS FUNCTIONAL STATUS/SOCIAL/FAMILY SUPPORTS:: Robb lives in [facility] 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 He is independent at baseline. CURRENT FUNCTIONAL STATUS:: Robb was sitting up in bed when CM met with him. He reported that he is waiting for his MRI, later this morning, and he would like to leave shortly after. He stated that he doesn't need to wait around to hear the results. CM was notified later that he intended to leave [facility], as he was back from his MRI. CM informed the Provider, who viewed the results which state findings are consistent with osteomyelitis. When CM and the provider attempted to meet with Robb, he had already left. The provider asked for a follow up appointment with Dr. Gardner, and sent a prescription to his pharmacy for levofloxacin. CM attempted to call Robb multiple times with no success. ADVANCE DIRECTIVES:: None on file. Has patient been provided with info about the portal/API?: Yes Did the patient sign up for the portal?: No CODE STATUS:: Full Code INSURANCE COVERAGE / FINANCIAL ISSUES:: MCR CURRENT HOME/COMMUNITY SERVICES/EQUIPMENT:: No current services or equipment. PRIMARY CARE PHYSICIAN:: Sharon Sanabria POTENTIAL DISCHARGE NEEDS:: Follow up with Podiatry PATIENT/FAMILY EDUCATION NEEDS:: Review discharge instructions regarding activity levels and medications, discussion of self care needs including ask me three. ANTICIPATED BARRIERS TO DISCHARGE:: None identified. TRANSPORTATION:: Via private vehicle PLAN:: Robb left [facility] today after he had his MRI, before he received the results. CM attempted to meet with him prior to his leaving, but was unsuccessful. CM attempted to reach Robb by phone several times after he left, but was unsuccessful. The provider also attempted to reach him, unsuccessfully. He will need follow up with Dr. Gardner, which was requested. He will also require a new prescription for antibiotics, which was sent to his pharmacy, per report. CM will continue to attempt to reach Robb to inform him of his discharge instructions. The M/S desk also sent him his discharge instructions via mail.
[2020-12-28] MEDS: Silver sulfaDIAZINE 1% 25 GM TUBE TP (10:13)
[2020-12-28 11:09] VITALS: BP 182/104; PULSE 70; RESP 20; TEMP 36.1; O2SAT 91
[2020-12-28] MEDS: Gadoterate meglumine 20 ML VIAL IVP (12:13)
--- NOTE | 2020-12-28 13:25 | DSE_ITS ---
Date of service: 12/28/20 Time of Service: 13:26 DS: Diagnosis Discharge Diagnosis (1) Right foot infection: Status: Acute (2) Hypertension: Status: Chronic (3) Gout: Status: Chronic Discharge Plan Disposition Patient Disposition: AGAINST MEDICAL ADVICE Condition: Stable Discharge Details Reason For Visit: Cellulitis Admit Date/Time: 12/27/20 11:25 Admit Provider: Keagan Wisdom Attending Provider: Keagan Wisdom Primary Care Provider: Sharon Sanabria V Hospital Course Hospital Course: This is a 55 year old male with history of alcohol abuse who presented to the ED with concern of infection in is right great toe, he has had. His evaluation was consistent with osteomyelitis. unfortunately he decided to leave [facility] prior to discussion of MRI results and recommendations. I will send prescription for levaquin for 6 weeks, which should be appropriate to treat his infection. he should follow up with dr Gardner for further management. following outpatient inflammatory markers would be helpful to jung his response to oral antibiotics as well. He reports he had marked improvement in pain, redness and swelling overnight. He had been afebrile. blood cultures pending. he left the facility prior to receiving this information. we will print and mail a copy of his discharge instructions with prescription information and follow up recommendations. I tried calling phone number on file [phone] but there was no answer and no answering machine to leave message on. AMA discharge discussed with DR Wisdom Home Meds and New Rx's Prescriptions: New levofloxacin 750 mg tablet 750 mg PO DAILY Qty: 42 RF: 0 Continued aspirin [Aspirin Low Dose] 81 mg Tablet,Delayed Release (Dr/Ec) 81 mg PO DAILY RF: 0 acetaminophen [Tylenol Extra Strength] 500 mg Tablet 1,000 mg PO Q8H PRN PRNRF: 0 atenolol 50 mg Tablet 50 mg PO DAILY RF: 0 lisinopril 40 mg tablet 40 mg PO DAILY RF: 0 Discharge Instructions Instructions: Osteomyelitis (DC) Additional Instructions: elevate lower extremity as much as possible during the day. take antibiotics as scheduled for the next 6 weeks. Referrals: Santi Gardner DPM [[facility] STAFF PHYSICIAN] - Activity:: elevate foot during day Equipment/Supplies:: No Equipment Needed Diet:: Carb Counting Discharge Orders Discharge Orders: Discharge Order (Routine); Ordered 12/28/20 Ordered By: Nancy León Other Ambulatory Orders: Comprehensive Metabolic Panel ( DIRECTED) Timeframe: 20210104 Facility: [facility] - Location: Access Ordered By: Nancy León Comprehensive Metabolic Panel ( DIRECTED) Timeframe: 20210105 Facility: [facility] - Location: Access Ordered By: Nancy León Comprehensive Metabolic Panel ( DIRECTED) Timeframe: 20210106 Facility: [facility] - Location: Access Ordered By: Nancy León Comprehensive Metabolic Panel ( DIRECTED) Timeframe: 20210107 Facility: [facility] - Location: Access Ordered By: Nancy León Comprehensive Metabolic Panel ( DIRECTED) Timeframe: 20210108 Facility: [facility] - Location: Access Ordered By: Nancy León Comprehensive Metabolic Panel ( DIRECTED) Timeframe: 20210109 Facility: [facility] - Location: Access Ordered By: Nancy León Complete Blood Count w/Diff ( DIRECTED) Timeframe: 20210104 Location: None Selected Ordered By: Nancy León Complete Blood Count w/Diff ( DIRECTED) Timeframe: 20210105 Location: None Selected Ordered By: Nancy León Complete Blood Count w/Diff ( DIRECTED) Timeframe: 20210106 Location: None Selected Ordered By: Nancy León Complete Blood Count w/Diff ( DIRECTED) Timeframe: 20210107 Location: None Selected Ordered By: Nancy León Complete Blood Count w/Diff ( DIRECTED) Timeframe: 20210108 Location: None Selected Ordered By: Nancy León Complete Blood Count w/Diff ( DIRECTED) Timeframe: 20210109 Location: None Selected Ordered By: Nancy León C-Reactive Protein ( DIRECTED) Timeframe: 20210105 Location: None Selected Ordered By: Nancy León C-Reactive Protein ( DIRECTED) Timeframe: 20210106 Location: None Selected Ordered By: Nancy León C-Reactive Protein ( DIRECTED) Timeframe: 20210107 Location: None Selected Ordered By: Nancy León C-Reactive Protein ( DIRECTED) Timeframe: 20210108 Location: None Selected Ordered By: Nancy León C-Reactive Protein ( DIRECTED) Timeframe: 20210109 Location: None Selected Ordered By: Nancy León Discharge Data Discharge Date/Time-TO BE ENTERED AT DEPARTURE: 12/28/20 13:10 DS: Summary Time Spent with Patient providing and/or coordinating discharge services: Less than 30 minutes Status at Discharge Functional status at discharge: independent ambulation Overall status at discharge: patient is not back to baseline Mental Status: mental status grossly normal Speech and Movement: speech and movement normal Mood: congruent mood Affect: normal affect Exam Narrative Exam Narrative: GEN: awake, alert, oriented 3. Pleasant, older appearing than st ated age HEAD: Normocephalic, atraumatic ENT: Mucous membranes moist, oropharynx unremarkable, External ear exam unremarkable EYES: anicteric NECK: Full ROM, No JVD CHEST/RESP: respirations even and unlabored CARDIOVASCULAR: RRR, good pedal pulse ABDOMEN: Soft, nontender +Bowel sounds EXT: Normal motor throughout, limited range of motion right ankle which is fusiformly swollen, with healed surgical scars. The right great toe has distal ulceration, swelling and erythema proximal. Warmth is palpable through the foot and ankle. Palpable DP. Neuro: Grossly normal neurologic exam, conversant, interactive. Psych: Speech fluent, thoughts congruent, affect normal Psych Mental Status: mental status grossly normal Speech and Movement: speech and movement normal Mood: congruent mood Affect: normal affect DS: Data Vitals/I&O Vitals and I&O: Vital Signs Temperature 36.1 C L 12/28/20 11:09 Temperature Source Tympanic 12/28/20 11:09 Pulse 70 12/28/20 11:09 Pulse Rhythm Regular 12/27/20 22:00 Pulse Strength Normal 12/27/20 10:32 Respiratory Rate 20 12/28/20 11:09 Respiratory Effort 12/28/20 02:14 Respiratory Depth Normal 12/28/20 02:14 Respiratory Pattern Normal 12/28/20 02:14 Blood Pressure 182/104 H 12/28/20 11:09 Blood Pressure Mean 110 12/27/20 10:32 Blood Pressure Position Sitting 12/27/20 07:39 Pulse Oximetry 91 L 12/28/20 11:09 Oxygen Delivery Method Room Air 12/28/20 11:09 Oxygen Flow Rate 0 12/28/20 11:09 Pain Level 7 12/28/20 07:35 Comment 12/28/20 11:09 Intake & Output 12/27/20 12/28/20 12/28/20 23:59 11:59 23:59 Intake Total 1638.5 / 1708.5 1090 / 1090 Balance 1638.5 / 1708.5 1090 / 1090 Intake: IV 1148.5 / 1218.5 50 / 50 Oral 490 / 490 1040 / 1040 Other: Comment Per pt reports voiding 3 times independently in bathroom unmeasured urine. Education provided about informing nursing staff of voiding. Voiding Methods Toilet Data Completed and Pending Labs on day of discharge: Labs from last 24 hours 12/28/20 12/28/20 06:28 00:20 WBC 7.45 RBC 4.02 L Hgb 13.5 Hct 41.3 MCV 102.7 H MCH 33.6 H MCHC 32.7 RDW 12.5 Plt Count 165 MPV 10.4 Sodium 140 Potassium 5.3 H Chloride 104 Carbon Dioxide 31.3 Anion Gap 4.7 BUN 21 H Creatinine 1.1 Estimated GFR/1.73 m2 >= 60.00 Glucose 100 Calcium 8.4 L Preliminary micro results at discharge 12/27/20 08:50 Blood Culture - Preliminary Blood NO GROWTH 24 HOURS 12/27/20 08:38 Blood Culture - Preliminary Blood NO GROWTH 24 HOURS PFSH Medical History (Updated 12/28/20 @ 13:42 by Nancy León NP) Gout History of multiple trauma Hypertension Sarcoidosis Surgical History H/O splenectomy Social History Smoking/Tobacco Use Status: Current every day Tobacco Type: smokeless tobacco Smoking risk assessment performed?: Yes Alcohol Intake: current Alcohol Intake frequency: 3 or more drinks per day Alcohol type: beer Details: Robb relates she has not had any withdrawal symptomatology when he is not h Drug use: Never Substance use type: does not use current occupation: [employer] Do you feel safe at home: Yes Do you feel safe in your relationship?: Yes
== END 2020-12-28 13:10 | disposition left against medical advice (07) ==
LOC: ER 11:21 → MS 12:38
PROVIDERS: Nurse Practitioner Acute Care; Admitting Provider Family Medicine; Emergency Provider Emergency Medicine; PCP Family Medicine; Visit Provider Family Medicine
DX: L03.115 Cellulitis of right lower limb (principal); Z90.81 Acquired absence of spleen; I10 Essential (primary) hypertension; F17.290 Nicotine dependence, other tobacco product, uncomplicated; M10.9 Gout, unspecified; Z20.822 Contact with and (suspected) exposure to COVID-19; M79.89 Other specified soft tissue disorders; Z79.899 Other long term (current) drug therapy
CPT/HCPCS: 97597; 36415; 80048; 80053; 85027; 85652; 87040; 87635; 96361; 96365; 96375; 99285; J1650; 73660; 73720; 81003; 83036; 83605; 83735; 85025; 86140; 93971; 99217; 99220; 99284; G0378; J1885; J2060; J2543

== ENCOUNTER 2020-12-30 12:56 | Outpatient (REF) | payer MEDICARE, SELFPAY | END 2020-12-30 12:57 | disposition home or self-care (01) | LOC: NCHCN 12:56 | PROVIDERS: PCP Family Medicine; Visit Provider Family Medicine | DX: M86.9 Osteomyelitis, unspecified (principal) | CPT/HCPCS: 87077; 87070; 87186; 87205 ==

== ENCOUNTER 2021-01-14 16:56 | Inpatient (IN) | payer MEDICARE, SELFPAY ==
[2021-01-14] VITALS (25 sets, daily range): BP systolic 100–169; BP diastolic 63–90; PULSE 70–91; RESP 18–20; TEMP 37.1; O2SAT 84–98
--- NOTE | 2021-01-14 17:15 | RT.EKG_ITS ---
APPROVED REPORT Exam: Resting ECG Reason for Exam: hypoxia Patient Location: E HR:77 bpm ECG Measurements Heart Rate 77 AXIS WI 146 P 54 QRSd 92 QRS 59 QT 400 T 17 QTc 453 Conclusion Sinus rhythm...normal P axis, V-rate 60- 99
--- NOTE | 2021-01-14 17:23 | DI.RAD_ITS ---
Exam(s) XR FOOT RT COMPLETE EXAM: XR FOOT RT COMPLETE CLINICAL HISTORY: great toe pain, lesion. TECHNIQUE: 2D digital imaging was performed. COMPARISON: CR XR foot RT complete from 09/01/2018 FINDINGS: BONES: No acute fracture is present. No bony destructive lesion is seen. Prior 5th toe partial amput ation. Chronic appearing deformity of the calcaneus. Two partially threaded screws are seen within the distal tibia. JOINTS: No dislocation present. SOFT TISSUE: There does appear to be a soft tissue defect at the tip of the great toe. The underlyin g bone appears intact. If there is concern for osteomyelitis, MRI or bone scan should be considered for further evaluation. IMPRESSION: Soft tissue defect at the tip of the great toe. No definite evidence for osteomyelitis based on the plain films. However, if there is concern for osteomyelitis, MRI or bone scan should be considered f or further evaluation. DATA REPOSITORY: RADIATION DOSE DELIVERED:
[2021-01-14 17:41] LABS: Abs Immature Grans 0.03 10^3/uL (0.0-0.06); Absolute Basophil Count 0.04 10^3/uL (0.0-0.2); Absolute Eosinophil Count 0.11 10^3/uL (0.0-0.7); Absolute Monocyte Count 0.72 10^3/uL (0.1-0.8); Absolute Neutrophil Count 4.08 10^3/uL (1.2-6.7); Basophils % 0.5; Eosinophils % 1.5; HCT 39.3 % (40.0-50.0); HGB 13.3 g/dL (13.5-17.5); Immature Grans % 0.4; Lymphocytes % 34.3; MCH 33.8 pg (27.0-33.0); MCHC 33.8 % (32.0-36.0); MCV 99.7 fL (80-95); MPV 10.1 fL (8.0-11.0); Monocytes % 9.5; Neutrophils % 53.8; Nucleated RBC 0 %; Platelet Count 271 10^3/uL (130-400); RBC 3.94 10^6/uL (4.36-5.78); RDW 12.9 % (11.8-14.1); RDW-SD 47.1 fL; WBC 7.58 10^3/uL (4.4-10.8)
[2021-01-14 17:44] LABS: Lactate 1.3 mmol/L (0.6-1.4)
[2021-01-14 17:53] LABS: Source Nasal/Nares
[2021-01-14 17:58] LABS: ALT 27 U/L (16-63); AST 22 U/L (15-37); Albumin 3.2 g/dL (3.4-5.0); Alkaline Phosphatase 104 U/L (46-116); Anion Gap 8.8 mmol/L (3-11); BUN 13 mg/dL (7-18); Bilirubin, Total 0.4 mg/dL (0.2-1.0); C-Reactive Protein 1.26 mg/dL (0.0-0.3); CO2 26.2 mmol/L (21.0-32.0); CREATININE 1.2 mg/dL (0.70-1.30); Calcium 8.3 mg/dL (8.5-10.1); Chloride 103 mmol/L (98-107); Glucose 96 mg/dL (74-106); Potassium 4.2 mmol/L (3.5-5.1); Sodium 138 mmol/L (136-145); Total Protein 7.4 g/dL (6.4-8.2)
--- NOTE | 2021-01-14 18:15 | DI.CT_ITS ---
Exam(s) CT CHEST PE CTA EXAM: CT CHEST PE CTA CLINICAL HISTORY: hypoxia, right leg swollen. TECHNIQUE: Imaging Protocol: Axial CT angiography was performed with multi-slice acquisition and mu lti-planar and/or 3D reconstructions. CONTRAST MATERIAL: Intravenous: Omnipaque 350 Contrast volume:100 mL FINDINGS: Tracheobronchial tree: Patent where visualized. Pulmonary parenchyma: No consolidation or dominant measurable mass. Stable diffuse interstitial disea se. Pulmonary Arteries: No evidence of filling defect to suggest pulmonary emboli. Mediastinum and Chely: No dominant adenopathy or fluid collection. Calcified mediastinal lymph nodes. Visualized thyroid gland: Unremarkable. Pleura: No effusion or pneumothorax. Heart: The heart is not dilated. Coronary artery calcification. No pericardial effusion. Aorta: Thoracic aorta non-dilated. Atherosclerosis. No evidence of dissection. Upper abdomen: Unremarkable. Prior anterior abdominal wall surgery. Soft tissues: Bilateral gynecomastia. Bones: Within normal limits for the patient's age. IMPRESSION: No evidence of pulmonary embolism, thoracic aortic dissection or aneurysm. RADIATION DOSE DELIVERED: 558.34mGy.cm Total DLP DATA REPOSITORY: All CT scans at this facility are submitted to the National Radiology Data Registry (NRDR) Dose Index Registry (DIR) with the [employer] (ACR). RADIATION OPTIMIZATION: All CT scans at this facility use at least one of these dose optimization te chniques: automated exposure control; mA and/or kV adjustment per patient size (includes targeted exa ms where dose is matched to clinical indication); or iterative reconstruction.
[2021-01-14 18:16] LABS: D-Dimer 1274 ng/mlFEU (<500); NT-proBNP 517 pg/mL (<300)
[2021-01-14 18:45] LABS: COVID-19 PCR Negative (Negative)
[2021-01-14] MEDS: Omnipaque 350 MG/ML 100 ML BTL IJ (18:54)
[2021-01-14] MEDS: Normal Saline Flush 10 ML SYR IVP (18:56)
--- NOTE | 2021-01-14 19:13 | NUR.NOTE ---
Nursing Note: Patient given sandwich, chips and water. Patient awaiting admit to hospital.
--- NOTE | 2021-01-14 19:55 | DI.VRAD_ITS ---
PROCEDURE INFORMATION: Exam: CTA Chest With Contrast Exam date and time: 01/14/2021 6:17 PM Age: 55 years old Clinical indication: Other: Hypoxia, right leg swollen, pui TECHNIQUE: Imaging protocol: Computed tomographic angiography of the chest with contrast. 3D rendering (Not supervised by radiologist): MIP and/or 3D reconstructed images were created by the technologist. Radiation optimization: All CT scans at this facility use at least one of these dose optimization techniques: automated exposure control; mA and/or kV adjustment per patient size (includes targeted exams where dose is matched to clinical indication); or iterative reconstruction. Contrast material: OMNIPAQUE; Contrast volume: 100 ml; Contrast route: INTRAVENOUS (IV); COMPARISON: CT Private^PE (Adult) 01/18/2018 1:25 PM FINDINGS: Pulmonary arteries: Enlarged pulmonary trunk and main pulmonary arteries suggesting pulmonary hypertension. Aorta: No thoracic aortic aneurysm or dissection. Thyroid: Thyroid gland partially obscured by artifact but grossly unremarkable, as seen. Lungs: Lung villagomez somewhat obscured by artifact from breathing motion. Extensive reticular interstitial prominence somewhat diffusely distributed throughout the mid-lower lung zones with associated scattered ground-glass pulmonary opacities, similar in appearance on the prior exam from 2018. No traction bronchiectasis. No honeycombing. No superimposed pulmonary consolidation Pleural spaces: No the pleural effusion or pneumothorax. Heart: Normal sized heart. Lymph nodes: Numerous calcified mediastinal and hilar lymph nodes. No adenopathy. Spleen: Spleen not identified. Surgical material in the splenic fossa. Prior splenectomy? Correlation with surgical history recommended. Bones/joints: Lower ribs partially excluded from view and incompletely evaluated. Otherwise, no acute fracture seen among the bones of the chest. Spinal degenerative change with endplate irregularities and anterior osteophytes at multiple levels. Soft tissues: No gross soft tissue mass or fluid collection seen in the chest wall. Prior anterior abdominal wall repair, partially visualized. IMPRESSION: 1. Extensive chronic interstitial lung disease, similar in appearance on the comparison exam from 2018. Does the patient have a known pulmonary diagnosis? If not currently followed by a relief captain, pulmonology consultation or follow-up would be recommended. A superimposed acute infectious or inflammatory process would be difficult to exclude on such a background; however, no region of cassie pulmonary consolidation is seen. 2. Enlarged pulmonary trunk and main pulmonary arteries suggesting pulmonary hypertension. 3. No pulmonary embolism identified. 4. Numerous calcified lymph nodes, nonspecific but commonly seen in the setting of a prior granulomatous infection. Dictated and Authenticated by: Robb Britt MD. Ordering:GERARDO Nash MD
--- NOTE | 2021-01-14 20:07 | DI.VRAD_ITS ---
PROCEDURE INFORMATION: Exam: XR Right Foot Exam date and time: 01/14/2021 6:48 PM Age: 55 years old Clinical indication: Patient HX: Great toe pain, right foot lesion, right foot pain, right foot history of osteomyelitis TECHNIQUE: Imaging protocol: XR Right foot. Views: 3 or more views. COMPARISON: MR LOWER EXTREMITY RT WO/W 12/28/2020 11:50 AM FINDINGS: Bones/joints: There is diffuse osteopenia. There are two orthopedic screws apparently transfixing an old medial malleolar fracture but not well demonstrated. There has been prior amputation of most of the right 5th digit leaving only the proximal portion of the metatarsal. There is suggestion of subtle cortical loss along the margin of the distal 1st phalanx subjacent to what appears to be a soft tissue defect. There is complete loss of the posterior talar calcaneal joint suggesting probable fusion or partial fusion across this portion of the joint. There is also suggestion of partial fusion across the calcaneocuboid joint although this appearance could represent an artifact created by overlapping bones. The plantar arch appears diminished although the lateral view was obtained with rotated patient positioning somewhat limiting this evaluation. No acute fracture is seen. Soft tissues: There appears to be a soft tissue defect at the tip of the great toe subtle. IMPRESSION: Apparent soft tissue defect at the tip of the great toe. There is faint suggestion of subtle cortical loss and subtle periosteal reaction along the margin of the subjacent distal 1st phalanx suggesting probable acute osteomyelitis. That said, clinical correlation is recommended as the imaging appearance is subtle. Dictated and Authenticated by: Robb Britt MD. Ordering:GERARDO Nash MD
--- NOTE | 2021-01-14 20:35 | ED.GENADUL_ITS ---
Discharge Plan Discharge Details Chief Complaint: RashLesion Admit Date/Time: 01/14/21 20:32 Admit Provider: Darion Abdi Attending Provider: Darion Abdi Primary Care Provider: Sharon Sanabria V ED Provider: Charity Wiggins Discharge Data Discharge Date/Time-TO BE ENTERED AT DEPARTURE: 01/14/21 21:29 Medical Decision Making PUI called initially as patient was asymptomatic and hypoxic at 87% Covid negative Evidence of lung disease on CT scan without evidence of pulmonary embolism, pulmonary hypertension noted, BNP is 500, patient denies any chest pain or shortness of breath I did review his prior wound cultures which were strep and staph positive, will initiate ceftriaxone 2 g, patient take his Levaquin today, not will not give additional oral antibiotics at this time no indication for IV antibiotics as Levaquin is just is available orally of IV Diagnostic labs not show significant acute abnormality, patient is an alcoholic, he states he has no history of withdrawal, I learned this later in the course of this visit He will need to be monitored for withdrawal signs or symptoms, he states he has gone a day in the past week without drinking and he did not have withdrawal symptoms He states he typically drinks from 7:00 in the morning to talk in the afternoon and does not drink after that, he has 10-15 beers daily He is completely alert, oriented, of decisional capacity at time of my evaluation Will order nebs as patient needs some, however he is completely asymptomatic with this hypoxia and is tolerating 1 to 2 L of oxygen without any incident D-dimer 1274 CRP of 1.26, BNP is [address] Estrada, podiatry. Given patient's hypoxia will likely perform operation on Saturday Discussed with Dr. Cespedes, admitting hospitalist who will admit patient overnight and will medically clear patient with anesthesia for surgery The rad read results discussed with admitting hospitalist, Dr Rosales, Dr. Estrada, and osteomyelitis was previously seen on MRI, he is appropriately treated on oral Levaquin, will add ceftriaxone Medical Records Medical records reviewed: Yes I reviewed the patient's medical records. Lab Data Lab results reviewed: Yes I reviewed the patient's lab results. HPI General Mode of arrival: ambulatory . Date/Time Provider Initiated Documentation: 01/14/21 16:57 . Limitations to Documentation: no limitations . Information obtained by: patient . HPI Narrative: This 55-year-old gentleman with history of alcoholism, DVT, osteomyelitis, possible fractures, sarcoidosis, hypertension presents for report of worsening pain and swelling to his right first toe. He states that this is been going on for a month and a quarter. He was started on Levaquin recently and he took a dose of his medication today. He denies any chest pain or shortness of breath. He denies any fever or chills. He states he is concerned because the redness and swelling of his leg. He denies any cough. He states that he received his first Covid vaccine several weeks ago but has not really been checking it. Patient states he called Dr. Estrada, podiatry today and his plan is to perform an amputation of his great toe tomorrow. Related Data Home Medications Medication Instructions Recorded Confirmed acetaminophen [Tylenol Extra 1,000 mg PO Q8H PRN PRN 01/18/18 01/14/21 Strength] aspirin [Aspirin Low Dose] 81 mg PO DAILY 01/18/18 01/14/21 atenolol 50 mg PO DAILY 01/18/18 12/27/20 lisinopril 40 mg PO DAILY 12/27/20 01/14/21 levofloxacin 750 mg PO DAILY #42 tab 12/28/20 01/14/21 Previous Rx's Medication Instructions Recorded levofloxacin 750 mg PO DAILY #42 tab 12/28/20 Allergies Allergy/AdvReac Type Severity Reaction Status Date / Time No Known Allergies Allergy Verified 01/14/21 17:09 General Stated Complaint: RashLesion KLALI: 3 Review of Systems All systems reviewed & are unremarkable except as noted in HPI and below PFSH Medical History (Updated 01/14/21 @ 23:25 by Darion Abdi) Alcoholism Gout History of multiple trauma Hypertension Sarcoidosis Surgical History (Updated 01/14/21 @ 23:24 by Darion Abdi) 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 History of ankle surgery Social History (Updated 01/14/21 @ 23:26 by Darion Abdi) Smoking/Tobacco Use Status: Current every day Tobacco Type: smokeless tobacco Smoking risk assessment performed?: Yes Alcohol Intake: current Alcohol Intake frequency: 3 or more drinks per day Alcohol type: beer Details: Robb relates she has not had any withdrawal symptomatology when he is not h Drug use: Never Substance use type: does not use current occupation: [employer] Do you feel safe at home: Yes Do you feel safe in your relationship?: Yes Additional Social history: Lives in [facility], 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 Son and grandchildren in [place], wants to travel there February 2021 Exam Const General: cooperative Other: Chronically ill-appearing HENMT Head: normal to inspection Mouth: oral mucosae normal Other: No tongue fasciculations symptomatic Eyes Pupils: PERRL Neck Other: No JVD Chest Chest: normal inspection of the chest Resp Effort & Inspection: normal respiratory effort Cardio Rate: regular rate Rhythm: regular rhythm GI Inspection: normal to inspection Auscultation: normal bowel sounds Skin Other: See extremity note Neuro General: patient alert and patient oriented x3 Other: No tremors noted Extrem Ankle/foot/toe images: 1. Ulcerated lesion, macerated tissue, yellowish callus noted, no crepitus, distal pulses intact, swelling persistent pain right ankle, no crepitus, right calf mildly more swollen than left, calf nontender Course Vital Signs Vital signs: Vital Signs Temperature 37.1 C 01/14/21 17:01 Pulse 91 H 01/14/21 17:01 Respiratory Rate 18 01/14/21 17:01 Blood Pressure 111/73 01/14/21 17:01 Pulse Oximetry 92 01/14/21 17:01 Temperature 37.1 C 01/14/21 17:01 Temperature Source Oral 01/14/21 17:01 Pulse 74 01/14/21 19:46 Respiratory Rate 18 01/14/21 17:01 Respiratory Effort Non-Labored 01/14/21 17:10 Blood Pressure 131/79 01/14/21 19:46 Blood Pressure Mean 90 01/14/21 19:46 Blood Pressure Position Sitting 01/14/21 17:01 Pulse Oximetry 97 01/14/21 19:50 Oxygen Delivery Method Room Air 01/14/21 17:16 Oxygen Flow Rate 0 01/14/21 17:16 Lab/Test Results Lab/Test Results: 01/14/21 17:30 Blood Blood Culture - Pending 01/14/21 17:45 Blood Blood Culture - Pending Laboratory Tests Range/Units 01/14/21 01/14/21 01/14/21 17:30 17:30 17:30 WBC (4.4-10.8) 10^3/uL 7.58 RBC (4.36-5.78) 10^6/uL 3.94 L Hgb (13.5-17.5) g/dL 13.3 L Hct (40.0-50.0) % 39.3 L MCV (80-95) fL 99.7 H MCH (27.0-33.0) pg 33.8 H MCHC (32.0-36.0) % 33.8 RDW (11.8-14.1) % 12.9 Plt Count (130-400) 10^3/uL 271 D MPV (8.0-11.0) fL 10.1 Immature Gran % 0.4 Neutrophils % 53.8 Lymphocytes % 34.3 Monocytes % 9.5 Eosinophils % 1.5 Basophils % 0.5 Nucleated RBC % % 0 Absolute Neutrophils (1.2-6.7) 10^3/uL 4.08 Absolute Lymphocytes (1.2-3.4) 10^3/uL 2.60 Absolute Monocytes (0.1-0.8) 10^3/uL 0.72 Absolute Eosinophils (0.0-0.7) 10^3/uL 0.11 Absolute Basophils (0.0-0.2) 10^3/uL 0.04 D-Dimer (<500) ng/mlFEU VBG Lactate (0.6-1.4) mmol/L 1.3 Sodium (136-145) mmol/L 138 Potassium (3.5-5.1) mmol/L 4.2 Chloride (98-107) mmol/L 103 Carbon Dioxide (21.0-32.0) mmol/L 26.2 Anion Gap (3-11) mmol/L 8.8 BUN (7-18) mg/dL 13 Creatinine (0.70-1.30) mg/dL 1.2 Estimated GFR/1.73 m2 (mL/min/1.73m2) >= 60.00 Glucose (74-106) mg/dL 96 Calcium (8.5-10.1) mg/dL 8.3 L Total Bilirubin (0.2-1.0) mg/dL 0.4 AST (15-37) U/L 22 ALT (16-63) U/L 27 Alkaline Phosphatase (46-116) U/L 104 C-Reactive Protein (0.0-0.3) mg/dL 1.26 H NT-Pro-B Natriuret Pep (<300) pg/mL Total Protein (6.4-8.2) g/dL 7.4 Albumin (3.4-5.0) g/dL 3.2 L COVID-19 Source SARS-CoV-2 (PCR) (Negative) Range/Units 01/14/21 01/14/21 01/14/21 17:30 17:30 17:47 WBC (4.4-10.8) 10^3/uL RBC (4.36-5.78) 10^6/uL Hgb (13.5-17.5) g/dL Hct (40.0-50.0) % MCV (80-95) fL MCH (27.0-33.0) pg MCHC (32.0-36.0) % RDW (11.8-14.1) % Plt Count (130-400) 10^3/uL MPV (8.0-11.0) fL Immature Gran % Neutrophils % Lymphocytes % Monocytes % Eosinophils % Basophils % Nucleated RBC % % Absolute Neutrophils (1.2-6.7) 10^3/uL Absolute Lymphocytes (1.2-3.4) 10^3/uL Absolute Monocytes (0.1-0.8) 10^3/uL Absolute Eosinophils (0.0-0.7) 10^3/uL Absolute Basophils (0.0-0.2) 10^3/uL D-Dimer (<500) ng/mlFEU 1274 H VBG Lactate (0.6-1.4) mmol/L Sodium (136-145) mmol/L Potassium (3.5-5.1) mmol/L Chloride (98-107) mmol/L Carbon Dioxide (21.0-32.0) mmol/L Anion Gap (3-11) mmol/L BUN (7-18) mg/dL Creatinine (0.70-1.30) mg/dL Estimated GFR/1.73 m2 (mL/min/1.73m2) Glucose (74-106) mg/dL Calcium (8.5-10.1) mg/dL Total Bilirubin (0.2-1.0) mg/dL AST (15-37) U/L ALT (16-63) U/L Alkaline Phosphatase (46-116) U/L C-Reactive Protein (0.0-0.3) mg/dL NT-Pro-B Natriuret Pep (<300) pg/mL 517 H Total Protein (6.4-8.2) g/dL Albumin (3.4-5.0) g/dL COVID-19 Source Nasal/Nares SARS-CoV-2 (PCR) (Negative) Negative
[2021-01-14] MEDS: cefTRIAXone 2 GM/50 ML BAG IVPB (20:40)
--- NOTE | 2021-01-14 21:38 | W.PM.HP.N ---
Date of service: 01/14/21 Time of Service: 22:51 Assessment and Plan Assessment and plan (1) Osteomyelitis: Status: Acute Assessment and plan: Osteomyelitis confirmed byt MRI, now seems to be progressing despite levofloxacin orally as outpatient. His energy efficiency engineer Dr. Gardner has recommended 1st toe amputation. Plan is surgery on Saturday. Had initially planned tomorrow but I agree with waiting until Saturday given his lung disease. (2) Alcoholism: Status: Chronic Assessment and plan: PCP thought he was no abstinant. He has cut down significantly,which is good. He denies symptoms of AUD but review of his history are c/w AUD. We discussed medication options and I encouraged moderation to <2/day (3) Sarcoidosis: Status: Chronic Assessment and plan: Treated with steroids remotely. He was hypoxic upon presenation, and Chest CT shows pulmonary HTN and insterstitial fibrorsis and calcified lymph notes c/w sarcoid. However per imaging his lungs are not worse. Given hypoxia, I would like to concult pulmonology to see what she thinks about steroids or other treatment opions. (4) Hypertension: Status: Chronic Assessment and plan: BP high, follow back on his medication. (5) DVT prophylaxis: Status: Acute Assessment and plan: SCDs for now pending surgery, holding ASA as well. Consider LMWH post operatively. (6) Discharge planning issues: Status: Acute Assessment and plan: Stable on medical floor. He may need a PICC line once blood cultures negative. He is full code History of Present Illness History of Present Illness Chief Complaint: foot pain Narrative: 55 yo with alcohol use disorder and sarcoidosis both thought to be in remission, history of gout, history of osteomyelitis s/p amputation of right 5th digit, and history of complex right ankle fracture with reconstruction with residual hardware in place who was sent to the emergency room by Dr. Gardner in podiatry with increasing pain in his right foot to ankle in the setting of recently diagnosed osteomyelitis of his right great toe. Patient states the right 1st toe problem started about 5 weeks ago with a blood blister. It didn't heal and became infected. He has been on levofloxacin for the about 2 weeks without improvement. As above pain started spreading from the distal foot up into the right ankle on the morning of admission. Other than foot pain, he doesn't feel bad. No fevers or chills, normal appetite, no nausea or vomiting. He states he was diagnosed with sarcoidosis 8-9 years ago when he had an enlarged spleen. He denies ever having lung disease in the past. Since he has been on antibiotics for the past 2 weeks he has cut down his daily beer intake from 15/day to 3-4. He has used ativan when he stopped drinking in the past, but denies any shakes or withdrawal seizures. Has quit in the past without difficulty, but has been drinking at a high level for months. Review of Systems Constitutional Constitutional: Denies anorexia, Denies chills, Denies fever(s), Denies headache(s), Denies malaise, Denies poor appetite and Denies weakness Eyes Eyes: Denies change in vision and Denies irritation ENT Ears, Nose, Mouth, and Throat: Denies dental pain, Denies dysphagia, Denies dizziness, Denies headache(s), Denies nasal congestion, Denies nasal discharge and Denies sore throat Cardiovascular Cardiovascular: Denies chest pain, Denies palpitations, Denies dyspnea and Denies orthopnea Respiratory Respiratory: Denies chest congestion, Denies cough (though he did cough twice during interview), Denies excessive phlegm production, Denies dyspnea and Denies wheezing Gastrointestinal Gastrointestinal: Denies abdominal pain, Denies constipation, Denies dysphagia, Denies heartburn, Denies diarrhea and Denies vomiting Genitourinary Genitourinary: Denies hematuria, Denies dysuria and Denies urinary incontinence Musculoskeletal Comments: no recent gout Integumentary/Breasts Skin/Breast: Denies rash and Denies jaundice Neurologic Neurologic: Denies dizziness, Denies headache(s), Denies sensory deficit, Denies paresthesias, Denies tremor(s) and Denies weakness Psychiatric Psychiatric: Denies mood swings Endocrine Endocrine: Denies palpitations Hematologic/Lymphatic Hematologic/Lymphatic: Denies easy bleeding Allergic/Immunologic Allergic/Immunologic: Denies wheezing [facility] Medical History (Updated 01/14/21 @ 23:25 by Darion Abdi) Alcoholism Gout History of multiple trauma Hypertension Sarcoidosis Surgical History (Updated 01/14/21 @ 23:24 by Darion Abdi) 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 History of ankle surgery Social History (Updated 01/14/21 @ 23:26 by Darion Abdi) Smoking/Tobacco Use Status: Current every day Tobacco Type: smokeless tobacco Smoking risk assessment performed?: Yes Alcohol Intake: current Alcohol Intake frequency: 3 or more drinks per day Alcohol type: beer Details: Robb relates she has not had any withdrawal symptomatology when he is not h Drug use: Never Substance use type: does not use current occupation: [employer] Do you feel safe at home: Yes Do you feel safe in your relationship?: Yes Additional Social history: Lives in [facility], 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 Son and grandchildren in [place], wants to travel there February 2021 Meds Allergies and Home Medications Allergies Allergy/AdvReac Type Severity Reaction Status Date / Time No Known Allergies Allergy Verified 01/14/21 17:09 Home Medications Medication Instructions Recorded Confirmed Type acetaminophen [Tylenol Extra 1,000 mg PO Q8H PRN PRN 01/18/18 01/14/21 History Strength] aspirin [Aspirin Low Dose] 81 mg PO DAILY 01/18/18 01/14/21 History atenolol 50 mg PO DAILY 01/18/18 12/27/20 History lisinopril 40 mg PO DAILY 12/27/20 01/14/21 History levofloxacin 750 mg PO DAILY #42 tab 12/28/20 01/14/21 Rx Exam Narrative Exam Narrative: GEN: Alert and oriented, pleasent and cooperative, gives linear history. No acute distress at rest. HEENT: Head atraumatic. Conjunctiva clear, no icterus. PEERL, EOMI. no rhinorrhea. MMM, OP benign. Neck is supple with no masses or lymphadenopathy, trachea midline LUNGS: CTAB with normal effort CV: RRR with no murmurs, gallops, or rubs. ABD: +BS, soft, NT/ND EXT: no cyanosis, clubbing, or edema MSK: No joint redness or swelling except right 1st toe. Right ankle hypertrophic, old surgical scars. Tender to squeeze at ankle, more so than foot. NEURO: CN 2-12 grossly intact. Normal movement and nl sensation of 4 extremities. Normal speech and coordination. no tremor. SKIN: No rashes. 2cm ulceration distal right 1st toe. No drainage. PSYCH: normal mood and affect Results Imaging CT scan - chest: report reviewed (Tracheobronchial tree: Patent where visualized. Pulmonary parenchyma: No consolidation or dominant measurable mass. Stable diffuse interstitial disease. Pulmonary Arteries: No evidence of filling defect to suggest pulmonary emboli. Mediastinum and Chely: No dominant adenopathy or fluid collection. C) Additional studies: NSR, no ischemic changes. EKG: report reviewed Imaging Studies: XR right foot: soft tissue defect at the tip of the great toe. No definite evidence for osteomyelitis based on the plain films. However, if there is concern for osteomyelitis, MRI or bone scan should be considered for further evaluation. MRI right foot 12/28/20 IMPRESSION: 1. Findings are consistent with osteomyelitis of the distal phalanx of the great toe. Labs Result diagrams: 01/14/21 17:30 01/14/21 17:30 Labs: Laboratory Results - last 24 hr 01/14/21 01/14/21 01/14/21 17:30 17:30 17:30 WBC 7.58 RBC 3.94 L Hgb 13.3 L Hct 39.3 L MCV 99.7 H MCH 33.8 H MCHC 33.8 RDW 12.9 Plt Count 271 D MPV 10.1 Immature Gran % 0.4 Neutrophils % 53.8 Lymphocytes % 34.3 Monocytes % 9.5 Eosinophils % 1.5 Basophils % 0.5 Nucleated RBC % 0 Absolute Neutrophils 4.08 Absolute Lymphocytes 2.60 Absolute Monocytes 0.72 Absolute Eosinophils 0.11 Absolute Basophils 0.04 D-Dimer VBG Lactate 1.3 Sodium 138 Potassium 4.2 Chloride 103 Carbon Dioxide 26.2 Anion Gap 8.8 BUN 13 Creatinine 1.2 Estimated GFR/1.73 m2 >= 60.00 Glucose 96 Calcium 8.3 L Total Bilirubin 0.4 AST 22 ALT 27 Alkaline Phosphatase 104 C-Reactive Protein 1.26 H NT-Pro-B Natriuret Pep Total Protein 7.4 Albumin 3.2 L COVID-19 Source SARS-CoV-2 (PCR) 01/14/21 01/14/21 01/14/21 17:30 17:30 17:47 WBC RBC Hgb Hct MCV MCH MCHC RDW Plt Count MPV Immature Gran % Neutrophils % Lymphocytes % Monocytes % Eosinophils % Basophils % Nucleated RBC % Absolute Neutrophils Absolute Lymphocytes Absolute Monocytes Absolute Eosinophils Absolute Basophils D-Dimer 1274 H VBG Lactate Sodium Potassium Chloride Carbon Dioxide Anion Gap BUN Creatinine Estimated GFR/1.73 m2 Glucose Calcium Total Bilirubin AST ALT Alkaline Phosphatase C-Reactive Protein NT-Pro-B Natriuret Pep 517 H Total Protein Albumin COVID-19 Source Nasal/Nares SARS-CoV-2 (PCR) Negative Last Vital Signs Temp 37.1 C 01/14/21 17:01 Pulse 77 01/14/21 21:14 Resp 20 01/14/21 21:14 BP 134/84 01/14/21 21:14 Pulse Ox 95 01/14/21 21:14
[2021-01-14 22:41] LABS: ETHANOL BLOOD 126.1 mg/dL (<3)
[2021-01-15] VITALS (9 sets, daily range): BP systolic 131–175; BP diastolic 79–109; PULSE 56–76; RESP 18; TEMP 36–36.7; O2SAT 92–96
[2021-01-15] MEDS: oxyCODONE 5 MG TAB PO ×3 (00:01→16:40)
[2021-01-15 05:43] LABS: *AMPHETAMINES SCREEN URINE Negative (Negative); *BARBITURATES SCREEN URINE Negative (Negative); *BENZODIAZEPINES SCREEN URINE Negative (Negative); Cannabinoids THC Negative (Negative); Cocaine Screen,Urine Positive (Negative); METHADONE URINE SCREEN Negative (Negative); OPIATES URINE SCREEN Negative (Negative)
[2021-01-15 05:44] LABS: Tricyclic Antidepressants Negative (Negative)
[2021-01-15] MEDS: Thiamine 100 MG TAB PO (08:38)
[2021-01-15] MEDS: Acetaminophen 500 MG TAB 1000 MG PO ×2 (08:38→16:40)
[2021-01-15] MEDS: Lisinopril 20 MG TAB 40 MG PO (08:38)
[2021-01-15] MEDS: Atenolol 50 MG TAB PO (08:38)
[2021-01-15] MEDS: Multivitamin TAB 1 TAB PO (08:38)
[2021-01-15] MEDS: Folic Acid 1 MG TAB PO (08:39)
--- NOTE | 2021-01-15 09:18 | W.PM.PROGNOT ---
Date of Service Date of service: 01/15/21 Time of Service: 09:19 Assessment and Plan Assessment and plan (1) Osteomyelitis: Status: Acute Assessment and plan: Osteomyelitis confirmed by MRI, now seems to be progressing despite levofloxacin orally as outpatient. His produce manager Dr. Gardner has recommended 1st toe amputation. Plan is surgery on Saturday. medically stable (2) Alcoholism: Status: Chronic Assessment and plan: no sign of withdrawal. will remain on CIWA protocol, scoring 1 overnight. continue thiamine. motivated to cut down and states he has. (3) Sarcoidosis: Status: Chronic Assessment and plan: respiratory status is stable. no fevers, normal white count. no oxygen requirements, cough or sob Treated with steroids remotely. He was hypoxic upon presenation, and Chest CT shows pulmonary HTN and insterstitial fibrorsis and calcified lymph notes c/w sarcoid. However per imaging his lungs are not worse. Given hypoxia, I would like to concult pulmonology to see what she thinks about steroids or other treatment options. (4) Hypertension: Status: Chronic Assessment and plan: will change atenolol to metoprolol start at 12.5 mg bid, adjust as needed. (5) DVT prophylaxis: Status: Acute Assessment and plan: SCDs for now pending surgery, holding ASA as well. Consider LMWH post operatively. (6) Discharge planning issues: Status: Acute Assessment and plan: Stable on medical floor. He may need a PICC line once blood cultures negative. He is full code discharge discussed with Dr Wisdom Subjective Subjective Patient reports: no new complaints, tolerating liquids well, tolerating a regular diet and afebrile; denies shortness of breath Interval history since last seen: no sob or cough. oxygenating well on room air. feels respiratory status at baseline Exam Const General: cooperative HENMT Head: normal to inspection Mouth: oral mucosae normal Eyes Pupils: PERRL Chest Chest: normal inspection of the chest Resp Effort & Inspection: normal respiratory effort Auscultation: other (dim bases, occ adventious breath sound scattered in bases, no wheeze) Cardio Rate: regular rate Rhythm: regular rhythm GI Inspection: normal to inspection Auscultation: normal bowel sounds Skin Rashes: other (right great toe dressing intact, no erythema proximally, denies pain) Neuro General: patient alert and patient oriented x3 Objective Last Vital Signs Temp 36.6 C 01/15/21 07:30 Pulse 62 01/15/21 07:30 Resp 18 01/15/21 07:30 BP 155/93 H 01/15/21 07:30 Pulse Ox 95 01/15/21 07:30 Laboratory Results - last 24 hr 01/14/21 01/14/21 01/14/21 17:30 17:30 17:30 WBC 7.58 RBC 3.94 L Hgb 13.3 L Hct 39.3 L MCV 99.7 H MCH 33.8 H MCHC 33.8 RDW 12.9 Plt Count 271 D MPV 10.1 Immature Gran % 0.4 Neutrophils % 53.8 Lymphocytes % 34.3 Monocytes % 9.5 Eosinophils % 1.5 Basophils % 0.5 Nucleated RBC % 0 Absolute Neutrophils 4.08 Absolute Lymphocytes 2.60 Absolute Monocytes 0.72 Absolute Eosinophils 0.11 Absolute Basophils 0.04 D-Dimer VBG Lactate 1.3 Sodium 138 Potassium 4.2 Chloride 103 Carbon Dioxide 26.2 Anion Gap 8.8 BUN 13 Creatinine 1.2 Estimated GFR/1.73 m2 >= 60.00 Glucose 96 Calcium 8.3 L Total Bilirubin 0.4 AST 22 ALT 27 Alkaline Phosphatase 104 C-Reactive Protein 1.26 H NT-Pro-B Natriuret Pep Total Protein 7.4 Albumin 3.2 L Urine Opiates Screen Urine Methadone Screen Ur Barbiturates Screen Ur Tricyclics Screen Ur Amphetamines Screen U Benzodiazepines Scrn Urine Cocaine Screen Ur THC Screen Ethyl Alcohol COVID-19 Source SARS-CoV-2 (PCR) 01/14/21 01/14/21 01/14/21 17:30 17:30 17:30 WBC RBC Hgb Hct MCV MCH MCHC RDW Plt Count MPV Immature Gran % Neutrophils % Lymphocytes % Monocytes % Eosinophils % Basophils % Nucleated RBC % Absolute Neutrophils Absolute Lymphocytes Absolute Monocytes Absolute Eosinophils Absolute Basophils D-Dimer 1274 H VBG Lactate Sodium Potassium Chloride Carbon Dioxide Anion Gap BUN Creatinine Estimated GFR/1.73 m2 Glucose Calcium Total Bilirubin AST ALT Alkaline Phosphatase C-Reactive Protein NT-Pro-B Natriuret Pep 517 H Total Protein Albumin Urine Opiates Screen Urine Methadone Screen Ur Barbiturates Screen Ur Tricyclics Screen Ur Amphetamines Screen U Benzodiazepines Scrn Urine Cocaine Screen Ur THC Screen Ethyl Alcohol 126.1 COVID-19 Source SARS-CoV-2 (PCR) 01/14/21 01/15/21 17:47 01:45 WBC RBC Hgb Hct MCV MCH MCHC RDW Plt Count MPV Immature Gran % Neutrophils % Lymphocytes % Monocytes % Eosinophils % Basophils % Nucleated RBC % Absolute Neutrophils Absolute Lymphocytes Absolute Monocytes Absolute Eosinophils Absolute Basophils D-Dimer VBG Lactate Sodium Potassium Chloride Carbon Dioxide Anion Gap BUN Creatinine Estimated GFR/1.73 m2 Glucose Calcium Total Bilirubin AST ALT Alkaline Phosphatase C-Reactive Protein NT-Pro-B Natriuret Pep Total Protein Albumin Urine Opiates Screen Negative Urine Methadone Screen Negative Ur Barbiturates Screen Negative Ur Tricyclics Screen Negative Ur Amphetamines Screen Negative U Benzodiazepines Scrn Negative Urine Cocaine Screen Positive A Ur THC Screen Negative Ethyl Alcohol COVID-19 Source Nasal/Nares SARS-CoV-2 (PCR) Negative
--- NOTE | 2021-01-15 09:34 | PDOC.CMIN ---
- If Service Date Differs Date of service: 01/15/21 Time of Service: 09:34 Care Management Initial Assess REASON FOR HOSPITALIZATION:: Osteomylitis PAST MEDICAL HISTORY/PAST SURGICAL HISTORY:: Medical History (Updated 01/14/21 @ 23:25 by Darion Abdi). Alcoholism. Gout. History of multiple trauma. Hypertension. Sarcoidosis. Surgical History (Updated 01/14/21 @ 23:24 by Darion Abdi). Amputation of toe of right foot. H/O splenectomy. History of ankle surgery PREVIOUS FUNCTIONAL STATUS/SOCIAL/FAMILY SUPPORTS:: Robb lives in [facility], [facility]. 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 He identifies his sister as his main support. Robb is independent at baseline and drives. His car is in the parking lot. CURRENT FUNCTIONAL STATUS:: Robb was sitting up in bed watching TV when CM met with him. He was calm, alert and easily engaged in conversation. He is antipating surgery on Saturday to amputate his right great toe. He denies concerns at this time. He has a phone at his bed side to communicate with family and friends at his leisure. ADVANCE DIRECTIVES:: None on file and not interested at this time. Has patient been provided with info about the portal/API?: Yes Did the patient sign up for the portal?: No CODE STATUS:: Full Code INSURANCE COVERAGE / FINANCIAL ISSUES:: MCR CURRENT HOME/COMMUNITY SERVICES/EQUIPMENT:: No current services or equipment PRIMARY CARE PHYSICIAN:: Dr. Sharon Sanabria POTENTIAL DISCHARGE NEEDS:: Support with BP medication coverage PATIENT/FAMILY EDUCATION NEEDS:: Review discharge instructions regarding activity levels and medications, discussion of self care needs including ask me three. ANTICIPATED BARRIERS TO DISCHARGE:: Potential for ETOH withdrawal TRANSPORTATION:: Via private vehicle PLAN:: Unclear of disposition at this time. Robb is anticipating having his right great toe amputated tomorrow. Pt may return home vs remain for IV abx if indicated following surgery. CM will continue to support discharge planning needs.
--- NOTE | 2021-01-15 10:01 | NUR.NOTE ---
Nursing Note: Pt states he had a tetanus vaccine about [address] Balbuena office. he declines to take the ordered dose today, until we confirm wether he had the dose or not. CARA Hooks Notifed.
--- NOTE | 2021-01-15 12:09 | NUR.NOTE ---
Patient reports that he has not been taking his atenolol at home because he cannot afford it. Care Management aware and will assist him with resources. Dr. Wisdom change to metoprolol as it may be a better option. Nursing Note:
[2021-01-15] MEDS: Normal Saline 500 ML 30 ML IV (13:22)
[2021-01-15] MEDS: LORazepam 1 MG TAB PO/SL (20:17)
[2021-01-15] MEDS: Normal Saline Flush 10 ML SYR IVP (20:17)
[2021-01-15] MEDS: oxyCODONE 15 MG TAB PO (21:17)
[2021-01-15] MEDS: Lactated Ringers 1,000 ML 75 ML IV (21:19)
[2021-01-16] VITALS (10 sets, daily range): BP systolic 133–170; BP diastolic 80–100; PULSE 57–86; RESP 12–20; TEMP 36.3–37.1; O2SAT 88–96; BMI 32.3
[2021-01-16] MEDS: oxyCODONE 15 MG TAB PO ×4 (04:46→22:02)
--- NOTE | 2021-01-16 07:05 | POCOE_ITS ---
Date of service: 01/16/21 Time of Service: 07:05 History of Present Illness History of Present Illness Chief Complaint: Osteomyelitis right hallux Narrative: 55-year-old white male with an ulceration at the distal tip of the right great toe with active osteomyelitis of the distal phalanx confirmed with MRI studies. [facility] Medical History Alcoholism Gout History of multiple trauma Hypertension Sarcoidosis Surgical History 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 History of ankle surgery Social History Smoking/Tobacco Use Status: Current every day Tobacco Type: smokeless tobacco Smoking risk assessment performed?: Yes Alcohol Intake: current Alcohol Intake frequency: 3 or more drinks per day Alcohol type: beer Details: Robb relates she has not had any withdrawal symptomatology when he is not h Drug use: Never Substance use type: does not use current occupation: [employer] Do you feel safe at home: Yes Do you feel safe in your relationship?: Yes Additional Social history: Lives in [facility], 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 Son and grandchildren in [place], wants to travel there February 2021 Exam Narrative Exam Narrative: Robb is resting comfortably in bed this morning. He states his right great toe remains very tender. He denies fever chills or feelings of malaise. Vascular exam: Pulses are strongly palpable at the ankles bilaterally graded 2/4. CFT under 3 seconds to all toes without edema calves are soft to palpation. Muscle groups are 5 out of 5 bilaterally Skeletal exam is remarkable for an ulceration at the distal tip of the right great toe. No cassie cellulitis is currently observed. The erythema that they had seen in this toe when I saw him at the office last is mostly resolved. He has a semirigid hallux malleus deformity through the interphalan geal joint of the right great toe. Plain radiographs are generally unremarkable but the MRI identifies involvement of the distal phalanx consistent with osteomyelitis Neurologically he appears to be grossly intact although I think there is some component of alcoholic neuropathy Impressions: Ulceration distal tip right great toe with osteomyelitis of the distal phalanx Plan: Based on the deformity of the hallux, the active state of osteomyelitis, I am recommending a disarticulation amputation of the right great toe at the interphalangeal joint. If intraoperatively the distal phalanx appears the slightest bit abnormal additional bone will be resected at that time. Robb fully understands the permanency of the procedure, the potential risks and complications including wound dehiscence, ongoing infection, and the potential for revisional more proximal surgical interventions. All questions have been answered in detail. Informed consent has been obtained. Surgery will be planned for noon time today. Results Last Vital Signs Temp 36.5 C 01/16/21 03:16 Pulse 57 L 01/16/21 07:01 Resp 18 01/16/21 07:01 BP 156/90 H 01/16/21 07:01 Pulse Ox 95 01/16/21 07:01 Labs Result diagrams: 01/14/21 17:30 01/14/21 17:30
[2021-01-16] MEDS: Multivitamin TAB 1 TAB PO (08:56)
[2021-01-16] MEDS: Thiamine 100 MG TAB PO (08:56)
[2021-01-16] MEDS: Folic Acid 1 MG TAB PO (08:56)
[2021-01-16] MEDS: Lisinopril 20 MG TAB 40 MG PO (08:56)
[2021-01-16] MEDS: Metoprolol 12.5 MG TAB PO (09:01)
--- NOTE | 2021-01-16 10:01 | CMPROGNOTE_ITS ---
- If Service Date Differs Date of service: 01/16/21 Time of Service: 10:01 Care Management Progress Note S/O: Robb was lying in bed watching TV when CM met with him. He shares that surgery went as planned and he is anticipating being discharged home tomorrow. He has crutches at home and does not feel that he needs any other equipment . A: 55 year old male admitted to [facility] on 01/14/21 for osteomyelitis. P: Robb had his right great toe amputated today. He remains inpatient for bed rest and IV antibiotics. Anticipate that pt will be discharged to home with NEW HH SN/PT when medically clear via private vehicle. CM will continue to support discharge planning needs.
--- NOTE | 2021-01-16 10:30 | PUCON_ITS ---
General Date Of Service Date of service: 01/16/21 Time of Service: 10:30 Reason for Consult: History of sarcoidosis Assessment and Plan Assessment and plan (1) Sarcoidosis: Status: Chronic Assessment and plan: This is a 55-year-old man with a distant history of fully treated sarcoidosis in remission. He currently has no signs of a sarcoidosis relapse currently. Since having his splenectomy and treated with a prolonged course of steroids at [facility] he has not had any further respiratory issues whatsoever. He certainly does have some scarring in his lungs that is likely related to the sarcoidosis in addition to the nodular infiltrates that have been there since 2010. It is extremely rare for sarcoidosis to relapse after the first few years following treatment. Relapse rates are highest within the first year of treatment and slowly declined to an almost 0 level after 5 years of treatment cessation. I have no respiratory concerns currently and feel he will be safe from a respiratory reproductive for his planned surgery. In the future he developed some respiratory symptoms repeating a chest CT would be indicated to assess whether there is any progression of scarring, although this is relatively rare. If that were to occur I would be happy to see him as an outpatient to discuss options such as antifibrotic therapy, although this is not currently indicated in him. Sarcoidosis in remission - no acute therapy indicated - can consider repeat PFT's as an outpatient to ensure stability of lung function - If his breathing were to worsen over time, I would repeat a Chest CT and PFT's - I am happy to see him as an outpatient, however currently he beleive he does not need this, and I agree with him History of Present Illness Narrative: This is a 55-year-old man with alcohol use disorder and a remote history of sarcoidosis who was admitted for osteomyelitis. Pulmonary was consulted for an opinion regarding his sarcoidosis. He was diagnosed with sarcoidosis approximately 10 years ago and was treated appropriately late with a prolonged steroid regimen at [facility]. His sarcoidosis was discovered due to his splenomegaly. He states that since he had his spleen removed he has had no episodes of shortness of breath whatsoever. He denies to me any respiratory symptoms whatsoever and does not have any other concerns for extrapulmonary involvement of sarcoidosis. Evaluation of his chest CTs, last chest CT I can see is from 2010 that shows classic acute acute colitis his pattern infiltrates. His recent and CT chest completed 01/14/2021 again shows a pattern consistent with sarcoidosis, there is some additional scarring on this CAT scan however there is no indication that there is an acute process including acute sarcoidosis occurring. He has a toe wound and chronic osteomyelitis and is going for amputation today. No respiratory symptoms whatsoever. No abdominal pain. No change in urinary or bowel habits. Review of Systems All systems reviewed & are unremarkable except as noted in HPI and below PFSH Medical History Alcoholism Gout History of multiple trauma Hypertension Sarcoidosis Surgical History 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 History of ankle surgery Social History Smoking/Tobacco Use Status: Current every day Tobacco Type: smokeless tobacco Smoking risk assessment performed?: Yes Alcohol Intake: current Alcohol Intake frequency: 3 or more drinks per day Alcohol type: beer Details: Robb relates she has not had any withdrawal symptomatology when he is not h Drug use: Never Substance use type: does not use current occupation: [employer] Do you feel safe at home: Yes Do you feel safe in your relationship?: Yes Additional Social history: Lives in [facility], 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 Son and grandchildren in [place], wants to travel there February 2021 Visit Medication and Allergies Active Medications Generic Name Dose Route Start Last Admin Trade Name Freq PRN Reason Stop Dose Admin Acetaminophen 1,000 mg 01/14/21 22:09 01/15/21 16:40 Acetaminophen 500 Mg Tab PO 1,000 mg Q8H PRN PRN Administration Albuterol Sulfate 2.5 mg 01/14/21 20:32 Albuterol 2.5 Mg/3 Ml Inh Soln Vial UPD Q2H PRN PRN Dimethicone/Zinc Oxide 0 gm 01/14/21 21:58 Lupe Protect Cream 142 Gm Tube TP PRN PRN Folic Acid 1 mg 01/15/21 09:00 01/16/21 08:56 Folic Acid 1 Mg Tab PO 01/21/21 08:31 1 mg QAM GARY Administration Oxacillin Sodium 2,000 mg/ 50 mls @ 100 mls/hr 01/15/21 12:00 01/16/21 09:01 Sodium Chloride IVPB 100 mls/hr Q4H GARY Administration Sodium Chloride 500 mls @ 0 mls/hr 01/15/21 12:53 01/16/21 00:24 Saline 500ml Bag IV 0 mls/hr PRN PRN Infusion As Directed Ringer's Solution 1,000 mls @ 75 mls/hr 01/15/21 20:45 01/15/21 21:19 IV 75 mls/hr INFUSION GARY Administration Lisinopril 40 mg 01/15/21 08:30 01/16/21 08:56 Lisinopril 20 Mg Tab PO 40 mg DAILY GARY Administration Lorazepam 0 mg 01/14/21 21:58 01/15/21 20:17 Lorazepam 1 Mg Tab PO/SL 1 mg DIRECTED PRN Administration Metoprolol Tartrate 12.5 mg 01/16/21 08:30 01/16/21 09:01 Metoprolol 12.5 Mg Tab PO 12.5 mg BID GARY Administration Multivitamins 1 tab 01/15/21 09:00 01/16/21 08:56 Multivitamin Tab PO 01/21/21 08:31 1 tab QAM GARY Administration Oxycodone HCl 10 - 15 mg 01/15/21 20:35 01/16/21 09:01 Oxycodone 15 Mg Tab PO 15 mg Q4H PRN PRN Administration Sodium Chloride 0 ml 01/14/21 18:56 01/15/21 20:17 Normal Saline Flush 10 Ml Syr IVP 10 ml PRN PRN Administration Thiamine HCl 100 mg 01/15/21 09:00 01/16/21 08:56 Thiamine 100 Mg Tab PO 01/21/21 08:31 100 mg QAM GARY Administration Allergies No Known Allergies Allergy (Verified 01/14/21 17:09) Exam Const General: no acute distress Nutritional Appearance: well nourished [facility] Head: normocephalic Ears: external ears normal and no periauricular adenopathy General nose exam: nasal mucous membranes and turbinates normal Face and sinus: sinuses nontender Mouth: oropharynx normal and moist mucous membranes Teeth and gingiva: dentition normal Eyes General: appearance normal, both eyes and all related structures Pupils: PERRL Neck Neck: normal visual inspection and no lymphadenopathy Chest Chest: normal inspection of the chest Resp Effort & Inspection: normal respiratory effort Auscultation: clear to auscultation bilaterally, no rales, no rhonchi and no wheezes Cardio Rate: regular rate Rhythm: regular rhythm Heart Sounds: S1 normal, S2 normal and no murmurs Pulses: radial pulses present bilaterally GI Inspection: normal to inspection Palpation: soft Skin General skin exam: eschar (right toe) Neuro General: patient alert, patient awake and patient oriented x3 Extrem General: no clubbing, cyanosis or edema Psych Mental Status: mental status grossly normal Affect: normal affect Attitude: cooperative Results Last Vital Signs Temp 36.5 C 01/16/21 03:16 Pulse 66 01/16/21 08:55 Resp 18 01/16/21 07:01 BP 156/90 H 01/16/21 07:01 Pulse Ox 95 01/16/21 07:01 Labs Result diagrams: 01/14/21 17:30 01/14/21 17:30
--- NOTE | 2021-01-16 11:40 | W.ANESPRE ---
General Info Date of Service Date Performed: 01/16/21 Height: 6 ft 2 in Weight: 114.2 kg Body Mass Index (BMI): 32.3 Surgical Procedure: Operation Date: 01/16/21 12:10 Proposed Procedures Side Surgeon p Toe Amputation 5TH TOE Right Santi Gardner DPM Meds Allergies and Home Medications Allergies Allergy/AdvReac Type Severity Reaction Status Date / Time No Known Allergies Allergy Verified 01/14/21 17:09 Home Medication Medication Instructions Recorded acetaminophen [Tylenol Extra 1,000 mg PO Q8H PRN PRN 01/18/18 Strength] aspirin [Aspirin Low Dose] 81 mg PO DAILY 01/18/18 atenolol 50 mg PO DAILY 01/18/18 lisinopril 40 mg PO DAILY 12/27/20 levofloxacin 750 mg PO DAILY #42 tab 12/28/20 Current Visit Medications: Current Medications Generic Name Dose Route Start Last Admin Trade Name Freq PRN Reason Stop Dose Admin Acetaminophen 1,000 mg 01/14/21 22:09 01/15/21 16:40 Acetaminophen 500 Mg Tab PO 1,000 mg Q8H PRN PRN Administration Albuterol Sulfate 2.5 mg 01/14/21 20:32 Albuterol 2.5 Mg/3 Ml Inh Soln Vial UPD Q2H PRN PRN Dimethicone/Zinc Oxide 0 gm 01/14/21 21:58 Lupe Protect Cream 142 Gm Tube TP PRN PRN Folic Acid 1 mg 01/15/21 09:00 01/16/21 08:56 Folic Acid 1 Mg Tab PO 01/21/21 08:31 1 mg QAM GARY Administration Oxacillin Sodium 2,000 mg/ 50 mls @ 100 mls/hr 01/15/21 12:00 01/16/21 09:01 Sodium Chloride IVPB 100 mls/hr Q4H GARY Administration Sodium Chloride 500 mls @ 0 mls/hr 01/15/21 12:53 01/16/21 00:24 Saline 500ml Bag IV 0 mls/hr PRN PRN Infusion As Directed Ringer's Solution 1,000 mls @ 75 mls/hr 01/15/21 20:45 01/15/21 21:19 IV 75 mls/hr INFUSION GARY Administration Lisinopril 40 mg 01/15/21 08:30 01/16/21 08:56 Lisinopril 20 Mg Tab PO 40 mg DAILY GARY Administration Lorazepam 0 mg 01/14/21 21:58 01/15/21 20:17 Lorazepam 1 Mg Tab PO/SL 1 mg DIRECTED PRN Administration Metoprolol Tartrate 12.5 mg 01/16/21 08:30 01/16/21 09:01 Metoprolol 12.5 Mg Tab PO 12.5 mg BID GARY Administration Multivitamins 1 tab 01/15/21 09:00 01/16/21 08:56 Multivitamin Tab PO 01/21/21 08:31 1 tab QAM GARY Administration Oxycodone HCl 10 - 15 mg 01/15/21 20:35 01/16/21 09:01 Oxycodone 15 Mg Tab PO 15 mg Q4H PRN PRN Administration Sodium Chloride 0 ml 01/14/21 18:56 01/15/21 20:17 Normal Saline Flush 10 Ml Syr IVP 10 ml PRN PRN Administration Thiamine HCl 100 mg 01/15/21 09:00 01/16/21 08:56 Thiamine 100 Mg Tab PO 01/21/21 08:31 100 mg QAM GARY Administration PFSH Active Problems Active Problems: Problem Status Onset Code Alcoholism F10.20 Discharge planning issues Z02.9 DVT prophylaxis Z29.9 Osteomyelitis M86.9 Right foot infection L08.9 Pain in lateral portion of right ankle M25.571 H/O splenectomy Z90.81 Multiple fractures T07.XXXA History of multiple trauma Z87.828 Sarcoidosis D86.9 Gout M10.9 Hypertension I10 Medical History Medical History Alcoholism Gout History of multiple trauma Hypertension Sarcoidosis Surgical History Surgical History 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 History of ankle surgery Tobacco Smoking/Tobacco Use Status: Current every day Tobacco Type: smokeless tobacco Alcohol Alcohol Intake: current Alcohol intake frequency: 3 or more drinks per day Alcohol type: beer Details: Robb relates she has not had any withdrawal symptomatology when he is not h Substance Use Substance use: Never Substance use type: does not use Vital Signs and Lab Results Vital Signs Most Recent Vital Signs in EMR: Most Recent Vital Signs Temp Pulse Resp BP Pulse Ox 37.1 C 65 18 160/94 H 96 01/16/21 10:58 01/16/21 10:58 01/16/21 10:58 01/16/21 10:58 01/16/21 10:58 Lab Results Result Diagrams: 01/14/21 17:30 01/14/21 17:30 Blood Type / Crossmatch: No Data to Display Complete Blood Count: White Blood Count 7.58 10^3/uL (4.4-10.8) 01/14/21 17:30 01/14/21 Red Blood Count 3.94 10^6/uL (4.36-5.78) L 01/14/21 17:30 01/14/21 Hemoglobin 13.3 g/dL (13.5-17.5) L 01/14/21 17:30 01/14/21 Hematocrit 39.3 % (40.0-50.0) L 01/14/21 17:30 01/14/21 Platelet Count 271 10^3/uL (130-400) 01/14/21 17:30 01/14/21 Venous Blood Lactate 1.3 mmol/L (0.6-1.4) 01/14/21 17:30 01/14/21 Complete Metabolic Panel: Sodium Level 138 mmol/L (136-145) 01/14/21 17:30 01/14/21 Potassium Level 4.2 mmol/L (3.5-5.1) 01/14/21 17:30 01/14/21 Chloride Level 103 mmol/L (98-107) 01/14/21 17:30 01/14/21 Carbon Dioxide Level 26.2 mmol/L (21.0-32.0) 01/14/21 17:30 01/14/21 Blood Urea Nitrogen 13 mg/dL (7-18) 01/14/21 17:30 01/14/21 Creatinine 1.2 mg/dL (0.70-1.30) 01/14/21 17:30 01/14/21 Estimated GFR/1.73 m2 >= 60.00 (mL/min/1.73m2) 01/14/21 17:30 01/14/21 Magnesium Level 1.9 mg/dL (1.8-2.4) 12/27/20 08:38 12/27/20 Calcium Level 8.3 mg/dL (8.5-10.1) L 01/14/21 17:30 01/14/21 Albumin 3.2 g/dL (3.4-5.0) L 01/14/21 17:30 01/14/21 Glucose Level 96 mg/dL (74-106) 01/14/21 17:30 01/14/21 Hemoglobin A1c 5.8 % (<5.7) H 12/27/20 08:38 12/27/20 C-Reactive Protein 1.26 mg/dL (0.0-0.3) H 01/14/21 17:30 01/14/21 Liver Function Panel: Alanine Aminotransferase (ALT/SGPT) 27 U/L (16-63) 01/14/21 17:30 01/14/21 Aspartate Amino Transf (AST/SGOT) 22 U/L (15-37) 01/14/21 17:30 01/14/21 Coagulation Panel: D-Dimer 1274 ng/mlFEU (<500) H 01/14/21 17:30 01/14/21 Cardiac Panel: OX-Bro-S-Type Natriuretic Peptide 517 pg/mL (<300) H 01/14/21 17:30 01/14/21 Arterial Blood Gas: No Data to Display Venous Blood Gas: No Data to Display Pancreas Panel: No Data to Display Thyroid Panel: No Data to Display Infectious Disease: Coronavirus (COVID-19)(PCR) Negative (Negative) 01/14/21 17:47 01/14/21 Coronavirus 2019 Source Nasal/Nares 01/14/21 17:47 01/14/21 Hepatitis B Surface Antigen Pending 01/14/21 17:30 01/14/21 Hepatitis C Antibody Pending 01/14/21 17:30 01/14/21 Blood Cultures: No Data to Display Toxicology Panel: Ethyl Alcohol Level 126.1 mg/dL (<3) 01/14/21 17:30 01/14/21 Urine Amphetamines Screen Negative (Negative) 01/15/21 01:45 01/15/21 Urine Benzodiazepines Screen Negative (Negative) 01/15/21 01:45 01/15/21 Urine Barbiturates Screen Negative (Negative) 01/15/21 01:45 01/15/21 Urine Cocaine Screen Positive (Negative) A 01/15/21 01:45 01/15/21 Urine Methadone Screen Negative (Negative) 01/15/21 01:45 01/15/21 Urine Opiates Screen Negative (Negative) 01/15/21 01:45 01/15/21 Ur Tricyclic Antidepressants Screen Negative (Negative) 01/15/21 01:45 01/15/21 Ur Tetrahydrocannabinol (THC) Scrn Negative (Negative) 01/15/21 01:45 01/15/21 Imaging and Studies Imaging and Studies EKG Summary: 01/14/2021: ECG Measurements Heart Rate 77 AXIS OK 146 P 54 QRSd 92 QRS 59 QT 400 T17 QTc 453 Conclusion Sinus rhythm...normal P axis, V-rate 60- 99 Stress Test Summary: 01/15/21: CONCLUSION: Negative for ischemia. Suspect today's LVEF of 39% is spuriously low. Suggest echocardiogram. Anesthesia Assessment and Plan Anesthesia History Personal History: No History of Anesthesia Complications Family History: No Family History of Anesthesia Complications Exercise Tolerance Exercise Tolerance: Metabolic Equivalents>4 Pertinent Negatives Pertinent Negatives: No Symptoms of GERD and No Major Cardiovascular Symptoms or Complaints Cardiac & Pulmonary Exam Cardiac Exam: Normal S1/S2 Heart Sounds Pulmonary Exam: Clear Bilateral Breath Sounds Airway Exam Known Difficult Airway: No Mallampati Class: 1 Mouth Opening: Normal (> 3cm) Thyromental Distance: Greater than 3 cm Neck Range of Motion: Full ROM Neck Circumference: Normal Teeth Condition: Normal Dentition ASA Classification ASA Score: ASA 3 Emergency Case?: No NPO Status NPO Status: NPO Clears >2 hours, Solids >8 hours Anesthesia Plan Resuscitation Status: Full Code Anesthesia Technique: General Anesthesia Airway Planned: Natural Airway Pain Management: Surgeon and patient request nerve block Monitors Used: Standard Monitors
[2021-01-16] MEDS: Lactated Ringers 1,000 ML 75 ML IV (12:15)
--- NOTE | 2021-01-16 12:30 | AMP_PTH ---
PATIENT: Robb Anton LOC: U#:[id number] AGE/SX: 55/M ROOM: RE01/14/[address]: Darion Abdi : 1965 BED: A DIS: 01/19/2021 SPEC #: [id number] RECD: 01/16/21 13:31 STATUS: ELISEO REHossein #: [id number] TINA: 01/16/21 12:[address]: Darion Abdi DEPT: Surgical Specimen RECD BY: Charity Monaco ENTERED: 01/16/21 13:35 SP TYPE: Amputation OTHR DR: Sharon Sanabria MD Tissues: 1 - AMPUTATION FINGERS/TOES(NOT TRAUMA) Procedures: GROSS AND MICRO LEVEL 4 DECALCIFICATION Comments: [id number]
[2021-01-16] MEDS: Bupivacaine 0.5% Pres-Free 30 ML VIAL (12:40)
[2021-01-16] MEDS: Lidocaine 1% Pres-Free 5 ML VIAL (12:41)
--- NOTE | 2021-01-16 12:55 | W.PM.OP ---
Date of service: 01/16/21 Time of Service: 12:55 Operative Note Operative Note DATE OF PROCEDURE: 01/16/21 PRE-OP DIAGNOSIS: Ulceration right great toe with osteomyelitis PROCEDURE: Amputation right great toe through the interphalangeal joint SURGEON: Santi Gardner ANESTHESIA TYPE: General LMA/ETT Refer to Anesthesia Record ESTIMATED BLOOD LOSS: 1 PATHOLOGY: other TOURNIQUET TIME: 26 COMPLICATIONS: None Patient was transported to: floor Patient's condition: stable Indications: 55-year-old male with chronic ulceration at the distal tip of the right great toe and osteomyelitis affecting the distal phalanx for surgical intervention. He understands risk and complications as well as the permanency of the amputation. He does understand that wound dehiscence ongoing infection and the potential need for more proximal debridement and loss of toe is possible. All questions have been answered, no promises made to the final outcome of surgery. Informed consent has been obtained. Procedure Description: Robb was brought to the operative suite placed in the supine position with the right foot prepped and draped in the usual sterile podiatric fashion. Timeout was performed for safe surgery. Right foot was exsanguinated well-padded ankle tourniquet inflated 250 mmHg. Attention was directed to the right great toe with dorsal and plantar flaps were created so as to afford an amputation through the interphalangeal joint of the great toe. The dorsal incision was initiated going through the skin going down through the subcu releasing the extensor tendons and joint capsule at the IPJ level incision was then carried medially and laterally and somewhat distally so as to afford a longer plantar flap the flexor tendon was released the joint capsule was released and the distal component of the great toe removed from the surgical field. No purulence was identified during this dissection. The head of the proximal phalanx was white and appeared healthy. Copious irrigation was performed. The plantar flap was debulked and utilizing 3-0 Vicryl the extensor and flexor tendons were brought up over the head of the proximal phalanx. The skin was then brought together with a combination of 2-0 nylon in a far near near far suture technique interspersed with 3-0 nylon simple interrupted suture. Xeroform was applied followed by gauze fluff compression dressings. Attention was then directed to the removed the distal component of the hallux where a fishmouth incision was made through the ulcer this was brought down to bone with a round sure the bone was biopsied and cultures obtained for aerobic and anaerobic growth the remaining portion of the toe was sent to pathology in formalin the and left the OR vital signs stable vascular status intact sharp and sponge counts were correct he will remain in-house for IV antibiotics and bedrest
[2021-01-16 14:08] LABS: HBs Antibody, Qual Negative (See Note); HBs Antibody, Quant <3.1 mIU/mL (See Note); Hepatitis B Core Antibody Negative (Negative); Hepatitis B surface Ag Negative (Negative); Hepatitis C Ab w Rflx HCV PCR Negative (Negative)
--- NOTE | 2021-01-16 14:39 | W.ANESPOSTOP ---
Postoperative Evaluation Date, Time and Location Date Performed: 01/16/21 Time Performed: 13:35 Patient Location: Med/Surg Vital Signs Most Recent Imported Vital Signs: Most Recent Vital Signs Temp Pulse Resp BP Pulse Ox 36.3 C L 64 16 150/90 H 95 01/16/21 13:35 01/16/21 13:35 01/16/21 13:35 01/16/21 13:35 01/16/21 13:35 Pain Score Most Recent Pain Score: Most Recent Pain Score Pain Level [right great toe] 10 01/15/21 00:40 Pain Level 0 01/16/21 10:58 Assessment Mental Status: Awake (Alert & Oriented to Patient Baseline) Airway and Respiratory Function: Patent airway with normal (patient baseline) respiratory exam Cardiovascular Function: Hemodynamically Stable Hydration Status: Adequately Hydrated Nausea & Vomiting: No Nausea or Vomiting Pain: Pt. Denies Any Pain Peripheral Nerve Block: Patient did not receive a nerve block
--- NOTE | 2021-01-16 15:47 | PGE_ITS ---
Date of Service Date of service: 01/16/21 Time of Service: 15:47 Assessment and Plan Assessment and plan (1) Osteomyelitis: Start date: 01/16/21 Start time: 16:04 Status: Acute Assessment and plan: Osteomyelitis confirmed by MRI, now seems to be progressing despite levofloxacin. Surgery with dr. Gardner today. Amputation of right great toe. At this time foot is in yousuf wrap no c/d/i, no problems Blood cultures negative Surgical cultures done and pending Qualifiers: Osteomyelitis type: subacute Osteomyelitis location: foot Laterality: right Qualified Code(s): M86.271 - Subacute osteomyelitis, right ankle and foot (2) Alcoholism: Start date: 01/16/21 Start time: 16:13 Status: Chronic Assessment and plan: no sign of withdrawal.scoring 0 overnight will remain on CIWA protocol, continue thiamine. motivated to cut down and states he has. (3) Sarcoidosis: Start date: 01/16/21 Start time: 16:13 Status: Chronic Assessment and plan: respiratory status is stable. no fevers, normal white count. no oxygen requirements, cough or sob Treated with steroids remotely. He was hypoxic upon presenation, and Chest CT shows pulmonary HTN and insterstitial fibrorsis and calcified lymph notes c/w sarcoid. However per imaging his lungs are not worse. Per Dr. Messina he was treated for this years ago and there is no concern for this he is stable. 95% on 1, will wean down (4) Hypertension: Start date: 01/16/21 Start time: 16:16 Status: Chronic Assessment and plan: will change atenolol to metoprolol start at 12.5 mg bid, adjust as needed. Will increase to 25 mg as he is still running high Qualifiers: Hypertension type: unspecified Qualified Code(s): I10 - Essential (primary) hypertension (5) DVT prophylaxis: Start date: 01/16/21 Start time: 16:16 Status: Acute Assessment and plan: Will start LMWH and ASA in the morning, Post operati vely (6) Discharge planning issues: Start date: 01/16/21 Start time: 16:20 Status: Acute Assessment and plan: Stable on medical floor. He may need a PICC line once blood cultures negative. He is full code discharge discussed with Dr Wisdom Subjective Subjective Patient reports: other Interval history since last seen: Patient laying in bed. Just returned from surgery, foot is numb at this time. No complaints. tolerating diet. No need for telemetry at this time. will dc iVF fluids since he is eating and drinking. Will restart enoxaparin in am Exam Narrative Exam Narrative: GEN: Alert and oriented, pleasent and cooperative, . No acute distress at rest. HEENT: Head atraumatic. Conjunctiva clear, no icterus. PEERL, EOMI. no rhinorrhea. MMM, OP benign. Neck is supple with no masses or lymphadenopathy, trachea midline LUNGS: CTAB with normal effort CV: RRR with no murmurs, gallops, or rubs. ABD: +BS, soft, NT/ND EXT: no cyanosis, clubbing, or edema to left LE, RLE is wrapped in yousuf wrap and c/d/i, just returned from surgery MSK: amputated toe today. Right ankle hypertrophic, old surgical scars. NEURO: CN 2-12 grossly intact. Normal movement and nl sensation of 4 extremities. Normal speech and coordination. no tremor. SKIN: No rashes. 2cm ulceration distal right 1st toe. No drainage. PSYCH: normal mood and affect Const General: cooperative HENMT Head: normal to inspection Mouth: oral mucosae normal Eyes Pupils: PERRL Chest Chest: normal inspection of the chest Resp Effort & Inspection: normal respiratory effort Auscultation: other (dim bases, occ adventious breath sound scattered in bases, no wheeze) Cardio Rate: regular rate Rhythm: regular rhythm GI Inspection: normal to inspection Auscultation: normal bowel sounds Skin Rashes: other (right great toe dressing intact, no erythema proximally, denies pain) Neuro General: patient alert and patient oriented x3 Objective Last Vital Signs Temp 36.3 C L 01/16/21 13:35 Pulse 64 01/16/21 13:35 Resp 16 01/16/21 13:35 BP 150/90 H 01/16/21 13:35 Pulse Ox 95 01/16/21 13:35 Laboratory Results - last 24 hr 01/14/21 17:30 Hep Bs Antigen Negative Hep Bs Antibody Negative Hep Bs Antibody, Quant <3.1 Hep B Core Total Ab Negative Hepatitis C Antibody Negative
[2021-01-16] MEDS: Metoprolol 25 MG TAB PO (20:12)
[2021-01-16] MEDS: Normal Saline Flush 10 ML SYR IVP (20:13)
[2021-01-16] MEDS: Acetaminophen 500 MG TAB 1000 MG PO (22:46)
[2021-01-17] VITALS: BP 164/96; PULSE 65; RESP 12; TEMP 36.6; O2SAT 95
[2021-01-17] MEDS: Normal Saline Flush 10 ML SYR IVP ×3 (00:33→20:37)
[2021-01-17] MEDS: oxyCODONE 15 MG TAB PO ×6 (01:43→22:29)
[2021-01-17 04:14] VITALS: BP 123/79; PULSE 59; RESP 10; TEMP 37; O2SAT 97
[2021-01-17] MEDS: Normal Saline 500 ML 30 ML IV (04:16)
[2021-01-17 07:13] LABS: Abs Immature Grans 0.03 10^3/uL (0.0-0.06); Absolute Basophil Count 0.03 10^3/uL (0.0-0.2); Absolute Eosinophil Count 0.14 10^3/uL (0.0-0.7); Absolute Lymphocyte Count 2.04 10^3/uL (1.2-3.4); Absolute Monocyte Count 1.24 10^3/uL (0.1-0.8); Absolute Neutrophil Count 5.68 10^3/uL (1.2-6.7); Basophils % 0.3; Eosinophils % 1.5; HCT 38.3 % (40.0-50.0); HGB 12.7 g/dL (13.5-17.5); Immature Grans % 0.3; Lymphocytes % 22.3; MCH 33.6 pg (27.0-33.0); MCHC 33.2 % (32.0-36.0); MCV 101.3 fL (80-95); MPV 10.4 fL (8.0-11.0); Monocytes % 13.5; Neutrophils % 62.1; Nucleated RBC 0 %; Platelet Count 263 10^3/uL (130-400); RBC 3.78 10^6/uL (4.36-5.78); RDW 12.9 % (11.8-14.1); RDW-SD 48.2 fL; WBC 9.16 10^3/uL (4.4-10.8)
[2021-01-17 07:30] VITALS: BP 151/94; PULSE 63; RESP 20; TEMP 35.9; O2SAT 97
[2021-01-17 07:37] LABS: Anion Gap 6.1 mmol/L (3-11); BUN 13 mg/dL (7-18); CO2 28.9 mmol/L (21.0-32.0); CREATININE 1.1 mg/dL (0.70-1.30); Calcium 8.3 mg/dL (8.5-10.1); Chloride 105 mmol/L (98-107); Glucose 103 mg/dL (74-106); Potassium 4.2 mmol/L (3.5-5.1); Sodium 140 mmol/L (136-145)
[2021-01-17 07:38] LABS: Magnesium 1.9 mg/dL (1.8-2.4)
[2021-01-17] MEDS: Folic Acid 1 MG TAB PO (08:55)
[2021-01-17] MEDS: Metoprolol 25 MG TAB PO ×2 (08:55→20:37)
[2021-01-17] MEDS: Aspirin 81 MG CHEW PO (08:55)
[2021-01-17] MEDS: Multivitamin TAB 1 TAB PO (08:55)
[2021-01-17] MEDS: Lisinopril 20 MG TAB 40 MG PO (08:55)
[2021-01-17] MEDS: Enoxaparin 40 MG/0.4 ML SYR SC (08:56)
[2021-01-17] MEDS: Thiamine 100 MG TAB PO (08:56)
--- NOTE | 2021-01-17 11:25 | PT.INIE ---
Date of service: 01/17/21 Time of Service: 11:25 PT Notes Visit Reasons: Osteomyelitis Physical Therapy Inpatient Initial Evaluation Date: 01/17/2021 Referring Doctor: Keagan Wisdom MD PT Orders: PT CONSULT: Eval/treat. Precautions: Fall. Standard. Weight bearing as tolerated on the left LE with a postop shoe per verbal order of Dr. Gardner on 01/17/2021. Patient Profile/Admitting Diagnosis: Robb is a 55-year-old male who presented to the ED on 01/14/2021 due to increased pain, swelling, and redness to his right first toe. Patient is diagnosed with alcoholism, sarcoidosis, hypertension, and ulceration of right great to with osteomyelitis and is status post right great toe amputation through the IP joint on postoperative day 1. PMHX: Medical History Alcoholism Gout History of multiple trauma Hypertension Sarcoidosis Surgical History 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 History of ankle surgery Social History/Home Situation: Lives in a private home with no steps to enter. Independent with all aspects of ADLs prior to admission. Equipment Owned/DME: None Subjective: Agreeable to PT consult. Confident about not needing an assistive device despite report of up to 8/10 pain in the R foot. Objective: General Observation: Surgical dressing on right foot and ankle Mental Status: Alert and oriented as to person, place, time, and purpose. Able to pay attention, focus, and respond appropriately. Pain: 8/10 in right foot ROM: Right Upper Extremity: Shoulder Flexion WFL. Shoulder abduction WFL. Elbow flexion WFL. Wrist flexion WFL. Functional opening and closing of hand WFL. Left Upper Extremity: Shoulder Flexion WFL. Shoulder abduction WFL. Elbow flexion WFL. Wrist flexion WFL. Functional opening and closing of hand WFL. Right Lower Extremity: Hip flexion WFL. Hip abduction WFL. Knee flexion WFL. Ankle dorsiflexion WFL. Ankle plantarflexion WFL. Left Lower Extremity: Hip flexion WFL. Hip abduction WFL. Knee flexion WFL. Ankle dorsiflexion WFL. Ankle plantarflexion WFL. Strength: Right Upper Extremity: Shoulder flexors 5/5. Shoulder abductors 5/5. Elbow flexors 5/5. Elbow extensors 5/5. Counting Machine Operator strong. Left Upper Extremity: Shoulder flexors 5/5. Shoulder abductors 5/5. Elbow flexors 5/5. Elbow extensors 5/5. Counting Machine Operator strong. Right Lower Extremity: Hip flexors 5/5. Hip abductors 5/5. Knee flexors 5/5. Knee extensors 5/5. Ankle dorsiflexors 3/5. Ankle plantarflexors 3/5. Left Lower Extremity: Hip flexors 5/5. Hip abductors 5/5. Knee flexors 5/5. Knee extensors 5/5. Ankle dorsiflexors 5/5. Ankle plantarflexors 5/5. Bed Mobility/Transfers: Rolling independent Supine to sit independent Sit to supine independent Sit to stand independent Stand to sit independent Bed to reclining chair independent Reclining chair to bed independent Gait: Tolerated level surface ambulation of up to 250 feet independently using no assistive device with postop shoe on the right and regular footwear on the left to minimize length discrepancy from added height on the R. Patient mostly putting weight on the R heel to minimize pain. Balance: Static Sitting: Normal Dynamic Sitting: Normal Static Standing: Normal Dynamic Standing: Good Special Tests: Mobility Limitations Standardized Measure [facility] AM-PAC 6 clicks Basic Mobility Inpatient Short Form: Raw Score: 24 CMS Score: 0% deficit Informed Consent/Education: Patient was instructed in purpose of PT consult and plan of care. Agreeable to proceed with established PT POC to achieve personal goals. Assessment: No skilled physical therapy services needed at this time. May ambulate around nursing station loop with no assistive device using postop shoe and regular footwear on the left side at least twice a day with premedication for pain from nurse to maintain mobility level. Requires robb is a 55-year-old male who presented to the ED on 01/14/2021 due to increased pain, swelling, and redness to his right first toe. Patient is diagnosed with alcoholism, sarcoidosis, hypertension, and ulceration of right great to with osteomyelitis and is status post right great toe amputation through the IP joint on postoperative day 1. Patient is assessed as a 83447 low complexity based on the following: History: 55 [id number] with past medical history as indicated above Examination: Demonstrable impairment in strength, balance, and mobility level with underlying impairments and functional limitations as exhibited above as well as deficit score of 0% utilizing the [facility] Mobility Inpatient Short Form Presentation: Stable Decision Makin low complexity Goals: N/A. PT evaluation only. Plan of Care/Treatment Plan: N/A. PT evaluation only. DISCHARGE RECOMMENDATIONS: Home when medically cleared by hospitalist. No equipment needs at this time. TREATMENT CODE/TIME: 20732 x 25 minutes beginning at 11:25 AM. Thank you for the opportunity to participate in the care of this patient. Nicky Castro PT, DPT, CLT [facility] [place], [place]
--- NOTE | 2021-01-17 15:21 | W.PM.PROGNOT ---
Date of Service Date of service: 01/17/21 Time of Service: 15:21 Assessment and Plan Assessment and plan (1) Osteomyelitis: Status: Acute Assessment and plan: Osteomyelitis confirmed by MRI, now seems to be progressing despite levofloxacin. amputation by Dr. Gardner yesterday, post op day 1 Amputation of right great toe. At this time foot is in yousuf wrap no c/d/i, no problems routine post operative care Blood cultures negative Surgical cultures done and pending dressings per Dr Gardner Qualifiers: Laterality: right Osteomyelitis location: foot Osteomyelitis type: subacute Qualified Code(s): M86.271 - Subacute osteomyelitis, right ankle and foot (2) Alcoholism: Status: Chronic Assessment and plan: no sign of withdrawal.scoring 0 overnight will remain on CIWA protocol, continue thiamine. motivated to cut down and states he has. (3) Sarcoidosis: Status: Chronic Assessment and plan: respiratory status is stable. no fevers, normal white count. no cough or sob Treated with steroids remotely. He was hypoxic upon presenation, and Chest CT shows pulmonary HTN and insterstitial fibrorsis and calcified lymph notes c/w sarcoid. However per imaging his lungs are not worse. Per Dr. Messina he was treated for this years ago and there is no concern for this he is stable. 95% on 1, will wean down (4) Hypertension: Status: Chronic Assessment and plan: will change atenolol to metoprolol tolerating 25 mg BID Qualifiers: Hypertension type: unspecified Qualified Code(s): I10 - Essential (primary) hypertension (5) DVT prophylaxis: Status: Acute Assessment and plan: no bleeding on LMWH and ASA Post operatively protocol (6) Discharge planning issues: Status: Acute Assessment and plan: awaiting cultures to determine antiboitic course. discharge discussed with Dr Wisdom Subjective Subjective Patient reports: no new complaints, tolerating liquids well, tolerating a regular diet and afebrile Interval history since last seen: no signs of withdrawal Exam Const General: cooperative HENMT Head: normal to inspection Mouth: oral mucosae normal Eyes Pupils: PERRL Chest Chest: normal inspection of the chest Resp Effort & Inspection: normal respiratory effort Auscultation: other (dim bases, occ adventious breath sound scattered in bases, no wheeze) Cardio Rate: regular rate Rhythm: regular rhythm GI Inspection: normal to inspection Auscultation: normal bowel sounds Skin Rashes: other (right foot dressing intact, no erythema proximally, denies pain) Neuro General: patient alert and patient oriented x3 Objective Last Vital Signs Temp 35.9 C L 01/17/21 07:30 Pulse 63 01/17/21 07:30 Resp 20 01/17/21 07:30 BP 151/94 H 01/17/21 07:30 Pulse Ox 97 01/17/21 07:30 Laboratory Results - last 24 hr 01/14/21 01/17/21 01/17/21 17:30 06:45 06:45 WBC RBC Hgb Hct MCV MCH MCHC RDW Plt Count MPV Immature Gran % Neutrophils % Lymphocytes % Monocytes % Eosinophils % Basophils % Nucleated RBC % Absolute Neutrophils Absolute Lymphocytes Absolute Monocytes Absolute Eosinophils Absolute Basophils Sodium 140 Potassium 4.2 Chloride 105 Carbon Dioxide 28.9 Anion Gap 6.1 BUN 13 Creatinine 1.1 Estimated GFR/1.73 m2 >= 60.00 Glucose 103 Calcium 8.3 L Magnesium 1.9 Hep Bs Antigen Negative Hep Bs Antibody Negative Hep Bs Antibody, Quant <3.1 Hep B Core Total Ab Negative Hepatitis C Antibody Negative 01/17/21 06:45 WBC 9.16 RBC 3.78 L Hgb 12.7 L Hct 38.3 L MCV 101.3 H MCH 33.6 H MCHC 33.2 RDW 12.9 Plt Count 263 MPV 10.4 Immature Gran % 0.3 Neutrophils % 62.1 Lymphocytes % 22.3 Monocytes % 13.5 Eosinophils % 1.5 Basophils % 0.3 Nucleated RBC % 0 Absolute Neutrophils 5.68 Absolute Lymphocytes 2.04 Absolute Monocytes 1.24 H Absolute Eosinophils 0.14 Absolute Basophils 0.03 Sodium Potassium Chloride Carbon Dioxide Anion Gap BUN Creatinine Estimated GFR/1.73 m2 Glucose Calcium Magnesium Hep Bs Antigen Hep Bs Antibody Hep Bs Antibody, Quant Hep B Core Total Ab Hepatitis C Antibody
[2021-01-17 16:08] VITALS: BP 165/103; PULSE 66; RESP 20; TEMP 36.1; O2SAT 92
--- NOTE | 2021-01-17 17:55 | PDOC.CMPRO ---
- If Service Date Differs Date of service: 01/17/21 Time of Service: 17:55 Care Management Progress Note S/O: Robb was lying in bed when CM met with him. He shared that he is having a lot of pain and that the medication he is receiving is not helping all that much. He expressed that he hopes to be discharged later today. CM explained that the provider is waiting to find out about the particular bacteria causing his infection to be able to know how long to treat it. Robb remains on the CIWA protocol but has been scoring 0 today. A: 55 year old male admitted to [facility] on 01/14/21 for osteomyelitis. P: Robb had his right great toe amputated. He remains inpatient for bed rest and IV antibiotics. Anticipate that pt will be discharged to home with NEW HH SN/PT when medically clear via private vehicle. CM will continue to support discharge planning needs.
--- NOTE | 2021-01-17 18:05 | W.PM.PROGNOT ---
Date of Service Date of service: 01/17/21 Time of Service: 18:05 Subjective Subjective Interval history since last seen: Robb is seen at bedside. He is resting comfortably. He indicates he is walked on the foot with minimal complaints of pain. He states is going better than he thought it might. He has no new complaints or concerns at this time. Exam Narrative Exam Narrative: Dressings are removed from his right foot. Movement minimal bloody drainage noted on the dressings as expected. The incision is well coapted without active signs of infection. No purulence noted. He has a small skin tear on the plantar aspect of the great toe which I did suture intraoperatively which shows slight maceration but there is no drainage or signs of active infection. His foot is warm, pulses are palpable his calves are soft to palpation. Intraoperative cultures reveal rare gram-positive cocci and gram-negative rods. Species identification and sensitivities pending Impressions: Postop day #1 doing well status post amputation right hallux through the IPJ for osteomyelitis and chronic ulcer resolution Plan: The incision and skin was painted with Betadine solution and covered with Xeroform gauze Curlex, stockinette and Warren wrap. He should remain on his current antibiotic regimen pending sensitivities from microbiology. He remains in house for IV antibiotic, pain control. Objective Last Vital Signs Temp 36.1 C L 01/17/21 16:08 Pulse 66 01/17/21 16:08 Resp 20 01/17/21 16:08 BP 165/103 H 01/17/21 16:08 Pulse Ox 92 01/17/21 16:08 Laboratory Results - last 24 hr 01/17/21 01/17/21 01/17/21 06:45 06:45 06:45 WBC 9.16 RBC 3.78 L Hgb 12.7 L Hct 38.3 L MCV 101.3 H MCH 33.6 H MCHC 33.2 RDW 12.9 Plt Count 263 MPV 10.4 Immature Gran % 0.3 Neutrophils % 62.1 Lymphocytes % 22.3 Monocytes % 13.5 Eosinophils % 1.5 Basophils % 0.3 Nucleated RBC % 0 Absolute Neutrophils 5.68 Absolute Lymphocytes 2.04 Absolute Monocytes 1.24 H Absolute Eosinophils 0.14 Absolute Basophils 0.03 Sodium 140 Potassium 4.2 Chloride 105 Carbon Dioxide 28.9 Anion Gap 6.1 BUN 13 Creatinine 1.1 Estimated GFR/1.73 m2 >= 60.00 Glucose 103 Calcium 8.3 L Magnesium 1.9
[2021-01-17] MEDS: Acetaminophen 500 MG TAB 1000 MG PO (18:11)
[2021-01-17 19:11] VITALS: BP 175/98; PULSE 68; RESP 18; TEMP 37.4; O2SAT 93
[2021-01-18] VITALS (7 sets, daily range): BP systolic 136–168; BP diastolic 89–111; PULSE 52–68; RESP 14–20; TEMP 36–37.3; O2SAT 92–97
[2021-01-18] MEDS: Normal Saline Flush 10 ML SYR IVP ×5 (00:43→23:57)
[2021-01-18] MEDS: oxyCODONE 15 MG TAB PO ×6 (02:32→23:57)
[2021-01-18] MEDS: Acetaminophen 500 MG TAB 1000 MG PO (02:32)
[2021-01-18] MEDS: Normal Saline 500 ML 30 ML IV (04:22)
[2021-01-18] MEDS: Lisinopril 20 MG TAB 40 MG PO (08:10)
[2021-01-18] MEDS: Enoxaparin 40 MG/0.4 ML SYR SC (08:10)
[2021-01-18] MEDS: Multivitamin TAB 1 TAB PO (08:10)
[2021-01-18] MEDS: Aspirin 81 MG CHEW PO (08:12)
[2021-01-18] MEDS: Thiamine 100 MG TAB PO (08:12)
[2021-01-18] MEDS: Folic Acid 1 MG TAB PO (08:12)
[2021-01-18] MEDS: Tetanus & Diphtheria Tox,ADULT 0.5 ML VIAL IM (09:43)
[2021-01-18] MEDS: Metoprolol 25 MG TAB PO ×2 (11:38→20:09)
[2021-01-18] MEDS: Gabapentin 300 MG CAP PO ×3 (11:59→20:09)
[2021-01-18] MEDS: amLODIPine 2.5 MG TAB PO (11:59)
--- NOTE | 2021-01-18 12:50 | PDOC.CMPRO ---
- If Service Date Differs Date of service: 01/18/21 Time of Service: 12:50 Care Management Progress Note S/O: Robb was lying in bed watching TV when CM met with him. He shares that surgery went as planned and he is anticipating being discharged home after his wound cultures are back. He has crutches at home and states he does not feel he needs any other equipment upon discharge. A: 55 year old male admitted to [facility] on 01/14/21 for osteomyelitis. P: Robb had his right great toe amputated. He remains inpatient for IV antibiotics and remains on bed rest at this time. Anticipate that pt will be discharged to home with NEW HH SN/PT when medically clear via private vehicle. CM to notify HH and will continue to support discharge planning needs.
--- NOTE | 2021-01-18 13:08 | W.PM.PROGNOT ---
Date of Service Date of service: 01/18/21 Time of Service: 10:30 Assessment and Plan Assessment and plan (1) Osteomyelitis: Start date: 01/18/21 Start time: 10:30 Status: Acute Assessment and plan: Osteomyelitis confirmed by MRI, now seems to be progressing despite levofloxacin. Surgery with dr. Lam today. Amputation of right great toe, post op day 2. Foot wrapped in yousuf, c/o burning sensation will give gabapentin TID for this. Blood cultures negative Surgical cultures done and normal clive at this time drsg change done by Dr lam Qualifiers: Osteomyelitis type: subacute Osteomyelitis location: foot Laterality: right Qualified Code(s): M86.271 - Subacute osteomyelitis, right ankle and foot (2) Alcoholism: Start date: 01/18/21 Start time: 10:30 Status: Chronic Assessment and plan: no sign of withdrawal.scoring 0 overnight will remain on CIWA protocol, continue thiamine. motivated to cut down and states he has. (3) Sarcoidosis: Start date: 01/18/21 Start time: 10:30 Status: Chronic Assessment and plan: respiratory status is stable. no fevers, normal white count. no oxygen requirements, cough or sob Treated with steroids remotely. He was hypoxic upon presenation, and Chest CT shows pulmonary HTN and insterstitial fibrorsis and calcified lymph notes c/w sarcoid. However per imaging his lungs are not worse. Per Dr. Messina he was treated for this years ago, no longer requiring oxygen (4) Hypertension: Start date: 01/18/21 Start time: 10:30 Status: Chronic Assessment and plan: will change atenolol to metoprolol, Increased to 25 BP is still elevated, amlodipine elevated for better bp control 2.5 will titrate up as needed. Qualifiers: Hypertension type: unspecified Qualified Code(s): I10 - Essential (primary) hypertension (5) DVT prophylaxis: Start date: 01/18/21 Start time: 13:34 Status: Acute Assessment and plan: On LMWH and ASA (6) Discharge planning issues: Start date: 01/18/21 Start time: 13:36 Status: Acute Assessment and plan: Stable on medical floor. No PICC line at this time discharge discussed with Dr Wisdom Subjective Subjective Patient reports: feels better Interval history since last seen: Patient feels great. He would like to go home, however awaiting sensitivities, once these are revealed he may be able to be discharged. He is c/o sharp, burning pain, will add gabapentin TID for better pain control and low dose amlodipine for bp control Exam Narrative Exam Narrative: GEN: Alert and oriented, pleasent and cooperative, . No acute distress at rest. HEENT: Head atraumatic. Conjunctiva clear, no icterus. PEERL, EOMI. no rhinorrhea. MMM, OP benign. Neck is supple with no masses or lymphadenopathy, trachea midline LUNGS: CTAB with normal effort CV: RRR with no murmurs, gallops, or rubs. ABD: +BS, soft, NT/ND EXT: no cyanosis, clubbing, or edema to left LE, RLE is wrapped in yousuf wrap and c/d/i, he is ambluatory with post op shoe. MSK: amputated toe today. Right ankle hypertrophic, old surgical scars. NEURO: CN 2-12 grossly intact. Normal movement and nl sensation of 4 extremities. Normal speech and coordination. no tremor. SKIN: No rashes. 2cm ulceration distal right 1st toe. No drainage. PSYCH: normal mood and affect Objective Last Vital Signs Temp 36.8 C 01/18/21 12:29 Pulse 66 01/18/21 12:29 Resp 16 01/18/21 12:29 BP 136/89 01/18/21 12:29 Pulse Ox 92 01/18/21 12:29
--- NOTE | 2021-01-18 15:43 | W.PM.PROGNOT ---
Date of Service Date of service: 01/18/21 Time of Service: 15:44 Subjective Subjective Patient reports: no new complaints Interval history since last seen: Robb is resting comfortably. He has been walking several times a day on the floor without difficulty. His pain is been well controlled with gabapentin. He is looking forward to going home. Exam Narrative Exam Narrative: Dressings are clean and dry on the right foot. The dressings were taken down and the incision is well coapted with good color and no active sign of infection. No drainage is observed. He has slight maceration still on the plantar aspect of the proximal phalanx region without active sign of infection no odor noted. The remaining exam was otherwise grossly unremarkable at this time. Impressions: Postop day 2 status post amputation through the IPJ right hallux with osteomyelitis of the distal phalanx Plan: Microbiology is still pending as far as sensitivities go but it appears to be normal clive not MRSA and I believe we can put him on p.o. Augmentin 875 mg twice daily. Start him for 4 weeks and I will consider going a full 6 weeks if clinically needed. The incision was painted with Betadine paint and dressed with Xeroform, gauze, Kerlix roll. He may ambulate ad monie. within the surgical shoe. He is already scheduled to be seen by myself in the office on Saturday. I appreciate the hospitalist medical management of Mr. Anton. Objective Last Vital Signs Temp 36.8 C 01/18/21 12:29 Pulse 66 01/18/21 12:29 Resp 16 01/18/21 12:29 BP 136/89 01/18/21 12:29 Pulse Ox 92 01/18/21 12:29
[2021-01-19] MEDS: Normal Saline 500 ML 30 ML IV (04:20)
[2021-01-19] MEDS: Normal Saline Flush 10 ML SYR IVP ×2 (04:21→09:17)
[2021-01-19] MEDS: Acetaminophen 500 MG TAB 1000 MG PO ×2 (04:22→11:47)
[2021-01-19] MEDS: oxyCODONE 15 MG TAB PO ×3 (04:23→11:47)
[2021-01-19 04:25] VITALS: BP 158/94; PULSE 69; RESP 20; TEMP 37; O2SAT 97
[2021-01-19 07:10] LABS: HCT 36.7 % (40.0-50.0); HGB 12.4 g/dL (13.5-17.5); MCH 33.7 pg (27.0-33.0); MCHC 33.8 % (32.0-36.0); MCV 99.7 fL (80-95); MPV 10.7 fL (8.0-11.0); Platelet Count 261 10^3/uL (130-400); RBC 3.68 10^6/uL (4.36-5.78); RDW 12.9 % (11.8-14.1); WBC 10.92 10^3/uL (4.4-10.8)
[2021-01-19] MEDS: amLODIPine 2.5 MG TAB PO (08:10)
[2021-01-19] MEDS: Aspirin 81 MG CHEW PO (08:10)
[2021-01-19] MEDS: Gabapentin 300 MG CAP PO ×2 (08:10→14:51)
[2021-01-19] MEDS: Metoprolol 25 MG TAB PO (08:11)
[2021-01-19] MEDS: Thiamine 100 MG TAB PO (08:11)
[2021-01-19] MEDS: Folic Acid 1 MG TAB PO (08:11)
[2021-01-19] MEDS: Lisinopril 20 MG TAB 40 MG PO (08:11)
[2021-01-19] MEDS: Multivitamin TAB 1 TAB PO (08:11)
[2021-01-19] MEDS: Enoxaparin 40 MG/0.4 ML SYR SC (08:12)
[2021-01-19 08:18] VITALS: BP 150/94; PULSE 60; RESP 18; TEMP 37.1; O2SAT 95
--- NOTE | 2021-01-19 09:56 | PDOC.CMPRO ---
- If Service Date Differs Date of service: 01/19/21 Time of Service: 09:56 Care Management Progress Note S/O: A: 55 year old male admitted to [facility] on 01/14/21 for osteomyelitis. P: Robb had his right great toe amputated. He remains inpatient for IV antibiotics and remains on bed rest at this time. Anticipate that pt will be discharged to home with NEW HH SN/PT when medically clear via private vehicle. CM to notify HH and will continue to support discharge planning needs.
--- NOTE | 2021-01-19 12:56 | W.PM.DS.N ---
Date of service: 01/19/21 Time of Service: 12:56 DS: Diagnosis Discharge Diagnosis (1) Osteomyelitis: Status: Acute (2) Alcoholism: Status: Chronic (3) Sarcoidosis: Status: Chronic (4) Hypertension: Status: Chronic Discharge Plan Disposition Patient Disposition: HOME W/HOME HEALTH SERVICE Condition: Stable Discharge Details Reason For Visit: Osteomyelitis Admit Date/Time: 01/14/21 20:32 Admit Provider: Darion Abdi Attending Provider: Darion Abdi Primary Care Provider: Sharon Sanabria V Hospital Course Hospital Course: Postop day 3 status post amputation through the IPJ right hallux with osteomyelitis of the distal phalanx. no postoperative complications. his surgical wound cultures with normal clive, final report. Dr Gardner will follow outpatient. plan is for 4 weeks of augmentin, complete course to be directed by Dr Gardner. He is being discharged home with home health services. his atenolol was discontinued and he was started on lopressor 25 mg bid and amlodipine 2.5 mg daily with stable vital signs. he is eating and drinking and bowels and bladder functioning. he was started on gabapentin for pain, titrate as needed. he was advised to wean off the oxycodone. he has a scheduled follow up with Dr Gardner discharge discussed with Dr Wisdom. Home Meds and New Rx's Prescriptions: New amlodipine 2.5 mg Tablet 2.5 mg PO DAILY Qty: 30 RF: 0 gabapentin 300 mg Capsule 300 mg PO TID Qty: 120 RF: 0 metoprolol tartrate 25 mg Tablet 25 mg PO BID Qty: 60 RF: 0 amoxicillin-pot clavulanate [Augmentin] 875-125 mg tablet 1 tab PO BID Qty: 56 RF: 0 Continued aspirin [Aspirin Low Dose] 81 mg Tablet,Delayed Release (Dr/Ec) 81 mg PO DAILY RF: 0 acetaminophen [Tylenol Extra Strength] 500 mg Tablet 1,000 mg PO Q8H PRN PRNRF: 0 lisinopril 40 mg tablet 40 mg PO DAILY RF: 0 Discontinued atenolol 50 mg Tablet 50 mg PO DAILY RF: 0 levofloxacin 750 mg tablet 750 mg PO DAILY Qty: 42 RF: 0 Discharge Instructions Instructions: Diabetic Foot Ulcers (DC), Toe Amputation (DC) Additional Instructions: keep dressing clean and dry, changes per Dr Gardner. continue antibiotics for 4 more weeks or as directed by DR Gardner wean pain medication. your blood pressure medication was changed, please take as directed. the nurse will monitor you vitals and further adjustments will be by your primary care provider. ambulate as tolerated with the surgical shoe at all times. may remove when in bed. Stand Alone Forms: Nursing Discharge Form Referrals: Sharon Sanabria MD [Primary Care Provider] - Activity:: wear surgical shoe Equipment/Supplies:: No Equipment Needed Diet:: As Tolerated Discharge Orders Discharge Orders: Discharge Order (Routine); Ordered 01/19/21 Ordered By: Nancy León Discharge Data Discharge Date/Time-TO BE ENTERED AT DEPARTURE: 01/19/21 15:03 DS: Summary Time Spent with Patient providing and/or coordinating discharge services: Greater than 30 minutes Status at Discharge Functional status at discharge: independent ambulation Overall status at discharge: patient is progressing back to baseline Mental Status: mental status grossly normal Speech and Movement: speech and movement normal Mood: congruent mood Affect: normal affect Exam Const General: cooperative HENMT Head: normal to inspection Mouth: oral mucosae normal Eyes Pupils: PERRL Chest Chest: normal inspection of the chest Resp Effort & Inspection: normal respiratory effort Auscultation: other (dim bases, occ adventious breath sound scattered in bases, no wheeze) Cardio Rate: regular rate Rhythm: regular rhythm GI Inspection: normal to inspection Auscultation: normal bowel sounds Skin Rashes: other (right foot dressing intact, no erythema proximally, denies pain) Neuro General: patient alert and patient oriented x3 Psych Mental Status: mental status grossly normal Speech and Movement: speech and movement normal Mood: congruent mood Affect: normal affect DS: Data Vitals/I&O Vitals and I&O: Vital Signs Temperature 37.1 C 01/19/21 08:18 Temperature Source Tympanic 01/19/21 08:18 Pulse 60 01/19/21 08:18 Pulse Rhythm Regular 01/18/21 23:55 Respiratory Rate 18 01/19/21 08:18 Respiratory Effort Non-Labored 01/18/21 23:55 Respiratory Depth Normal 01/18/21 23:55 Respiratory Pattern Normal 01/18/21 23:55 Blood Pressure 150/94 H 01/19/21 08:18 Blood Pressure Mean 90 01/14/21 19:46 Blood Pressure Position Sitting 01/14/21 17:01 Pulse Oximetry 95 01/19/21 08:18 Oxygen Delivery Method Room Air 01/19/21 08:18 Oxygen Flow Rate 0 01/19/21 08:18 Pain Level 6 01/19/21 12:50 Comment 01/19/21 12:50 Intake & Output 01/18/21 01/19/21 01/19/21 23:59 11:59 23:59 Intake Total 1140 / 1290 1247.167 / 1297.167 50 / 1297.167 Balance 1140 / 765 1247.167 / 1297.167 50 / 1297.167 Intake: IV 660 / 810 217.167 / 267.167 50 / 267.167 Oral 480 / 480 1030 / 1030 Other: Urine Appearance Clear Comment void in toilet Per pt. report, void x1 in the toilet. Voiding Methods Toilet Toilet Data Completed and Pending Labs on day of discharge: Labs from last 24 hours 01/19/21 06:00 WBC 10.92 H RBC 3.68 L Hgb 12.4 L Hct 36.7 L MCV 99.7 H MCH 33.7 H MCHC 33.8 RDW 12.9 Plt Count 261 MPV 10.7 Preliminary micro results at discharge 01/16/21 12:55 Surgical Culture - Preliminary Toe - Right First Digit Gram Positive Clive Normal Clive 01/14/21 17:30 Blood Culture - Preliminary Blood NO GROWTH 96 HOURS 01/14/21 17:45 Blood Culture - Preliminary Blood NO GROWTH 96 HOURS 01/16/21 12:55 Anaerobic Culture - Preliminary Toe - Right First Digit PFSH Medical History Alcoholism Gout History of multiple trauma Hypertension Sarcoidosis Surgical History 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 History of ankle surgery Social History Smoking/Tobacco Use Status: Current every day Tobacco Type: smokeless tobacco Smoking risk assessment performed?: Yes Alcohol Intake: current Alcohol Intake frequency: 3 or more drinks per day Alcohol type: beer Details: Robb relates she has not had any withdrawal symptomatology when he is not h Drug use: Never Substance use type: does not use current occupation: [employer] Do you feel safe at home: Yes Do you feel safe in your relationship?: Yes Additional Social history: Lives in [facility], 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 Son and grandchildren in [place], wants to travel there February 2021
[2021-01-19 13:00] VITALS: BP 130/83; PULSE 64; RESP 18; TEMP 36.8; O2SAT 95
--- NOTE | 2021-01-19 14:11 | PDOC.HHF2F_ITS ---
Home Health Certification Home Health Certification: 1. Encounter Date and Reason I certify that Robb Anton was seen by Nancy León on 01/19/21 and that I had a [id number] encounter with this patient that meets the physician face to face encounter requirements. 2. Clinical Findings Supporting Skilled Need and Homebound Status I certify that home health services are medically necessary, include either intermittent usp and/or physical/speech therapy, and that this patient is homebound in that absences from the home require considerable and taxing effort and are infrequent or of short duration, or are attributable to the need to receive medical care. [X] (a) Attached documentation from encounter provides clinical findings supporting skilled need and homebound status (including what assistance patient requires to leave the home). The encounter with the patient was in whole, or in part, for the following medical condition, which is the primary reason for home health care: Osteomyelitis Long-Term: routine nursing evaluation, medication oversight, chronic disease management Physical Therapy: routine evaluation and treatment or home program Homebound: patient unable to safely leave the house unattended d/t wound and gait stability 3. Certification and Authentication I certify that I composed the above information based on my clinical judgment relating to this patient's medical condition and, if applicable, clinical findings communicated to me by the NPP or inpatient physician who performed the Home Health Referral. All further orders will be obtained through Heide Sanabria(Community Based Physician - PCP)
--- NOTE | 2021-01-19 14:20 | CHAPLAIN ---
Robb was dressed and resting in bed when I visited. I introduced myself, explained my role and offered support. He responded with short answers. It didn't appear that he was interested in a longer conversation. He said he's been in touch with family by phone.
--- NOTE | 2021-01-19 16:15 | PDOC.CMDIS ---
- If Service Date Differs Date of service: 01/19/21 Time of Service: 16:15 LACE Index Scoring Tool - Questions: Length of Stay (in days): 4 - 6 Acuity (Admit via E.D.?): Yes E.D. Visits: 2 - Answers: Total Score: 9 Risk of Readmission: Low Risk Care Management Discharge Reason for Hospitalization: Osteomylitis Discharge Plan: Discharge home via private vehicle and continue antibiotics for 4 weeks. Recommended HH SN/PT, however patient declines services. Robb agrees to follow up with community providers including his PCP and Dr. Gardner. Patient/Family Education Needs: Review discharge instructions and plan to follow up with community providers. ask me three. Services Needed at Discharge: Home Health Care Services (Declines services)
== END 2021-01-19 15:03 | disposition home health service (06) | DRG 505 ==
LOC: ER 20:59 → MS 21:32
PROVIDERS: Nurse Practitioner Family; Podiatrist; Admitting Provider Family Medicine; Emergency Provider Physician Assistant; PCP Family Medicine; Visit Provider Family Medicine
PROC: 0Y6P0Z1 Detachment at Right 1st Toe, High, Open Approach (ICD-10-PCS; CPT 28825; principal; 2021-01-16 12:00)
DX: M86.171 Other acute osteomyelitis, right ankle and foot (principal); F10.20 Alcohol dependence, uncomplicated; I10 Essential (primary) hypertension; Z20.822 Contact with and (suspected) exposure to COVID-19; I27.20 Pulmonary hypertension, unspecified; J84.10 Pulmonary fibrosis, unspecified; M10.9 Gout, unspecified; Z90.81 Acquired absence of spleen; F17.210 Nicotine dependence, cigarettes, uncomplicated; L97.514 Non-pressure chronic ulcer of other part of right foot with necrosis of bone
CPT/HCPCS: 28825; 36415; 71275; 80048; 80053; 80307; 85027; 86704; 86706; 86803; 87040; 87340; 87635; 88305; 93005; 96365; 97161; 99285; J1650; 73630; 80320; 83605; 83735; 83880; 85025; 85379; 86140; 87070; 87075; 87205; 88311; 93010; 99232; 99233; 99239; J2001; J2250; J2405; J2700; J3010; J3490

== ENCOUNTER 2021-01-29 06:36 | Emergency (ER) | payer MEDICARE, SELFPAY ==
--- NOTE | 2021-01-29 06:45 | W.ED.GENAD ---
Discharge Plan Disposition Patient Disposition: HOME Condition: Good Discharge Details Clinical Impression: Fracture of wrist, closed Primary Care Provider: Sharon Sanabria V ED Provider: Dale Soto Meds and New Rx's Prescriptions: New hydrocodone-acetaminophen 5-300 mg tablet 1 tab PO Q6H PRN (Reason: pain) Qty: 10 RF: 0 Continued amlodipine 2.5 mg Tablet 2.5 mg PO DAILY Qty: 30 RF: 0 gabapentin 300 mg Capsule 300 mg PO TID Qty: 120 RF: 0 metoprolol tartrate 25 mg Tablet 25 mg PO BID Qty: 60 RF: 0 amoxicillin-pot clavulanate [Augmentin] 875-125 mg tablet 1 tab PO BID Qty: 56 RF: 0 aspirin [Aspirin Low Dose] 81 mg Tablet,Delayed Release (Dr/Ec) 81 mg PO DAILY RF: 0 acetaminophen [Tylenol Extra Strength] 500 mg Tablet 1,000 mg PO Q8H PRN PRNRF: 0 lisinopril 40 mg tablet 40 mg PO DAILY RF: 0 Discharge Instructions Instructions: Wrist Fracture in Adults (ED) Additional Instructions: Wear splint at all times to keep wrist immobilized. Keep elevated and use sling. Ice on and off for the next few days. Important to get the swelling down. Hydrocodone/acetaminophen as needed for severe pain. Ibuprofen or plain acetaminophen for mild pain. Follow-up with orthopedics. Referrals: [facility] [Provider Group] Medical Decision Making X-ray of left wrist obtained. Fracture of the distal radius as well as the ulnar styloid identified. No significant displacement, angulation no apparent extension into the ocular surface. Patient placed in a universal wrist splint with sling. Instructed to keep hand elevated to help with swelling decreased. Ice on and off. Will prescribe short course of [place] for pain control and refer to orthopedics. Hopefully can be seen this week prior to flying out to [place] next weekend. Discussed use of opioid, state information sheet given, informed consent signed. Return to ED for increasing pain, numbness, weakness. HPI General Mode of arrival: ambulatory. Date/Time Provider Initiated Documentation: 01/29/21 06:45. Limitations to Documentation: no limitations. Information obtained by: patient and RN notes reviewed. HPI Narrative: Patient presents to ED with left wrist pain and swelling. Patient fell landing on his left arm yesterday. Tried to tough it out but pain is too much this morning. Denies injury elsewhere. Denies numbness or weakness but has significant pain when trying to use left hand. He is right-hand dominant. Related Data Home Medications Medication Instructions Recorded Confirmed acetaminophen [Tylenol Extra 1,000 mg PO Q8H PRN PRN 01/18/18 01/29/21 Strength] aspirin [Aspirin Low Dose] 81 mg PO DAILY 01/18/18 01/29/21 lisinopril 40 mg PO DAILY 12/27/20 01/29/21 amlodipine 2.5 mg PO DAILY #30 tab 01/19/21 01/29/21 amoxicillin-pot clavulanate 1 tab PO BID #56 tab 01/19/21 01/29/21 [Augmentin] gabapentin 300 mg PO TID #120 cap 01/19/21 01/29/21 metoprolol tartrate 25 mg PO BID #60 tab 01/19/21 01/29/21 hydrocodone-acetaminophen 1 tab PO Q6H PRN #10 tab 01/29/21 Previous Rx's Medication Instructions Recorded amlodipine 2.5 mg PO DAILY #30 tab 01/19/21 amoxicillin-pot clavulanate 1 tab PO BID #56 tab 01/19/21 [Augmentin] gabapentin 300 mg PO TID #120 cap 01/19/21 metoprolol tartrate 25 mg PO BID #60 tab 01/19/21 hydrocodone-acetaminophen 1 tab PO Q6H PRN #10 tab 01/29/21 Allergies Allergy/AdvReac Type Severity Reaction Status Date / Time No Known Allergies Allergy Verified 01/29/21 06:58 General KALLI: 3 Review of Systems Constitutional Constitutional: Denies fever(s) and Denies weakness Cardiovascular Cardiovascular: Denies dyspnea Respiratory Respiratory: Denies cough and Denies dyspnea Musculoskeletal Musculoskeletal: Reports deformity, Reports arthralgias, Reports joint swelling and Denies numbness Neurologic Neurologic: Denies numbness and Denies weakness [facility] Medical History Alcoholism Gout History of multiple trauma Hypertension Sarcoidosis Surgical History 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 History of ankle surgery Social History Smoking/Tobacco Use Status: Current every day Tobacco Type: smokeless tobacco Smoking risk assessment performed?: Yes Alcohol Intake: current Alcohol Intake frequency: 3 or more drinks per day Alcohol type: beer Details: Robb relates she has not had any withdrawal symptomatology when he is not h Drug use: Never Substance use type: does not use current occupation: [employer] Do you feel safe at home: Yes Do you feel safe in your relationship?: Yes Additional Social history: Lives in [facility], 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 Son and grandchildren in [place], wants to travel there February 2021 Exam Narrative Exam Narrative: Const: WDWN male in [facility]. HEENT: NC/AT. Normal facial exam. Eyes: Normal conjunctiva and sclera. Neck: Supple. Trachea midline. Lungs: Normal respiratory effort. Cor: RRR. Good radial pulses. Neuro: A+O x 3. Normal speech, mentation. Cranial nerves II - XII grossly intact. No gross motor or sensory deficit. Ext: Swelling and significant decreased range of motion left wrist. Radial pulse present. Left hand without tenderness or swelling. Able to move fingers with no change in sensation/numbness. Skin: Warm and dry without wound.
[2021-01-29 06:55] VITALS: BP 123/83; PULSE 74; RESP 18; O2SAT 94
--- NOTE | 2021-01-29 07:00 | DI.RAD_ITS ---
Exam(s) XR WRIST LT COMPLETE EXAM: XR WRIST LT COMPLETE CLINICAL HISTORY: trauma/fall. TECHNIQUE: 2D digital imaging was performed. COMPARISON: CR XR wrist RT limited from 03/26/2018 FINDINGS: Four views reveal a nondisplaced fracture of the distal radius which does not appear to violate the r adiocarpal joint surface. No significant dorsal angulation. There is also nondisplaced fracture of the base of the ulnar styloid. No significant ulnar variance. No obvious scaphoid-navicular fractur e evident. Incidentally noted are degenerative changes at the articulation between the thumb metacar pal and trapezium. IMPRESSION: Nondisplaced fractures of the distal radius and ulnar styloid. DATA REPOSITORY: RADIATION DOSE DELIVERED:
[2021-01-29] MEDS: HYDROcodone 5/Acetaminophen 325 TAB PO (07:53)
--- NOTE | 2021-01-29 09:01 | DI.VRAD_ITS ---
PROCEDURE INFORMATION: Exam: XR Left Wrist Exam date and time: 01/29/2021 7:03 AM Age: 55 years old Clinical indication: Other: Trauma/fall TECHNIQUE: Imaging protocol: XR Left wrist. Views: 3 or more views. COMPARISON: No relevant prior studies available. FINDINGS: Bones/joints: Distal radial Colles fracture appears nondisplaced. Fracture at the base of the ulnar styloid process noted. Soft tissues: Normal. IMPRESSION: 1. Distal radial Colles fracture appears nondisplaced. 2. Fracture at the base of the ulnar styloid process noted. Dictated and Authenticated by: Tony Ayoub MD. Ordering:JOSÉ MIGUEL Hunter MD
== END 2021-01-29 08:05 | disposition home or self-care (01) ==
PROVIDERS: Emergency Provider Emergency Medicine; PCP Family Medicine
DX: S52.612A Displaced fracture of left ulna styloid process, initial encounter for closed fracture (principal); S52.592A Other fractures of lower end of left radius, initial encounter for closed fracture; W18.39XA Other fall on same level, initial encounter
CPT/HCPCS: 29125; 99283; 73110

== ENCOUNTER 2021-02-21 11:14 | Emergency (ER) | payer MEDICARE, SELFPAY ==
[2021-02-21 11:20] VITALS: BP 182/98; PULSE 72; RESP 16; TEMP 37; O2SAT 95
--- NOTE | 2021-02-21 11:30 | W.ED.GENAD ---
Discharge Plan Disposition Patient Disposition: HOME Condition: Stable Discharge Details Clinical Impression: Right foot infection Primary Care Provider: Sharon Sanabria V ED Provider: Manda Ramsey Home Meds and New Rx's Prescriptions: New sulfamethoxazole-trimethoprim [Bactrim DS] 800-160 mg tablet 1 tab PO BID 10 Days Qty: 20 RF: 0 No Action amlodipine 2.5 mg Tablet 2.5 mg PO DAILY Qty: 30 RF: 0 gabapentin 300 mg Capsule 300 mg PO TID Qty: 120 RF: 0 metoprolol tartrate 25 mg Tablet 25 mg PO BID Qty: 60 RF: 0 amoxicillin-pot clavulanate [Augmentin] 875-125 mg tablet 1 tab PO BID Qty: 56 RF: 0 hydrocodone-acetaminophen 5-300 mg tablet 1 tab PO Q6H PRN (Reason: pain) Qty: 10 RF: 0 aspirin [Aspirin Low Dose] 81 mg Tablet,Delayed Release (Dr/Ec) 81 mg PO DAILY RF: 0 acetaminophen [Tylenol Extra Strength] 500 mg Tablet 1,000 mg PO Q8H PRN PRNRF: 0 lisinopril 40 mg tablet 40 mg PO DAILY RF: 0 Discharge Instructions Instructions: Cellulitis (ED) Additional Instructions: Dr. Gardner will see you in the office next week. Please call the office to make an appointment. Wear the postop shoe as instructed for comfort. Take the antibiotics as directed. Twice daily for the next 10 days. Eat yogurt or take a probiotic while taking the antibiotic. Return for any fever, chills, increasing red streaks up the leg. Referrals: Sharon Sanabria MD [Primary Care Provider] - Santi Gardner DPM [[facility] STAFF PHYSICIAN] - 5 days (Call to make appt) Discharge Data Discharge Date/Time-TO BE ENTERED AT DEPARTURE: 02/21/21 14:00 Medical Decision Making 55-year-old male with a past medical history of hypertension, gout, osteomyelitis, alcoholism, he is approximately 1 month postop right great toe amputation. He reports that he noticed last few days some increased erythema, tenderness to his second toe. He denies any known recent injuries. He denies any fever, chills, body aches, nausea vomiting diarrhea. He recently returned from [place] been the last week. He reports finishing antibiotics (Augmentin) approximately 3 days ago. Last appointment with reforestation worker Dr. Betts was 3 weeks ago. Labs ordered including blood cultures and lactate CRP ESR. Foot x-ray. Will consult with Dr. Estrada reforestation worker. CBC shows no leukocytosis, RBCs 4.22, lactate is 0.8, CMP is largely unremarkable, CRP slightly elevated at 0.63 1320: Have not spoke with reforestation worker at this time. Permanent Mold Supervisor repaged. Will page hospitalist for possible admission for right foot cellulitis. 1323: Spoke with Dr. Betts who recommends Bactrim, I will send him images for further recommendation. Dr. Estrada recommends postop surgical shoe, he will see him in the office next week and will instruct patient to call the office to make an appointment. Morphine ordered originally for pain patient is declining morphine at this time. Discussed home care, follow-up and strict return instructions, verbalized understanding. Patient discharged. HPI General Mode of arrival: ambulatory. Date/Time Provider Initiated Documentation: 02/21/21 11:26. Limitations to Documentation: no limitations. Information obtained by: patient, RN notes reviewed and old records reviewed. HPI Narrative: 55-year-old male with a past medical history of hypertension, gout, osteomyelitis, alcoholism, he is approximately 1 month postop right great toe amputation. He reports that he noticed last few days some increased erythema, tenderness to his second toe. He denies any known recent injuries. He denies any fever, chills, body aches, nausea vomiting diarrhea. He recently returned from [place] been the last week. He reports finishing antibiotics (Augmentin) approximately 3 days ago. Last appointment with reforestation worker Dr. Betts was 3 weeks ago. Related Data Home Medications Medication Instructions Recorded Confirmed acetaminophen [Tylenol Extra 1,000 mg PO Q8H PRN PRN 01/18/18 02/21/21 Strength] aspirin [Aspirin Low Dose] 81 mg PO DAILY 01/18/18 02/21/21 lisinopril 40 mg PO DAILY 12/27/20 02/21/21 amlodipine 2.5 mg PO DAILY #30 tab 01/19/21 02/21/21 amoxicillin-pot clavulanate 1 tab PO BID #56 tab 01/19/21 02/21/21 [Augmentin] gabapentin 300 mg PO TID #120 cap 01/19/21 02/21/21 metoprolol tartrate 25 mg PO BID #60 tab 01/19/21 02/21/21 hydrocodone-acetaminophen 1 tab PO Q6H PRN #10 tab 01/29/21 02/21/21 sulfamethoxazole-trimethoprim 1 tab PO BID 10 Days #20 tab 02/21/21 [Bactrim DS] Previous Rx's Medication Instructions Recorded amlodipine 2.5 mg PO DAILY #30 tab 01/19/21 amoxicillin-pot clavulanate 1 tab PO BID #56 tab 01/19/21 [Augmentin] gabapentin 300 mg PO TID #120 cap 01/19/21 metoprolol tartrate 25 mg PO BID #60 tab 01/19/21 hydrocodone-acetaminophen 1 tab PO Q6H PRN #10 tab 01/29/21 sulfamethoxazole-trimethoprim 1 tab PO BID 10 Days #20 tab 02/21/21 [Bactrim DS] Allergies Allergy/AdvReac Type Severity Reaction Status Date / Time No Known Allergies Allergy Verified 02/21/21 11:26 General Stated Complaint: Cellulitis KALLI: 3 Review of Systems All systems reviewed & are unremarkable except as noted in HPI and below Musculoskeletal Musculoskeletal: Reports as per HPI PFSH Medical History Alcoholism Gout History of multiple trauma Hypertension Sarcoidosis Surgical History 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 History of ankle surgery Social History Smoking/Tobacco Use Status: Current every day Tobacco Type: smokeless tobacco Smoking risk assessment performed?: Yes Alcohol Intake: current Alcohol Intake frequency: 3 or more drinks per day Alcohol type: beer Details: Robb relates she has not had any withdrawal symptomatology when he is not h Drug use: Never Substance use type: does not use current occupation: [employer] Do you feel safe at home: Yes Do you feel safe in your relationship?: Yes Additional Social history: Lives in [facility], 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 Son and grandchildren in [place], wants to travel there February 2021 Exam Extrem Right lower extremity: foot Details: abnormal to inspection, tenderness Location: of the dorsal foot Location: distally and warmth Location: of the great toe (S/P Partial amputation) and of another digit Location: the 2nd digit Course Vital Signs Vital signs: Vital Signs Temperature 37 C 02/21/21 11:20 Pulse 72 02/21/21 11:20 Respiratory Rate 16 02/21/21 11:20 Blood Pressure 182/98 H 02/21/21 11:20 Pulse Oximetry 95 02/21/21 11:20 Temperature 37 C 02/21/21 11:20 Temperature Source Skin 02/21/21 11:20 Pulse 72 02/21/21 11:20 Respiratory Rate 16 02/21/21 11:20 Respiratory Effort Non-Labored 02/21/21 11:20 Blood Pressure 182/98 H 02/21/21 11:20 Blood Pressure Position Sitting 02/21/21 11:20 Pulse Oximetry 95 02/21/21 11:20 Oxygen Delivery Method Room Air 02/21/21 11:20 Oxygen Flow Rate 0 02/21/21 11:20 Pain Level 7 02/21/21 11:20 PAWSS Have you Been Recently Intoxicated or Drunk Within the Last 30 days?: No Have you Ever Experienced Previous Episodes of Alcohol Withdrawal?: No Have you ever Experienced Withdrawal Seizures?: No Have you ever Experienced Delirium Tremens(DT)s?: No Have you ever undergone Alcohol Rehabilitation Treatment (i.e, inpt ot outpatient treatment programs)?: No Have you ever Experienced Blackouts?: No Have you ever Combined Alcohol with other Downers within the last 90 days?: No Have you ever Combined Alcohol with any other Substance of Abuse during the last 90 days?: No Positive Blood Alcohol level on Presentation? [PCS.BAL]: No Evidence of Increased Autonomic Activity (i.e. HR>120, tremor, sweating, agitation, nausea)?: No Result: 0
[2021-02-21 11:54] LABS: Abs Immature Grans 0.03 10^3/uL (0.0-0.06); Absolute Basophil Count 0.04 10^3/uL (0.0-0.2); Absolute Eosinophil Count 0.08 10^3/uL (0.0-0.7); Absolute Lymphocyte Count 2.21 10^3/uL (1.2-3.4); Absolute Monocyte Count 0.73 10^3/uL (0.1-0.8); Absolute Neutrophil Count 4.77 10^3/uL (1.2-6.7); Basophils % 0.5; HCT 42.3 % (40.0-50.0); Immature Grans % 0.4; Lymphocytes % 28.1; MCH 33.2 pg (27.0-33.0); MCHC 33.1 % (32.0-36.0); MCV 100.2 fL (80-95); MPV 9.8 fL (8.0-11.0); Monocytes % 9.3; Neutrophils % 60.7; Nucleated RBC 0 %; Platelet Count 336 10^3/uL (130-400); RBC 4.22 10^6/uL (4.36-5.78); RDW 13.2 % (11.8-14.1); RDW-SD 48.6 fL; WBC 7.86 10^3/uL (4.4-10.8)
[2021-02-21 11:57] LABS: ESR 17 mm/hr (0-20)
[2021-02-21 12:00] LABS: Lactate 0.8 mmol/L (0.6-1.4)
[2021-02-21 12:15] LABS: ALT 21 U/L (16-63); AST 19 U/L (15-37); Albumin 3.5 g/dL (3.4-5.0); Alkaline Phosphatase 108 U/L (46-116); Anion Gap 9.2 mmol/L (3-11); BUN 9 mg/dL (7-18); Bilirubin, Total 0.7 mg/dL (0.2-1.0); C-Reactive Protein 0.63 mg/dL (0.0-0.3); CO2 26.8 mmol/L (21.0-32.0); Calcium 8.7 mg/dL (8.5-10.1); Chloride 106 mmol/L (98-107); Glucose 102 mg/dL (74-106); Magnesium 1.8 mg/dL (1.8-2.4); Potassium 4.5 mmol/L (3.5-5.1); Sodium 142 mmol/L (136-145); Total Protein 7.8 g/dL (6.4-8.2)
--- NOTE | 2021-02-21 12:49 | DI.RAD_ITS ---
Exam(s) XR FOOT RT COMPLETE EXAM: XR FOOT RT COMPLETE CLINICAL HISTORY: R/O osteomyelitis 2nd toe erythemic. TECHNIQUE: 2D digital imaging was performed of the right foot. Three images were obtained. AP, obl ique and lateral views were obtained. COMPARISON: CR,XR XR FOOT RT COMPLETE from 01/14/2021 FINDINGS: BONES: No acute fracture is present. There is no radiographic evidence to suggest acute osteomyelitis . Posttraumatic changes are seen in the calcaneus. Since the prior examination there has been an am putation of the distal phalanx of the great toe. There is again seen an old amputation of the right 5th toe at the level of the mid shaft of the 5th metatarsal. There again seen orthopedic screws in t he medial malleolus. JOINTS: No dislocation present. Mild degenerative changes are seen in the foot. SOFT TISSUE: There is generalized soft tissue swelling of the foot. IMPRESSION: 1. No radiographic evidence to suggest acute osteomyelitis. 2. Stable posttraumatic and postsurgical changes in the right foot. DATA REPOSITORY: RADIATION DOSE DELIVERED:
[2021-02-21 13:31] VITALS: BP 192/103; PULSE 67; RESP 16; TEMP 36.8; O2SAT 95
[2021-02-21] MEDS: Sulfameth/Trimeth DS, 2 TABS/BTL 1 TAB PO (13:54)
[2021-02-21] MEDS: Sulfameth/Trimeth DS TAB 1 TAB PO (13:55)
[2021-02-21] MEDS: Acetaminophen 500 MG TAB PO (13:55)
== END 2021-02-21 14:00 | disposition home or self-care (01) ==
PROVIDERS: Emergency Provider Registered Nurse Emergency; PCP Family Medicine
DX: T87.43 Infection of amputation stump, right lower extremity (principal); L03.031 Cellulitis of right toe
CPT/HCPCS: 36415; 80053; 85652; 87040; 99283; 73630; 83605; 83735; 85025; 86140

== ENCOUNTER 2021-03-16 13:21 | Outpatient (REF) | payer MEDICARE, SELFPAY ==
[2021-03-17 16:04] LABS: COVID-19 RT-PCR UVMMC Result Negative (Negative)
== END 2021-03-16 13:22 | disposition home or self-care (01) ==
LOC: NCHCN 13:21
PROVIDERS: PCP Family Medicine; Visit Provider Family Medicine
DX: Z20.822 Contact with and (suspected) exposure to COVID-19 (principal)
CPT/HCPCS: U0003; U0005

== ENCOUNTER 2022-02-09 16:33 | Outpatient (REF) | payer MEDICARE, SELFPAY ==
[2022-02-09 16:54] LABS: ALT 21 U/L (16-63); AST 22 U/L (15-37); Albumin 3.5 g/dL (3.4-5.0); Alkaline Phosphatase 112 U/L (46-116); Anion Gap 6.8 mmol/L (3-11); BUN 11 mg/dL (7-18); Bilirubin, Total 0.4 mg/dL (0.2-1.0); C-Reactive Protein 3.05 mg/dL (0.0-0.3); CO2 29.2 mmol/L (21.0-32.0); CREATININE 1.1 mg/dL (0.70-1.30); Calcium 8.7 mg/dL (8.5-10.1); Chloride 104 mmol/L (98-107); Glucose 117 mg/dL (74-106); Potassium 4.2 mmol/L (3.5-5.1); Sodium 140 mmol/L (136-145); Total Protein 7.9 g/dL (6.4-8.2)
== END 2022-02-09 16:34 | disposition home or self-care (01) ==
LOC: NCHCN 16:33
PROVIDERS: PCP Family Medicine; Visit Provider Family Medicine
DX: I10 Essential (primary) hypertension (principal); M79.89 Other specified soft tissue disorders; M86.9 Osteomyelitis, unspecified; Z12.5 Encounter for screening for malignant neoplasm of prostate
CPT/HCPCS: 80053; 84153; 86140

== ENCOUNTER 2022-02-12 01:13 | Outpatient (CLI) | payer MEDICARE, SELFPAY ==
--- NOTE | 2022-02-12 10:00 | DI.RAD_ITS ---
Exam(s) XR ANKLE RT COMPLETE EXAM: XR ANKLE RT COMPLETE CLINICAL HISTORY: OSTEOMYELITIS, M86.9; TOE SWELLING, M79.89; RT ANKLE PAIN, M25.571. TECHNIQUE: 2D digital imaging was performed. Three views. COMPARISON: CR XR heel RT OS calcis from 09/17/2018 MR MR lower joint RT wo from 09/26/2018 CR XR FOOT RT COMPLETE from 02/21/2021 FINDINGS: BONES: No acute fracture is present. No bony destructive lesion is seen. Two screws are noted in the medial malleolus. Chronic appearing bony densities are noted belief beneath both malleoli. Prior p artial amputation of the 5th metatarsal. No talar dome defect is seen. JOINTS: The ankle mortise is normally aligned. The ankle joint space is maintained. There are sever e degenerative changes of the talocalcaneal joint an old deformity of the calcaneus. SOFT TISSUE: Normal. IMPRESSION: Old calcaneal fracture. 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 DATA REPOSITORY: RADIATION DOSE DELIVERED:
== END 2022-02-12 01:33 ==
LOC: DI 01:14
PROVIDERS: PCP Family Medicine; Visit Provider Family Medicine
DX: M25.571 Pain in right ankle and joints of right foot (principal); M79.674 Pain in right toe(s); M19.071 Primary osteoarthritis, right ankle and foot; M86.8X7 Other osteomyelitis, ankle and foot
CPT/HCPCS: 73610

== ENCOUNTER 2022-02-13 13:24 | Outpatient (CLI) | payer MEDICARE, SELFPAY ==
--- NOTE | 2022-02-13 11:30 | DI.RAD_ITS ---
Exam(s) XR FOOT RT COMPLETE EXAM: XR FOOT RT COMPLETE CLINICAL HISTORY: OSTEOMYELITIS, M86.9; TOE SWELLING, M79.89. TECHNIQUE: 2D digital imaging was performed of the right foot. Three images were obtained. AP, obl ique and lateral views were obtained. COMPARISON: CR XR FOOT RT COMPLETE from 02/21/2021 CR XR ANKLE RT COMPLETE from 02/12/2022 FINDINGS: BONES: No acute fracture is present. The terminal tuft of the 3rd toe appears irregular. This is new compared to the examination from 02/21/2021. The bones otherwise appear intact. The patient is status post amputation of the distal phalanx of the great toe and the 5th toe to the level of the mid 5th m etatarsal bone. Posttraumatic and postsurgical changes are seen in the ankle and calcaneus. JOINTS: No dislocation present. SOFT TISSUE: There is soft tissue swelling of the 2nd and 3rd toes distally. IMPRESSION: 1. Irregularity of the cortex of the terminal tuft of the 3rd toe with associated soft tissue swellin g. Osteomyelitis should be considered. 2. Soft tissue swelling of the 2nd toe without definite cortical destruction. 3. Postsurgical changes of the foot and ankle. DATA REPOSITORY: RADIATION DOSE DELIVERED:
--- OUTSIDE RECORDS SUMMARY | 2022-02-13 13:27 | XMS_ITS | Encounter Summary ---
:1965 Author Organization [facility] Address [address] [place] [address] Care Team Providers Name Role Phone Sharon Sanabria MD Primary Care Provider Encounter Details Date Type Department Care Team Description 02/20/2019 Results Only Imaging [facility]- Unknown, [facility] ProviderMD [phone] Social History Tobacco Use Types Packs/Day Years Used Date Never Assessed Sex Assigned at Date Recorded Not on file documented as of this encounter Plan of Treatment Pending Results Name Type Priority Associated Diagnoses Date/Ti me OUTSIDE IMAGES - MR MSK Imaging 02/03 12:41 EDT documented as of this encounter Visit Diagnoses Not on filedocumented in this encounter Care Teams Generation Engineering Technologist Relationship Specialty Start Date End Date Sharon Sanabria MD PCP - General 02/10/[address] [place] [id number] documented as of this encounter
--- OUTSIDE RECORDS SUMMARY | 2022-02-13 13:27 | XMS_ITS | Encounter Summary ---
:1965 Author Organization [facility] Address [address] [place] [address] Care Team Providers Name Role Phone Sharon Sanabria MD Primary Care Provider Encounter Details Date Type Department Care Team Description 01/15/2021 Lab Requisition [facility] Outr Resulting Lab, Pathology & Laboratory Provider [facility] [address] [place] [address] Social History Tobacco Use Types Packs/Day Years Used Date Never Assessed Sex Assigned at Date Recorded Not on file documented as of this encounter Plan of Treatment Not on filedocumented as of this encounter Procedures Procedure Name Priority Date/Time Associated Diagnosis Comme nts CHRONIC HEPATITIS Routine 01/14/2021 17:30 Result s for this PROFILE, UNKNOWN EDT procedure a re in TYPE the results section. documented in this encounter Results CHRONIC HEPATITIS PROFILE, UNKNOWN TYPE (01/14/2021 17:30 EDT) Hep B Surface Ag Negative Negative [facility] Hep B Surface Ab, <3.1 See Note mIU/mL [facility] Quantitative Comment: [facility] Reference Range for Hep B Surface Ab, Quant: SERVICES Positive: >= 10.0 mIU/mL Negative: ??< 10.0 mIU/mL Patient is presumed to not be immune to infection with Hepatitis B Virus. Hep B Surface Ab, Negative See Note [facility] Qualitative Comment: [facility] Reference Range for Hep B Surface Ab, Qual: SERVICES Unvaccinated: ??Negative Vaccinated: ??Positive Hepatitis B Core Negative Negative [facility] Ab, Total [facility] Hep C Antibody Negative Negative [facility] Specimen Blood - Venous blood (substance) Performing Organization Address City/State/ZIP Code Phon e Number [facility] [address] [place] [address] SERVICES documented in this encounter Visit Diagnoses Not on filedocumented in this encounter Care Teams Well Logging Captain Mud Analysis Relationship Specialty Start Date End Date Sharon Sanabria MD PCP - General 02/10/[address] [place] [id number] documented as of this encounter
--- OUTSIDE RECORDS SUMMARY | 2022-02-13 13:27 | XMS_ITS | Encounter Summary ---
:1965 Author Organization [facility] Address [address] [place] [address] Care Team Providers Name Role Phone Sharon Sanabria MD Primary Care Provider Reason for Referral Radiology Services (Routine) - New Request Specialty Diagnoses / Procedures Referred By Contact Refer red To Contact Diagnoses Right foot pain Aubrie Banegas NP Procedures HEEL(CALCANEUS)2 OR MORE VIEWS [address] [place] [address] Referral ID Status Reason Start Date Expiration Date Visits V isits Requested Authorized [id number] New Request 02/13/2019 1 1 Encounter Details Date Type Department Care Team Description 02/13/2019 Orders Only [facility] Makenzie Right ceila t pain [facility] - TARA Alfred (Primary Dx) Ruthie [facility] [address] [facility] [id number] Social History Tobacco Use Types Packs/Day Years Used Date Never Assessed Sex Assigned at Date Recorded Not on file documented as of this encounter Plan of Treatment Pending Results Name Type Priority Associated Diagnoses Date/Ti me HEEL(CALCANEUS)2 OR MORE Imaging Routine Right foot pain 02/17/2019 8:15 EDT VIEWS documented as of this encounter Visit Diagnoses Diagnosis Right foot pain - Primary Pain in limb documented in this encounter Care Teams Student Success Advisor Relationship Specialty Start Date End Date Sharon Sanabria MD PCP - General 02/10/19 [address] [place] [address] documented as of this encounter
--- OUTSIDE RECORDS SUMMARY | 2022-02-13 13:27 | XMS_ITS | Encounter Summary ---
:1965 Author Organization [facility] Address [address] [place] [address] Care Team Providers Name Role Phone Sharon Sanabria MD Primary Care Provider Encounter Details Date Type Department Care Team Description 03/16/2021 Lab Requisition [facility] Outr Resulting Lab, Pathology & Laboratory Provider [facility] [address] [place] [address] Social History Tobacco Use Types Packs/Day Years Used Date Never Assessed Sex Assigned at Date Recorded Not on file documented as of this encounter Plan of Treatment Not on filedocumented as of this encounter Procedures Procedure Name Priority Date/Time Associated Diagnosis Comme nts COVID-19 TEST [facility] Today 03/16/2021 12:30 LAB PCR EST COVID-19 TESTING Routine 03/16/2021 12:30 Results for this EST procedure are i n the results section. documented in this encounter Results COVID-19 TEST [facility] LAB PCR (03/16/2021 12:30 EST) Specimen Swab Performing Organization Address City/State/ZIP Code Phon e Number [facility] [address] [place] [address] SERVICES COVID-19 TESTING (03/16/2021 12:30 EST) COVID-19 rt-PCR Negative Negative [facility] Result Comment: [facility]ENTER LABORATORY This test has not been FDA c leared or approved. This test has been authorized by FDA under an EUA for use by authorized laboratories. This test has been authorized only for detection of nucleic acid fro SERVICES m 2018-nCoV, not for any oth er viruses or pathogens. This test is only authorized for the duration of the declaration that circumstances exist justifying the authorization of emergency use of in vitro d iagnostic tests for detectio n and/or diagnosis of 2019-nCoV under section 564(b)(1) of Act, 21 U.S.C ?? 360bbb-3(b) (1), unless the authorization is terminated or revoked sooner. Negative results do not prec lude 2019-nCoV infection and should not be used as the sole basis for treatment or other patient management decisions. Negative results must be combined with clinical observa tions, patient history, and epidemiological informatio n. Testing was performed using the nuria SARS-CoV-2 assay ([employer] on the Nuria 6800 System Performing Lab Nuria 6800 [facility] Lab [facility] SERVICES Specimen Swab Performing Organization Address City/State/ZIP Code Phon e Number [facility] [address] [place] [address] SERVICES documented in this encounter Visit Diagnoses Not on filedocumented in this encounter Care Teams Database Marketing Analyst Relationship Specialty Start Date End Date Sharon Sanabria MD PCP - General 02/10/[address] [place] [id number] documented as of this encounter
--- OUTSIDE RECORDS SUMMARY | 2022-02-13 13:27 | XMS_ITS | Encounter Summary ---
:1965 Author Organization [facility] Address [address] [place] [address] Care Team Providers Name Role Phone Sharon Sanabria MD Primary Care Provider Reason for Referral Radiology Services (Routine) - New Request Specialty Diagnoses / Procedures Referred By Contact Refer red To Contact Diagnoses Pain of right heel Aubrie Banegas NP Procedures ANKLE 3 OR MORE VIEWS [address] [place] [address] Referral ID Status Reason Start Date Expiration Date Visits V isits Requested Authorized [id number] New Request 02/24/2019 1 1 Encounter Details Date Type Department Care Team Description 02/24/2019 Orders Only [facility] Makenzie Pain of r ight heel [facility]le Program - TARA Alfred (Primary Dx) Ruthie [address] [facility] [address] [phone] Social History Tobacco Use Types Packs/Day Years Used Date Never Assessed Sex Assigned at Date Recorded Not on file documented as of this encounter Plan of Treatment Scheduled Orders Name Type Priority Associated Diagnoses Order S chedule ANKLE 3 OR MORE VIEWS Imaging Routine Pain of right heel Ordered: 02/24/2019 documented as of this encounter Visit Diagnoses Diagnosis Pain of right heel - Primary Pain in limb documented in this encounter Care Teams Seafood Service Team Member Relationship Specialty Start Date End Date Sharon Sanabria MD PCP - General 02/10/[address] [place] [address] documented as of this encounter
--- OUTSIDE RECORDS SUMMARY | 2022-02-13 13:27 | XMS_ITS | Encounter Summary ---
:1965 Author Organization [facility] Address [address] [place] [address] Care Team Providers Name Role Phone Sharon Sanabria MD Primary Care Provider Encounter Details Date Type Department Care Team Description 01/16/2021 Lab Requisition [facility] Santi Gardner Osteo myelitis, Pathology & MAGGIE Power unspecified ([facility]) Laboratory Medicine - [address] [place], [place] [address] [facility] [address] [place], [place] [id number] Social History Tobacco Use Types Packs/Day Years Used Date Never Assessed Sex Assigned at Date Recorded Not on file documented as of this encounter Plan of Treatment Not on filedocumented as of this encounter Procedures Procedure Name Priority Date/Time Associated Diagnosis Comme nts SURGICAL PATHOLOGY Today 01/16/2021 12:30 Osteomyelitis, Res ults for this EDT unspecified procedure are i n ([facility]) the results section. documented in this encounter Results SURGICAL PATHOLOGY (01/16/2021 12:30 EDT) Note to Patient The following [facility] pathology results CENTER have been interpreted LABORATORY by your pathologist SERVICES and may be available to you before your health provider has had the opportunity to review them. Please allow time for your provider to receive these results and explore management options, if applicable. Final Diagnosis A. RIGHT FOOT 1ST GREAT TOE DISTAL PHALANX, ALISHA ENT: [facility] - Chronic wound with underlying acute osteomyelitis. CENTER - Resection margin negative for acute osteomyelitis. LABORATORY SERVICES Attestation By the signature [facility] Electronica lly below, the attending CENTER signed by Javy, physician certifies LABORATORY Porter Snowden MD on that they have 1) SERVICES 01/20/2021 at 1234 personally conducted a gross and/or microscopic examination of the described specimen(s), and/or personally interpreted the results of laboratory testing of the described specimen(s), and 2) personally rendered or confirmed the above diagnosis. Clinical History Osteomyelitis 1st [facility] great toe right CENTER LABORATORY SERVICES Gross Description A. [facility] Received in formalin gino d with proper patient identification (initials C, D) and right 1st great toe is a single digit (4.1 x 4.1 x 3.8 cm) that has been disarticulated from a proximal interphalan CENTER geal joint. At the distal ti p, approximately 0.8 cm from the unguis is a parry- brown encrusted lesion (2.5 x 2.0 x 0.2 cm) that exposes the underlying subcutaneous tissue. There is a sliver of irregular, LABORAT ORY yellow unguis. The underlyi ng bone is semi firm and cuts with difficulty. Curing Press Operator sections are submitted for acid decalcification as follows: SERVICES BLOCK SCHNEIDER A1- skin and soft tissue margins A2-A3- underlying bone CONRADO BELTRAN(ASCP) 01/17/2021 9:30 Performing Lab [facility] SERVICES Scanned Images [facility] SERVICES Specimen Tissue - Amputation (procedure) Performing Organization Address City/State/ZIP Code Phon e Number [facility] [address] [place] [address] SERVICES documented in this encounter Visit Diagnoses Diagnosis Osteomyelitis, unspecified (HCC) documented in this encounter Care Teams Metal Model Maker Relationship Specialty Start Date End Date Sharon Sanabria MD PCP - General 02/10/19 [address] [place] [address] documented as of this encounter
--- OUTSIDE RECORDS SUMMARY | 2022-02-13 13:27 | XMS_ITS | Clinical Summary ---
:1965 Author Organization [facility] Address [address] [place] [address] Care Team Providers Name Role Phone Sharon Sanabria MD Primary Care Provider Social History Tobacco Use Types Packs/Day Years Used Date Never Assessed Sex Assigned at Date Recorded Not on file Plan of Treatment Health Maintenance Due Date Last Done Comments Hepatitis C Screen 1965 COVID-19 Vaccine (1) 1976 Insurance Payer Benefit Plan / Subscriber ID Effective Dates Phone Addre ss Type Group MEDICARE MEDICARE A/B [id number] 2006-Present [id number] [place] [address] Care Teams Crime Scene Evidence Technician Relationship Specialty Start Date End Date Sharon Sanabria MD PCP - General 02/10/19 [address] [place], [place] [address]
--- OUTSIDE RECORDS SUMMARY | 2022-02-13 13:28 | XMS_ITS | Encounter Summary ---
:1965 Author Organization [facility] [place] [address] Care Team Providers Name Role Phone Sharon Sanabria MD Primary Care Provider Encounter Details Date Type Department Care Team Description 09/01/2018 Ancillary Procedure Radiology Library at Skyla Sanabria, [facility] [address] [address] [place] [address] [phone] Social History Tobacco Use Types Packs/Day Years Used Date Never Smoker Smokeless Tobacco: Current User Chew Comments: one can chew per day Alcohol Use Standard Drinks/Week Comments No 0 (1 standard drink = 0.6 oz pure None f or 13 weeks, everyother wk alcohol) Alcohol Habits Answer Date Recorded How often do you have a drink Not asked containing alcohol? How many drinks containing alcohol do Not asked you have on a typical day when you are drinking? How often do you have six or more Not asked drinks on one occasion? Comment: None for 13 weeks, everyother wk 013 Sex Assigned at Date Recorded Not on file documented as of this encounter Plan of Treatment Not on filedocumented as of this encounter Procedures Procedure Name Priority Date/Time Associated Diagnosis Comme nts FILM LIBRARY Routine 09/01/2018 12:00 AM Results for this STORAGE ONLY DX EDT procedure ar e in ANKLE the results section. documented in this encounter Results Film Library- Storage Only DX Ankle (09/01/2018 12:00 AM EDT) Specimen (Source) Anatomical Location Collection Method / Collectio n Time Received Time / Laterality Volume Narrative RAD - 10/07/2018 3:27 PM EDT This exam is auto-finalizing. It's purpo se is for storage only. Sharon Sanabria MD IMG FILM LIBRARY ORDERABLES Performing Organization Address City/State/ZIP Code Phon e Number [facility] [place], [place] documented in this encounter Visit Diagnoses Not on filedocumented in this encounter Care Teams Stone Processing Machine Operator Relationship Specialty Start Date End Date Sharon Sanabria MD PCP - General 06/16/13 [address] [place] [address] documented as of this encounter
--- OUTSIDE RECORDS SUMMARY | 2022-02-13 13:28 | XMS_ITS | Encounter Summary ---
:1965 Author Organization [place] [address] Care Team Providers Name Role Phone Sharon Sanabria MD Primary Care Provider Reason for Visit Reason Comments Establish Care right calcaneus fx non union DOI 01/04/18;right ankle pain Consultation (Routine) - Closed Specialty Diagnoses / Procedures Referred By Contact Refer red To Contact Orthopaedics Diagnoses right calcaeus fracture s/p ORIF w/non-union Noah Reardon MD Gitajn, Ida Leah, MD [address] [facility], [place] [address] [place] [address] Phone: Fax: Referral ID Status Reason Start Date Expiration Date Visits V isits Requested Authorized [id number] Closed Consult, Test 10/13/2018 10/13/2019 1 [facility] PCP Updated and/or Approved Encounter Details Date Type Department Care Team Description 11/14/2018 Office Visit [facility] [place] [facility] Angelica Paez, Closed fracture of right ank le with routine healing; [facility] Closed displaced fracture of body of rig ht calcaneus with delayed [place] [address] CENTER [phone] ORTHOPAEDIC SURGERY [place], [place] [address] Social History Tobacco Use Types Packs/Day Years [...] on file documented as of this encounter Last Filed Vital Signs Vital Sign Reading Time Taken Comments Blood Pressure 136/86 11/14/2018 12:57 PM EDT Pulse 79 11/14/2018 12:57 PM EDT Temperature - - Respiratory Rate - - Oxygen Saturation - - Inhaled Oxygen Concentration - - Weight 122.5 kg (270 lb) 11/14/2018 12:57 PM EDT Height 188 cm (6' 2) 11/14/2018 12:57 PM EDT Body Mass Index 34.67 11/14/2018 12:57 PM EDT documented in this encounter Progress Notes Bryan Mancilla PA - 11/14/2018 1:20 PM EDT Patient Name: Robb Anton : 53 y.o. Injury Date: Fracture: right ankle and calcaneous HPI: Robb Anton is a very pleasant 53 y.o. male who presents for a 7 months follow-up of the above fracture. The patient has been doing ok and his pain is moderately improved over pre injury status. No fevers, chills, nausea, vomiting, or symptoms of infection. Robb has been ambulating with a tallwalking boot and or a hiking boot he denies any pain in the heel he does have ankle pain however it is not painful if he is in the boot. ROS: Denies fevers, chills, night sweats, nausea, or vomiting. BP 136/86 Pulse 79 Ht 188 cm (6' 2) Wt 122.5 kg (270 lb) BMI 34.67 kg/m?? Physical Exam: Well-appearing male in no acute distress. Alert and Oriented x 3 and answers all questions appropriately. Sensation and pulses intact Mild swelling X-RAYS: Demonstrate no change in fracture alignment ASSESSMENT/PLAN: 7 months post-injury and doing well. Continue weightbearing as tolerated and discussed ankle brace and or AFO if continued pain in the ankle, and we will see his back in as needed fPatient may return to normal activities as his pain and function allow. Signed: CONRADO PALACIOS documented in this encounter Plan of Treatment Not on filedocumented as of this encounter Visit Diagnoses Diagnosis Closed fracture of right ankle with rout ine healing Closed displaced fracture of body of rig ht calcaneus with delayed healing documented in this encounter Care Teams Release And Technical Records Clerk Relationship Specialty Start Date End Date Sharon Sanabria MD PCP - General 06/16/13 [address] [place] [address] documented as of this encounter
--- OUTSIDE RECORDS SUMMARY | 2022-02-13 13:28 | XMS_ITS | Encounter Summary ---
:1965 Author Organization [place] [address] Care Team Providers Name Role Phone None Primary Care Provider Unavailable Encounter Details Date Type Department Care Team Description 10/31/2012 Orders Only Orthopaedics at [facility] Jorden Lockwood, Left knee pain [facility] (Primary Dx) [place] [address] [address] [phone] ORTHOPAEDIC SURGERY [place], [place] [address] Social History Tobacco Use Types Packs/Day Years Used Date Never Smoker Smokeless Tobacco: Current User Chew Comments: one can chew per day Alcohol Use Standard Drinks/Week Comments No 0 (1 standard drink = 0.6 oz pure alcoho l) None for 13 weeks Alcohol Habits Answer Date Recorded How often do you have a drink containing alcohol? Not asked How many drinks containing alcohol do you have on a Not aske d typical day when you are drinking? How often do you have six or more drinks on one Not asked occasion? Comment: None for 3 weeks 04/06/2011 Sex Assigned at Date Recorded Not on file documented as of this encounter Plan of Treatment Not on filedocumented as of this encounter Visit Diagnoses Diagnosis Left knee pain - Primary Pain in joint, lower leg documented in this encounter Care Teams Team Assembler Relationship Specialty Start Date End Date None PCP - General 08/30/11 06/15/13 None documented as of this encounter
--- OUTSIDE RECORDS SUMMARY | 2022-02-13 13:28 | XMS_ITS | Encounter Summary ---
:1965 Author Organization [facility] [place] [address] Care Team Providers Name Role Phone Sharon Sanabria MD Primary Care Provider Encounter Details Date Type Department Care Team Description 07/19/2011 Orders Only General Surgery at [facility] Noah Hartman MD [facility] [place] [address] GENERAL SURGERY [phone] [place] [address] (Wo rk) Social History Tobacco Use Types Packs/Day Years [...] filedocumented as of this encounter Visit Diagnoses Not on filedocumented in this encounter Care Teams School Services Officer Relationship Specialty Start Date End Date Sharon Sanabria MD PCP - General 03/28/10 08/29/11 [address] [place] [address] documented as of this encounter
--- OUTSIDE RECORDS SUMMARY | 2022-02-13 13:28 | XMS_ITS | Encounter Summary ---
:1965 Author Organization [facility] [place] [address] Care Team Providers Name Role Phone None Primary Care Provider Unavailable Encounter Details Date Type Department Care Team Description 11/27/2012 Orders Only General Surgery at Patrica King, HTN (hypertension) [facility] RN (Primary Dx) [place] [address] Social History Tobacco Use Types Packs/Day Years [...] Not on filedocumented as of this encounter Results Creatinine (12/18/2012 2:28 PM EDT) athologist Signature Creatinine 1.07 0.80 - 1.50 CERNER mg/dL [facility] Comment: Please note that the pediatric reference intervals supplied above were not validated at [facility]. Results from pediatri c patients should be interpreted in conjunction to the patient's age, height and muscle mass. Estimated GFR >60 >=60 NATANNER TALHA Marrufo Comment: This estimated GFR (eGFR) value was calc ulated using the MDRD equation which has been validated on patients between t he ages of 18 and 70. The MDRD should not be used to assess kidney function in patients < 18 years of age or in patients with extremes of body mass, or in patients with acute kidney failure. This value should be multiplied by 1.2 f or patients. For further information please copy and past e the following links into your internet browser. http://www.nkdep.nih.gov/lab-evaluation. shtml http://www.kidney.org/professionals/ Specimen Anatomical Collection Method Collection Time Receive d Time (Source) Location / / Volume Laterality Blood specimen 12/18/2012 2:28 PM 013 2:32 (specimen) EDT PM EDT Resulting Agency Comment Spec In Lab Noah Hartman MD CHEMISTRY ORDERABLES Performing Organization Address City/State/ZIP Code Phon e Number [place] [phone] [facility] documented in this encounter Visit Diagnoses Diagnosis HTN (hypertension) - Primary Unspecified essential hypertension documented in this encounter Care Teams Operator Helper Relationship Specialty Start Date End Date None PCP - General 08/30/11 06/15/13 None documented as of this encounter
--- OUTSIDE RECORDS SUMMARY | 2022-02-13 13:28 | XMS_ITS | Clinical Summary ---
:1965 Author Organization [facility] [place] [address] Care Team Providers Name Role Phone Sharon Sanabria MD Primary Care Provider Allergies No known active allergies Medications Medication Sig Dispensed Refills Start Date End Date Status ibuprofen Take 1.5 tablets 30 tablet 12 01/29/2013 Ac tive (ADVIL;MOTRIN) 400 mg by mouth every 6 tablet hours as needed for Pain. HYDROcodone-acetaminop TAKE 1 TABLET BY 0 05/28/2018 Active hen (NORCO) 5-325 mg MOUTH EVERY 6 Tablet HOURS NEEDED PAIN NOT TO EXCEED 10/DAY lisinopril Take 20 mg by 0 Activ e (PRINIVIL;ZESTRIL) 20 mouth daily. mg Tablet aspirin 325 mg Tablet Take 325 mg by 0 Active mouth daily. Active Problems Problem Noted Date Closed fracture of right ankle with routine healing Closed displaced fracture of body of right calcaneus w ith delayed healing 12/05/2018 Ventral hernia 11/27/2012 Splenomegaly 05/28/2011 Sarcoidosis 04/06/2011 Immunizations Name Administration Dates Next Due DTaP/HiB/IPV 05/28/2011 Meningococcal Conjugate 05/28/2011 Pneumococcal Polyvalent 23 05/28/2011 Family History Medical History Relation Comments Cancer Neg Hx Diabetes Neg Hx Osteoporosis Neg Hx Social History Tobacco Use Types Packs/Day Years [...] Assigned at Date Recorded Not on file Last Filed Vital Signs Vital Sign Reading Time Taken Comments Blood Pressure 136/86 11/14/2018 12:57 PM EDT Pulse 79 11/14/2018 12:57 PM EDT Temperature 36.6 ??C (97.9 ??F) 02/22/2014 10:48 AM EDT Respiratory Rate 16 02/22/2014 10:48 AM EDT Oxygen Saturation 95% 02/22/2014 10:48 AM EDT Inhaled Oxygen Concentration - - Weight 122.5 kg (270 lb) 11/14/2018 12:57 PM EDT Height 188 cm (6' 2) 11/14/2018 12:57 PM EDT Body Mass Index 34.67 11/14/2018 12:57 PM EDT Plan of Treatment Health Maintenance Due Date Last Done Comments Covid-19 Vaccine (#1) 1969 Lipid Screening 1982 Tdap adult 1983 Tetanus vaccine 1983 Colonoscopy 2009 Zoster vaccine (1 of 2) 2014 Advance Directive 2019 Influenza (Flu) vaccine (1 of 1 - Influenza standard 01/04/2022 series) HIV screen Completed 07/31/2011 Hepatitis C Screening Completed 10/30/2011 Medical Devices Implanted Type Area Manager Money Device Shelf Model / Identifier Expiration Date Ser ial / Lot Mesh,[employer] C-[employer]ur,10x8in ([id number]) - Sn/A IMPLANTS [employer] 01/04/2016 [id number] / Implanted: Qty: 1 on 01/28/2013 by Noah Hartman MD at N [employer] - N/A / [id number] Insurance Payer Benefit Plan / Subscriber ID Effective Dates Phone Addre ss Type Group MEDICARE MEDICARE PART A [id number] 2006-Present [phone] [employer] [place] [phone] Advance Directives Latest Code Status on File Code Status Date Activated Date Inactivated Comments Full Code 01/28/2013 8:02 PM 01/29/2013 4:52 PM Order Status: Initial Order Does patient have decision making capacity? Yes, Order is based on Patients wishes. Full Code 01/28/2013 3:31 PM 01/28/2013 8:02 PM Does patient have decision making capacity? Yes, order is based on Patient wishes. Full Code 06/12/2011 3:53 PM 06/15/2011 5:33 PM Full Code 06/12/2011 11:03 AM 06/12/2011 3:53 PM Order Status: Initial Order Does patient have decision making capacity? Yes, Order is based on Patients wishes. Care Teams Field Artillery Crewmember Relationship Specialty Start Date End Date Sharon Sanabria MD PCP - General 06/16/13 [address] [place] [address]
--- OUTSIDE RECORDS SUMMARY | 2022-02-13 13:28 | XMS_ITS | Encounter Summary ---
:1965 [place] [address] Care Team Providers Name Role Phone None Primary Care Provider Unavailable Reason for Visit Reason Comments Flank Pain Encounter Details Date Type Department Care Team Description 08/30/2011 Emergency Emergency Department Jeffery Graham MD Abdominal pain [facility] [place] [address] [place] [address] [phone] Social History Tobacco Use Types Packs/Day Years [...] Sign Reading Time Taken Comments Blood Pressure 141/76 08/30/2011 1:11 PM EDT Pulse 74 08/30/2011 1:11 PM EDT Temperature 36.2 ??C (97.2 ??F) 08/30/2011 1:11 PM EDT Respiratory Rate 16 08/30/2011 1:11 PM EDT Oxygen Saturation 97% 08/30/2011 1:11 PM EDT Inhaled Oxygen Concentration - - Weight - - Height - - Body Mass Index - - documented in this encounter Discharge Instructions AttachmentsThe following attachments cannot be sent through Care Everywhere. ABDOMINAL PAIN IN ADULTS: AFTER YOUR VISIT (LAO)documented in this encounter Medications at Time of Discharge Medication Sig Dispensed Refills Start Date End Date OXYcodone (ROXICODONE) Take 1 tablet by 45 tablet 0 012 10/30/2011 15 mg immediate release mouth every 4 hours tablet as needed for Pain. OXYcodone (ROXICODONE) Take 1 tablet by 30 tablet 0 012 10/30/2011 15 mg immediate release mouth every 4 hours tabletIndications: as needed for Pain. Sarcoidosis predniSONE (DELTASONE) 5 Take by mouth daily. 90 tablet 0 0 07/06/2011 10/30/2011 mg tabletIndications: Start at 17.5mg and Sarcoidosis decrease by 2.5mg every 7 days until off. atenolol (TENORMIN) 50 Take 75 mg by mouth 0 03/12/2013 mg tablet daily. documented as of this encounter ED Notes Gissel Garza RN - 08/30/2011 3:47 PM EDT Pt still having pain States that the medicine worked somewhat Gissel Garza RN - 08/30/2011 2:31 PM EDT Pt gone for CT Jeffery Barnes MD - 08/30/2011 2:00 PM EDT Chief Complaint Patient presents with ??? Flank Pain HPI 46 y.o. 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 Pain started Mitch as a dull ache in the LUQ quadrant and has progressively worsening since that time. Now he describes the pain as sharp, severe, constant, worse with anymovement. Has been keeping him awake at night. Has not slept for several days. Denies fever/chills. He has had nausea and one episode of NB/NB vomiting this am. Last BM yesterday and normal without melena/hematochezia. He has had intermittent hematuria without dysuria, urgency or frequency. No similarin past. No other complaints. No Known Allergies Review of Systems Constitutional: Negative for fever, chills and unexpected weight change. HENT: Negative for congestion, rhinorrhea, neck pain and neck stiffness. Eyes: Negative for pain and redness. Respiratory: Negative for cough and shortness of breath. Cardiovascular: Negative for chest pain and palpitations. Gastrointestinal: Positive for nausea, vomiting and abdominal pain. Genitourinary: Positive for hematuria. Negative for dysuria. Musculoskeletal: Negative for myalgias and arthralgias. Skin: Negative for pallor and rash. Neurological: Negative for dizziness, light-headedness and headaches. Hematological: Negative for adenopathy. Does not bruise/bleed easily. BP 141/76 Pulse 74 Temp(Src) 36.2 ??C (97.2 ??F) (Oral) Resp 16 SpO2 97% Physical Exam Nursing note and vitals reviewed. Constitutional: He is oriented to person, place, and time. He appears well- developed and well-nourished. No distress. Well appearing male in NAD HENT: Head: Normocephalic and atraumatic. Mouth/Throat: Oropharynx is clear and moist. No oropharyngeal exudate. Eyes: Conjunctivae and EOM are normal. Pupils are equal, round, and reactive to light. Neck: Normal range of motion. Neck supple. No JVD present. Carotid bruit is not present. Cardiovascular: Normal rate, regular rhythm, normal heart sounds and intact distal pulses. Exam reveals no gallop and no friction rub. No murmur heard. Pulmonary/Chest: Effort normal and breath sounds normal. No respiratory distress. He has no wheezes.He has no rales. He exhibits no tenderness. Abdominal: Soft. Bowel sounds are normal. He exhibits no distension. Tenderness is present. He has no rebound and no guarding. LUQ and LLQ TTP, pos rebound, gaurding Genitourinary: No CVA TTP Musculoskeletal: Normal range of motion. He exhibits no edema and no tenderness. Lymphadenopathy: He has no cervical adenopathy. Neurological: He is alert and oriented to person, place, and time. Skin: Skin is warm and dry. No rash noted. He is not diaphoretic. No erythema. Psychiatric: He has a normal mood and affect. Procedures None ED Course: An IV was established and blood was drawn. CBC and electrolyte panel was reviewed and unremarkable. Lipase was reviewed, and unremarkable. Prior medical records were reviewed and summarized in the history of present illness. Chest x-ray was obtained, showing no acute cardiopulmonary disease. CT scan of the abdomen and pelvis was also obtained, I personally reviewed the images and the radiologist read, there was no evidence to suggest renal calculi or intra- abdominal abscess. In fact therewas no findings to suggest a cause for the patient's pain. On reassessment, the patient's pain was improved after getting 2 mg of Dilaudid IV. He requested we discharge. He was discharged in stable cond ition. MDM left upper quadrant abdominal pain. Unclear etiology. Given his recent postoperative course. I had some suspicion for possibility of occult abscess, but that was apparent on imaging studies. I alsoconsidered the possibility of renal calculi, but none was apparent on CT imaging. No other obvious cause for the patient's pain. No respiratory symptoms or chest x-ray findings to suggest a pulmonary cause. I did consider the possibility of pulmonary embolus, but this seems very unlikely given his lack of respiratory symptoms and normal vital signs. Assessment: Left upper quadrant abdominal pain, and no clear etiology. Plan: Discharge. Oxycodone when necessary (given a prescription for 25 tablets). Followup with rheumatology in the next one to 2 weeks. Jeffery Barnes MD 08/30/11 [id number] Gissel Garza RN - 08/30/2011 1:11 PM EDT Pt arrives ambulatory from triage with LUQ pain starting 4 days ago Pt states that he has been having the pain and had one oxycodone left from surgery in Jun and took that for the ride down Pt states that the pain in always in the LUQ with no radiation of pain Bowel and bladder ok - no diarrhea or constipation noted Pt has an hx of pancreatitis in 1998 and has not had anything since that time documented in this encounter Miscellaneous Notes Discharge Summary - Provider, Scanning - 08/31/2011 9:16 AM EDT Miscellaneous - Provider, Scanning - 08/30/2011 1:38 PM EDT ED Triage - Anya Loaiza, RN - 08/30/2011 1:08 PM EDT Pt reports left upper quad pain x 4 days, no sleep, hx of splenectomy. A&Ox3. Ambulatory to room18, steady gait. NAD. Speaking in full sentences. documented in this encounter Plan of Treatment Not on filedocumented as of this encounter Procedures Procedure Name Priority Date/Time Associated Comments Diagnosis XR CHEST PA AND Routine 08/30/2011 4:03 PM Result s for this LATERAL EDT procedure are i n the results section. CT ABDOMEN AND Routine 08/30/2011 2:36 PM Results for this PELVIS WO CONTRAST EDT procedure are in the results section. URINALYSIS WITH STAT 08/30/2011 2:22 PM Result s for this REFLEX CULTURE EDT procedure are in the results section. URINE CULTURE STAT 08/30/2011 2:22 PM Results for this EDT procedure are i n the results section. NUCLEATED RED BLOOD STAT 08/30/2011 2:19 PM Re sults for this CELLS EDT procedure are i n the results section. DIFFERENTIAL, STAT 08/30/2011 2:19 PM Results for this AUTOMATED EDT procedure are i n the results section. CBC (WITH DIFF) STAT 08/30/2011 2:19 PM Result s for this EDT procedure are i n the results section. LIPASE STAT 08/30/2011 2:19 PM Results f or this EDT procedure are i n the results section. BASIC METABOLIC STAT 08/30/2011 2:19 PM Result s for this PANEL (NON-FASTING) EDT procedur e are in the results section. documented in this encounter Results XR CHEST ROUTINE PA & LATERAL (08/30/2011 4:03 PM EDT) Anatomical Region Laterality Modality Chest N/A Radiographic Imaging Specimen (Source) Anatomical Collection Method Collection Time Re ceived Time Location / / Volume Laterality 08/30/2011 4:03 PM EDT Narrative 08/30/2011 4:26 PM EDT Examination Two-view chest Clinical History Left upper quadrant abdominal pain. ??No clear abdominal pathology. ??Evaluate for left lower lung pathology. Technique PA and lateral views of the chest. Comparison 08/31/2008 chest radiograph. ??CT of the chest with contrast from 03/20/2011 performed at [facility]. Findings Left greater than right reticular nodula r opacities predominantly in the mid to lower lungs. ??More patchy opacity at th e level of the hilum in the left mid lung, question if related to the process causing the nodular opacities or a superimposed focal airspace and absent r ight pathology, such as developing pneumonia. ??No pleural effusion. ??Unre markable cardiomediastinal silhouette. ?? Unremarkable osseous structures. Impression As on the on 03/20/[address], bilatera l reticular nodular opacities, indeterminate, but consider pulmonary sa rcoidosis. ??Hazy patchy left mid lung opacity, may reflect a superimposed foca l process such as developing pneumonia, or reflect progression of the known left lung nodular pathology. Procedure Note Valentine Levi MD - 08/30/2011Formatt ing of this note might be different from the original. Examination Two-view chest Clinical History Left upper quadrant abdominal pain. No c lear abdominal pathology. Evaluate for left lower lung pathology. Technique PA and lateral views of the chest. Comparison 08/31/[address] of the c hest with contrast from 03/20/2011 performed at [facility]. Findings Left greater than right reticular nodula r opacities predominantly in the mid to lower lungs. More patchy opacity at the level of the hilum in the left mid lung, question if related to the process causing the nodular opacities or a superimposed focal airspace and absent r ight pathology, such as developing pneumonia. No pleural effusion. Unremark able cardiomediastinal silhouette. Unremarkable osseous structures. Impression As on the on 03/20/[address], bilatera l reticular nodular opacities, indeterminate, but consider pulmonary sa rcoidosis. Hazy patchy left mid lung opacity, may reflect a superimposed foca l process such as developing pneumonia, or reflect progression of the known left lung nodular pathology. Jeffery Barnes MD IMG DX ORDERABLES CT ABDOMEN & PELVIS WO CONTRAST (08/30/2011 2:36 PM EDT) Anatomical Region Laterality Modality Abdomen, Pelvis Computed Tomography Specimen (Source) Anatomical Collection Method Collection Time Re ceived Time Location / / Volume Laterality 08/30/2011 2:36 PM EDT Impressions 08/31/2011 9:29 AM EDT IMPRESSION: ?? 1. No renal, ureteral, or bladder calcul i. 2. Interval increase in size of retroper itoneal lymphadenopathy. 3. Unremarkable post-op changes in the p ost splenectomy surgical bed. Film and interpretation reviewed by the attending Narrative 08/31/2011 9:[address] ABDOMEN AND PELVIS WITHOUT CONTRAST: TECHNIQUE: ??Helical CT images were obta ined of the abdomen and pelvis without intravenous contrast. Multiplanar reform atted images were reviewed. HISTORY: ??46-year-old male with history of sarcoidosis status post recent splenectomy in 06/17, now presenting with left upper quadrant/flank pain, hematuria. Question renal stone. COMPARISON: ??Prior CT abdomen and pelvi s from 05/17/11. FINDINGS: ?? ABDOMEN: ??Visualized portions of the giancarlo ng bases are notable for bilateral dependent atelectasis. Bilateral kidneys are unremarkable without evidence of renal or ureteral calculi. Liver, pancre as, gallbladder, adrenal glands, are all unremarkable. Patient is status post splenectomy with unremarkable surgical changes noted in the left upper quadrant . No free fluid. No free air. Interval increase in aortocaval, preaortic and le ft periaortic retroperitoneal adenopathy, which per [facility] is biopsy prov en sarcoidosis. No mesenteric adenopathy. No dilated bowel. PELVIS: ??Significant beam-hardening art ifact secondary to metallic hardware in the region of the pubic symphysis. No fr ee fluid. No adenopathy. Bladder is unremarkable without evidence of bladder calculi. Review of osseous structures notable for unchanged pubic fractures. N o suspicious osseous lesions. Procedure Note Tono Quintanilla MD - 08/31/2011Format ting of this note might be different from the original. CT ABDOMEN AND PELVIS WITHOUT CONTRAST: TECHNIQUE: Helical CT images were obtain ed of the abdomen and pelvis without intravenous contrast. Multiplanar reform atted images were reviewed. HISTORY: 46-year-old male with history o f sarcoidosis status post recent splenectomy in 06/17, now presenting with left upper quadrant/flank pain, hematuria. Question renal stone. COMPARISON: Prior CT abdomen and pelvis from 05/17/11. FINDINGS: ABDOMEN: Visualized portions of the lung bases are notable for bilateral dependent atelectasis. Bilateral kidneys are unremarkable without evidence of renal or ureteral calculi. Liver, pancre as, gallbladder, adrenal glands, are all unremarkable. Patient is status post splenectomy with unremarkable surgical changes noted in the left upper quadrant . No free fluid. No free air. Interval increase in aortocaval, preaortic and le ft periaortic retroperitoneal adenopathy, which per [facility] is biopsy prov en sarcoidosis. No mesenteric adenopathy. No dilated bowel. PELVIS: Significant beam-hardening artif act secondary to metallic hardware in the region of the pubic symphysis. No fr ee fluid. No adenopathy. Bladder is unremarkable without evidence of bladder calculi. Review of osseous structures notable for unchanged pubic fractures. N o suspicious osseous lesions. IMPRESSION IMPRESSION: 1. No renal, ureteral, or bladder calcul i. 2. Interval increase in size of retroper itoneal lymphadenopathy. 3. Unremarkable post-op changes in the p ost splenectomy surgical bed. Film and interpretation reviewed by the attending Jeffery Barnes MD IMG CT ORDERABLES Urine culture Clean Catch Urine (08/30/2011 2:22 PM EDT) [facility] Method Time Signature Urine Culture CERNER ? Patient Name: SWETA MCLEAN ?Ordered By : JEFFERY BARNES [facility] ? MR#: [id number] ?LOC: ??ED ? /Sex: ??1965 (46 years), ? Male ? PROCEDURE: Urine Culture ?SOURCE: U CC ? COLLECTED: 08/30/2011 14:22 ? STARTED: 08/30/2011 15:56 ? FINAL REPORT ? Final Report ? Verified:08/31/2011 15:41 ? No growth (Less than 1,000 cfu/ml). ? Specimen (Source) Anatomical Collection Method Collection Time Re ceived Time Location / / Volume Laterality Urine specimen 08/30/2011 2:22 08/30/2011 3:56 obtained by clean PM EDT PM EDT catch procedure (specimen) Resulting Agency Comment Spec In Lab Jeffery Barnes MD MICROBIOLOGY - GENERAL ORDER LATOYA Performing Organization Address City/State/[place] [address] CERNER MILLENNIUM (ABNORMAL) Urinalysis with microscopic (08/30/2011 2:22 PM EDT) [facility] Method Time Signature Glucose UA Negative Negative CERNER mg/dL MILLENNIUM Protein UA Negative mg/dL CERNER MILLENNIUM Bilirubin UA Negative Negative CERNER mg/dL MILLENNIUM Urobilinogen UA Normal mg/dL CERNER MILLENNIUM pH UA 5.5 5.0 - 8.0 CERNER MILLENNIUM Blood UA Negative mg/dL CERNER MILLENNIUM Ketones UA Negative mg/dL CERNER MILLENNIUM Nitrite UA Negative CERNER MILLENNIUM Leukocytes UA Negative mcL CERNER MILLENNIUM Appearance UA Clear Clear CERNER MILLENNIUM Spec [place] UA 1.021 1.002 - CERNER 1.030 MILLENNIUM Color UA Yellow Yellow CERNER MILLENNIUM RBC UA 1 0 - 3 /HPF CERNER MILLENNIUM WBC UA 1 0 - 3 /HPF CERNER MILLENNIUM Bacteria UA Rare (A) None /HPF CERNER MILLENNIUM Renal Epith UA <1 (H) <=0 /HPF CERNER MILLENNIUM CaOx Callie UA Occasional /HPF CERNER MILLENNIUM Specimen Anatomical Collection Method Collection Time Receive d Time (Source) Location / / Volume Laterality Urine specimen 08/30/2011 2:22 PM 012 2:37 (specimen) EDT PM EDT Resulting Agency Comment Spec In Lab Jeffery Barnes MD URINE ORDERABLES Performing Organization Address City/State/ZIP Code Phon e Number [place] [phone] CERNER MILLENNIUM (ABNORMAL) DIFFERENTIAL, AUTOMATED (08/30/2011 2:19 PM EDT) [facility] Method Time Signature Neutrophils % 60.4 34.0 - CERNER 71.0 % MILLENNIUM Neutr Abs (ANC) 6.26 1.50 - CERNER 6.30 MILLENNIUM x10(3)/mc L Lymphocytes % 22.7 19.0 - CERNER 53.0 % MILLENNIUM Lymphocytes Abs 2.4 1.0 - 3.6 CERNER x10(3)/mc MILLENNIUM L Monocytes % 13.1 (H) 4.0 - CERNER 13.0 % MILLENNIUM Monocyte Abs 1.4 (H) 0.2 - 1.0 CERNER x10(3)/mc MILLENNIUM L Eosinophils % 3.1 0.0 - 7.0 CERNER % MILLENNIUM Eosinophils Abs 0.3 0.0 - 0.5 CERNER x10(3)/mc MILLENNIUM L Basophils % 0.4 0.0 - 2.0 CERNER % MILLENNIUM Basophils Abs 0.0 0.0 - 0.2 CERNER x10(3)/mc MILLENNIUM L Immature Gran % 0.30 0.00 - CERNER 0.66 % MILLENNIUM Comment: Immature granulocytes(IG's)percentage an d absolute count will include metamyelocytes, myelocytes, and promyelo cytes. Blood smears from CBCs yielding IG's will be scanned manually for concor dance. If this scan disagrees with the automated IG or if promyelocytes are not ed, a manual differential will be performed. Joann Gran Abs 0.03 0.00 - 0.05 x10(3)/mcL CER NER MILLENNIUM Specimen Anatomical Collection Method Collection Time Receive d Time (Source) Location / / Volume Laterality Blood specimen 08/30/2011 2:19 PM 012 2:36 (specimen) EDT PM EDT Jeffery Barnes MD HEMATOLOGY ORDERABLES Performing Organization Address City/[facility]/ZIP Code Phon e Number [address] CERNER MILLENNIUM NUCLEATED RED BLOOD CELLS (08/30/2011 2:19 PM EDT) athologist Signature nRBC % Auto 0.0 0.0 - 0.2 CERNER % MILLENNIUM nRBC Abs Auto 0.000 0.000 - CERNER 0.012 MILLENNIUM x10(3)/mcL Specimen Anatomical Collection Method Collection Time Receive d Time (Source) Location / / Volume Laterality Blood specimen 08/30/2011 2:19 PM 012 2:36 (specimen) EDT PM EDT Resulting Agency Comment Spec In Lab Jeffery Barnes MD HEMATOLOGY ORDERABLES Performing Organization Address City/[facility]/ZIP Code Phon e Number [address] CERNER MILLENNIUM LIPASE (08/30/2011 2:19 PM EDT) athologist Signature Lipase 24 0 - 60 CERNER unit/L MILLENNIUM Specimen Anatomical Collection Method Collection Time Receive d Time (Source) Location / / Volume Laterality Blood specimen 08/30/2011 2:19 PM 012 2:36 (specimen) EDT PM EDT Resulting Agency Comment Spec In Lab Jeffery Barnes MD CHEMISTRY ORDERABLES Performing Organization Address City/[facility]/ZIP Code Phon e Number [address] CERNER MILLENNIUM Basic Metabolic Panel (non-fasting) (08/30/2011 2:19 PM EDT) athologist Signature Glucose Lvl 89 60 - 199 CERNER mg/dL MILLENNIUM Comment: Diabetes: >=200 mg/dL plus symp toms BUN 12 10 - 20 mg/dL CERNER MILLENNIU M Creatinine 0.93 0.80 - 1.50 mg/dL CERNER MILL ENNIUM Sodium 136 135 - 145 mmol/L CERNER IVAN NIUM Potassium 3.7 3.5 - 5.0 mmol/L CERNER IVAN NIUM Comment: Please note: ??Patients with WBC >100,00 0 may have falsely elevated Potassium levels. ??For accurate Potassium quantif ication in these patients send serum separator tube (gold top) for subsequent determinations. ??Contact the Clinical Chemistry Laboratory if there are any qu estions. Chloride 98 98 - 107 mmol/L CERNER MILLENN IUM CO2 27 22 - 31 mmol/L CERNER MILLENNI UM Anion Gap 11 5 - 15 mmol/L CERNER MILLENNIU M Calcium 9.3 8.5 - 10.5 mg/dL CERNER IVAN NIUM Estimated GFR >60 >=60 CERNER MILLENNIU M Comment: The National Kidney Disease Education Pr ogram (NKDEP) has recommended all laboratories report estimated GFR (eGFR) along with plasma creatinine measurements to assist you with recognit ion of early kidney disease. Caveats: ??Plasma creatinine should be a t steady-state (unchanged within the past week). For patient s multiply eGFR by 1.2. The MDRD equation was developed using patients be tween the ages of 18 and 70 years. ?? The MDRD equation has not been validated for patients < 18 years of age and should not be used to assess renal function in the pediatric population. ??The MDRD eGFR equation will also overestimate the true GFR of patients above the age of 70. ??This overestimation is variable bu t increases with age. At present, NKDEP does NOT recommend usi ng the MDRD equation for drug dosing purposes and pharmacists should continue to use their current dosing methods. In addition, numerical eGFR values great er than 60 ml/min/1.73 square meters should be treated as > 60, and not an ex act number due to greater inaccuracies at these higher values. Per NKDEP, they classify normal renal function as any GFR >60ml/min/1.73 square meters; chronic kidney disease wh en GFR <60, and renal failure when GFR <15. ??This calculation may not be valid for patients with atypical muscle mass (very lean or obese), acute renal failur e, and in patients with diabetic kidney disease. References: http://nkdep.nih.gov/resources/NKDEP_Sug gestn4Labs_0606_508.pdf http://www.kidney.org/professionals/kls/ pdf/faq_gfr.pdf Blanco K, Toya NA, Kwan AK, Cooper TS, Azam AD, Juanis DIMITRI. Relative performance of the MDRD and CKD-EPI equa tions for estimating glomerular filtration rate among patients with vari ed clinical presentations. Clin J Am Soc Nephrol;6:1963-72. Specimen Anatomical Collection Method Collection Time Receive d Time (Source) Location / / Volume Laterality Blood specimen 08/30/2011 2:19 PM 012 2:36 (specimen) EDT PM EDT Resulting Agency Comment Spec In Lab Jeffery Barnes MD CHEMISTRY ORDERABLES Performing Organization Address City/State/Z[place] [address] CERNER MILLENNIUM (ABNORMAL) CBC (with Diff) (08/30/2011 2:19 PM EDT) P athologist Signature WBC 10.4 (H) 4.0 - 10.0 CERNER x10(3)/mcL MILLENNIUM RBC 4.60 (L) 4.63 - CERNER 6.08 MILLENNIUM x10(6)/mcL Hemoglobin 12.9 (L) 13.7 - CERNER 17.5 gm/dL MILLENNIUM Hematocrit 39.0 (L) 40.0 - CERNER 51.0 % MILLENNIUM MCV 84.8 79.0 - CERNER 92.0 fL MILLENNIUM MCH 28.0 25.6 - CERNER 32.2 pg MILLENNIUM MCHC 33.1 32.0 - CERNER 36.5 gm/dL MILLENNIUM Platelets 373 (H) 145 - 370 CERNER x10(3)/mcL MILLENNIUM RDWSD 46.1 (H) 35.0 - CERNER 46.0 fL MILLENNIUM RDWCV 14.9 (H) 10.9 - CERNER 14.4 % MILLENNIUM MPV 11.0 9.0 - 12.0 CERNER fL MILLENNIUM Specimen Anatomical Collection Method Collection Time Receive d Time (Source) Location / / Volume Laterality Blood specimen 08/30/2011 2:19 PM 012 2:36 (specimen) EDT PM EDT Resulting Agency Comment Spec In Lab Jeffery Barnes MD HEMATOLOGY ORDERABLES Performing Organization Address City/State/ZIP [place] [address] [facility] documented in this encounter Visit Diagnoses Diagnosis Abdominal pain Abdominal pain, unspecified site documented in this encounter Administered Medications Inactive Administered Medications - up to 3 most recent administrations Medication Order MAR Action Action Date Dose Rate Site HYDROmorphone (DILAUDID) injection 1 Given 08/30/2011 3:23 PM ED T 1 mg mg 1 mg, Intravenous, ONCE, 1 dose, On Noris 08/30/11 at 1530, STAT documented in this encounter Active and Recently Administered Medications Times are shown in EDT. Scheduled Medication Order 08/28/2011 08/29/2011 08/30/2011 HYDROmorphone (DILAUDID) injection 1 mg (COMPLETED) 1523 (Given - Provider: Gissel Garza RN) 1 mg, Intravenous, ONCE, 1 dose, Noris 08/30/11 at 1530, STAT documented in this encounter Care Teams Java Systems Analyst Relationship Specialty Start Date End Date None PCP - General 08/30/11 06/15/13 None documented as of this encounter
--- OUTSIDE RECORDS SUMMARY | 2022-02-13 13:28 | XMS_ITS | Encounter Summary ---
:1965 [place] [address] Care Team Providers Name Role Phone Sharon Sanabria MD Primary Care Provider Encounter Details Date Type Department Care Team Description 06/12/2011 - Hospital Encounter 4 [facility] [place], Noah Stein, 06/15/2011 [facility] [address] [place] GENERAL SURGERY [id number] [place] [address] [phone] Social History Tobacco Use Types Packs/Day Years [...] Sign Reading Time Taken Comments Blood Pressure 120/81 06/15/2011 11:27 AM EST Pulse 71 06/15/2011 11:27 AM EST Temperature 36.4 ??C (97.5 ??F) 06/15/2011 11:27 AM EST Respiratory Rate 18 06/15/2011 11:27 AM EST Oxygen Saturation 95% 06/15/2011 11:27 AM EST Inhaled Oxygen Concentration - - Weight 112 kg (246 lb 14.6 oz) 06/12/2011 7:24 PM EST Height 188 cm (6' 2.02) 06/12/2011 7:24 PM EST Body Mass Index 31.69 06/12/2011 7:24 PM EST documented in this encounter Discharge Instructions Patient Blossom Lacy MD - 06/15/2011 1:08 PM EST Call your doctor for: ?? fevers greater than 101.3 ?? severe nausea or vomiting ?? increasing pain not controlled by pain medications ?? increasing redness or drainage from incisions ?? decreased urine output ?? if you stop passing gas or stop having bowel movements ?? any other new or concerning symptoms The number for questions is [phone] before 5 PM weekdays and [phone] after 5 PM and on weekends (ask for the General Surgery resident alteration specialist). Activity level: No heavy lifting greater than 10 pounds (about equal to a full gallon jug) for the next 4 weeks or until cleared to do so at follow-up appointment. Otherwise activity as tolerated by comfort level. Diet: You may resume your regular diet. Driving: No driving if you are taking narcotic pain medications (wait at least 6-8 hours since last dose). Nodriving if you are still sore from surgery as it may limit your ability to react quickly. Shower/Bath & Wound Care: You may shower and get the incision(s) wet. Do not scrub the incisions vigorously for the next 2-3 weeks. Do not soak the incision(s) (i.e. soaking in bath or swimming) until told you may do so by a doctor, as this may promote a wound infection. After your shower, gently pat the incisions dry with a towel, and leave them open to the air. If your incisions rub against your clothing and this causes irritation you may cover the incisions with simple gauze dressings until they heal completely. Your stiches will dissolve and do not need to be removed. Staple Removal: Please ask your primary care doctor to remove your virgie on or after 06/25. If he/she is unwilling to do so please call our office at [phone] to schedule for staple removal. Follow-Up: Dr. Mcgee July 18 at 4:20 PM [facility], Desk 4L Please call [phone] if you need to change the date or time of your appointment. documented in this encounter Medications at Time of Discharge Medication Sig Dispensed Refills Start Date End Date OXYcodone (OXYCONTIN) 10 Take 1 tablet by 42 tablet 0 06/1507/06/2011 mg CR tablet mouth 2 times daily for 21 days. OXYcodone (ROXICODONE) 15 Take 1 tablet by 80 tablet 0 06/0607/31/2011 mg immediate release mouth every 3 hours tablet as needed for Pain. OXYcodone (ROXICODONE) 15 Take 15 mg by mouth 0 07/19/2011 mg immediate release every 4 hours as tablet needed. atenolol (TENORMIN) 50 mg Take 75 mg by mouth 0 03/12/2013 tablet daily. predniSONE (DELTASONE) 20 Take 20 mg by mouth 0 07/06/2011 mg tablet daily. documented as of this encounter Progress Notes Taya Eid RN - 06/15/2011 5:53 PM EST 1200: Pt tolerating regular diet, ambulating independently. 1400: Pt states, no questions about discharge summary, HLIV removed by RN, pt discharged home via personal car. Blossom Mccoy MD - 06/15/2011 7:40 AM EST General Surgery Progress Note: ID: 46 y/o male POD#3 s/p open splenectomy Subjective and 24 Hour Events: - successfully transitioned from IV to oral pain meds yesterday - ambulating well - passing flatus Temperature Temp: 36.8 ??C (98.2 ??F) Temp: [36.5 ??C (97.7 ??F)-36.8 ??C (98.2 ??F)] Heart Rate Heart Rate: 68 Heart Rate: [63-75] Blood Pressure BP: 132/85 mmHg BP: (115-139)/(69-96) Respiratory Rate Resp: 13 Resp: [12-20] SpO2 SpO2: 98 % SpO2: [93 %-98 %] room air Intake 2.9 po Output 2.1 uop A&O, NAD HRR Lungs clear Abdomen soft, appropriately tender, not distended, midline stapled incision intact without erythema or induration No salvador No pedal edema No focal neurologic deficits Recent Labs Basename 06/15/11 0708 06/14/11 0411 06/13/11 0453 06/12/11 1600 06/12/11 1049 ??? WBC 8.0 7.8 9.0 18.8* 5.5 ??? HGB 8.5* 8.5* 9.1* 11.7* 12.3* ??? HCT 25.7* 25.2* 27.5* 35.2* 37.2* ??? PLATELET 213 160 130* 132* 85* 85* ??? PT -- -- -- -- -- ??? INR -- -- -- -- -- ??? PTT -- -- -- -- -- ??? FIBRINOGEN -- -- -- -- -- Recent Labs Basename 06/14/11 0411 06/13/11 0453 ??? NA 139 137 ??? K 3.8 3.8 ??? CL 105 104 ??? CO2 25 28 ??? BUN 17 24* ??? CREATININE 0.92 1.17 ??? GLUCOSE 90 -- ??? CALCIUM 8.6 -- ??? MAGNESIUM 0.81 0.73 ??? PHOS -- -- Assessment/Plan: 46 y/o male POD#3 s/p open splenectomy - doing well - advance to regular diet - oxycontin and oxycodone - nexium and TID SQH - home meds: metoprolol 25 BID and prednisone 20 mg daily - ativan assessment scale - post-splenectomy vaccinations already given - anticipate discharge mid-day today Noah Mcgee MD - 06/14/2011 8:43 AM EST General Surgery Progress Note: ID: 46 y/o male POD#2 s/p open splenectomy Subjective and 24 Hour Events: - doing well, pain controlled - ambulating - passing flatus, hungry Temperature Temp: 36.6 ??C (97.9 ??F) Temp: [36.6 ??C (97.9 ??F)-36.7 ??C (98.1 ??F)] Heart Rate Heart Rate: 63 Heart Rate: [63-91] Blood Pressure BP: 126/84 mmHg BP: (103-126)/(56-84) Respiratory Rate Resp: 13 Resp: [13-18] SpO2 SpO2: 94 % SpO2: [93 %-97 %] room air Intake 1.2 po + 1.8 ivf Output 3.3 uop A&O, NAD HRR Lungs clear Abdomen soft, appropriately tender, not distended, midline dressing removed and stapled incision intact without erythema or induration No salvador No pedal edema No focal neurologic deficits Recent Labs Basename 06/14/1141006/13/11 0453 06/12/11 1600 06/12/11 1049 ??? WBC 7.8 9.0 18.8* 5.5 ??? HGB 8.5* 9.1* 11.7* 12.3* ??? HCT 25.2* 27.5* 35.2* 37.2* ??? PLATELET 160 130* 132* 85* 85* ??? PT -- -- -- -- ??? INR -- -- -- -- ??? PTT -- -- -- -- ??? FIBRINOGEN -- -- -- -- Recent Labs Basename 06/14/1141006/13/11 0453 ??? NA 139 137 ??? K 3.8 3.8 ??? CL 105 104 ??? CO2 25 28 ??? BUN 17 24* ??? CREATININE 0.92 1.17 ??? GLUCOSE 90 -- ??? CALCIUM 8.6 -- ??? MAGNESIUM 0.81 0.73 ??? PHOS -- -- Assessment/Plan: 46 y/o male POD#2 s/p open splenectomy - doing well - advance to full liquids - d/c mIVF - stop IV opioids today, will use oxycontin and oxycodone - nexium and TID SQH - home meds: metoprolol 25 BID and prednisone 20 mg daily - ativan assessment scale - post-splenectomy vaccinations already given Home today, doing well Hb stable Blossom Mccoy MD - 06/13/2011 1:38 PM EST General Surgery Progress Note: ID: 46 y/o male POD#1 s/p open splenectomy Subjective and 24 Hour Events: - hgb stable post-op - only overnight issue was pain from abdominal incision; patient reports pre- operative opioid use; successfully managed with combination of oral oxycodone w/ dilaudid BALLAST REGULATOR OPERATOR Temperature Temp: 36.6 ??C (97.9 ??F) Temp: [36.5 ??C (97.7 ??F)-36.9 ??C (98.4 ??F)] Heart Rate Heart Rate: 75 Heart Rate: [59-77] Blood Pressure BP: 107/67 mmHg BP: (95-161)/(61-105) Respiratory Rate Resp: 17 Resp: [13-18] SpO2 SpO2: 93 % SpO2: [93 %-100 %] room air Intake 480 po + 4.0 ivf Output 820 uop + 350 ebl A&O, NAD HRR Lungs clear Abdomen soft, appropriately tender, not distended, midline dressing c/d/i Salvador catheter draining light yellow No pedal edema No focal neurologic deficits Recent Labs Basename 06/13/11 0453 06/12/11 1600 06/12/11 1049 ??? WBC 9.0 18.8* 5.5 ??? HGB 9.1* 11.7* 12.3* ??? HCT 27.5* 35.2* 37.2* ??? PLATELET 130* 132* 85* 85* ??? PT -- -- -- ??? INR -- -- -- ??? PTT -- -- -- ??? FIBRINOGEN -- -- -- Recent Labs Basename 06/13/11 0453 ??? NA 137 ??? K 3.8 ??? CL 104 ??? CO2 28 ??? BUN 24* ??? CREATININE 1.17 ??? GLUCOSE -- ??? CALCIUM -- ??? MAGNESIUM 0.73 ??? PHOS -- Assessment/Plan: 46 y/o male POD#1 s/p open splenectomy - doing well - awaiting return of bowel function: clears only for now - mIVF @ 75/hr - d/c salvador today - pain management w/ oxycodone, dilaudid BALLAST REGULATOR OPERATOR, toradol - nexium and TID SQH - home meds: metoprolol 25 BID and prednisone 20 mg daily - ativan assessment scale - post-splenectomy vaccinations already given Lita Up RN - 06/13/2011 10:18 AM EST Care Management/ CRC/ Assessment S: I am going to be staying with my parents for awhile when I am discharged. They are in [facility]. O: Met with patient this morning. Notes reviewed. Patient usually lives alone, but as noted above patient will be staying with family when discharged from [facility]. Patient has Medicare insurance. No Advance Directives on file here at [facility]. Patient is POD #1 open splenectomy. At this time patient is on Clear liquids po, IVF at 75/hr. Cefazolin IV q8hr [id number]. Hydromorphone BALLAST REGULATOR OPERATOR. Toradol IV q6hr [id number]. Oxycodone po q3hr prn. Prednisone 20mg po qday. Salvador catheter to be D/C today. Patient OOB ambulating around PODs with minimal assistance. 96% on RA. A: Patient progressing post-op. P: I will continue in CRC role, following patient's in-hospital course, offering support to patient/family. I am available to assist should discharge needs arise. Blossom White MD - 06/12/2011 7:10 PM EST Surgery Post-Op Check ID: 46 y/o male s/p open splenectomy Patient seen and examined on 4W ~ 6 PM Chest Pain: no SOB: no Nausea: no Pain: 10/10, 2 mg dilaudid used on BALLAST REGULATOR OPERATOR, patient reports taking 15 mg oxycodone PRN at home Other: none Last value Range last 8 hrs Temperature Temp: 36.7 ??C (98.1 ??F) Temp: [36.5 ??C (97.7 ??F)-36.7 ??C (98.1 ??F)] Heart Rate Heart Rate: 70 Heart Rate: [59-70] Blood Pressure BP: 140/80 mmHg BP: (127-161)/(70-105) Respiratory Rate Resp: 18 Resp: [16-18] SpO2 SpO2: 99 % SpO2: [96 %-100 %] 2L NC 2.5 ivf / 445 uop + 350 ebl A&O, NAD HRR Lungs clear Abdomen soft, tender, non-distended, open incision dressing c/d/i No pedal edema Neuro nonfocal Recent Labs Basename 06/12/11 1600 06/12/11 1049 ??? WBC 18.8* 5.5 ??? HGB 11.7* 12.3* ??? HCT 35.2* 37.2* ??? PLATELET 132* 85* 85* ??? PT -- -- ??? INR -- -- ??? PTT -- -- Post-Op EKG: none Post-Op Films: none Assessment/Plan: 46 y/o male s/p open splenectomy, doing well; PACU hgb stable at 11.7; for pain control will add oral oxycodone to BALLAST REGULATOR OPERATOR due to home opioid use and high narcotic tolerance Irene Cannon RN - 06/12/2011 4:23 PM EST Labs sent. documented in this encounter H&P Notes Dillon Ingram MD - 06/12/2011 11:46 AM EST No issues since last visit. Received vaccines pre-op Blood pressure 143/107, pulse 61, temperature 36.4 ??C (97.5 ??F), resp. rate 16, height 188 cm (6' 2), weight 112 kg (246 lb 14.6 oz), SpO2 97.00%. Body mass index is 31.70 kg/(m^2). NAD RRR CTAB TO OR for open splenectomy Consent in chart abx ordered Reason for consult: splenomegaly HPI 46M referred for splenomegaly first noticed in 03/2011. Patient evaluated by PCP and found to have LUQ mass. He then underwent a CT scan revealing splenomegaly and retroperitoneal adenopathy. A CT guided biopsy was performed due to concern for lymphoma. The pathology revealed granulomatous inflammation. Steroids were started (Prednisone 60 mg daily) in April 2011 in the hopes that the spleen and lymphadenopathy would show improvement. A repeat CT scan (cannot review) reportedly shows only slight improvement in lymphadenopathy and splenomegaly. LUQ pain is the patient's predominant complaint. He believes the pain has worsened over the last twomonths. The pain extends from the periumbilical area to the LUQ and is made worse by activity and lifting. His LUQ is also tender to the touch. The pain has been unbearable at times and interrupts his sleep frequently. He has no fevers/chills but does complain of ~60 lb weight loss over an unknown period of time last year. He believes he has gained back ~30 lb. No history of cirrhosis, no known esophageal varices, nohematemesis. 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 Quit in March 2011 PE Filed Vitals: 05/28/11 1211 BP: 152/98 Pulse: 67 Temp: 36.6 ??C (97.9 ??F) Resp: 16 Gen NAD HEENT OP clear, neck no masses CV RRR Chest CTAB Abd soft, palpable mass LUQ/LLQ well below costal margin, tender to palpation, nondistended Ext no edema Groin no hernia/LAD Assessment 46M with 3 month history of symptomatic splenomegaly and retroperitoneal adenopathy revealing granulomatous disease. Unclear etiology of symptomatic splenomegaly. Reportedly has not improved with prednisone. Plan Vaccinate today (pneumococcus, meningococcus, streptococcus) Obtain most recent CT scan Plan open splenectomy in near future for symptoms and diagnosis I have seen the patient and reviewed Dr. Miramontes 's above history and I agree with the details as written. The assessment and plan were formulated in discussion with me and I agree with them as documented. Plan: Obtain outside CT from 10 days ago Open splenectomy due to splenic size Vaccines given today documented in this encounter Miscellaneous Notes Miscellaneous - Provider, Scanning - 06/17/2011 9:53 AM EST Discharge Summary - Blossom Mccoy MD - 06/15/2011 3:16 PM EST Inpatient - Discharge Summary Patient Name: Sweta Anton Patient Age: 46 y.o. Birthdate: 1965 Admit date: 06/12/2011 Discharge date: 06/15/2011 Attending Physician: Noah Mcgee MD Discharge Diagnoses (Hospital Problems) and Secondary Diagnoses (Chronic Problems): Symptomatic Splenomegaly Active Non-Hospital Problems Diagnoses ??? Splenomegaly ??? Sarcoidosis Operations/Major Procedures: OPEN SPLENECTOMY, TOTAL With Dr. Mcgee 06/12/2011 History of Presentation: The patient is a 46-year-old male with a known history of lymphoma with splenomegaly. He was referred for surgical consult for splenectomy. Given the size of his spleen, open splenectomy was planned. Hospital Course: Mr. Anton was taken to the operating room 06/12/[address] Mcgee. Surgery was uncomplicated. Post-operatively he was admitted to the hospital for post- operative monitoring, IV fluid administration, and pain management. His post- operative course was uneventful. His hemoglobin remained stable post-oper atively. Between POD#1-4 he slowly experienced return of bowel function. On the morning of POD#3 he successfully transitioned from IV to oral pain medication. He began a regular diet on POD#4 diet which he tolerated without nausea. He was ambulatory. His salvador catheter had been removed and he was ableto void without difficulty. His vital signs and physical examination were within normal limits. He felt well and was eager to return home. He was discharged in stable condition. His post-splenectomy vaccinations had been given pre-operatively. He used high doses of opioids pre-operatively and was given both oxycontin and oxycodone at discharge, but plans were formulated for tapering (to be managed by PCP) over the upcoming month. Important Studies and Lab Data: Recent Labs Basename 2/12 0708 2/ 0411 06/13/1106/12/ 1600 ??? WBC 8.0 7.8 9.0 18.8* ??? HGB 8.5* 8.5* 9.1* 11.7* ??? HCT 25.7* 25.2* 27.5* 35.2* ??? PLATELET 213 160 130* 132* ??? PT -- -- -- -- ??? INR -- -- -- -- ??? PTT -- -- -- -- Recent Labs Basename 2//12 0411 06/13/11452 ??? NA 139 137 ??? K 3.8 3.8 ??? CL 105 104 ??? CO2 25 28 ??? BUN 17 24* ??? CREATININE 0.92 1.17 ??? GLUCOSE 90 -- ??? CALCIUM 8.6 -- ??? MAGNESIUM 0.81 0.73 ??? PHOS -- -- Discharge Conditions/Prognosis: good / good Discharge to: home Discharge Medications: Current Discharge Medication List New Meds Details OXYcodone (oxyCONTIN) 10 mg Take 10 mg by mouth 2 times daily. Qty: 42 tablet Refills: 0 !! OXYcodone (ROXICODONE) 15 mg Take 15 mg by mouth every 3 hours as needed for Pain. Qty: 80 tablet Refills: 0 !! - Potential duplicate medications found. Please discuss with provider. Continued medications, unchanged Details !! OXYcodone (ROXICODONE) 15 mg Take 15 mg by mouth every 4 hours as needed. Qty: Refills: atenolol (TENORMIN) 75 mg Take 75 mg by mouth daily. Qty: Refills: predniSONE (DELTASONE) 20 mg Take 20 mg by mouth daily. Qty: Refills: !! - Potential duplicate medications found. Please discuss with provider. Updated Allergies/ADRs: No Known Allergies Instructions Given to Patient at Discharge: Provider Instructions Call your doctor for: ?? fevers greater than 101.3 ?? severe nausea or vomiting ?? increasing pain not controlled by pain medications ?? increasing redness or drainage from incisions ?? decreased urine output ?? if you stop passing gas or stop having bowel movements ?? any other new or concerning symptoms The number for questions is [phone] before 5 PM weekdays and [phone] after 5 PM and on weekends (ask for the General Surgery resident alteration specialist). Activity level: No heavy lifting greater than 10 pounds (about equal to a full gallon jug) for the next 4 weeks or until cleared to do so at follow-up appointment. Otherwise activity as tolerated by comfort level. Diet: You may resume your regular diet. Driving: No driving if you are taking narcotic pain medications (wait at least 6-8 hours since last dose). Nodriving if you are still sore from surgery as it may limit your ability to react quickly. Shower/Bath & Wound Care: You may shower and get the incision(s) wet. Do not scrub the incisions vigorously for the next 2-3 weeks. Do not soak the incision(s) (i.e. soaking in bath or swimming) until told you may do so by a doctor, as this may promote a wound infection. After your shower, gently pat the incisions dry with a towel, and leave them open to the air. If your incisions rub against your clothing and this causes irritation you may cover the incisions with simple gauze dressings until they heal completely. Your stiches will dissolve and do not need to be removed. Staple Removal: Please ask your primary care doctor to remove your virgie on or after 06/25. If he/she is unwilling to do so please call our office at [phone] to schedule for staple removal. Follow-Up: Dr. Mcgee Thursday March 15 at 4:20 PM [facility] Surgery [facility], Desk 4L Please call [phone] if you need to change the date or time of your appointment. Future Appointments and Orders Future Appointments: Provider: Department: Dept Phone: Center: 06/19/2011 12:45 PM MD Krysten Dotyb Rheumatology [phone] [facility] Joint Appt Rheumatology Nurse Res Leb [phone] [facility] 06/19/2011 1:15 PM MD Zan Candelaria Rheumatology [phone] [facility] 07/19/2011 4:20 PM MD Krysten Weissb Gen Surgery [facility] Provider Contact Information: Dr. Mcgee [facility] [phone] Discharge References/Attachments: Discharge References/Attachments None Signed: BLOSSOM MCCOY MD 06/15/2011 Med Student Progress Note - Kailee Cook - 06/15/2011 5:09 AM EST General Surgery - Medical Student Progress Note Patient Name: Sweta Anton : [id number] MR#: [id number] 06/12/2011 Hospital Day 3 days 46 y/o M s/p open splenectomy. POD#3. Subjective: Pain continues to be well controlled. No bowel movements but passing flatus. No nausea/vomiting. Objective: Physical Exam: Last Set of Vitals and range of vitals over past 24 hours: Last value Range last 24 hrs Temperature Temp: 36.5 ??C (97.7 ??F) Temp: [36.5 ??C (97.7 ??F)-36.7 ??C (98.1 ??F)] Heart Rate Heart Rate: 75 Heart Rate: [63-75] Blood Pressure BP: 139/87 mmHg BP: (115-139)/(69-87) Respiratory Rate Resp: 18 Resp: [12-18] SpO2 SpO2: 98 % SpO2: [93 %-98 %] RA Intake: 2.9 (2.8 PO, 115 IV) Output: 1.4 (1.4 urine) Physical Exam Gen: Alert and oriented. NAD. CV: RRR Lungs: CTAB Abd: Midline incision without dressing. No induration or erythema. Laboratory (Last 24 Hours): Pending Assessment/Management/Plan: 46 y/o M s/p open splenectomy. Doing well and ready for discharge. POD#3. Neuro: Roxicodone and oxycontin for pain. Continue lorazepam to prevent potential alcohol withdrawal. CV: Hemodynamically stable. Continue metoprolol. Resp: Monitor on RA. FEN: Continue thiamine and folic acid for known alcohol use. GI: Advance full diet today. Renal: Creatinine stable. : Monitor for urinary retention. ID: ------- Heme: Heparin SC 5000U for DVT prophylaxis. Endo: Continue prednisone 20 mg. Dispo: Likely today if tolerating full diet. KAILEE COOK 06/15/2011 Plan of Care - Daisha Lowe RN - 06/15/2011 2:33 AM EST Problem: Pressure Ulcer Risk (Using Elian Scale) (Adult, Obstetric) Goal: Pressure Ulcer Risk (using Elian Scale): Tissue Integrity Patient with no skin issues at this time other than abdominal midline incision which has virgie andis open to air with no redness or drainage.will monitor. Problem: Trauma/Injury Risk (Adult, Obstetric) Intervention: Trauma/Injury Risk: Signs and Symptoms Patient ambulated with a steady gait independently. Problem: Pain, Acute (Adult, Obstetric) Intervention: Acute Pain: Signs and Symptoms Patient with pain usually 6-8/10 when asked using 15mg po oxycodone and scheduled oxycontin with acceptable effect according to patient. Will monitor. Med Student Progress Note - Kailee Cook - 06/14/2011 5:27 AM EST General Surgery - Medical Student Progress Note Patient Name: Sweta Anton : [id number] MR#: [id number] 06/12/2011 Hospital Day 2 days 46 y/o M s/p open splenectomy. POD #2. Subjective: Passed flatus this morning. No bowel movements. Pain comes in and out but no complaints. Reports no change in BALLAST REGULATOR OPERATOR usage. Voiding without issue after cath removal. No lightheadedness. No SOB, chest pain. No nausea/vomiting. Events over the last 24 hrs: Briefly required 2L NC. Objective: Last Set of Vitals and range of vitals over past 24 hours: Last value Range last 24 hrs Temperature Temp: 36.6 ??C (97.9 ??F) Temp: [36.6 ??C (97.9 ??F)-36.7 ??C (98.1 ??F)] Heart Rate Heart Rate: 81 Heart Rate: [70-91] Blood Pressure BP: 122/69 mmHg BP: (95-122)/(56-76) Respiratory Rate Resp: 18 Resp: [13-18] SpO2 SpO2: 97 % SpO2: [93 %-97 %] RA Intake: 2.9 (1.1 PO, 1.8 IV) Output: 3.3 (3.3 Urine) Physical Exam Gen: Alert and oriented. NAD. CV: RRR. Resp: CTAB. Abd: Wound dressing removed today. Midline incision c/d/i with virgie. Appropriately tender. Ext: No edema. Laboratory (Last 24 Hours): Recent Results (from the past 24 hour(s)) CBC (WITH DIFF) Component Value Range ??? WBC 7.8 4.0 - 10.0 (x10(3)/mcL) ??? RBC 2.81 (*) 4.63 - 6.08 (x10(6)/mcL) ??? Hemoglobin 8.5 (*) 13.7 - 17.5 (gm/dL) ??? Hematocrit 25.2 (*) 40.0 - 51.0 (%) ??? MCV 89.7 79.0 - 92.0 (fL) ??? MCH 30.2 25.6 - 32.2 (pg) ??? MCHC 33.7 32.0 - 36.5 (gm/dL) ??? Platelets 160 145 - 370 (x10(3)/mcL) ??? RDWSD 49.0 (*) 35.0 - 46.0 (fL) ??? RDWCV 15.1 (*) 10.9 - 14.4 (%) ??? MPV 10.5 9.0 - 12.0 (fL) BASIC METABOLIC PANEL (NON-FASTING) Component Value Range ??? Glucose Lvl 90 60 - 199 (mg/dL) ??? BUN 17 10 - 20 (mg/dL) ??? Creatinine 0.92 0.80 - 1.50 (mg/dL) ??? Sodium 139 135 - 145 (mmol/L) ??? Potassium 3.8 3.5 - 5.0 (mmol/L) ??? Chloride 105 98 - 107 (mmol/L) ??? CO2 25 22 - 31 (mmol/L) ??? Anion Gap 9 5 - 15 (mmol/L) ??? Calcium 8.6 8.5 - 10.5 (mg/dL) ? ? Estimated GFR >60 >=60 MAGNESIUM Component Value Range ??? Magnesium 0.81 0.69 - 1.07 (mmol/L) DIFFERENTIAL, AUTOMATED Component Value Range ??? Neutrophils % 67.7 34.0 - 71.0 (%) ??? Neutr Abs (ANC) 5.31 1.50 - 6.30 (x10(3)/mcL) ??? Lymphocytes % 14.1 (*) 19.0 - 53.0 (%) ??? Lymphocytes Abs 1.1 1.0 - 3.6 (x10(3)/mcL) ??? Monocytes % 16.1 (*) 4.0 - 13.0 (%) ??? Monocyte Abs 1.3 (*) 0.2 - 1.0 (x10(3)/mcL) ??? Eosinophils % 1.4 0.0 - 7.0 (%) ??? Eosinophils Abs 0.1 0.0 - 0.5 (x10(3)/mcL) ??? Basophils % 0.1 0.0 - 2.0 (%) ??? Basophils Abs 0.0 0.0 - 0.2 (x10(3)/mcL) ??? Immature Gran % 0.60 0.00 - 0.66 (%) ??? Joann Gran Abs 0.05 0.00 - 0.05 (x10(3)/mcL) Assessment/Management/Plan: 46 y/o M s/p open splenectomy. POD #2. Doing well on oral and IV pain control. Awaiting further bowel activity. Due to high alcohol use outside of hospital, being given Ativan to prevent withdrawal and thiamine and folic acid to replete any nutrient deficient 2/2 alcohol use. Neuro: Attempt to wean off BALLAST REGULATOR OPERATOR today and give oral pain medications alone, replicating pre-op dosingfor splenic pain. Continue lorazepam to prevent potential alcohol withdrawal. CV: Hemodynamically stable. Continue metoprolol. Resp: Monitor on RA. FEN: Discontinue IVF with diet advancement. Continue thiamine and folic acid for known alcohol use. GI: Given flatus activity, advance liquid diet today as tolerated. Renal: Creatinine stable. : Monitor for urinary retention. ID: ------- Heme: Hemoglobin has been dropping. 11.7 -> 9.1 -> 8.5. Continue to monitor. Heparin SC 5000U for DVT prophylaxis. Endo: Continue prednisone 20 mg. Dispo: Pending pain control with oral medications and bowel activity. KAILEE COOK, CT III 06/14/2011 Plan of Care - Rosemary Osborne RN - 06/14/2011 1:14 AM EST Problem: Pressure Ulcer Risk (Using Elian Scale) (Adult, Obstetric) Goal: Pressure Ulcer Risk (using Elian Scale): Tissue Integrity Outcome: Absent and monitoring Skin assessed, dry and intact, pt encouraged to ambulate - up in room frequently, pt able to reposition self while in bed/chair, hydration promoted, heels elevated, will continue to monitor. Problem: Trauma/Injury Risk (Adult, Obstetric) Goal: Trauma/Injury Risk: Absence of Trauma/Injury/Falls Outcome: Absent and monitoring See doc flowhseets for interventions. Problem: Skin Integrity Impairment, Risk/Actual (Adult, Obstetric) Goal: Skin Integrity Impairment, Risk/Actual: Skin Integrity/Wound Healing Outcome: Absent and monitoring Midline dressing is CDI, no drainage. Problem: Pain, Acute (Adult, Obstetric) Goal: Acute Pain: Acceptable Pain Control/Comfort Level - Pain, Acute (Adult, Obstetric) Outcome: Absent and monitoring Pt describes pain as muscle cramping in abdominal area and also reports incisional pain. Pt uses BALLAST REGULATOR OPERATOR appropriately, receives PRN oxycodone and schedule Toradol, pt is fairly opoid tolerant but reports that the current pain regiment is working well for his pain. See MAR for details. Will continue to monitor. OR Attestation - Noah Mcgee MD - 06/13/2011 7:12 PM EST Attestation: Case Date: 06/12/2011 I performed this procedure without the involvement of a resident. NOAH MCGEE MD 06/13/2011 Plan of Care - Tita Hall RN - 06/13/2011 9:58 AM EST Problem: Pain, Acute (Adult, Obstetric) Goal: Acute Pain: Acceptable Pain Control/Comfort Level - Pain, Acute (Adult, Obstetric) Outcome: Present (see interventions, notes) Pt reporting 7-8/10 pain even after receiving 10 mg oxycodone and using dilaudid BALLAST REGULATOR OPERATOR of 0.2/7/4 consistently. BALLAST REGULATOR OPERATOR noted to have been locked out x2 due to reaching maximum dose alllowed. Dr. Mccoy notified. Med Student Progress Note - Kailee Cook - 06/13/2011 5:18 AM EST Patient Name: Sweta Anton Patient Age: 46 y.o. Birthdate: 1965 Admit date: 06/12/2011 Attending Physician: Noah Mcgee MD 46 y/o M s/p open splenectomy. POD #1. S: Feeling some pain around incisional site. Improved overnight but starting to come back this morning. No nausea/vomiting. Has not passed gas. Salvador in place. O: BP 118/78 Pulse 70 Temp 36.8 ??C (98.2 ??F) Resp 16 Ht 188 cm (6' 2.02) Wt 112 kg (246 lb14.6 oz) BMI 31.69 kg/m2 SpO2 98% In- 4.4 (3.9 IV, 480 PO) Out- 1.1 (820 urine, 350 blood) Physical Exam: Gen: Alert and oriented. NAD CV: RRR. Lungs: CTAB. Abd: Appropriately tender. Midline incision c/d/i. : Salvador training yellow urine. Ext: SCD in place. Laboratory (past 24 hours): Recent Results (from the past 24 hour(s)) PLATELET COUNT Component Value Range ??? Platelets 85 (*) 145 - 370 (x10(3)/mcL) ABO/RH TYPING Component Value Range ??? ABORh Type O Pos ANTIBODY SCREEN Component Value Range ??? Ab Screen Interp Negative ??? Specimen OD [id number] CBC (WITH DIFF) Component Value Range ??? WBC 5.5 4.0 - 10.0 (x10(3)/mcL) ??? RBC 4.11 (*) 4.63 - 6.08 (x10(6)/mcL) ??? Hemoglobin 12.3 (*) 13.7 - 17.5 (gm/dL) ??? Hematocrit 37.2 (*) 40.0 - 51.0 (%) ??? MCV 90.5 79.0 - 92.0 (fL) ??? MCH 29.9 25.6 - 32.2 (pg) ??? MCHC 33.1 32.0 - 36.5 (gm/dL) ??? Platelets 85 (*) 145 - 370 (x10(3)/mcL) ??? RDWSD 49.5 (*) 35.0 - 46.0 (fL) ??? RDWCV 15.2 (*) 10.9 - 14.4 (%) ??? MPV 10.2 9.0 - 12.0 (fL) DIFFERENTIAL, AUTOMATED Component Value Range ??? Neutrophils % 82.7 (*) 34.0 - 71.0 (%) ??? Neutr Abs (ANC) 4.55 1.50 - 6.30 (x10(3)/mcL) ??? Lymphocytes % 8.5 (*) 19.0 - 53.0 (%) ??? Lymphocytes Abs 0.5 (*) 1.0 - 3.6 (x10(3)/mcL) ??? Monocytes % 6.7 4.0 - 13.0 (%) ??? Monocyte Abs 0.4 0.2 - 1.0 (x10(3)/mcL) ??? Eosinophils % 1.5 0.0 - 7.0 (%) ??? Eosinophils Abs 0.1 0.0 - 0.5 (x10(3)/mcL) ??? Basophils % 0.2 0.0 - 2.0 (%) ??? Basophils Abs 0.0 0.0 - 0.2 (x10(3)/mcL) ??? Immature Gran % 0.40 0.00 - 0.66 (%) ??? Joann Gran Abs 0.02 0.00 - 0.05 (x10(3)/mcL) CBC (WITH DIFF) Component Value Range ??? WBC 18.8 (*) 4.0 - 10.0 (x10(3)/mcL) ??? RBC 3.89 (*) 4.63 - 6.08 (x10(6)/mcL) ??? Hemoglobin 11.7 (*) 13.7 - 17.5 (gm/dL) ??? Hematocrit 35.2 (*) 40.0 - 51.0 (%) ??? MCV 90.5 79.0 - 92.0 (fL) ??? MCH 30.1 25.6 - 32.2 (pg) ??? MCHC 33.2 32.0 - 36.5 (gm/dL) ??? Platelets 132 (*) 145 - 370 (x10(3)/mcL) ??? RDWSD 50.4 (*) 35.0 - 46.0 (fL) ??? RDWCV 15.3 (*) 10.9 - 14.4 (%) ??? MPV 10.2 9.0 - 12.0 (fL) DIFFERENTIAL, AUTOMATED Component Value Range ??? Neutrophils % 90.7 (*) 34.0 - 71.0 (%) ??? Neutr Abs (ANC) 17.03 (*) 1.50 - 6.30 (x10(3)/mcL) ??? Lymphocytes % 6.9 (*) 19.0 - 53.0 (%) ??? Lymphocytes Abs 1.3 1.0 - 3.6 (x10(3)/mcL) ??? Monocytes % 1.7 (*) 4.0 - 13.0 (%) ??? Monocyte Abs 0.3 0.2 - 1.0 (x10(3)/mcL) ??? Eosinophils % 0.1 0.0 - 7.0 (%) ??? Eosinophils Abs 0.0 0.0 - 0.5 (x10(3)/mcL) ??? Basophils % 0.1 0.0 - 2.0 (%) ??? Basophils Abs 0.0 0.0 - 0.2 (x10(3)/mcL) ??? Immature Gran % 0.50 0.00 - 0.66 (%) ??? Joann Gran Abs 0.09 (*) 0.00 - 0.05 (x10(3)/mcL) Assessment/Plan/Management: 46 y/o M s/p open splenectomy. POD #1. Doing well. Pain controlled by BALLAST REGULATOR OPERATOR and oral medications with some breakthrough between oral doses. Neuro: Continue BALLAST REGULATOR OPERATOR and oral pain medication. CV: Hypertension in last 24 hours. Likely secondary to pain. Resp: Monitor on RA. FEN/GI: Tolerating clear diet. Advance normal diet today if no nausea/vomiting. Renal: Creatinine stable. : Remove salvador today. ID: ---- Heme: ----- Endo: ------ Dispo: Pending pain control and signs of active bowels. KAILEE COOK JUN 13, 2011 Plan of [facility] Rosemary Osborne RN - 06/13/2011 12:59 AM EST Problem: Pressure Ulcer Risk (Using Elian Scale) (Adult, Obstetric) Goal: Pressure Ulcer Risk (using Elian Scale): Tissue Integrity Outcome: Absent and monitoring Skin assessed, dry and intact, pt able to reposition self while in bed, hydration promoted (both IV fluids and PO fluids), heels elevated, will continue to monitor. Problem: Trauma/Injury Risk (Adult, Obstetric) Goal: Trauma/Injury Risk: Absence of Trauma/Injury/Falls Outcome: Absent and monitoring See doc flowsheets for interventions. Problem: Skin Integrity Impairment, Risk/Actual (Adult, Obstetric) Goal: Skin Integrity Impairment, Risk/Actual: Skin Integrity/Wound Healing Outcome: Absent and monitoring Midline incision dressing is clean dry and intact, post op day #1- MDs to change dressing in morning. Pt refused bed bath and PM care. Will continue to monitor. Op Note - Dillon Ingram MD - 06/12/2011 4:11 PM EST [facility] [place] Operative Note Patient Name: Sweta MAHMOOD: [id number] MR#: [id number] Case Date: 06/12/2011 Surgeon: Surgeon(s) and Role: * NOAH MCGEE MD - Primary * DILLON INGRAM MD - Fellow Preoperative diagnosis: SPLENOMAGLY Postoperative diagnosis: SPLENOMAGLY Procedure(s): @SPLENECTOMY, TOTAL General Estimated Blood Loss: 350cc Drains: none Disposition: awakened from anesthesia, extubated and taken to the recovery room in a stable condition, having suffered no apparent untoward event. Condition: doing well without problems (Please see the Surgical Encounter Summary for any Implant and Specimen details pertinent to this patient.) Attending: Dr. Noah Mcgee. Date of Operation: June 12, 2011. Indications for Procedure: The patient is a 46-year-old male with a known history of lymphoma with splenomegaly. He was referred for surgical consult for splenectomy. Given the size of his spleen, open splenectomy was planned. Description of Procedure: Once written consent and history and physical were documented on the chart, the patient was taken to the Operating Room and placed supine on the operating-room table. Once the adequate induction of general anesthesia was completed, the patient's abdomen was prepped and draped in a standard surgical fashion. Following time-out procedure, an upper midline incision was carried out using a 10 blade from the tip of the xiphoid to the umbilicus. Once the dermis and epidermis were divided, Bovie electrocautery was used to divide the subcutaneous tissues down to the level of the fascia. Hemostasis was also achieved with Bovie electrocautery. The fascia was incised sharply using Metzenbaum scissors as well as the perineum with easy access into the peritoneal cavity. The remainder of the fascia and peritoneum was then divided with finger protection of the intraabdominal contents through the midline. Attention was directed at the left upper quadrant with one hand in the abdomen. The spleen was easily palpable and was enlarged as seen on CT. A Bookwalter retractor was then placed with bladder blade used to retract the left upper quadrant to better expose the spleen. The small bowel and colon were packed using moist laps and a maleable retractor for the Bookwalter. Attention was turned to dividing the attachments from the spleen. The lateral attachments were first dealt with including the splenocolic and renal and splenophrenic ligaments. These were divided with the harmonic scalpel as well as with blunt dissection. Attention was then turned to dividing the superior pole vessels including the short gastrics. Once these were taken with the harmonic scalpel, the spleen was then medialized and exteriorized through the midline wound. At this point, the hilum was dissected to the point where the main hilar vessels could be seen. There were also some superior pole vessels, which were doubly ligated with 2-0 silk ligatures and divided with Metzenbaum. Once this was completed, the short gastrics were then further ligated using 3-0 silk ligatures as well as harmonic scalpel. At this point, the hilum was divided using two firings of the Celebration laparoscopic stapler using white loads. After the second firing, the specimen was taken off the table intact and sent off to Pathology. The staple line and base of hilum were inspected for hemostasis, which was excellent. Packs were then placed in the left upper quadrant and removed to ensure that hemostasis was adequate. Once this was ensured, the left upper quadrant was copiously irrigated with warm saline, which again confirmed that there was no active bleeding. The remainder of the abdomen was inspected, and the bowel was returned to its normal position after removal of the Bookwalter retractors. The abdomen was swept for sponges; and sponge count was completed at this point, which confirmed that there were no intraabdominal sponges. Attention was then turned to closing the fascia. The fascia was closed using a #1 PDS run superiorly as well as inferiorly and then buried in the middle. The fascia and underlying subcutaneous tissue was infiltrated with 20 mL of lidocaine. The wound was once again irrigated, and the subcutaneous tissues were reapproximated using 3-0 Vicryl deep dermal sutures. Following this, the skin was closed with the stapler. A 4 x 4 gauze and tape were applied as dressing. The patient was extubated and taken to Recovery Room in good condition. Dr. Mcgee was present for the entire procedure. Brief Op Note - Dillon Ingram MD - 06/12/2011 3:39 PM EST Brief Operative Note Patient Name: Sweta Anton : [id number] MR#: [id number] Case Date: 06/12/2011 Surgeon: Surgeon(s) and Role: * NOAH MCGEE MD - Primary * DILLON INGRAM MD - Fellow Preoperative diagnosis: SPLENOMAGLY Postoperative diagnosis: SPLENOMAGLY Procedure(s): @SPLENECTOMY, TOTAL Anesthesia: General Estimated Blood Loss: 350cc Drains: none Disposition: awakened from anesthesia, extubated and taken to the recovery room in a stable condition, having suffered no apparent untoward event. Condition: doing well without problems (Please see the Surgical Encounter Summary for any Implant and Specimen details pertinent to this patient.) Miscellaneous - Provider, Scanning - 06/12/2011 11:54 AM EST Miscellaneous - Provider, Scanning - 06/12/2011 11:54 AM EST documented in this encounter Plan of Treatment Not on filedocumented as of this encounter Procedures Procedure Name Priority Date/Time Associated Comments Diagnosis DIFFERENTIAL, AUTOMATED STAT 06/15/2011 7:08 R esults for this AM EST procedure are i n the results section. CBC (WITH DIFF) STAT 06/15/2011 7:08 Results f or this AM EST procedure are i n the results section. DIFFERENTIAL, AUTOMATED Routine 06/14/2011 4:11 R esults for this AM EST procedure are i n the results section. CBC (WITH DIFF) Routine 06/14/2011 4:11 Results f or this AM EST procedure are i n the results section. MAGNESIUM Routine 06/14/2011 4:11 Results for this AM EST procedure are i n the results section. BASIC METABOLIC PANEL Routine 06/14/2011 4:11 Res ults for this (NON-FASTING) AM EST procedure are in the results section. DIFFERENTIAL, AUTOMATED Routine 06/13/2011 4:53 R esults for this AM EST procedure are i n the results section. CREATININE Routine 06/13/2011 4:53 Results for this AM EST procedure are i n the results section. CBC (WITH DIFF) Routine 06/13/2011 4:53 Results f or this AM EST procedure are i n the results section. BUN Routine 06/13/2011 4:53 Results for this AM EST procedure are i n the results section. MAGNESIUM Routine 06/13/2011 4:53 Results for this AM EST procedure are i n the results section. ELECTROLYTES PANEL Routine 06/13/2011 4:53 Result s for this AM EST procedure are i n the results section. PATHOLOGY FLOW CYTOMETRY Routine 06/12/2011 4:42 Results for this REPORT PM EST procedure are i n the results section. SURGICAL PATHOLOGY REPORT Routine 06/12/2011 4:42 Results for this PM EST procedure are i n the results section. DIFFERENTIAL, AUTOMATED Routine 06/12/2011 4:00 R esults for this PM EST procedure are i n the results section. CBC (WITH DIFF) Routine 06/12/2011 4:00 Results f or this PM EST procedure are i n the results section. SPECIMEN TO PATHOLOGY Routine 06/12/2011 3:09 Res ults for this PM EST procedure are i n the results section. IMMUNOPHENOTYPING FLOW Routine 06/12/2011 1:09 Re sults for this CYTOMETRY PM EST procedure are i n the results section. @SPLENECTOMY, TOTAL (WRVU 06/12/2011 12:40 SPLENOMAGLY 19.55) PM EST DIFFERENTIAL, AUTOMATED Routine 06/12/2011 10:49 Results for this AM EST procedure are i n the results section. ABO/RH TYPING STAT 06/12/2011 10:49 Results fo r this AM EST procedure are i n the results section. PLATELET COUNT Routine 06/12/2011 10:49 Results f or this AM EST procedure are i n the results section. CBC (WITH DIFF) Routine 06/12/2011 10:49 Results for this AM EST procedure are i n the results section. ANTIBODY SCREEN STAT 06/12/2011 10:49 Results for this AM EST procedure are i n the results section. TYPE AND SCREEN, SDP STAT 06/12/2011 10:38 (FUTURE SURGERY, [facility] [place] AM EST SAME DAY PROGRAM ONLY) documented in this encounter Results (ABNORMAL) DIFFERENTIAL, AUTOMATED (06/15/2011 7:08 AM EST) [facility] Method Time Signature Neutrophils % 61.1 34.0 - CERNER 71.0 % MILLENNIUM Neutr Abs (ANC) 4.89 1.50 - CERNER 6.30 MILLENNIUM x10(3)/mc L Lymphocytes % 20.0 19.0 - CERNER 53.0 % MILLENNIUM Lymphocytes Abs 1.6 1.0 - 3.6 CERNER x10(3)/mc MILLENNIUM L Monocytes % 14.9 (H) 4.0 - CERNER 13.0 % MILLENNIUM Monocyte Abs 1.2 (H) 0.2 - 1.0 CERNER x10(3)/mc MILLENNIUM L Eosinophils % 2.3 0.0 - 7.0 CERNER % MILLENNIUM Eosinophils Abs 0.2 0.0 - 0.5 CERNER x10(3)/mc MILLENNIUM L Basophils % 0.3 0.0 - 2.0 CERNER % MILLENNIUM Basophils Abs 0.0 0.0 - 0.2 CERNER x10(3)/mc MILLENNIUM L Immature Gran % 1.40 (H) 0.00 - CERNER 0.66 % MILLENNIUM Comment: Immature granulocytes(IG's)percentage an d absolute count will include metamyelocytes, myelocytes, and promyelo cytes. Blood smears from CBCs yielding IG's will be scanned manually for concor dance. If this scan disagrees with the automated IG or if promyelocytes are not ed, a manual differential will be performed. Joann Gran Abs 0.11 (H) 0.00 - 0.05 x10(3)/mcL CER NER MILLENNIUM Specimen Anatomical Collection Method Collection Time Receive d Time (Source) Location / / Volume Laterality Blood specimen 06/15/2011 7:08 AM 012 7:35 (specimen) EST AM EST Noah Mcgee MD HEMATOLOGY ORDERABLES Performing Organization Address City/[facility]/[place] [address] CERNER MILLENNIUM (ABNORMAL) CBC (with Diff) (06/15/2011 7:08 AM EST) P athologist Signature WBC 8.0 4.0 - 10.0 CERNER x10(3)/mcL MILLENNIUM RBC 2.88 (L) 4.63 - CERNER 6.08 MILLENNIUM x10(6)/mcL Hemoglobin 8.5 (L) 13.7 - CERNER 17.5 gm/dL MILLENNIUM Hematocrit 25.7 (L) 40.0 - CERNER 51.0 % MILLENNIUM MCV 89.2 79.0 - CERNER 92.0 fL MILLENNIUM MCH 29.5 25.6 - CERNER 32.2 pg MILLENNIUM MCHC 33.1 32.0 - CERNER 36.5 gm/dL MILLENNIUM Platelets 213 145 - 370 CERNER x10(3)/mcL MILLENNIUM RDWSD 48.3 (H) 35.0 - CERNER 46.0 fL MILLENNIUM RDWCV 15.1 (H) 10.9 - CERNER 14.4 % MILLENNIUM MPV 10.6 9.0 - 12.0 CERNER fL MILLENNIUM Specimen Anatomical Collection Method Collection Time Receive d Time (Source) Location / / Volume Laterality Blood specimen 06/15/2011 7:08 AM 012 7:35 (specimen) EST AM EST Noah Mcgee MD HEMATOLOGY ORDERABLES Performing Organization Address City/[facility]/[place] [address] CERNER MILLENNIUM (ABNORMAL) DIFFERENTIAL, AUTOMATED (06/14/2011 4:11 AM EST) Patholo gist Method Time Signature Neutrophils % 67.7 34.0 - CERNER 71.0 % MILLENNIUM Neutr Abs (ANC) 5.31 1.50 - CERNER 6.30 MILLENNIUM x10(3)/mc L Lymphocytes % 14.1 (L) 19.0 - CERNER 53.0 % MILLENNIUM Lymphocytes Abs 1.1 1.0 - 3.6 CERNER x10(3)/mc MILLENNIUM L Monocytes % 16.1 (H) 4.0 - CERNER 13.0 % MILLENNIUM Monocyte Abs 1.3 (H) 0.2 - 1.0 CERNER x10(3)/mc MILLENNIUM L Eosinophils % 1.4 0.0 - 7.0 CERNER % MILLENNIUM Eosinophils Abs 0.1 0.0 - 0.5 CERNER x10(3)/mc MILLENNIUM L Basophils % 0.1 0.0 - 2.0 CERNER % MILLENNIUM Basophils Abs 0.0 0.0 - 0.2 CERNER x10(3)/mc MILLENNIUM L Immature Gran % 0.60 0.00 - CERNER 0.66 % MILLENNIUM Comment: Immature granulocytes(IG's)percentage an d absolute count will include metamyelocytes, myelocytes, and promyelo cytes. Blood smears from CBCs yielding IG's will be scanned manually for concor dance. If this scan disagrees with the automated IG or if promyelocytes are not ed, a manual differential will be performed. Joann Gran Abs 0.05 0.00 - 0.05 x10(3)/mcL CER NER MILLENNIUM Specimen Anatomical Collection Method Collection Time Receive d Time (Source) Location / / Volume Laterality Blood specimen 06/14/2011 4:11 AM 012 5:18 (specimen) EST AM EST Noah Mcgee MD HEMATOLOGY ORDERABLES Performing Organization Address City/[facility]/ZIP Code Phon e Number [address] CERNER MILLENNIUM Magnesium (06/14/2011 4:11 AM EST) P athologist Signature Magnesium 0.81 0.69 - 1.07 CERNER mmol/L MILLENNIUM Specimen Anatomical Collection Method Collection Time Receive d Time (Source) Location / / Volume Laterality Blood specimen 06/14/2011 4:11 AM 012 4:31 (specimen) EST AM EST Noah Mcgee MD CHEMISTRY ORDERABLES Performing Organization Address City/[facility]/[place] [address] CERNER MILLENNIUM Basic Metabolic Panel (non-fasting) (06/14/2011 4:11 AM EST) P athologist Signature Glucose Lvl 90 60 - 199 CERNER mg/dL MILLENNIUM Comment: Diabetes: >=200 mg/dL plus symp toms BUN 17 10 - 20 mg/dL CERNER MILLENNIU M Creatinine 0.92 0.80 - 1.50 mg/dL CERNER MILL ENNIUM Sodium 139 135 - 145 mmol/L CERNER IVAN NIUM Potassium 3.8 3.5 - 5.0 mmol/L CERNER IVAN NIUM Comment: Please note: ??Patients with WBC >100,00 0 may have falsely elevated Potassium levels. ??For accurate Potassium quantif ication in these patients send serum separator tube (gold top) for subsequent determinations. ??Contact the Clinical Chemistry Laboratory if there are any qu estions. Chloride 105 98 - 107 mmol/L CERNER MILLENN IUM CO2 25 22 - 31 mmol/L CERNER MILLENNI UM Anion Gap 9 5 - 15 mmol/L CERNER MILLENNIU M Calcium 8.6 8.5 - 10.5 mg/dL CERNER IVAN NIUM [...] multiply eGFR by 1.2. The MDRD equation has not been validated for pedi atric patients and is only valid for patients with age >= 18 years. At present, NKDEP does NOT recommend usi [...] kidney disease. References: http://nkdep.nih.gov/resources/NKDEP_Sug gestn4Labs_0606_508.pdf http://www.kidney.org/professionals/kls/ pdf/faq_gfr.pdf Specimen Anatomical Collection Method Collection Time Receive d Time (Source) Location / / Volume Laterality Blood specimen 06/14/2011 4:11 AM 012 4:31 (specimen) EST AM EST Noah Mcgee MD CHEMISTRY ORDERABLES Performing Organization Address City/[facility] [place] [address] CERNER MILLENNIUM (ABNORMAL) CBC (with Diff) (06/14/2011 4:11 AM EST) P athologist Signature WBC 7.8 4.0 - 10.0 CERNER x10(3)/mcL MILLENNIUM RBC 2.81 (L) 4.63 - CERNER 6.08 MILLENNIUM x10(6)/mcL Hemoglobin 8.5 (L) 13.7 - CERNER 17.5 gm/dL MILLENNIUM Hematocrit 25.2 (L) 40.0 - CERNER 51.0 % MILLENNIUM MCV 89.7 79.0 - CERNER 92.0 fL MILLENNIUM MCH 30.2 25.6 - CERNER 32.2 pg MILLENNIUM MCHC 33.7 32.0 - CERNER 36.5 gm/dL MILLENNIUM Platelets 160 145 - 370 CERNER x10(3)/mcL MILLENNIUM RDWSD 49.0 (H) 35.0 - CERNER 46.0 fL MILLENNIUM RDWCV 15.1 (H) 10.9 - CERNER 14.4 % MILLENNIUM MPV 10.5 9.0 - 12.0 CERNER fL MILLENNIUM Specimen Anatomical Collection Method Collection Time Receive d Time (Source) Location / / Volume Laterality Blood specimen 06/14/2011 4:11 AM 012 5:18 (specimen) EST AM EST Noah Mcgee MD HEMATOLOGY ORDERABLES Performing Organization Address City/State/ZIP Code Phon e Number [place] [id number] CERNER MILLENNIUM DIFFERENTIAL, AUTOMATED (06/13/2011 4:53 AM EST) P athologist Signature Neutrophils % 67.0 34.0 - CERNER 71.0 % MILLENNIUM Neutr Abs (ANC) 6.04 1.50 - CERNER 6.30 MILLENNIUM x10(3)/mcL Lymphocytes % 21.6 19.0 - CERNER 53.0 % MILLENNIUM Lymphocytes Abs 1.9 1.0 - 3.6 CERNER x10(3)/mcL MILLENNIUM Monocytes % 9.6 4.0 - 13.0 CERNER % MILLENNIUM Monocyte Abs 0.9 0.2 - 1.0 CERNER x10(3)/mcL MILLENNIUM Eosinophils % 1.1 0.0 - 7.0 CERNER % MILLENNIUM Eosinophils Abs 0.1 0.0 - 0.5 CERNER x10(3)/mcL MILLENNIUM Basophils % 0.1 0.0 - 2.0 CERNER % MILLENNIUM Basophils Abs 0.0 0.0 - 0.2 CERNER x10(3)/mcL MILLENNIUM Immature Gran % 0.60 0.00 - CERNER 0.66 % MILLENNIUM Comment: Immature granulocytes(IG's)percentage an d absolute count will include metamyelocytes, myelocytes, and promyelo cytes. Blood smears from CBCs yielding IG's will be scanned manually for concor dance. If this scan disagrees with the automated IG or if promyelocytes are not ed, a manual differential will be performed. Joann Gran Abs 0.05 0.00 - 0.05 x10(3)/mcL CER NER MILLENNIUM Specimen Anatomical Collection Method Collection Time Receive d Time (Source) Location / / Volume Laterality Blood specimen 06/13/2011 4:53 AM 012 5:03 (specimen) EST AM EST Dillon Ingram MD HEMATOLOGY ORDERABLES Performing Organization Address City/[facility]/ZIP Code Phon e Number [place] [phone] CERNER MILLENNIUM Magnesium (06/13/2011 4:53 AM EST) P athologist Signature Magnesium 0.73 0.69 - 1.07 CERNER mmol/L MILLENNIUM Specimen Anatomical Collection Method Collection Time Receive d Time (Source) Location / / Volume Laterality Blood specimen 06/13/2011 4:53 AM 012 5:03 (specimen) EST AM EST Dillon Ingram MD CHEMISTRY ORDERABLES Performing Organization Address City/State/ZIP Code Phon e Number [place] [phone] CERNER MILLENNIUM Creatinine, serum (06/13/2011 4:53 AM EST) athologist Signature Creatinine 1.17 0.80 - CERNER 1.50 mg/dL MILLENNIUM Estimated GFR >60 >=60 CERNER MILLENNIUM Comment: The National Kidney Disease Education Pr ogram (NKDEP) has recommended all laboratories report estimated GFR (eGFR) along with plasma creatinine measurements to assist you with recognit ion of early kidney disease. Caveats: ??Plasma creatinine should be a t steady-state (unchanged within the past week). For patient s multiply eGFR by 1.2. The MDRD equation has not been validated for pedi atric patients and is only valid for patients with age >= 18 years. At present, NKDEP does NOT recommend usi [...] kidney disease. References: http://nkdep.nih.gov/resources/NKDEP_Sug gestn4Labs_0606_508.pdf http://www.kidney.org/professionals/kls/ pdf/faq_gfr.pdf Specimen Anatomical Collection Method Collection Time Receive d Time (Source) Location / / Volume Laterality Blood specimen 06/13/2011 4:53 AM 012 5:03 (specimen) EST AM EST Dillon Ingram MD CHEMISTRY ORDERABLES Performing Organization Address City/[facility]/[place] [address] CERNER MILLENNIUM (ABNORMAL) BUN (06/13/2011 4:53 AM EST) P athologist Signature BUN 24 (H) 10 - 20 CERNER mg/dL MILLENNIUM Specimen Anatomical Collection Method Collection Time Receive d Time (Source) Location / / Volume Laterality Blood specimen 06/13/2011 4:53 AM 012 5:03 (specimen) EST AM EST Dillon Ingram MD CHEMISTRY ORDERABLES Performing Organization Address [facility] [place] [address] CERNER MILLENNIUM Electrolytes panel (06/13/2011 4:53 AM EST) P athologist Signature Sodium 137 135 - 145 CERNER mmol/L MILLENNIUM Potassium 3.8 3.5 - 5.0 CERNER mmol/L MILLENNIUM Comment: Please note: ??Patients with WBC >100,00 0 may have falsely elevated Potassium levels. ??For accurate Potassium quantif ication in these patients send serum separator tube (gold top) for subsequent determinations. ??Contact the Clinical Chemistry Laboratory if there are any qu estions. Chloride 104 98 - 107 mmol/L CERNER MILLENN IUM CO2 28 22 - 31 mmol/L CERNER MILLENNI UM Anion Gap 5 5 - 15 mmol/L CERNER MILLENNIU M Specimen Anatomical Collection Method Collection Time Receive d Time (Source) Location / / Volume Laterality Blood specimen 06/13/2011 4:53 AM 012 5:03 (specimen) EST AM EST Dillon Ingram MD CHEMISTRY ORDERABLES Performing Organization Address City/[facility] [place] [address] CERNER MILLENNIUM (ABNORMAL) CBC (with Diff) (06/13/2011 4:53 AM EST) P athologist Signature WBC 9.0 4.0 - 10.0 CERNER x10(3)/mcL MILLENNIUM RBC 3.06 (L) 4.63 - CERNER 6.08 MILLENNIUM x10(6)/mcL Hemoglobin 9.1 (L) 13.7 - CERNER 17.5 gm/dL MILLENNIUM Hematocrit 27.5 (L) 40.0 - CERNER 51.0 % MILLENNIUM MCV 89.9 79.0 - CERNER 92.0 fL MILLENNIUM MCH 29.7 25.6 - CERNER 32.2 pg MILLENNIUM MCHC 33.1 32.0 - CERNER 36.5 gm/dL MILLENNIUM Platelets 130 (L) 145 - 370 CERNER x10(3)/mcL MILLENNIUM RDWSD 49.6 (H) 35.0 - CERNER 46.0 fL MILLENNIUM RDWCV 15.4 (H) 10.9 - CERNER 14.4 % MILLENNIUM MPV 10.0 9.0 - 12.0 CERNER fL MILLENNIUM Specimen Anatomical Collection Method Collection Time Receive d Time (Source) Location / / Volume Laterality Blood specimen 06/13/2011 4:53 AM 012 5:03 (specimen) EST AM EST Dillon Ingram MD HEMATOLOGY ORDERABLES Performing Organization Address City/State/[place] [address] [facility] SURGICAL [facility] REPORT (06/12/2011 4:42 PM EST) Component Value Ref Test Analysis Performed At Patholo gist Range Method Time Signature Surgical CERNER Pathology ? [facility] Report ? Provider: ?? TRUS, THADEUS L ? Pt. Name: ?? JENN AN, SWETA P ? Acc #: ?[id number] ?Pt. MRN: ?[id number] ? Col Date: ?? 06/12/2011 ?/Sex: ?1965,(46 years),Male ? Rec Date: ?? 06/12/2011 ?LOC: ?4WST ? SURGICAL PATHOLOGY ? ---Pathologic Diagnosis--- ? Spleen, resection: Non caseating granulomas. see comm ent ? 06/20/11 ? SS ? 06/22/11 Verified by: ? Radha WEBSTER, Aramis ? Hematopatholog ist ? (Electronic Si gnature) ? The attending pathologist whose signature appears o n this report has ? reviewed all diagnostic slides and has edited the cj ss and/or ? microscopic portion of the report in rendering the fi nal pathologic ? diagnosis. ? ---Comment--- ? The differential for granulomas is huge i ncluding infection( serologic ? studies and correlati on with travel history and non-infectious etiology ( ? sarcoid). Polarizable material seen. Briquette Operator sections will be sent ? for EM studies for further delineation. Addendum to bart govea. ? Select sections, Slide A1 has been review ed by Dr. Sanchez and Slide A4 ? reviewed with Dr Vic Tuttle who concur with the above diagnoses. ? Dictated by: ??Angelia Bess MD ? Hematopathology Fellow ? As the attending phys caden, I attest that I examined the histologic slides, ? and confirm Dr. Angelia Bess's diagnosis. ? ---Microscopic Description--- ? Section of the spleen shows wides pread noncaseating granuloma formation ? with numerous giant cells. TThe r ed and whilte pulp are ??unremarkable. ? AFB and GMS stains performed and are negative for org anism. ? ---Gross Description--- ? Labeled/Fixative: ? Spleen, fresh. ? Qty/Size/Weight: ?Single, 25.0 x 20.0 x 9.0 cm , 1682 g. ? Tissue Description: ?? Intact spl een. ??The capsule is purple and taut. ? Sectioning reveals a firm, pale red parenchyma with a ? diffuse white nicko-type pattern. ??No individual ? mass lesions are moira ntified. ? Sections/Processing: ??Briquette Operator section is submitted for possible flow ? cytometry. ??(R5) ?? aje/SNS ? [facility] ? Provider: ?? TRUS, NOAH L ? Pt. Name: ?? JENN MORENO, SWETA P ? Acc #: ?[id number] ?Pt. MRN: ?[id number] ? Col Date: ?? 06/12/2011 ?/Sex: ?1965,(46 years),Male ? Rec Date: ?? 06/12/2011 ?LOC: ?4WST ? SURGICAL PATHOLOGY ? ---Clinical Information--- ? Specimen Submitted: ? A - Spleen ? Clinical History/Diagnosis: ? Splenomegaly Specimen (Source) Anatomical Collection Method Collection Time Re ceived Time Location / / Volume Laterality 06/12/2011 4:42 PM EST Noah Mcgee MD PATHOLOGY/CYTOLOGY ORDERABLE S Performing Organization Address City/State/ZIP [place] [address] [facility] MILLENNIUM PATHOLOGY FLOW CYTOMETRY REPORT (06/12/2011 4:42 PM EST) Component Value Ref Test Analysis Performed At [facility] Range Method Time Signature Flow CERNER Cytometry ? [facility] Report ? Provider: ?? EVERARDO, NOAH Stein ? Pt. Name: ?? JENN MORENO, SWETA P ? Acc #: ?[id number] ?Pt. MRN: ?[id number] ? Col Date: ?? 06/12/2011 ?/Sex: ?1965,(46 years),Male ? Rec Date: ?? 06/12/2011 ?LOC: ?4WST ? ANALYTICAL CELL PATHOLOGY ? ---Clinical Information--- ? splenomegaly, ? Lymphoma ? ---Preparation--- ? Surgical Biopsy ? [id number], [id number] ? ---Markers--- ?Lymphoid (T) ? CD3 ? pos ? CD2/CD3 ? pos ? CD4/CD3 ? pos ? CD8/CD3 ? pos ? CD7/CD3 ? partial ? CD5 ? pos ?Lymphoid (B) ? CD19 ?pos ? CD20 ?pos ? CD10 ?neg ? CD23 ?partial ? FMC7 ?partial ? kappa ? pos ? lambda ?pos ? CD5/CD20 ?neg ? ---Interpretation--- ?Cells for imm unophenotypic analysis were derived from biopsy. ??A ? lymphoid region, comp rising approximately 63-65% of all cells was used for ? gated analysis. ??Blasts based on CD45 ex pression and orthogonal light ? scatter, are not increased. ? The CD19 positive B-cells have a polytypic expression of surface ? immunoglobulin light chain (Graf:Lambda ratio at 1.4). The T-cells are an ? admixture of CD4+ and CD8+ T lymphocytes (ratio of 0. 9). No loss or ? atypical intensity di stributions are seen for any khalil T antigen (CD2, 3, ? 4+8, 5, 7). ? [facility] ? Provider: ?? TRUS, THADEUS L ? Pt. Name: ?? JENN AN, SWETA P ? Acc #: ?[id number] ?Pt. MRN: ?[id number] ? Col Date: ?? 06/12/2011 ?/Sex: ?1965,(46 years),Male ? Rec Date: ?? 06/12/2011 ?LOC: ?4WST ? ANALYTICAL CELL PATHOLOGY ?Diagnosis: ?? No monotypic B-cell population or phenotypically abnormal ? T-cell population is detected. see comment. ? 06/15/11 ? TMS ? 06/18/11 Verified by: ? Aramis Garcia MD ? Hematopatholog ist ? (Electronic Si gnature) ? ---Comment--- ?Flow analysis is an ancillary study. A definite diagnosis requires ? correlation with the morphologic features of this process and if necessary, ? correlation with othe r ancillary studies like immunohistochemistry, enzyme ? cytochemistry and/or cyto/molecular genetics. ?This test was developed and its performance characteristics determined ? by the Clinical Flow Cytometry Laboratory at [facility]. It has not been cleared or approved by the U.S. Food and Drug ? Administration. ??The FDA has determined that such clearance or approval is ? not necessary. ??This test is used for clinical purposes. ??It should not be ? regarded as investiga tional or for research. ??This laboratory is certified ? under the Clinical La boratory Improvement Act of 1988 (CLIA) as qualified ? to perform high complexity clinical laboratory testin g. Specimen (Source) Anatomical Collection Method Collection Time Re ceived Time Location / / Volume Laterality 06/12/2011 4:42 PM EST Noah Mcgee MD PATHOLOGY/CYTOLOGY ORDERABLE S Performing Organization Address City/State/ZIP Code Phon e Number [place] [phone] CERNER MILLENNIUM (ABNORMAL) DIFFERENTIAL, AUTOMATED (06/12/2011 4:00 PM EST) [facility] Method Time Signature Neutrophils % 90.7 (H) 34.0 - CERNER 71.0 % MILLENNIUM Neutr Abs (ANC) 17.03 (H) 1.50 - CERNER 6.30 MILLENNIUM x10(3)/mc L Lymphocytes % 6.9 (L) 19.0 - CERNER 53.0 % MILLENNIUM Lymphocytes Abs 1.3 1.0 - 3.6 CERNER x10(3)/mc MILLENNIUM L Monocytes % 1.7 (L) 4.0 - CERNER 13.0 % MILLENNIUM Monocyte Abs 0.3 0.2 - 1.0 CERNER x10(3)/mc MILLENNIUM L Eosinophils % 0.1 0.0 - 7.0 CERNER % MILLENNIUM Eosinophils Abs 0.0 0.0 - 0.5 CERNER x10(3)/mc MILLENNIUM L Basophils % 0.1 0.0 - 2.0 CERNER % MILLENNIUM Basophils Abs 0.0 0.0 - 0.2 CERNER x10(3)/mc MILLENNIUM L Immature Gran % 0.50 0.00 - CERNER 0.66 % MILLENNIUM Comment: Immature granulocytes(IG's)percentage an d absolute count will include metamyelocytes, myelocytes, and promyelo cytes. Blood smears from CBCs yielding IG's will be scanned manually for concor dance. If this scan disagrees with the automated IG or if promyelocytes are not ed, a manual differential will be performed. Joann Gran Abs 0.09 (H) 0.00 - 0.05 x10(3)/mcL CER NER MILLENNIUM Specimen Anatomical Collection Method Collection Time Receive d Time (Source) Location / / Volume Laterality Blood specimen 06/12/2011 4:00 PM 012 4:08 (specimen) EST PM EST Dillon Ingram MD HEMATOLOGY ORDERABLES Performing Organization Address City/[facility]/[place] [address] CERNER MILLENNIUM (ABNORMAL) CBC (with Diff) (06/12/2011 4:00 PM EST) P athologist Signature WBC 18.8 (H) 4.0 - 10.0 CERNER x10(3)/mcL MILLENNIUM RBC 3.89 (L) 4.63 - CERNER 6.08 MILLENNIUM x10(6)/mcL Hemoglobin 11.7 (L) 13.7 - CERNER 17.5 gm/dL MILLENNIUM Hematocrit 35.2 (L) 40.0 - CERNER 51.0 % MILLENNIUM MCV 90.5 79.0 - CERNER 92.0 fL MILLENNIUM MCH 30.1 25.6 - CERNER 32.2 pg MILLENNIUM MCHC 33.2 32.0 - CERNER 36.5 gm/dL MILLENNIUM Platelets 132 (L) 145 - 370 CERNER x10(3)/mcL MILLENNIUM RDWSD 50.4 (H) 35.0 - CERNER 46.0 fL MILLENNIUM RDWCV 15.3 (H) 10.9 - CERNER 14.4 % MILLENNIUM MPV 10.2 9.0 - 12.0 CERNER fL MILLENNIUM Specimen Anatomical Collection Method Collection Time Receive d Time (Source) Location / / Volume Laterality Blood specimen 06/12/2011 4:00 PM 012 4:08 (specimen) EST PM EST Dillon Ingram MD HEMATOLOGY ORDERABLES Performing Organization Address City/[facility]/[place] [address] CERNER MILLENNIUM Specimen to Pathology (surgical or derm) (06/12/2011 3:09 PM EST) Specimen Anatomical Collection Method Collection Time Receive d Time (Source) Location / / Volume Laterality AP Specimen 06/12/2011 3:09 PM 2 3:09 EST PM EST Narrative CERNER MILLENNIUM - 06/12/2011 3:[address] Specimen requisition ordered. ??Separate Pathology report to follow Noah Mcgee MD PATHOLOGY/CYTOLOGY ORDERABLE S Performing Organization Address City/[facility]/ZIP Code Phon e Number [address] CERNER MILLENNIUM IMMUNOPHENOTYPING FLOW CYTOMETRY (06/12/2011 1:09 PM EST) Component Value Ref Test Analysis Performed At [facility] Range Method Time Signature Type of Specimen Spleen CERNER MILLENNIUM Panel Requested Lymphoma CERNER Panel MILLENNIUM Immunophenotyping See Comment CERNER Flow MILLENNIUM Comment: When completed by the Pathologist, the F low Cytometry Report ([id number]) will display under the Flow Cytometry result section in [facility]. Specimen Anatomical Collection Method Collection Time Receive d Time (Source) Location / / Volume Laterality Body fluid 06/12/2011 1:09 PM 2 1:42 specimen EST PM EST (specimen) Noah Mcgee MD HEMATOLOGY ORDERABLES Performing Organization Address City/[facility]/ZIP Code Phon e Number [address] CERNER MILLENNIUM (ABNORMAL) DIFFERENTIAL, AUTOMATED (06/12/2011 10:49 AM EST) [facility] gist Method Time Signature Neutrophils % 82.7 (H) 34.0 - CERNER 71.0 % MILLENNIUM Neutr Abs (ANC) 4.55 1.50 - CERNER 6.30 MILLENNIUM x10(3)/mc L Lymphocytes % 8.5 (L) 19.0 - CERNER 53.0 % MILLENNIUM Lymphocytes Abs 0.5 (L) 1.0 - 3.6 CERNER x10(3)/mc MILLENNIUM L Monocytes % 6.7 4.0 - CERNER 13.0 % MILLENNIUM Monocyte Abs 0.4 0.2 - 1.0 CERNER x10(3)/mc MILLENNIUM L Eosinophils % 1.5 0.0 - 7.0 CERNER % MILLENNIUM Eosinophils Abs 0.1 0.0 - 0.5 CERNER x10(3)/mc MILLENNIUM L Basophils % 0.2 0.0 - 2.0 CERNER % MILLENNIUM Basophils Abs 0.0 0.0 - 0.2 CERNER x10(3)/mc MILLENNIUM L Immature Gran % 0.40 0.00 - CERNER 0.66 % MILLENNIUM Comment: Immature granulocytes(IG's)percentage an d absolute count will include metamyelocytes, myelocytes, and promyelo cytes. Blood smears from CBCs yielding IG's will be scanned manually for concor dance. If this scan disagrees with the automated IG or if promyelocytes are not ed, a manual differential will be performed. Joann Gran Abs 0.02 0.00 - 0.05 x10(3)/mcL CER NER MILLENNIUM Specimen Anatomical Collection Method Collection Time Receive d Time (Source) Location / / Volume Laterality Blood specimen 06/12/2011 10:49 2 (specimen) AM EST 11:15 AM EST Robson Ledesma MD HEMATOLOGY ORDERABLES Performing Organization Address City/State/ZIP Code Phon e Number [place] [phone] CERNER MILLENNIUM (ABNORMAL) CBC (WITH DIFF) (06/12/2011 10:49 AM EST) P athologist Signature WBC 5.5 4.0 - 10.0 CERNER x10(3)/mcL MILLENNIUM RBC 4.11 (L) 4.63 - CERNER 6.08 MILLENNIUM x10(6)/mcL Hemoglobin 12.3 (L) 13.7 - CERNER 17.5 gm/dL MILLENNIUM Hematocrit 37.2 (L) 40.0 - CERNER 51.0 % MILLENNIUM MCV 90.5 79.0 - CERNER 92.0 fL MILLENNIUM MCH 29.9 25.6 - CERNER 32.2 pg MILLENNIUM MCHC 33.1 32.0 - CERNER 36.5 gm/dL MILLENNIUM Platelets 85 (L) 145 - 370 CERNER x10(3)/mcL MILLENNIUM RDWSD 49.5 (H) 35.0 - CERNER 46.0 fL MILLENNIUM RDWCV 15.2 (H) 10.9 - CERNER 14.4 % [facility] MPV 10.2 9.0 - 12.0 CERNER fL [facility] Specimen Anatomical Collection Method Collection Time Receive d Time (Source) Location / / Volume Laterality Blood specimen 06/12/2011 10:49 2 (specimen) AM EST 11:15 AM EST Robson Ledesma MD HEMATOLOGY ORDERABLES Performing Organization Address City/[facility]/[place] [address] [facility] ANTIBODY SCREEN (06/12/2011 10:49 AM EST) Analysis Performed At Patho logist Time Signature Ab Screen Negative [facility] Expires at [phone] [facility] [id number] on: [facility] Specimen Anatomical Collection Method Collection Time Receive d Time (Source) Location / / Volume Laterality Blood specimen 06/12/2011 10:49 2 (specimen) AM EST 11:09 AM EST Noah Mcgee MD BLOOD BANK ORDERABLES Performing Organization Address City/[facility]/ZIP Code Phon e Number [address] [facility] ABO/RH TYPING (06/12/2011 10:49 AM EST) P athologist Signature ABORh Type O Pos [facility] Specimen Anatomical Collection Method Collection Time Receive d Time (Source) Location / / Volume Laterality Blood specimen 06/12/2011 10:49 2 (specimen) AM EST 11:09 AM EST Noah Mcgee MD BLOOD BANK ORDERABLES Performing Organization Address City/[facility]/[place] [address] [facility] (ABNORMAL) Platelet count (06/12/2011 10:49 AM EST) P athologist Signature Platelets 85 (L) 145 - 370 CERNER x10(3)/mcL [facility] Specimen Anatomical Collection Method Collection Time Receive d Time (Source) Location / / Volume Laterality Blood specimen 06/12/2011 10:49 2 (specimen) AM EST 11:15 AM EST Robson Ledesma MD HEMATOLOGY ORDERABLES Performing Organization Address City/State/ZIP Code Phon e Number [place] [phone] JAIR URIAS documented in this encounter Visit Diagnoses Not on filedocumented in this encounter Administered Medications Inactive Administered Medications - up to 3 most recent administrations Medication Order MAR Action Action Date Dose Rate Site ceFAZolin (ANCEF) 2g in dextrose 5% Given 06/13/2011 5:00 AM EST 2 g 100mL 2 g, Intravenous, EVERY 8 HOURS, 2 doses, First dose on Sat06/12/11 at 2100, Last dose on Sat06/13/11 at 0500, Administer over 30 Minutes, Redose after 4 hours. Given 06/12/2011 8:32 PM EST 2 g dextrose 5% and sodium chloride New Bag 06/13/2011 7:22 AM EST 75 mL/hr 75 mL/hr 0.45% with potassium chloride 20 mEq infusion 75 mL/hr, Intravenous, CONTINUOUS, Starting on Sat06/13/11 at 0715, Until Sat06/13/11 at 1742 esomeprazole (NEXIUM) capsule 40 mg Given 06/15/2011 9:00 AM EST 40 mg 40 mg, Oral, DAILY, First dose on Sat06/12/11 at 1900, Until Discontinued, If unable to take PO, may give IV, Routine Given 06/14/2011 8:21 AM EST 40 mg Given 06/13/2011 9:06 AM EST 40 mg esomeprazole (NEXIUM) injection 40 mg Given 06/12/2011 6:53 PM EST 40 mg 40 mg, Intravenous, DAILY, First dose on Sat06/12/11 at 1900, Until Discontinued, Routine folic acid (FOLVITE) tablet 1,000 mcg Given 06/14/2011 8:21 AM EST 1,000 mcg 1,000 mcg (1 mg), Oral, DAILY, First dose on Sat06/13/11 at 1445, Until Discontinued, Routine Given 06/13/2011 5:24 PM EST 1,000 mcg heparin (porcine) Given 06/15/2011 6:00 AM EST 5,000 Units Abdominal Tissue subcutaneous injection 5,000 Units 5,000 Units, Subcutaneous, EVERY 8 HOURS SCHEDULED, First dose on Sat06/12/11 at 2200, Until Discontinued, Routine Given 06/14/2011 10:00 PM EST 5,000 Units Abdo rubi Tissue Given 06/14/2011 2:00 PM EST 5,000 Units HYDROmorphone (DILAUDID) 1 New Syringe/Cartridge 06/12/2011 4:[address] mL/hr mg/mL BALLAST REGULATOR OPERATOR 30 mL Intravenous, BALLAST REGULATOR OPERATOR ONLY, Starting on Sat06/12/11 at 1615, Until Sat06/13/11 at 0959 HYDROmorphone (DILAUDID) 1 New Syringe/Cartridge 06/13/2011 10:45 P M EST mL/hr mg/mL BALLAST REGULATOR OPERATOR 30 mL Intravenous, BALLAST REGULATOR OPERATOR ONLY, Starting on Sat06/13/11 at 1015, Until Noris 06/14/11 at 0847 Rate/Dose Change 06/13/2011 10:22 AM EST mL/hr HYDROmorphone (PF) (DILAUDID) 2 mg/mL Given 06/12/2011 4:[address] 0.4 mg injection 0.2-0.4 mg 0.2-0.4 mg, Intravenous, EVERY 5 MIN PRN, Starting on Sat06/12/11 at 1507, Until Sat06/12/11 at 1718, Pain, For moderate pain give: 0.2 mg every 5 minute prn For severe pain give: 0.4 mg every 5 minutes prn Maximum dose: 4 mg per hour Hold for respiratory rate less than 10 per minute., PACU Recovery, Routine Given 06/12/2011 4:10 PM EST 0.4 mg Given 06/12/2011 4:02 PM EST 0.4 mg ketorolac (TORADOL) injection 30 mg Given 06/15/2011 6:00 AM EST 30 mg 30 mg, Intravenous, EVERY 6 HOURS SCHEDULED, 12 doses, First dose on Sat06/12/11 at 1700, Last dose on Sat06/15/11 at 1200, Routine Given 06/15/2011 12:00 AM EST 30 mg Given 06/14/2011 6:00 PM EST 30 mg lactated ringers 500 mL IV bolus Given 06/13/2011 5:45 AM EST Intravenous, ONCE, 1 dose, On Sat06/13/11 at 0545 lactated ringers infusion New Bag 06/13/2011 6:00 AM EST 125 mL/hr 125 mL/hr 125 mL/hr, Intravenous, CONTINUOUS, Starting on Sat06/12/11 at 1615, Until Sat06/13/11 at 0647 New Bag 06/12/2011 4:08 PM EST 125 mL/hr 125 mL/hr metoprolol tartrate (LOPRESSOR) tablet 2 5 mg Given 06/15/2011 9:00 AM EST 25 mg 25 mg, Oral, EVERY 12 HOURS SCHEDULED (2 times per day), First dose on Sat06/12/11 at 2100, Until Discontinued, Hold for hr <60, sbp <110, Routine Given 06/14/2011 9:00 PM EST 25 mg Given 06/14/2011 8:21 AM EST 25 mg multivitamin with minerals (THERA-M) tablet Given 01/2012 8:21 AM EST 1 tablet 1 tablet 1 tablet, Oral, DAILY, First dose on Sat06/13/11 at 1445, Until Discontinued, Routine Given 06/13/2011 5:25 PM EST 1 tablet OXYcodone (oxyCONTIN) CR tablet 10 mg Given 06/15/2011 9:00 AM EST 10 mg 10 mg, Oral, EVERY 12 HOURS SCHEDULED (2 times per day), First dose on Sat06/14/11 at 0915, Until Discontinued Given 06/14/2011 9:00 PM EST 10 mg Given 06/14/2011 10:06 AM EST 10 mg OXYcodone (ROXICODONE) immediate release Given 06/14/2011 6:44 A M EST 10 mg tablet 10 mg 10 mg, Oral, EVERY 3 HOURS PRN, Starting on Sat06/12/11 at 1822, Until Sat06/14/11 at 0847, Pain, Routine Given 06/14/2011 3:48 AM EST 10 mg Given 06/14/2011 12:39 AM EST 10 mg OXYcodone (ROXICODONE) immediate release Given 06/15/2011 2:15 P M EST 15 mg tablet 15 mg 15 mg, Oral, EVERY 3 HOURS PRN, Starting on Sat06/14/11 at 0846, Until Sat06/15/11 at 1733, Pain, Routine Given 06/15/2011 11:27 AM EST 15 mg Given 06/15/2011 8:27 AM EST 15 mg predniSONE (DELTASONE) tablet 20 mg Given 06/15/2011 9:00 AM EST 20 mg 20 mg, Oral, DAILY, First dose on Sat06/13/11 at 0900, Until Discontinued, Routine Given 06/14/2011 8:21 AM EST 20 mg Given 06/13/2011 9:06 AM EST 20 mg sodium chloride 0.9 % flush 5 mL Given 06/15/2011 6:15 AM EST 5 mLs 5 mL, Intravenous, EVERY 12 HOURS, First dose on Sat06/12/11 at 1815, Until Discontinued Given 06/14/2011 6:15 PM EST 5 mLs Given 06/14/2011 6:15 AM EST 5 mLs thiamine tablet 100 mg Given 06/14/2011 8:21 AM EST 100 mg 100 mg, Oral, DAILY, First dose on Sat06/13/11 at 1445, Until Discontinued, Routine Given 06/13/2011 5:25 PM EST 100 mg documented in this encounter Active and Recently Administered Medications Times are shown in EST. Scheduled Medication Order 06/13/2011 06/14/2011 06/15/2011 ceFAZolin (ANCEF) 2g in dextrose 5% 100mL (COMPLETED) 0500 (Given - Provider: Rosemary Osborne RN) 2 g, Intravenous, EVERY 8 HOURS, 2 doses , First dose on Sat06/12/11 at 2100, Last dose on Sat06/13/11 at 0500, for 30 Minutes, Redose after 4 hours. esomeprazole (NEXIUM) capsule 40 mg (CANCELED) 09 (G iven - Provider: Tita Hall RN) 0821 (Given - Provider: Tita Hall RN) 0900 (Gi asha - Provider: Taya Eid, POLINA) 40 mg, Oral, DAILY, First dose on 11/14 at 1900, Until Discontinued, If unable to take PO, may give IV, Routine folic acid (FOLVITE) tablet 1,000 mcg (CANCELED) 1724 (Given - Provider: Tita Hall RN) 0821 (Given - Provider: Tita Hall RN) 0900 (No t Given - Provider: Taya Eid, POLINA - Reason: Patient/family refused) 1 mg = 1,000 mcg, Oral, DAILY, First dos e on Sat06/13/11 at 1445, Until Discontinued, Routine heparin (porcine) subcutaneous injection 5,000 Units ( CANCELED) 0600 (Given - Provider: Rosemary Osborne RN)1433 (Given - Provider: Tita Hall RN)2201 (Given - Provider: Rosemary Osborne RN) 0600 (Given - Provider: Rosemary Osborne, POLINA)1400 (Given - Provider: Tita Hall RN)2200 (Given - Provider: Daisha Lowe RN) 0600 (Given - Provider: Daisha Lowe RN)1400 (Due) 5,000 Units, Subcutaneous, EVERY 8 HOURS SCHEDULED, First dose on Sat06/12/11 at 2200, Until Discontinued, Routine ketorolac (TORADOL) injection 30 mg (CANCELED) 0000 (G iven - Provider: Rosemary Osborne RN)0600 (Given - Provider: Rosemary Osborne RN)1223 (Given - Provider: Tita Hall RN)1726 (Given - Provider: Tita Hall, POLINA) 0039 (Given - Provider: Rosemary Osborne, POLINA)0600 (Given - Provider: Rosemary Osborne, POLINA)1155 (Given - Provider: Tita Hall, POLINA)1800 (Given - Provider: Neva Arndt RN) 0000 (Given - Provider: Daisha Lowe, POLINA)0600 (Given - Provider: Daisha Lowe RN) 30 mg, Intravenous, EVERY 6 HOURS SCHEDU LED, 12 doses, First dose on Sat06/12/11 at 1700, Last dose on Sat06/15/11 at 1200, Routine lactated ringers 500 mL IV bolus (COMPLETED) 0545 (Giv en - Provider: Rosemary Osborne RN) Intravenous, ONCE, 1 dose, Sat06/13/11 at 0545 metoprolol tartrate (LOPRESSOR) tablet 25 mg (CANCELED ) 0907 (Given - Provider: Tita Hall RN)2100 (Given - Provider: Rosemary Osborne RN) 0821 (Given - Provider: Tita Hall RN)2100 (Given - Provider: Daisha Lowe RN) 0900 (Given - Provider: Taya Eid RN) 25 mg, Oral, EVERY 12 HOURS SCHEDULED (2 times per day), First dose on Sat06/12/11 at 2100, Until Discontinued, Hold for hr <60, sbp <110, Routine multivitamin with minerals (THERA-M) tablet 1 tablet ( CANCELED) 1725 (Given - Provider: Tita Hall RN) 0821 (Given - Provider: Tita Hall RN) 0900 (Not Given - Provider: Taya Eid RN - Reason: Patient/family refused) 1 tablet, Oral, DAILY, First dose on Sat06/13/11 at 1445, Until Discontinued, Routine OXYcodone (oxyCONTIN) CR tablet 10 mg 10 06 (Given - Provider: Tita Hall RN)2100 (Given - Provider: Daisha Lowe RN) 0900 (Given - Provider: Taya Eid RN) 10 mg, Oral, EVERY 12 HOURS SCHEDULED (2 times per day), First dose on Sat06/14/11 at 0915, Until Discontinued, Routine predniSONE (DELTASONE) tablet 20 mg (CANCELED) 09 (G iven - Provider: Tita Hall RN) 0821 (Given - Provider: Tita Hall RN) 0900 (Gi asha - Provider: Taya Eid RN) 20 mg, Oral, DAILY, First dose on 12/15 at 0900, Until Discontinued, Routine sodium chloride 0.9 % flush 5 mL (CANCELED) 0615 (Give n - Provider: Rosemary Osborne RN)1729 (Given - Provider: Tita Hall RN) 0615 (Given - Provider: Rosemary Osborne RN)1815 (Given - Provider: Neva Arndt RN) 0615 (Given - Provider: Daisha harmon RN) 5 mL, Intravenous, EVERY 12 HOURS, First dose on Sat06/12/11 at 1815, Until Discontinued, Routine thiamine tablet 100 mg (CANCELED) 1725 (Given - Provider: Do cheyanne Hall RN) 0821 (Given - Provider: Tita Hall RN) 0900 (Not Given - Provider: Taya Eid RN - Reason: Patient/family refused) 100 mg, Oral, DAILY, First dose on Sat at 1445, Until Discontinued, Routine Continuous Medication Order 06/13/2011 06/14/2011 06/15/2011 dextrose 5% and sodium chloride 0.45% wi potassium chloride 20 mEq infusion (CANCELED) 0722 (New Bag - Provider: Tita bowen RN)1742 (Stopped - Provider: Tita Hall RN) 75 mL/hr, at 75 mL/hr, Intravenous, CONT INUOUS, Starting Sat06/13/11 at 0715, Until Sat06/13/11 at 1742 HYDROmorphone (DILAUDID) 1 mg/mL BALLAST REGULATOR OPERATOR 30 mL (CANCELED) 1022 (Rate/Dose Change - Provider: Tita Hall RN)2245 (New Syringe/Cartridge - Provider: Rosemary Osborne RN) Intravenous, BALLAST REGULATOR OPERATOR ONLY, Starting Sat06/13/11 at 1015, Until Noris 06/14/11 at 0847 lactated ringers infusion (CANCELED) 0600 (New Bag - P rovider: Rosemary Osborne RN) 125 mL/hr, at 125 mL/hr, Intravenous, CO NTINUOUS, Starting Tu06/12/11 at 1615, Until Sat06/13/11 at 0647 PRN Medication Order 06/13/2011 06/14/2011 06/15/2011 OXYcodone (ROXICODONE) immediate release tablet 10 mg (CANCELED) 0004 (Given - Provider: Rosemary Osborne RN)0303 (Given - Provider: Rosemary Osborne RN)0602 (Given - Provider: Rosemary Osborne, POLINA)0903 (Given - Provider: Tita Hall RN)1220 (Given - Provider: Tita Hall RN) 0039 (Given - Provider: Rosemary Osborne RN)0348 (Given - Provider: Tao Aviles, POLINA)0644 (Given - Provider: Rosemary Osborne RN) 10 mg, Oral, EVERY 3 HOURS PRN, Starting 06/12/11 at 1822, Until Noris 06/14/11 at 0847, Pain, Routine 1541 (Given - Provider: Tita Hall RN)1853 (Given - Provider: Tita Hall RN)2148 (Given - Provider: Rosemary Osborne RN) OXYcodone (ROXICODONE) immediate release tablet 15 mg 1007 (Given - Provider: Tita Hall RN)1308 (Given - Provider: Tita Hall RN)1614 (Given - Provider: Tita Hall RN)1958 (Given - Provider: Daisha Lowe RN)2305 (Given - Provider: Disha Sweeney) 0215 (Given - Provider: Daisha Lowe RN)0535 (Given - Provider: Daisha Lowe RN)0827 (Given - Provider: Taya Eid, POLINA)1127 (Given - Provider: Taya Eid, POLINA) 15 mg, Oral, EVERY 3 HOURS PRN, Starting Noris 06/14/11 at 0846, Until 06/15/11 at 1733, Pain, Routine 1415 (Given - Pro vider: Taya Eid RN - Comment: prior to discharge, MD mccoy aware pt recieved dose 15 min early) documented in this encounter 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
--- OUTSIDE RECORDS SUMMARY | 2022-02-13 13:28 | XMS_ITS | Encounter Summary ---
:1965 [place] [address] Care Team Providers Name Role Phone None Primary Care Provider Unavailable Encounter Details Date Type Department Care Team Description 01/28/2013 Surgery Main Operating Room Trus, Agustina Stein MD LAPAROSCOPIC [facility] HERNIA,VENTRAL, [facility] DR SERRANO, W-WO MESH [facility] GENERAL SURGE RY (WRVU 11.92) [place] [address] [place] [id number] [phone] Social History Tobacco Use Types Packs/Day Years [...] Sign Reading Time Taken Comments Blood Pressure 135/87 01/28/2013 3:27 PM EDT Pulse 63 01/28/2013 3:27 PM EDT Temperature 36.3 ??C (97.3 ??F) 01/28/2013 3:27 PM EDT Respiratory Rate 18 01/28/2013 3:27 PM EDT Oxygen Saturation 93% 01/28/2013 3:27 PM EDT Inhaled Oxygen Concentration - - Weight 111.1 kg (245 lb) 01/28/2013 3:27 PM EDT Height 188 cm (6' 2) 01/28/2013 3:27 PM EDT Body Mass Index 31.46 01/28/2013 3:27 PM EDT documented in this encounter Discharge Instructions Patient InstructionsWinston Morgan MD - 01/29/2013 1:51 PM EDT Instructions following Laparoscopic Surgery Wound Care: Keep dressings/Band-Aids on incisions for the next 2 days. Do not get dressings wet. If they become wet or soaked with drainage you may change them with fresh ones as needed. If there are pieces of tape directly on the incision (steri-strips or butterflys), please leave them on until they fall off on their own. You may trim them back as they begin to peel up. After 2 days you may remove dressing/Band-Aids and leave open to air. You may now shower and get incisions wet. Pat dry immediately following. Do not scrub them vigorously for the next 2-3 weeks. Do not soak incision(s) under water for the next 2 weeks (i.e. soaking in bath or swimming) as this may promote a wound infection. Your stitches will dissolve and do not need to be removed. Activity: No heavy lifting more than 15 pounds for the next 4 weeks, then you may gradually lift heavier objects as tolerated by discomfort. Otherwise activity as tolerated by your comfort level. Call Doctor for: Please call if you notice worsening redness or drainage from incision(s) lasting longer than 5 days after your surgery, any foul-smelling drainage from the incision, pain not controlled by pain medications, persistent nausea and vomiting, or for any fevers greater than 101.3 F. The number for questions is [phone] before 5 PM weekdays and [phone] after 5 PM and weekends. Pain Medication: No driving for 8 hours after any dose of opioid pain medication if one was prescribed for you. You may use ibuprofen (motrin, advil) in addition to this medication if your pain is not totally controlled by the opioid. Follow-up: Follow-up appointment will be scheduled with Dr. Mcgee in 3 weeks. Appointment will be mailed to you. Please call [phone] (clinic number for appointments) to confirm date and time of your appointment if you do not receive your apointment in 3 weeks. AttachmentsThe following attachments cannot be sent through Care Everywhere. HERNIA REPAIR: WHAT TO EXPECT AT HOME (STATELESS)documented in this encounter Medications at Time of Discharge Medication Sig Dispensed Refills Start Date End Date ibuprofen (ADVIL;MOTRIN) 400 Take 1.5 tablets 30 tablet 12 0 01/29/2013 mg tablet by mouth every 6 hours as needed for Pain. OXYcodone (ROXICODONE) 15 mg Take 1 tablet by 125 tablet 0 0 01/29/2013 02/19/2013 immediate release tablet mouth every 4 hours as needed for Pain. acetaminophen (TYLENOL) 500 Take 2 tablets 30 tablet 1 01/0511/14/2018 mg tablet by mouth every 6 hours as needed for Pain. hydrochlorothiazide Take 25 mg by 0 (HYDRODIURIL) 25 mg tablet mouth daily. simvastatin (ZOCOR) 10 mg Take 10 mg by 0 11/14/2018 tablet mouth nightly. atenolol (TENORMIN) 50 mg Take 75 mg by 0 03/12/2013 tablet mouth daily. documented as of this encounter Progress Notes Nanci Hendrix RN - 01/29/2013 2:54 PM EDT Pt approved for discharge to home. IV fluids, [employer] Dilaudid, and iv line discontinued; iv site benign. Up oob and ambulatory with steady gait. Lap sites on abd WNL without bleeding. Given Toradol 30 mg iv and Oxycodone 15 mg for pain, with good relief obtained. Given discharge instructions and printed info on What to Expect at Home S/P hernia repair. Pt has good comprehension for same and was discharged in stable condition and good spirits. Will cook pickled meat prescription for Oxycodone at out-patient pharmacy. Winston Morgan MD - 01/29/2013 6:25 AM EDT General Surgery Progress Note ID: Robb Anton was admitted on 01/28/2013 3:19 PM for symptomatic ventral hernia repair Hospital Course: Taken to OR for Lap ventral hernia repair. Tolerated procedure well. No complications. 24 Hour Events: ?? Pain controldifficulty in Short Stay, Increase in [employer] dose, 0.4/12/5, with relief ?? Tolerating sips well overnight without incident. Subjective: Pt denies MORRIS, vision changes, SOB, chest pain, nausea nor vomiting. O: Last value Range last 24 hrs Temperature Temp: 37.1 ??C (98.8 ??F) Temp: [36.3 ??C (97.3 ??F)-37.1 ??C (98.8 ??F)] Heart Rate Heart Rate: 67 Heart Rate: [58-71] Blood Pressure BP: 110/64 mmHg BP: (110-145)/(64-97) Respiratory Rate Resp: 16 Resp: [12-18] SpO2 SpO2: 93 % SpO2: [91 %-98 %] Intake and Output Last 24 Current Shift Last 3 Shifts 01/28 07 - 01/29 07 In: 2681 [P.O.:240; I.V.:2241] Out: 885 [Urine:880] 01/28 1901 - 01/29 0700 In: 2681 [P.O.:240; I.V.:2241] Out: 885 [Urine:880] Physical Exam: General: NAD, resting comfortably, pleasant, conversant HEENT: PERRLA, EOMI, anicteric sclerae CVS: RRR, no m/r/g Pulm: CTAB, no wheezes or rhonchi Abd: soft, tender at incision sites, BSx4, nondistended Skin: warm, dry Ext: WWP, cap refill <2sec Neuro: Nonfocal, moving all four extremities spontaneously Labs: Recent Labs Basename 01/29/13 043 WBC 10.8* HGB 12.9* HCT 39.0* PLATELET 303 Recent Labs Basename 01/29/13434 NA 137 K 4.4 CL 101 CO2 25 BUN 17 CREATININE 1.01 GLUCOSE 118 No results found for this basename: AST:3,ALT:3,ALKPHOS:3,BILITOT:3,BILIDIR:3 in the last 168 hours Recent Labs Basename 01/29/13 0435 CALCIUM 8.9 PHOS 4.0 MAGNESIUM 0.63* No results found for this basename: PT:3,PTT:3,INR:3 in the last 168 hours No results found for this basename: PHART:3,FCX6SIP:3,PO2ART:3,VFP6JGC:3 in the last 168 hours IMAGING: ASSESSMENT / PLAN: Robb Anton is a 47 y.o. male with the following active issues: Active Issue Treatment Acute post surgical care Pain control IVF. Pain control, ADAT. Transition to oral pain medications Neuro Pain is well-controlled on dilaudid [employer]. Transition to oral pain meds. Activity Activity as tolerated. CV Hemodynamically stable. Pulm Stable. SpO2: [91 %-98 %] on RA. GI Status: - BM/Flatus Stress ulcer prophylaxis: None Diet: Full liquid NBOs: ordered. Bolanos out FEN IVF: Discontinue when tolerating orals. Electrolytes: Recent Labs Basename 01/29/13 0435 NA 137 K 4.4 Heme DVT prophylaxis: SCDs in place. Heparin ID No infectious disease process identified. Lines: Endo No SSIs. Recent Labs Basename 01/29/13 0435 GLUCOSE 118 Dispo Home when pain control by oral. Tolerating orals, bowel progress. Consults WINSTON MORGAN MD Jasper Prakash RN - 01/29/2013 4:13 AM EDT Pt to SSU at 2230. Pt complaining of abdominal cramping and pain 02/12. RN paged who increased his [employer] dose which eventually relieved cramps. Pt asking for food, but diet only sips and chips. Incision sites have small amt of dried drainage. Pt unsure of taking flu vaccine. RN encouraged d/t recent spenectomy. Yeison Kaiser MD - 01/29/2013 12:31 AM EDT Patient: Robb Anton s/p ap ventral hernia repair Patient location: [facility] Surgical Floor Post-op pain: Pain needs to be addressed Post-op nausea: no nausea or vomiting Vital signs: Temp: [36.5 ??C (97.7 ??F)-36.8 ??C (98.2 ??F)] Heart Rate: [58-65] Resp: [12-16] BP: (118-145)/(75-97) SpO2: [91 %-98 %] AOAx3. NAD RRR CTAB Soft. Tender to palpation diffusely, incisions cdi Bolanos. Robb Anton is POD 0 Post-op cardiovascular and respiratory status: is stable paitient complaining of 8/10 pain in abdomen associated with muscle spasm. Increased ativan order toq6 from q8, changed [employer] lockout from 15 min to 12. Bhanu Germain RN - 01/28/2013 8:23 PM EDT 1950- Pt arrived in pacu via bed, 6L simple applied, lungs CTA, c/o pain, agitated anxious, dressingdry intact, leona monitor. 1999- Pt C/O muscle spasms in ABD, ativan .5 given IV, VSS will monitor 2144- Pt awake alert, VSS, Dr. Franklin anesthesia made aware of ABD muscle spasms not resolving after .5 dose of ativan, Dr. Franklin ordered a one time dose of .5 ativan IV which was given @ 2052, Muscle spasms resolving, pain tolerable Pt using [employer], PACU criteria met. documented in this encounter H&P Notes Noah Mcgee MD - 01/28/2013 5:22 PM EDT Patient Name: Robb Anton Patient Age: 47 y.o. Birthdate: 1965 Admit date: 01/28/2013 Attending Physician: Noah Mcgee MD Robb Anton is a 47 y.o. male here regarding a ventral hernia. He noted a pulling discomfort in his abdomen some time ago. He has since developed a bulge in his wound which is easily reducible. He denies any history of incarceration. It has become more uncomfortable with lifting. Past history: has Sarcoidosis; Splenomegaly; and Ventral hernia on his problem list. Past Surgical History Procedure Date ??? Removal spleen, total 06/12/2011 @SPLENECTOMY, TOTAL performed by NOAH MCGEE at [facility] MAIN OR Medications: Current Outpatient Prescriptions on File Prior to Visit Medication Sig Dispense Refill ??? atenolol (TENORMIN) 50 mg tablet Take 75 mg by mouth daily. ??? DISCONTD: OXYcodone (ROXICODONE) 5 mg immediate release tablet Take 1 tablet by mouth every 4 hours as needed for Pain. Can take 1-2 tablets. 30 tablet 0 ??? DISCONTD: methotrexate 2.5 mg tablet Take 6 tablets by mouth once a week for 30 days. Can take without regard to food. Call clinic before/prior to starting medication/script. 26 tablet 3 ??? DISCONTD: folic acid (FOLVITE) 1 mg tablet Take 1 tablet by mouth daily. 30 tablet 12 ??? DISCONTD: predniSONE (DELTASONE) 20 mg tablet Take 2 tablets by mouth daily. 60 tablet 1 Allergies: Review of patient's allergies indicates no known allergies. Social History: reports that he has never smoked. His smokeless tobacco use includes Chew. He reports that he does not drink alcohol or use illicit drugs. Family History: Father had incarcerated hernia Review of systems: Review of systems is negative for any unexplained weight loss or weight gain. He denies any cough, chest pain or shortness on breath on exertion. He has no fevers, chills or night sweats. He denies headaches, dizziness, weakness, numbness or ataxia. Bowel and bladder elimination is normal. All other system reviews are negative. On physical examination, this is a well appearing male. Chest is clear, heart sounds are normal. Hisabdomen is nontender and without palpable masses. The incisional hernia itself is easily reducible in the upper aspect of the midline incision. I cannot fully appreciate the size of the fascial defect,but it seems relatively small. There are no groin hernias. His extremity and neurological exam are grossly normal. documented in this encounter Procedure Notes Provider, Scanning - 01/29/2013 10:04 PM EDTAssociated Order(s): SCAN DOC: IMPLANTABLE DEVICES documented in this encounter Miscellaneous Notes Discharge Summary - Winston Morgan MD - 01/29/2013 2:02 PM EDT Inpatient - Discharge Summary Patient Name: Robb Anton Patient Age: 47 y.o. Birthdate: 1965 Admit date: 01/28/2013 Discharge date and time: 01/29/2013 2:03 PM Attending Physician: Noah Mcgee MD Primary Diagnosis: Ventral Hernia Secondary Diagnosis: There are no hospital problems to display for this patient. Active Non-Hospital Problems Diagnosis ??? Ventral hernia ??? Splenomegaly ??? Sarcoidosis HPI: Robb Anton is a 47 y.o. male here regarding a ventral hernia. He noted a pulling discomfort in his abdomen some time ago. He has since developed a bulge in his wound which is easily reducible. He denies any history of incarceration. It has become more uncomfortable with lifting. CT scan shows multiple incisional hernias (niuean-cheese type defects). On exam he has multiple small defects in his midline incision. We discussed the options for hernia repair versus observation. We discussed that a laparoscopic mesh repair would be the best option to visualize and cover the defects. We discussed the risks, benefits, and alternatives to surgery. He understands the risks include but are not limited to bleeding, infection, mesh infection requiring removal, bowel injury requiring repair with delayed abdominal wall repair, conversion to open, chronic pain, recurrence, and anesthetic-related problems. His questions were answered and he wishes to proceed with repair Operations/Major Procedures: Operations: 01/28/2013 Surgeon(s) and Role: * Noah Mcgee MD - Primary * Roshan Kiran MD - Fellow: Procedure(s): LAPAROSCOPIC HERNIA,VENTRAL, REDUCIBLE, W-WO MESH MODIFIER MESH,ATRIUM,C-QUR Hospital Course: Robb Anton was taken to the operating room where the above procedures were performed. He tolerated the operation well and without complication. He was admitted post-operatively for observation and management. He was tolerating regular diet, ambulating and voiding without difficulty, pain was well c ontrolled on oral pain medications, and He was afebrile with stable vital signs when she was deemed ready for discharge on 01/29/2013. Pending Lab Data at Discharge: None Important Studies and Lab Data: Labs: Recent Labs Basename 01/29/13 0435 WBC 10.8* HGB 12.9* HCT 39.0* PLATELET 303 Recent Labs Basename 01/29/13 0435 NA 137 K 4.4 CL 101 CO2 25 BUN 17 CREATININE 1.01 No results found for this basename: AST:3,ALT:3,ALKPHOS:3,BILITOT:3,BILIDIR:3 in the last 168 hours Recent Labs Basename 01/29/13 0435 CALCIUM 8.9 PHOS 4.0 No results found for this basename: PTT:3,INR:3 in the last 168 hours Studies: No results found. Exam: Temp: [36.3 ??C (97.3 ??F)-37.1 ??C (98.8 ??F)] Heart Rate: [58-71] Resp: [12-18] BP: (110-145)/(64-97) SpO2: [91 %-98 %] I/O last 3 completed shifts: In: 2921 [P.O.:480; I.V.:2241; Blood:200] Out: 885 [Urine:880; Blood:5] GENERAL: alert, appears stated age and cooperative HEAD: NCAT w/o lesions or tenderness ENT exam normal, no neck nodes or sinus tenderness LUNG: clear to auscultation bilaterally CARDIAC: Regular rate and rhythm, S1S2 present or without murmur or extra heart sounds ABDOMEN: Appropriatly tender, patient, with bandages intact, C/D/I, No distention or guarding EXTREMITIES: no cyanosis, clubbing, no erythema, induration, or nodules and ROM of all joints is normal NEURO: Alert and oriented X 3, normal strength and tone. Normal symmetric reflexes. Normal coordination and gait Discharge to: Home Discharge Conditions/Prognosis: Stable Discharge Medications: Medication List As of 01/29/2013 2:03 PM START taking these medications acetaminophen 500 mg tablet Commonly known as: TYLENOL Take 2 tablets by mouth every 6 hours as needed for Pain. ibuprofen 400 mg tablet Commonly known as: ADVIL;MOTRIN Take 1.5 tablets by mouth every 6 hours as needed for Pain. CHANGE how you take these medications OXYcodone 15 mg immediate release tablet Commonly known as: ROXICODONE Take 1 tablet by mouth every 4 hours as needed for Pain. What changed: how often to take the med CONTINUE taking these medications atenolol 50 mg tablet Commonly known as: TENORMIN hydrochlorothiazide 25 mg tablet Commonly known as: HYDRODIURIL simvastatin 10 mg tablet Commonly known as: ZOCOR Where to get your medications Information on where to get these meds is not yet available. Ask your nurse or doctor. acetaminophen 500 mg tablet ibuprofen 400 mg tablet OXYcodone 15 mg immediate release tablet Updated Allergies/ADRs: No Known Allergies Follow-up Recommendations for Providers: None PCP: None Scheduled Appointments: Future Appointments Date Time Provider Department Center 02/19/2013 11:30 AM Yi Mullen, [facility] Outpatient Services/Studies: No discharge procedures on file. Instructions Given to Patient at Discharge:. An After Visit Summary was printed and given to the patient. Provider Instructions Instructions following Laparoscopic Surgery Wound Care: Keep dressings/Band-Aids on incisions for the next 2 days. Do not get dressings wet. If they become wet or soaked with drainage you may change them with fresh ones as needed. If there are pieces of tape directly on the incision (steri-strips or butterflys), please leave them on until they fall off on their own. You may trim them back as they begin to peel up. After 2 days you may remove dressing/Band-Aids and leave open to air. You may now shower and get incisions wet. Pat dry immediately following. Do not scrub them vigorously for the next 2-3 weeks. Do not soak incision(s) under water for the next 2 weeks (i.e. soaking in bath or swimming) as this may promote a wound infection. Your stitches will dissolve and do not need to be removed. Activity: No heavy lifting more than 15 pounds for the next 4 weeks, then you may gradually lift heavier objects as tolerated by discomfort. Otherwise activity as tolerated by your comfort level. Call Doctor for: Please call if you notice worsening redness or drainage from incision(s) lasting longer than 5 days after your surgery, any foul-smelling drainage from the incision, pain not controlled by pain medications, persistent nausea and vomiting, or for any fevers greater than 101.3 F. The number for questions is [phone] before 5 PM weekdays and [phone] after 5 PM and weekends. Pain Medication: No driving for 8 hours after any dose of opioid pain medication if one was prescribed for you. You may use ibuprofen (motrin, advil) in addition to this medication if your pain is not totally controlled by the opioid. Follow-up: Follow-up appointment will be scheduled with Dr. Mcgee in 3 weeks. Appointment will be mailed to you. Please call [phone] (clinic number for appointments) to confirm date and time of your appointment if you do not receive your apointment in 3 weeks. General Instructions None Provider Contact Information: Divison of General Surgery ??? [facility] ??? [address] ??? [place] [address] ??? [phone] ??? ~~~~~~~~~~~~~~~~~~~~~~~~~~~~~~~~~~~~~~~~~~~~~~~~~~~~~~~~~~~~~~~~~~~ Signed: WINSTON MORGAN MD 01/29/2013 Op Note - Noah Mcgee MD - 01/28/2013 7:[address] [facility] Operative Note Patient Name: Robb Anton : [id number] MR#: [id number] Case Date: 01/28/2013 Surgeon: Surgeon(s) and Role: * Noah Mcgee MD - Primary * Roshan Kiran MD - No qualified resident available to assist Preoperative diagnosis: INCISIONAL HERNIA Postoperative diagnosis: INCISIONAL HERNIA Procedure(s): LAPAROSCOPIC HERNIA,VENTRAL, REDUCIBLE, W-WO MESH MODIFIER MESH,ATRIUM,C-QUR General Estimated Blood Loss: 5cc Drains: none Disposition: awakened from anesthesia, extubated and taken to the recovery room in a stable condition, having suffered no apparent untoward event. Condition: doing well without problems This 47 y.o. male presented with an abdominal wall bulge which had grown in size and discomfort. It was always reducible. Informed consent was obtained, and he was taken to the Operating Room for repair. Under general anesthesia and endotracheal intubation with I.V. antibiotics infusing and SCDs in place, patient was prepped and draped in the supine position. After team timeout, the abdomen was enteredusing an optical trocar in the left upper quadrant. After adequate insufflation with CO2 to a pressure of 15 mmHg, an angled scope was inserted after first checking with a zero-scope to rule out any damage from the port insertion. Inspection revealed some omental adhesions to the hernia site, which were taken down using sharp and blunt dissection after placing 5-mm ports in the right gutter superiorly and inferiorly. The defect measured approximately 15cm by 8cm in size. A 25-cm x 20-cm C-QUR mesh was inserted afterfirst placing 4 stay stitches of Prolene in the midpoint of each side of the mesh. Care was taken toplace the rough side upwards facing the anterior abdominal wall and the smooth side facing the bowel. The sutures were fixed using a suture passer to allow us to create a taut mesh covering the defect with a 5-cm overlap circumferentially. The sutures were tied to the fascial level after first deflating down to 12 mmHg to decrease tension on the abdominal wall. The mesh was then circumferentially tacked. Inspection of the abdominal cavity revealed no obvious bleeding or any other problems associated with our dissection, and the mesh appeared intact and full coverage of the abdominal wall defect wasnoted. Ports were then removed under direct vision, and the fascia to the 10-mm port site was incorporated into the mesh repair. Skin sites were closed with running subcuticular 4-0 Vicryl suture followed by Steri- Strips and Band-Aids. All suture sites were closed with Steri-Strips. Patient returned to the Recovery Room in stable condition. Sponge and instrument counts were correct. Specimen sent to pathology: none OR Attestation - Noah Mcgee MD - 01/28/2013 7:34 PM EDT Attestation: Case Date: 01/28/2013 I performed this procedure without the involvement of a resident. NOAH MCGEE MD 01/28/2013 Miscellaneous - Provider, Scanning - 01/28/2013 3:42 PM EDT documented in this encounter Plan of Treatment Not on filedocumented as of this encounter Procedures Procedure Name Priority Date/Time Associated Comments Diagnosis IMPLANTABLE DEVICES 01/29/2013 10:04 Resu lts for this SCAN PM EDT procedure are i n the results section. DIFFERENTIAL, Routine 01/29/2013 4:35 AM Results for this AUTOMATED EDT procedure are i n the results section. CBC (WITH DIFF) Routine 01/29/2013 4:35 AM Result s for this EDT procedure are i n the results section. PHOSPHORUS Routine 01/29/2013 4:35 AM Results f or this EDT procedure are i n the results section. MAGNESIUM Routine 01/29/2013 4:35 AM Results f or this EDT procedure are i n the results section. BASIC METABOLIC PANEL Routine 01/29/2013 4:35 AM Results for this (NON-FASTING) EDT procedure are in the results section. MODIFIER 01/28/2013 5:38 PM INCISIONAL HERNIA MESH,ATRIUM,C-QUR EDT (DELETED) LAPAROSCOPIC 01/28/2013 5:38 PM INCISIONAL HERNIA HERNIA,VENTRAL, EDT REDUCIBLE, W-WO MESH (WRVU 11.92) documented in this encounter Results SCAN DOC: IMPLANTABLE DEVICES (01/29/2013 10:04 PM EDT) Narrative 01/29/2013 10:04 PM EDT Procedure Note Provider, Scanning - 01/29/2013 10:04 PM EDT Scanning Provider MEDIA MGR SCAN EXT ORDR/RSLT (ABNORMAL) Differential, Automated (01/29/2013 4:35 AM EDT) [facility] gist Method Time Signature Neutrophils % 80.8 (H) 34.0 - CERNER 71.0 % MILLENNIUM Neutr Abs (ANC) 8.72 (H) 1.50 - CERNER 6.30 MILLENNIUM x10(3)/mc L Lymphocytes % 15.3 (L) 19.0 - CERNER 53.0 % MILLENNIUM Lymphocytes Abs 1.6 1.0 - 3.6 CERNER x10(3)/mc MILLENNIUM L Monocytes % 3.6 (L) 4.0 - CERNER 13.0 % MILLENNIUM Monocyte Abs 0.4 0.2 - 1.0 CERNER x10(3)/mc MILLENNIUM L Eosinophils % 0.0 0.0 - 7.0 CERNER % MILLENNIUM Eosinophils Abs 0.0 0.0 - 0.5 CERNER x10(3)/mc MILLENNIUM L Basophils % 0.1 0.0 - 2.0 CERNER % MILLENNIUM Basophils Abs 0.0 0.0 - 0.2 CERNER x10(3)/mc MILLENNIUM L Immature Gran % 0.20 0.00 - CERNER 0.66 % MILLENNIUM Comment: [...] Location / / Volume Laterality Blood specimen 01/29/2013 4:35 AM 013 4:42 (specimen) EDT AM EDT Roshan Granados MD HEMATOLOGY ORDERABLES Performing Organization Address City/[facility]/[place] [address] CERNER MILLENNIUM Phosphorus (01/29/2013 4:35 AM EDT) athologist Signature Phosphorus 4.0 2.5 - 4.5 CERNER mg/dL MILLENNIUM Specimen Anatomical Collection Method Collection Time Receive d Time (Source) Location / / Volume Laterality Blood specimen 01/29/2013 4:35 AM 013 4:42 (specimen) EDT AM EDT Resulting Agency Comment Spec In Lab Roshan Granados MD CHEMISTRY ORDERABLES Performing Organization Address City/[facility]/ZIP Code Phon e Number [address] CERNER MILLENNIUM (ABNORMAL) Magnesium (01/29/2013 4:35 AM EDT) athologist Signature Magnesium 0.63 (L) 0.69 - 1.07 CERNER mmol/L MILLENNIUM Specimen Anatomical Collection Method Collection Time Receive d Time (Source) Location / / Volume Laterality Blood specimen 01/29/2013 4:35 AM 013 4:42 (specimen) EDT AM EDT Resulting Agency Comment Spec In Lab Roshan Granados MD CHEMISTRY ORDERABLES Performing Organization Address City/[facility]/ZIP Code Phon e Number [address] CERNER MILLENNIUM Basic Metabolic Panel (non-fasting) (01/29/2013 4:35 AM EDT) athologist Signature Glucose Lvl 118 60 - 199 CERNER mg/dL MILLENNIUM Comment: Diabetes: >=200 mg/dL plus symp toms BUN 17 10 - 20 mg/dL CERNER MILLENNIU M Creatinine 1.01 0.80 - 1.50 mg/dL CERNER MILL ENNIUM Comment: Please note that the pediatric reference intervals supplied above were not validated at [facility]. Results from pediatri c patients should be interpreted in conjunction to the patient's age, height and muscle mass. Sodium 137 135 - 145 mmol/L CERNER IVAN NIUM Potassium 4.4 3.5 - 5.0 mmol/L CERNER IVAN NIUM Comment: Please note: ??Patients with WBC >100,00 0 may have falsely elevated Potassium levels. ??For accurate Potassium quantif ication in these patients send serum separator tube (gold top) for subsequent determinations. ??Contact the Clinical Chemistry Laboratory if there are any qu estions. Chloride 101 98 - 107 mmol/L CERNER MILLENN IUM CO2 25 22 - 31 mmol/L CERNER MILLENNI UM Anion Gap 11 5 - 15 mmol/L CERNER MILLENNIU M Calcium 8.9 8.5 - 10.5 mg/dL CERNER IVAN NIUM Estimated GFR >60 >=60 CERNER MILLENNIU M Comment: This estimated GFR (eGFR) value was [...] Location / / Volume Laterality Blood specimen 01/29/2013 4:35 AM 013 4:42 (specimen) EDT AM EDT Resulting Agency Comment Spec In Lab Roshan Granados MD CHEMISTRY ORDERABLES Performing Organization Address City/State/[place] [address] CERNER MILLENNIUM (ABNORMAL) CBC (with Diff) (01/29/2013 4:35 AM EDT) athologist Signature WBC 10.8 (H) 4.0 - 10.0 CERNER x10(3)/mcL MILLENNIUM RBC 4.12 (L) 4.63 - CERNER 6.08 MILLENNIUM x10(6)/mcL Hemoglobin 12.9 (L) 13.7 - CERNER 17.5 gm/dL MILLENNIUM Hematocrit 39.0 (L) 40.0 - CERNER 51.0 % MILLENNIUM MCV 94.7 (H) 79.0 - CERNER 92.0 fL MILLENNIUM MCH 31.3 25.6 - CERNER 32.2 pg MILLENNIUM MCHC 33.1 32.0 - CERNER 36.5 gm/dL MILLENNIUM Platelets 303 145 - 370 CERNER x10(3)/mcL MILLENNIUM RDWSD 50.6 (H) 35.0 - CERNER 46.0 fL MILLENNIUM RDWCV 14.8 (H) 10.9 - CERNER 14.4 % MILLENNIUM MPV 10.8 9.0 - 12.0 CERNER fL MILLENNIUM Specimen Anatomical Collection Method Collection Time Receive d Time (Source) Location / / Volume Laterality Blood specimen 01/29/2013 4:35 AM 013 4:42 (specimen) EDT AM EDT Resulting Agency Comment Spec In Lab Roshan Granados MD HEMATOLOGY ORDERABLES Performing Organization Address City/State/ZIP Code Phon e Number [place] [phone] [facility] documented in this encounter Visit Diagnoses Not on filedocumented in this encounter Administered Medications Inactive Administered Medications - up to 3 most recent administrations Medication Order MAR Action Action Date Dose Rate Site atenolol (TENORMIN) tablet 75 mg Given 01/29/2013 9:00 AM EDT 75 mg 75 mg, Oral, DAILY, First dose on Noris 01/29/13 at 0900, Until Discontinued, Routine BUpivacaine (PF) (MARCAINE) 0.25 % (2.5 Given 01/28/2013 7:25 PM EDT 42.5 mg mg/mL) injection ONCE PRN, Starting on Sat01/28/13 at 1925, Until Sat01/28/13 at 2213, Intra-Operative (Intra-Procedure), Routine heparin (porcine) Given 01/29/2013 6:31 AM 5,000 Units Right Lower subcutaneous injection EDT Qu adrant 5,000 Units 5,000 Units, Subcutaneous, EVERY 8 HOURS SCHEDULED, First dose on Sat01/29/13 at 0600, Until Discontinued, Routine hydrochlorothiazide (HYDRODIURIL) tablet 25 mg Given 01/29/2013 9:00 AM EDT 25 mg 25 mg, Oral, DAILY, First dose on Sat01/29/13 at 0900, Until Discontinued, Routine HYDROmorphone (DILAUDID) 1 mg/mL New Syringe/Cartridge 01/28/2013 8:3 0 PM EDT [employer] 30 mL Intravenous, [employer] ONLY, Starting on Sat01/28/13 at 2030, Until Sat01/29/13 at 0020 HYDROmorphone (DILAUDID) 1 mg/mL [employer] Rate/Dose Change 01/29/2013 12:4 5 AM EDT 30 mL Intravenous, [employer] ONLY, Starting on Sat01/29/13 at 0045, Until Sat01/29/13 at 1102 HYDROmorphone (DILAUDID) injection 0.2-0 .4 mg Given 01/28/2013 8:30 PM EDT 0.4 mg 0.2-0.4 mg, Intravenous, EVERY 5 MIN PRN, Starting on Sat01/28/13 at 1945, Until Sat01/28/13 at 2213, Pain, For moderate pain give: 0.2 mg every 5 minute prn For severe pain give: 0.4 mg every 5 minutes prn Maximum dose: 4 mg per hour Hold for respiratory rate less than 10 per minute., PACU Recovery, Routine Given 01/28/2013 8:15 PM EDT 0.4 mg Given 01/28/2013 8:10 PM EDT 0.4 mg ketorolac (TORADOL) injection 15-30 mg Given 01/29/2013 12:34 PM EDT 30 mg 15-30 mg, Intravenous, EVERY 6 HOURS PRN, Starting on Sat01/29/13 at 0940, Until Sat01/29/13 at 1652, Pain, Routine ketorolac (TORADOL) injection 30 mg Given 01/29/2013 6:31 AM EDT 30 mg Left Arm 30 mg, Intravenous, EVERY 6 HOURS SCHEDULED, 20 doses, First dose on Sat01/28/13 at 2030, Last dose on Sat02/02/13 at 1200, Routine Given 01/28/2013 11:30 PM EDT 30 mg Given 01/28/2013 8:30 PM EDT 30 mg lactated ringers infusion 1,000 mL New Bag 01/28/2013 7:45 PM EDT mL 1,000 mL, at 100 mL/hr, Intravenous, CONTINUOUS, Starting on Sat01/28/13 at 1600, Until Sat01/28/13 at 2213, Day of Surgery (Day of Procedure) New Bag 01/28/2013 3:38 PM EDT 1,000 mLs 100 mL/hr lactated ringers infusion New Bag 01/29/2013 3:29 AM EDT 125 mL/hr 125 mL/hr 125 mL/hr, Intravenous, CONTINUOUS, Starting on Sat01/28/13 at 2030, Until Sat01/29/13 at 1102 New Bag 01/28/2013 8:30 PM EDT 125 mL/hr 125 mL/hr LORazepam (ATIVAN) injection 0.5 mg Given 01/28/2013 8:23 PM EDT 0.5 mg 0.5 mg, Intravenous, EVERY 8 HOURS PRN, Starting on Sat01/28/13 at 2002, Until Sat01/29/13 at 0010, muscle spasms, Routine LORazepam (ATIVAN) injection 0.5 mg Given 01/28/2013 8:53 PM EDT 0.5 mg 0.5 mg, Intravenous, ONCE PRN, 1 dose, Starting on Sat01/28/13 at 2049, Until Sat01/28/13 at 2053, Anxiety, muscle spasm, Routine OXYcodone (ROXICODONE) immediate release Given 01/29/2013 11:52 AM EDT 15 mg tablet 10-20 mg 10-20 mg, Oral, EVERY 4 HOURS PRN, Starting on Sat01/29/13 at 0940, Until Sat01/29/13 at 1652, Pain, Routine senna-docusate (PERICOLACE) 8.6-50 mg per Given 01/29/2013 9 :00 AM EDT 1 tablet tablet 1-4 tablet 1-4 tablet, Oral, 2 TIMES DAILY, First dose on Sat01/28/13 at 2245, Until Discontinued, Start with 1 tablet or liquid equivalent orally twice daily and titrate up to achieve: 1. One bowel movement at least every 48 hours, AND 2. Without straining, Routine Given 01/28/2013 11:30 PM EDT 1 tablet sodium chloride 0.9 % flush 5 mL Given 01/29/2013 11:00 AM EDT 5 mLs 5 mL, Intravenous, EVERY 12 HOURS, First dose on Sat01/28/13 at 2245, Until Discontinued, Routine Given 01/28/2013 10:45 PM EDT 5 mLs documented in this encounter Active and Recently Administered Medications Times are shown in EDT. Scheduled Medication Order 01/27/2013 01/28/2013 01/29/2013 atenolol (TENORMIN) tablet 75 mg (CANCELED) 0900 (Given - Provider: Nanci Hendrix RN) 75 mg, Oral, DAILY, First dose on Sat01/29/13 at 0900 ceFAZolin (ANCEF) 2g in dextrose 5% 50 mL (CANCELED) 1600 (Due)1744 (Given - Provider: Winston Cee CRNA)1900 (Due) 2 g, Intravenous, EVERY 3 HOURS, First d ose on Sat01/28/13 at 1600, Until Discontinued, Day of Surgery (Day of Procedure), Indication (Active or Suspected): Prophylaxis heparin (porcine) subcutaneous injection 5,000 Units (CANCELED) 0631 (Given - Provider: Jasper Prakash RN)1400 (Due) 5,000 Units, Subcutaneous, EVERY 8 HOURS SCHEDULED, First dose on Sat01/29/13 at 0600, Until Discontinued, Routine hydrochlorothiazide (HYDRODIURIL) tablet 25 mg (CANCELED) 0900 (Given - Provider: Nanci Hendrix RN) 25 mg, Oral, DAILY, First dose on Sat at 0900, Until Discontinued, Routine ketorolac (TORADOL) injection 30 mg (CANCELED) 2029 (Given - Provider: Bhanu Germain RN)2330 (Given - Provider: Jasper Prakash RN) 0631 (Given - Provider: Jasper Prakash, POLINA)1200 (Not Given - Provider: Nanci Hendrix RN - Reason: See comment - Comment: given and charted under PRN) 30 mg, Intravenous, EVERY 6 HOURS SCHEDU LED, 20 doses, First dose on Sat01/28/13 at 2030, Last dose on Sat02/02/13 at 1200, Routine senna-docusate (PERICOLACE) 8.6-50 mg per tablet 1-4 tablet (CANCELED) 2330 (Given - Provider: Jasper Prakash RN) 0900 (Given - Provider: Nanci Hendrix, RN) 1-4 tablet, Oral, 2 TIMES DAILY, First d ose on Sat01/28/13 at 2245, Until Discontinued, Start with 1 tablet or liquid equivalent orally twice daily and titrate up to achieve: 1. One bowel movement at le ast every 48 hours, AND 2. Without straining, Routine sodium chloride 0.9 % flush 5 mL (CANCELED) 2245 (Given - Provider: Jasper Prakash RN) 1100 (Given - Provider: Nanci Hendrix , POLINA) 5 mL, Intravenous, EVERY 12 HOURS, First dose on Sat01/28/13 at 2245, Until Discontinued, Routine Continuous Medication Order 01/27/2013 01/28/2013 01/29/2013 HYDROmorphone (DILAUDID) 1 mg/mL [employer] 30 mL (CANCELED) 2030 (New Syringe/Cartridge - Provider: Bhanu Germain RN) Intravenous, [employer] ONLY, Starting Sat01/28/13 at 2030, Until T hu 01/29/13 at 0020 HYDROmorphone (DILAUDID) 1 mg/mL [employer] 30 mL (CANCELED) 0045 (Rate/Dose Change - Provider: Jasper Prakash RN) Intravenous, [employer] ONLY, Starting Noris 01/29/13 at 0045, Until T hu 01/29/13 at 1102 lactated ringers infusion 1,000 mL (CANCELED) 1538 (New Bag - Provider: Rosalind Kaminski RN)1915 (Anesthesia Volume Adjustment - Provider: Makayla Morris CRNA)1945 (New Bag - Provider: Makayla Morris CRNA) 1,000 mL, at 100 mL/hr, Intravenous, CON TINUOUS, Starting Sat01/28/13 at 1600, Until Sat01/28/13 at 2213, Day of Surgery (Day of Procedure) lactated ringers infusion (CANCELED) 203 0 (New Bag - Provider: Bhanu Germain RN) 0329 (New Bag - Provider: Mazin bah RN) 125 mL/hr, at 125 mL/hr, Intravenous, CO NTINUOUS, Starting Sat01/28/13 at 2030, Until Noris 01/29/13 at 1102 PRN Medication Order 01/27/2013 01/28/2013 01/29/2013 BUpivacaine (PF) (MARCAINE) 0.25 % (2.5 mg/mL) injection (CA NCELED) 1924 (Given - Provider: Noah Mcgee MD - Comment: 17 mls) ONCE PRN, Starting Sat01/28/13 at 1925, Until Sat01/28/13 at 2213, Intra- Operative (Intra-Procedure), Routine HYDROmorphone (DILAUDID) injection 0.2-0.4 mg (CANCELED) 1999 (Given - Provider: Bhanu Germain RN)2009 (Given - Provider: Bhanu Germain RN)2014 (Given - Provider: Bhanu Germain RN)2029 (Given - Provider: Bhanu Germain RN) 0.2-0.4 mg, Intravenous, EVERY 5 MIN PRN , Starting Sat01/28/13 at 1945, Until Sat01/28/13 at 221, Pain, For moderate pain give: 0.2 mg every 5 minute prn For severe pain give: 0.4 mg every 5 minutes pr n Maximum dose: 4 mg per hour Hold for r espiratory rate less than 10 per minute., PACU Recovery, Routine ketorolac (TORADOL) injection 15-30 mg (CANCELED) 1233 (Given - Provider: Nanci Hendrix RN) 15-30 mg, Intravenous, EVERY 6 HOURS PRN , Starting Noris 01/29/13 at 0940, Until Noris 01/29/13 at 1652, Pain, Routine LORazepam (ATIVAN) injection 0.5 mg (CANCELED) 2022 (Given - Provider: Bhanu Germain RN) 0.5 mg, Intravenous, EVERY 8 HOURS PRN, Starting Sat01/28/13 at 2002, Until Noris 01/29/13 at 0010, muscle spasms, Routine LORazepam (ATIVAN) injection 0.5 mg (COMPLETED) 2052 (Given - Provider: Bhanu F Germain, RN) 0.5 mg, Intravenous, ONCE PRN, 1 dose, S tarting Sat01/28/13 at 2049, Until Sat01/28/13 at 2053, Anxiety, muscle spasm, Routine OXYcodone (ROXICODONE) immediate release tablet 10-20 mg (CANCEL ED) 1152 (Given - Provider: Nanci Hendrix RN) 10-20 mg, Oral, EVERY 4 HOURS PRN, Start ing Noris 01/29/13 at 0940, Until Noris 01/29/13 at 1652, Pain, Routine No Frequency Medication Order 01/27/2013 01/28/2013 01/29/2013 heparin (porcine) 5,000 unit/0.5 mL subcutaneous injection ( COMPLETED) 1545 (Due)1803 (Given - Provider: Winston Cee CRNA - Comment: Right shoulder) 1 dose, Starting Sat01/28/13 at 1536, Un til Sat01/28/13 at 1803, ROSALIND KAMINSKI: cabinet override documented in this encounter Care Teams Firmware Developer Relationship Specialty Start Date End Date None PCP - General 08/30/11 06/15/13 None documented as of this encounter
--- OUTSIDE RECORDS SUMMARY | 2022-02-13 13:28 | XMS_ITS | Encounter Summary ---
:1965 Author Organization [facility] [place] [address] Care Team Providers Name Role Phone Sharon Sanabria MD Primary Care Provider Encounter Details Date Type Department Care Team Description 03/26/2018 Ancillary Procedure Radiology Library at Skyla Sanabria, [facility] [address] [address] [place] [address] [phone] Social History Tobacco Use Types Packs/Day Years [...] Associated Diagnosis Comme nts FILM LIBRARY Routine 03/26/2018 12:00 AM Results for this STORAGE ONLY DX EST procedure ar e in FOOT the results section. documented in this encounter Results Film Library- Storage Only DX Foot (03/26/2018 12:00 AM EST) Specimen (Source) Anatomical Location Collection Method / Collectio n Time Received Time / Laterality Volume Narrative RAD - 10/07/2018 3:27 PM EDT This exam is auto-finalizing. It's purpo se is for storage only. Sharon Sanabria MD IMG FILM LIBRARY ORDERABLES Performing Organization Address City/State/ZIP Code Phon e Number [facility] [place], [place] documented in this encounter Visit Diagnoses Not on filedocumented in this encounter Care Teams Mohel Relationship Specialty Start Date End Date Sharon Sanabria MD PCP - General 06/16/13 [address] [place] [address] documented as of this encounter
--- OUTSIDE RECORDS SUMMARY | 2022-02-13 13:28 | XMS_ITS | Encounter Summary ---
:1965 [place] [address] Care Team Providers Name Role Phone None Primary Care Provider Unavailable Encounter Details Date Type Department Care Team Description 01/28/2013 Anesthesia Event Main Operating Room Oscar Munoz MD [facility] [place] [address] [facility] ([facility]3] Pat Redd MD [facility] [place] [address] [place] [address] Anesthesia Record Procedure Summary Procedure Name Responsible Anesthesia Start Anesthesia Stop Anesthesiologist Time Time LAPAROSCOPIC Oscar Faye MD 01/28/13 1744 01/28/131952 HERNIA,VENTRAL, REDUCIBLE, W-WO MESH (WRVU 11.92) (N/A Abdomen) Events Date Time Event Comment 01/28/2013 1622 1744 AN Verify 1744 Start 1744 An Start Data 1755 An Induction 1758 An Intubation 1800 Anesthesia Ready 181 Procedure Start 1822 Quick Note Pneumoperitoneum 1857 Handoff The patient's ch art was reviewed. The current anestetic course as well as the anesthetic plans were also review ed. 1941 Extubation/LMA Out 1944 an stop data 1952 Stop Name Total Midazolam 2 mg fentaNYL 350 mcg IV Lidocaine 100 mg Propofol 200 mg Rocuronium 100 mg Dexamethasone 4 mg Neostigmine 4 mg Glycopyrrolate 0.6 mg ceFAZolin (ANCEF) 2g in dextrose 5% 50 mL 2 g heparin (porcine) 5,000 unit/0.5 mL subcutaneous injec tion 5,000 Units lactated ringers infusion 1,000 mL 0 mL Agents Name O2 Air Sevoflurane (et) Desflurane (et) Blood No blood administrations on file. Lines, Drains, and Airways Type Details Placement Removal Incision 06/12/11; 1340; 06/12/11 1340 by 01/01/22 1715 b y abdomen; 01/01/22 (LDA Aurelia Vazquez Mull er, Dierdre L cleanup utility RN RA#[id number]); 1715 (LDA cleanup utility RA#[id number]) Urethral Catheter 01/28/13; indwelling 01/28/13 0000 by 01/29/13 0620 by double lumen catheter; Mustapha Cohn, Jasper Zhou RN 100% silicone; 16; inserted; 1; drainage bag to dependent drainage; 01/29/13; 0620 Incision 01/28/13; abdomen 01/28/13 0000 by 01/01/22 1715 by (multiple trocar Mustapha Cohn, Rosendo Zamudio sites); 01/01/22 (LDA cleanup utility RA#[id number]); 1715 (LDA cleanup utility RA#[id number]) PIV 01/28/13; 1538; 01/28/13 1538 by 01/29/13 1440 b y 01/29/13; 1440 Rosalind Hart Jarvis, Alys sa M RN (RETIRED) Mask Ventilation: 01/28/13 1758 by 01/28/13 1942 by Non-Surgical Airway Adjunct (2); ETT Type: Noah Cee Bryson, Patricia A, Cuffed, Oral; ETT Size: SVP SVP 7 mm; Oral Airway: 90 mm (4) (RETIRED) NG/OG Tube Oral; Orogastric 01/28/13 1804 by 11/20/21 1440 by Noah Cee Muller, Di erdre L SVP documented in this encounter Social History Tobacco Use Types Packs/Day Years [...] on file documented as of this encounter OR Notes Anesthesia Postprocedure Evaluation - Oscar Faye MD - 01/28/2013 8:17 PM EDT Patient: Robb Anton Procedure(s) Performed: Procedure(s): LAPAROSCOPIC HERNIA,VENTRAL, REDUCIBLE, W-WO MESH MODIFIER MESH,ATRIUM,C-QUR Actual Anesthetic: general Patient location: PACU Post-op pain: having pain but being treated appropriately Post-op nausea: no nausea or vomiting Last Vitals: Filed Vitals: 01/28/13 1950 BP: Pulse: Temp: 36.5 ??C (97.7 ??F) Resp: 16 Post-op cardiovascular and respiratory status: is stable Level of consciousness: awake, alert and oriented Complications: no apparent complications and tolerated the procedure well Fluid Status: normal Anesthesia Preprocedure Evaluation - Oscar Faye MD - 01/27/2013 2:33 PM EDT Images from the original note were not included. Pre-Anesthesia Evaluation for: Robb Anton a 47 y.o. male. Procedure(s): LAPAROSCOPIC HERNIA,VENTRAL, REDUCIBLE, W-WO MESH MODIFIER MESH,ATRIUM,C-QUR Patient Active Problem List Diagnosis ??? Ventral hernia ??? Splenomegaly ??? Sarcoidosis Past Medical History Diagnosis Date ??? Hypertension Past Surgical History Procedure Date ??? Removal spleen, total 06/12/2011 @SPLENECTOMY, TOTAL performed by JOAQUIN MCGEE at [facility] MAIN OR History Substance Use Topics ??? Smoking status: Never Smoker ??? Smokeless tobacco: Current User Types: Chew Comment: one can chew per day ??? Alcohol Use: No None for 13 weeks History Drug Use No No Known Allergies Medications: MAR and/or home medications have been reviewed. Physical Exam: There were no vitals filed for this visit. There is no height or weight on file to calculate BMI. Airway Assessment: Mallampati: II TM distance: >3 FB Neck ROM: full Proven airway: Weiner 2, Gr 1 view Cardiovascular Assessment: Rhythm: regular Rate: normal Pulmonary Assessment: breath sounds clear to auscultation Dental Assessment: [facility] Assessment: IV access: Peripheral line Anesthesia Plan: ASA 2 general, with a(n) intravenous induction 47 y/o male with HTN, GERD, sarcoidosis, S/P splenectomy presents with incisional hernia for laparoscopic hernia repair. No gerd recent URI cp or SOB Risks and benefits discussed and all questions answered Region - Other Informed Consent: Anesthetic plan and risks discussed with patient. Use of blood products discussed with patient whom. Plan discussed with SVP. [facility]. Assessment: documented in this encounter Miscellaneous Notes Addendum Note - Curtis Franklin MD - 01/28/2013 8:50 PM EDT Addendum created 01/28/132049 by Curtis Franklin MD Modules edited:Orders documented in this encounter Plan of Treatment Not on filedocumented as of this encounter Visit Diagnoses Not on filedocumented in this encounter Administered Medications Inactive Administered Medications - up to 3 most recent administrations Medication Order MAR Action Action Date Dose Rate Site ceFAZolin (ANCEF) 2g in dextrose 5% Given 01/28/2013 5:44 PM EDT 2 g 50 mL 2 g, Intravenous, EVERY 3 HOURS, First dose on Sat01/28/13 at 1600, Until Discontinued, Day of Surgery (Day of Procedure), Indication for (Active or Suspected): Prophylaxis dexamethasone (DECADRON) injection Given 01/28/2013 6:02 PM EDT 4 mg PRN, Starting on Sat01/28/13 at 1802, Until Sat01/28/13 at 1956, Anesthesia Intra-op, Routine fentaNYL 50mcg/mL injection Given 01/28/2013 7:47 PM EDT 100 mcg PRN, Starting on Sat01/28/13 at 1755, Until Sat01/28/13 at 1956, Pain, Anesthesia Intra-op, Routine Given 01/28/2013 7:30 PM EDT 150 mcg Given 01/28/2013 6:18 PM EDT 50 mcg glycopyrrolate (ROBINUL) injection Given 01/28/2013 7:15 PM EDT 0.6 mg PRN, Starting on Sat01/28/13 at 1915, Until Sat01/28/13 at 195, Anesthesia Intra-op, Routine heparin (porcine) 5,000 unit/0.5 mL Given 01/28/2013 6:03 PM EDT 5,000 Units subcutaneous injection 1 dose, Starting on Sat01/28/13 at 1536, Until Sat01/28/13 at 1803, ROSALIND HART: cabinet override lactated ringers infusion 1,000 mL New Bag 01/28/2013 7:45 PM EDT mL 1,000 mL, at 100 mL/hr, Intravenous, CONTINUOUS, Starting on Sat01/28/13 at 1600, Until Sat01/28/13 at 2213, Day of Surgery (Day of Procedure) New Bag 01/28/2013 3:38 PM EDT 1,000 mLs 100 mL/hr lidocaine (PF) (XYLOCAINE) 100 mg/5 mL (2 %) Given 5:55 PM EDT 100 mg injection PRN, Starting on Sat01/28/13 at 1755, Until Sat01/28/13 at 195, Anesthesia Intra-op, Routine midazolam (VERSED) injection Given 01/28/2013 5:44 PM EDT 2 mg PRN, Starting on Sat01/28/13 at 1744, Until Sat01/28/13 at 195, Sleep, Anesthesia Intra-op, Routine neostigmine (PROSTIGMINE) injection Given 01/28/2013 7:15 PM EDT 4 mg PRN, Starting on Sat01/28/13 at 1915, Until Sat01/28/13 at 195, Anesthesia Intra-op, Routine propofol (DIPRIVAN) 10 mg/mL bolus injection Given 5:55 PM EDT 200 mg (Anesthesia) PRN, Starting on Sat01/28/13 at 1755, Until Sat01/28/13 at 195, Anesthesia Intra-op rocuronium (ZEMURON) injection Given 01/28/2013 7:15 PM EDT 10 mg PRN, Starting on Sat01/28/13 at 1755, Until Sat01/28/13 at 195, Anesthesia Intra-op, Routine Given 01/28/2013 6:59 PM EDT 10 mg Given 01/28/2013 6:46 PM EDT 10 mg documented in this encounter Care Teams Airline Pilot Flight Instructor Relationship Specialty Start Date End Date None PCP - General 08/30/11 06/15/13 None documented as of this encounter
--- OUTSIDE RECORDS SUMMARY | 2022-02-13 13:28 | XMS_ITS | Encounter Summary ---
:1965 Author Organization [place] [address] Care Team Providers Name Role Phone None Primary Care Provider Unavailable Reason for Visit Reason Comments Established INCISONAL HERNIA Encounter Details Date Type Department Care Team Description 11/27/2012 Follow-Up General Surgery at Joaquin Mcgee MD Ventral hernia (Primary [facility] Dx) [facility] [address] Olvera [place] [address] [place] [address] [phone] (Wo rk) Social History Tobacco Use Types [...] Sign Reading Time Taken Comments Blood Pressure - - Pulse - - Temperature - - Respiratory Rate - - Oxygen Saturation - - Inhaled Oxygen Concentration - - Weight 109.8 kg (242 lb) 11/27/2012 10:26 AM EDT Height - - Body Mass Index 31.07 10/30/2011 1:23 PM EDT documented in this encounter Progress Notes Joaquin Mcgee MD - 11/27/2012 11:37 AM EDT Robb Anton is a 47 y.o. male [...] @SPLENECTOMY, TOTAL performed by JOAQUIN MCGEE at [facility] MAIN OR Medications: Current Outpatient Prescriptions on [...] examination, this is a well appearing male. His abdomen is nontender and without palpable masses. The incisional hernia itself is easily reducible in the upper aspect of the midline incision. I cannot fully appreciate the size of the fascial defect, but it seems relatively small. There areno groin hernias. His extremity and neurological exam are grossly normal. I spent the majority (15 minutes) of this 20 minute visit discussing the pros and cons of laparoscopic versus open repair. To better assess the defect size and content, I would like to get a CT scan. This is arranged with follow up the same day. documented in this encounter Plan of Treatment Not on filedocumented as of this encounter Results CT abdomen & pelvis with contrast (12/18/2012 4:11 PM EDT) Anatomical Region Laterality Modality Abdomen, Pelvis Computed Tomography Specimen (Source) Anatomical Collection Method Collection Time Re ceived Time Location / / Volume Laterality 12/18/2012 4:11 PM EDT Narrative 12/18/2012 4:[address] Abdomen / Pelvis With Contrast Clinical History Ventral hernia Comparison 08/30/2011. Technique Omnipaque 350 110 mL. Findings Lung bases show marked, most likely, chr onic interstitial abnormality suggesting either end-stage pulmonary fi brosis or, less likely, pulmonary edema. ??I favor the former diagnosis. ? ?Also possible would be metastatic, lymphangitic spread of tumor or stage IV sarcoidosis. Abdominal images demonstrate a small asha tral hernia with a 35 mm defect in the anterior abdominal wall, between the rec tus muscles. ??This defect measures approximately 6 cm in the cephalocaudal dimension, and it contains fat but no bowel. Patient is status post splenectom y. The liver, pancreas, adrenal glands all appear normal. ??Kidneys show no blaire id or cystic lesions. ??There are enlarged anders aortic and aortocaval lymp h nodes suggesting lymphoproliferative disorder or lymphoma most likely. Pelvis: ??The patient is status post DAISHA F for a complex pubic ramus fracture. ?? Urinary bladder is unremarkable. ??No ly mphadenopathy except for a borderline right iliac lymph node. Bone windows: Post-traumatic fusion of t he left SI joint. ??No lytic or blastic lesions are seen. Impression Small ventral hernia containing fat and not bowel. ??Interstitial lung disease suggesting pulmonary fibrosis most, but the differentials list is quite extensive. ??Status post ORIF complex pu bic fractures and old fusion of the left SI joint post trauma. ??Marked lymphaden opathy in the retroperitoneum suggests lymphoma or lymphoproliferative disorder . However, this appears stable compared to 2012. Status post splenectomy. Procedure Note Dale Pena MD - 12/18/2012Formatt ing of this note might be different from the original. Examination CT Abdomen / Pelvis With Contrast Clinical History Ventral hernia Comparison 08/30/2011. Technique Omnipaque 350 110 mL. Findings Lung bases show marked, most likely, chr onic interstitial abnormality suggesting either end-stage pulmonary fi brosis or, less likely, pulmonary edema. I favor the former diagnosis. Als o possible would be metastatic, lymphangitic spread of tumor or stage IV sarcoidosis. Abdominal images demonstrate a small asha tral hernia with a 35 mm defect in the anterior abdominal wall, between the rec tus muscles. This defect measures approximately 6 cm in the cephalocaudal dimension, and it contains fat but no bowel. Patient is status post splenectom y. The liver, pancreas, adrenal glands all appear normal. Kidneys show no solid or cystic lesions. There are enlarged anders aortic and aortocaval lymp h nodes suggesting lymphoproliferative disorder or lymphoma most likely. Pelvis: The patient is status post ORIF for a complex pubic ramus fracture. Urinary bladder is unremarkable. No lymp hadenopathy except for a borderline right iliac lymph node. Bone windows: Post-traumatic fusion of t he left SI joint. No lytic or blastic lesions are seen. Impression Small ventral hernia containing fat and not bowel. Interstitial lung disease suggesting pulmonary fibrosis most, but the differentials list is quite extensive. Status post ORIF complex pubi c fractures and old fusion of the left SI joint post trauma. Marked lymphadenop athy in the retroperitoneum suggests lymphoma or lymphoproliferative disorder . However, this appears stable compared to 2012. Status post splenectomy. Joaquin Mcgee MD IMG CT ORDERABLES documented in this encounter Visit Diagnoses Diagnosis Ventral hernia - Primary Ventral hernia, unspecified, without men tion of obstruction or gangrene Ventral hernia Ventral hernia, unspecified, without men tion of obstruction or gangrene documented in this encounter Care Teams Santa'S Helper Relationship Specialty Start Date End Date None PCP - General 08/30/11 06/15/13 None documented as of this encounter
--- OUTSIDE RECORDS SUMMARY | 2022-02-13 13:28 | XMS_ITS | Encounter Summary ---
:1965 [place] [address] Care Team Providers Name Role Phone None Primary Care Provider Unavailable Encounter Details Date Type Department Care Team Description 01/28/2013 - Hospital Encounter Short Stay Unit at [facility], Noah Stein, 01/29/2013 Pat Guerrero [facility] DR Olvera GENERAL SURGERY [place] [phone] Social History Tobacco Use Types Packs/Day Years [...] Sign Reading Time Taken Comments Blood Pressure 121/83 01/28/2013 8:45 PM EDT Pulse 58 01/28/2013 8:45 PM EDT Temperature 36.5 ??C (97.7 ??F) 01/28/2013 7:50 PM EDT Respiratory Rate 14 01/28/2013 8:45 PM EDT Oxygen Saturation 96% 01/28/2013 8:45 PM EDT Inhaled Oxygen Concentration - - [...] 101.3 F. The number for questions is [phone] before 5 PM weekdays and [phone] after 5 PM and weekends. Pain Medication: [...] will be mailed to you. Please call [phone] (clinic number for appointments) to confirm date and time of your appointment if you do not receive your apointment in 3 weeks. AttachmentsThe following attachments cannot be sent through Care Everywhere. HERNIA REPAIR: WHAT TO EXPECT AT HOME (MACANESE)documented in this encounter Medications at Time of [...] approved for discharge to home. IV fluids, RESISTOR INSPECTOR Dilaudid, and iv line discontinued; iv site [...] in stable condition and good spirits. Will rock picker prescription for Oxycodone at out-patient pharmacy. Winston Morgan MD - 01/29/2013 6:25 AM EDT General Surgery Progress Note ID: Robb Anton was admitted on 01/28/2013 3:19 PM for symptomatic ventral hernia repair Hospital Course: Taken to OR for Lap ventral hernia repair. Tolerated procedure well. No complications. 24 Hour Events: ?? Pain controldifficulty in Short Stay, Increase in RESISTOR INSPECTOR dose, 0.4/12/5, with relief ?? Tolerating sips [...] 24 Current Shift Last 3 Shifts 01/28 0701 - 01/29 0700 In: 2681 [P.O.:240; I.V.:2241] [...] hours No results found for this basename: PHART:3,KPX2XTW:3,PO2ART:3,KXI4MDO:3 in the last 168 hours IMAGING: ASSESSMENT / PLAN: Robb Anton is a 47 y.o. male with the following active issues: Active Issue Treatment Acute post surgical care Pain control IVF. Pain control, ADAT. Transition to oral pain medications Neuro Pain is well-controlled on dilaudid RESISTOR INSPECTOR. Transition to oral pain meds. Activity Activity [...] complaining of abdominal cramping and pain 02/12. POLINA martinez MD who increased his RESISTOR INSPECTOR dose which eventually relieved cramps. Pt asking for food, but diet only sips and chips. Incision sites have small amt of dried drainage. Pt unsure of taking flu vaccine. RN encouraged d/t recent spenectomy. Yeison Kaiser MD - 01/29/2013 12:31 AM EDT Patient: Robb Anton s/p ap ventral hernia repair Patient location: Med Surgical Floor Post-op pain: Pain needs to [...] Increased ativan order toq6 from q8, changed RESISTOR INSPECTOR lockout from 15 min to 12. Bhanu [...] Muscle spasms resolving, pain tolerable Pt using RESISTOR INSPECTOR, PACU criteria met. documented in this encounter [...] @SPLENECTOMY, TOTAL performed by NOAH MCGEE at [facility] MAIN OR Medications: Current Outpatient Prescriptions on [...] lifting. CT scan shows multiple incisional hernias (andorran-cheese type defects). On exam he has multiple [...] REDUCIBLE, W-WO MESH MODIFIER MESH,ATRIUM,C-QUR Hospital Course: Robbyeimi Anton was taken to the operating room [...] AM Yi Mullen, JOEL LEB SURG 4L [facility] Outpatient Services/Studies: No discharge procedures on file. [...] 101.3 F. The number for questions is [phone] before 5 PM weekdays and [phone] after 5 PM and weekends. Pain Medication: [...] will be mailed to you. Please call [phone] (clinic number for appointments) to confirm date and time of your appointment if you do not receive your apointment in 3 weeks. General Instructions None Provider Contact Information: Divison of General Surgery ??? [facility] ??? [address] ??? [place] [address] ??? [phone] ??? ~~~~~~~~~~~~~~~~~~~~~~~~~~~~~~~~~~~~~~~~~~~~~~~~~~~~~~~~~~~~~~~~~~~ Signed: WINSTON MORGAN MD 01/29/2013 Op Note - Noah Mcgee MD - 01/28/2013 7:34 PM EDT [facility] Operative Note Patient Name: Robb [place] : [id number] MR#: [id number] Case Date: 01/28/2013 Surgeon: Surgeon(s) and Role: [...] (ABNORMAL) Differential, Automated (01/29/2013 4:35 AM EDT) [facility] Method Time Signature Neutrophils % 80.8 (H) [...] Granados MD HEMATOLOGY ORDERABLES Performing Organization Address City/[facility]/ZIP [facility] Phon e Number [address] CERNER MILLENNIUM Phosphorus (01/29/2013 4:35 AM EDT) athologist Signature Phosphorus 4.0 2.5 - 4.5 CERNER mg/dL MILLENNIUM Specimen Anatomical Collection Method Collection Time Receive d Time (Source) Location / / Volume Laterality Blood specimen 01/29/2013 4:35 AM 013 4:42 (specimen) EDT AM EDT Resulting Agency Comment Spec In Lab Roshan Granados MD CHEMISTRY ORDERABLES Performing Organization Address City/[facility] Phon e Number [address] CERNER MILLENNIUM (ABNORMAL) Magnesium (01/29/2013 4:35 AM EDT) athologist Signature Magnesium 0.63 (L) 0.69 - 1.07 CERNER mmol/L [facility] Specimen Anatomical Collection Method Collection Time Receive d Time (Source) Location / / Volume Laterality Blood specimen 01/29/2013 4:35 AM 013 4:42 (specimen) EDT AM EDT Resulting Agency Comment Spec In Lab Roshan Granados MD CHEMISTRY ORDERABLES Performing Organization Address City/[facility] Phon e Number [address] CERNER MILLENNIUM Basic Metabolic Panel (non-fasting) (01/29/2013 4:35 AM EDT) athologist Signature Glucose Lvl 118 60 - 199 CERNER mg/dL MILLENNIUM Comment: Diabetes: >=200 mg/dL plus symp toms BUN 17 10 - 20 mg/dL CERNER MILLENNIU M Creatinine 1.01 0.80 - 1.50 mg/dL CERNER MILL ENNIUM Comment: Please note that the pediatric reference intervals supplied above were not validated at [facility]. Results from pediatri c patients should be [...] Organization Address City/State/[place] [address] CERNER MILLENNIUM (ABNORMAL) CBC (with Diff) (01/29/2013 4:35 AM EDT) P athologist Signature WBC 10.8 (H) 4.0 - [...] Organization Address City/State/[place] [address] [facility] documented in this encounter Visit Diagnoses Not on filedocumented in this encounter Administered Medications Inactive Administered Medications - up to 3 most recent administrations Medication Order MAR Action Action Date Dose Rate Site atenolol (TENORMIN) tablet 75 mg Given 01/29/2013 9:00 AM EDT 75 mg 75 mg, Oral, DAILY, First dose on Sat01/29/13 at 0900, Until Discontinued, Routine heparin (porcine) Given 01/29/2013 6:31 AM [...] New Syringe/Cartridge 01/28/2013 8:3 0 PM EDT RESISTOR INSPECTOR 30 mL Intravenous, RESISTOR INSPECTOR ONLY, Starting on Sat01/28/13 at 2030, Until Sat01/29/13 at 0020 HYDROmorphone (DILAUDID) 1 mg/mL RESISTOR INSPECTOR Rate/Dose Change 01/29/2013 12:4 5 AM EDT 30 mL Intravenous, RESISTOR INSPECTOR ONLY, Starting on Sat01/29/13 at 0045, Until [...] Intravenous, EVERY 6 HOURS PRN, Starting on Noris 01/29/13 at 0940, Until Noris 01/29/13 at 1652, Pain, Routine ketorolac (TORADOL) injection [...] CONTINUOUS, Starting on Sat01/28/13 at 2030, Until Noris 01/29/13 at 1102 New Bag 01/28/2013 8:30 PM EDT 125 mL/hr 125 mL/hr LORazepam (ATIVAN) injection 0.5 mg Given 01/28/2013 8:23 PM EDT 0.5 mg 0.5 mg, Intravenous, EVERY 8 HOURS PRN, Starting on Sat01/28/13 at 2002, Until Noris 01/29/13 at [...] DAILY, First dose on Noris 01/29/13 at 0900 ceFAZolin (ANCEF) 2g in dextrose [...] Prakash RN) 0631 (Given - Provider: Jasper Prakash RN)1200 (Not Given - Provider: Nanci Hendrix RN - Reason: See comment - Comment: given and charted under PRN) 30 mg, Intravenous, EVERY 6 HOURS SCHEDU LED, 20 doses, First dose on Sat01/28/13 at 2030, Last dose on Sat02/02/13 at 1200, Routine senna-docusate (PERICOLACE) 8.6-50 mg per tablet 1-4 tablet (CANCELED) 2330 (Given - Provider: Jasper Prakash RN) 0900 (Given - Provider: Nanci Hendrix RN) 1-4 tablet, Oral, 2 TIMES DAILY, First d ose on Sat01/28/13 at 2245, Until Discontinued, Start with 1 tablet or liquid equivalent orally twice daily and titrate up to achieve: 1. One bowel movement at le ast every 48 hours, AND 2. Without straining, Routine sodium chloride 0.9 % flush 5 mL (CANCELED) 2245 (Given - Provider: Jasper Prakash, RN) 1100 (Given - Provider: Nanci Hendrix RN) 5 mL, Intravenous, EVERY 12 HOURS, First dose on Sat01/28/13 at 2245, Until Discontinued, Routine Continuous Medication Order 01/27/2013 01/28/2013 01/29/2013 HYDROmorphone (DILAUDID) 1 mg/mL RESISTOR INSPECTOR 30 mL (CANCELED) 2029 (New Syringe/Cartridge - Provider: Bhanu Germain RN) Intravenous, RESISTOR INSPECTOR ONLY, Starting Sat01/28/13 at 2030, Until T hu 01/29/13 at 0020 HYDROmorphone (DILAUDID) 1 mg/mL RESISTOR INSPECTOR 30 mL (CANCELED) 0045 (Rate/Dose Change - Provider: Jasper Prakash RN) Intravenous, RESISTOR INSPECTOR ONLY, Starting Noris 01/29/13 at 0045, Until [...] Starting Sat01/28/13 at 1925, Until Sat01/28/13 at 2212, Intra- Operative (Intra-Procedure), Routine HYDROmorphone (DILAUDID) injection 0.2-0.4 mg (CANCELED) 1999 (Given - Provider: Bhanu Germain RN)2009 (Given - Provider: Bhanu Germain RN)2014 (Given - Provider: Bhanu Germain RN)2029 (Given - Provider: Bhanu Germain RN) 0.2-0.4 mg, Intravenous, EVERY 5 MIN PRN , Starting Sat01/28/13 at 1945, Until Sat01/28/13 at 2212, Pain, For moderate pain give: 0.2 mg [...] , Starting Noris 01/29/13 at 0940, Until Sat01/29/13 at 1652, Pain, Routine LORazepam (ATIVAN) injection 0.5 mg (CANCELED) 2022 (Given - Provider: Bhanu Germain RN) 0.5 mg, Intravenous, EVERY 8 HOURS PRN, Starting Sat01/28/13 at 2002, Until Noris 01/29/13 at 0010, muscle spasms, Routine LORazepam (ATIVAN) injection 0.5 mg (COMPLETED) 2052 (Given - Provider: Bhanu Germain RN) 0.5 mg, Intravenous, ONCE PRN, 1 dose, S tarting Sat01/28/13 at 2048, Until Sat01/28/13 at 2052, Anxiety, muscle spasm, Routine OXYcodone (ROXICODONE) immediate release tablet 10-20 mg (CANCEL ED) 1152 (Given - Provider: Nanci Hendrix RN) 10-20 mg, Oral, EVERY 4 HOURS PRN, Start ing Noris 01/29/13 at 0940, Until Noris 01/29/13 at 1652, Pain, Routine No Frequency Medication Order 01/27/2013 01/28/2013 01/29/2013 heparin (porcine) 5,000 unit/0.5 mL subcutaneous injection ( COMPLETED) 1545 (Due)1803 (Given - Provider: Winston Cee, ADDICTION COUNSELOR - Comment: Right shoulder) 1 dose, Starting Sat01/28/13 at 1536, Un til Sat01/28/13 at 1803, ROSALIND KAMINSKI: cabinet override documented in this encounter Care Teams Energy Management Specialist Relationship Specialty Start Date End Date None PCP - General 08/30/11 06/15/13 None documented as of this encounter
--- OUTSIDE RECORDS SUMMARY | 2022-02-13 13:28 | XMS_ITS | Encounter Summary ---
:1965 Author Organization [facility] [place] [address] Care Team Providers Name Role Phone None Primary Care Provider Unavailable Reason for Visit Reason Onset Date Comments Other 08/30/2011 Encounter Details Date Type Department Care Team Description 08/30/2011 Telephone General Surgery at [facility] [place] [phone] Social History Tobacco Use Types Packs/Day Years [...] on file documented as of this encounter Miscellaneous Notes Telephone Encounter - Tony Aguilar MD - 08/30/2011 2:02 PM EDT Do you need me to handle this? Telephone Encounter - Estefany Hayden RN - 08/30/2011 9:48 AM EDT I received a call from Robb he is worsening. He called the general surgery clinic. He reports worsening in his condition. He has pain, he describes it at the base of his breastbone and to the left under his rib. He notes that is where the pain is if you had to place one finger. He has not slept in 4-5days he describes the pain as sharp constant throbbing that is relentless, he said it is making it unbearable. I have put a call in to rheumatology to see if I could talk to Samia there about getting him in sooner for a follow up as he has worsening symptoms. I recommend he come to be evaluated in theemergency department if his pain is so unbearable. He will consider this. I told him I would write up a note to send off to rheumatology. He said he has not heard any of his lab results from July nor was he sure about a plan on who to call with symptoms that worsen.He is no longer on steroids or medications at this point as far as I can tell. He does not have a PCP he reports. documented in this encounter Plan of Treatment Not on filedocumented as of this encounter Visit Diagnoses Not on filedocumented in this encounter Care Teams Medical Record Transcriber Relationship Specialty Start Date End Date None PCP - General 08/30/11 06/15/13 None documented as of this encounter
--- OUTSIDE RECORDS SUMMARY | 2022-02-13 13:28 | XMS_ITS | Encounter Summary ---
:1965 Author Organization [facility] [place] [address] Care Team Providers Name Role Phone None Primary Care Provider Unavailable Encounter Details Date Type Department Care Team Description 12/18/[address] [place] [facility] [place] [address] Social History Tobacco Use Types Packs/Day [...] on file documented as of this encounter Medications at Time of Discharge Medication Sig Dispensed Refills Start Date End Date OXYcodone (ROXICODONE) 15 Take 1 tablet by 30 tablet 0 12/0401/29/2013 mg immediate release mouth every 6 hours tablet as needed for Pain. atenolol (TENORMIN) 50 mg Take 75 mg by mouth 0 03/12/2013 tablet daily. documented as of this encounter Miscellaneous Notes Miscellaneous - Provider, Scanning - 12/23/2012 9:58 AM EDT documented in this encounter Plan of Treatment Not on filedocumented as of this encounter Procedures Procedure Name Priority Date/Time Associated Diagnosis Comme nts CT ABDOMEN AND Routine 12/18/2012 4:11 PM Ventral hernia Resul ts for this PELVIS W CONTRAST EDT procedure are in the results section. documented in this encounter Results CT abdomen & pelvis [...] stable compared to 2012. Status post splenectomy. Noah Hartman MD IMG CT ORDERABLES documented in this encounter Visit Diagnoses Diagnosis Ventral hernia Ventral hernia, unspecified, without men tion of obstruction or gangrene documented in this encounter Administered Medications Inactive Administered Medications - up to 3 most recent administrations Medication Order MAR Action Action Date Dose Rate Site iohexol (OMNIPAQUE) 350 mg Given 12/18/2012 1:00 PM EDT 17,500 m g iodine/mL injection 17,500 mg 17,500 mg (50 mL), Oral, ONCE PRN, 1 dose, Starting on Noris 12/18/12 at 1555, Until Noris 12/18/12 at 1300, Per Protocol, Routine iohexol (OMNIPAQUE) 350 mg iodine/mL Given 12/18/2012 3:56 PM ED T 38,500 mg injection 38,500 mg 38,500 mg (110 mL), Intravenous, ONCE PRN, 1 dose, Starting on Noris 12/18/12 at 1555, Until Noris 12/18/12 at 1556, Per Protocol, Routine documented in this encounter Care Teams [employer] Assistant Relationship Specialty Start Date End Date None PCP - General 08/30/11 06/15/13 None documented as of this encounter
--- OUTSIDE RECORDS SUMMARY | 2022-02-13 13:28 | XMS_ITS | Encounter Summary ---
:1965 Author Organization [facility] [place] [address] Care Team Providers Name Role Phone None Primary Care Provider Unavailable Reason for Visit Reason Comments Follow Up Surgery Encounter Details Date Type Department Care Team Description 03/12/2013 Office Visit General Surgery at Noah Hartman Ventr al hernia [facility] (Primary Dx) [facility] [place] GENER[place]GERY [id number] [place] [id number] [phone] Social History Tobacco Use Types Packs/Day Years [...] - Inhaled Oxygen Concentration - - Weight 112.8 kg (248 lb 10.9 oz) 03/12/2013 10:54 AM EST Height - - Body Mass Index 31.93 01/28/2013 3:27 PM EDT documented in this encounter Progress Notes Noah Hartman MD - 03/12/2013 2:10 PM EST Robb Chester Sloane was seen in followup approximately 1 month after his laparoscopic ventral hernia repair. I am pleased to say that he is recovering nicely, and his wounds are healing well. There are no signs of infection or recurrent hernia. I do not feel any cough impulse or weakness in the abdominal wall on examination. I do not need to see him again in followup unless his pain or discomfort persists, and I will leave a followup on an as-needed basis. documented in this encounter Plan of Treatment Not on filedocumented as of this encounter Visit Diagnoses Diagnosis Ventral hernia - Primary Ventral hernia, unspecified, without men tion of obstruction or gangrene documented in this encounter Care Teams Rd Scientist Relationship Specialty Start Date End Date None PCP - General 08/30/11 06/15/13 None documented as of this encounter
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
--- OUTSIDE RECORDS SUMMARY | 2022-02-13 13:28 | XMS_ITS | Encounter Summary ---
:1965 Author Organization [facility] [place] [address] Care Team Providers Name Role Phone None Primary Care Provider Unavailable Encounter Details Date Type Department Care Team Description 02/19/2013 Office Visit General Surgery at [facility] OPER[facility] (Primary Dx) [facility] [address] [place]ERY [address] [place] [address] [phone] Social History Tobacco Use Types Packs/Day Years [...] on file documented as of this encounter Progress Notes Yi Mullen, JOEL - 02/19/2013 4:28 PM EDT Robb Anton is here for hospital check. 01/28/13:laparoscopic ventral hernia repair-Trus Feels well, denies fever chills, malaise, he is moving his bowels, and voiding. He denies nausea or vomiting. Reports pain and swelling over the past 10 days over his right mid quadrant. Denies any skin changes Exam: Well appearing moves easily about the exam room and onto the exam table. Abd soft non distended and is non tender with the exception of a 3x3 area of firm swelling over his right quadrant. There is no erythema, fluctuance, tenderness, or calor. Impression/Plan: Likely focal hematoma at suture of suture passer site, no evidence of infection at present, I explained to Robb that this would likely resolve over time. He may use ibuprofen for comfort, I have refilled his pain medication. Also instructed the pt in the use of epsom salt poultices to the site. Will have him back in 3 weeks to re assess. Pt in agreement, see by Dr Hartman as well documented in this encounter Plan of Treatment Not on filedocumented as of this encounter Visit Diagnoses Diagnosis Surgery follow-up - Primary Follow-up examination, following unspeci fied surgery documented in this encounter Care Teams Pattern Grader Relationship Specialty Start Date End Date None PCP - General 08/30/11 06/15/13 None documented as of this encounter
--- OUTSIDE RECORDS SUMMARY | 2022-02-13 13:28 | XMS_ITS | Encounter Summary ---
:1965 Author Organization [facility] [place] [address] Care Team Providers Name Role Phone Sharon Sanabria MD Primary Care Provider Reason for Visit Reason Comments Follow-up Encounter Details Date Type Department Care Team Description 08/27/2013 Follow-Up General Surgery at [facility], Noah Stein MD Ventral hernia (Primary [facility] Dx) [facility] [address] [place] [address] [place] [address] [phone] (Wo rk) Social History Tobacco Use Types [...] Sign Reading Time Taken Comments Blood Pressure 146/92 08/27/2013 3:44 PM EDT Pulse 77 08/27/2013 3:44 PM EDT Temperature - - Respiratory Rate - - Oxygen Saturation 95% 08/27/2013 3:44 PM EDT Inhaled Oxygen Concentration - - Weight 116.1 kg (256 lb) 08/27/2013 3:44 PM EDT Height - - Body Mass Index 32.87 01/28/2013 3:27 PM EDT documented in this encounter Progress Notes Noah Hartman MD - 12/04/2013 12:43 PM EDT Seen in follow up for check of his ventral hernia prior to his move. He has had some focal left sided pain with his recent weight gain. No change in bowel habit. On exam he appears well and in no distress. He has some tenderness at a suture fixation site, no sign of recurrent hernia. This is probably due to traction from his weight gain. I reassured him and suggested regular NSAID for a week or so. He plans to lose some weight as well. Follow up prn. documented in this encounter Plan of Treatment Not on filedocumented as of this encounter Visit Diagnoses Diagnosis Ventral hernia - Primary Ventral hernia, unspecified, without men tion of obstruction or gangrene documented in this encounter Care Teams Asphalt Coater Relationship Specialty Start Date End Date Sharon Sanabria MD PCP - General 06/16/13 [address] [place] [address] documented as of this encounter
--- OUTSIDE RECORDS SUMMARY | 2022-02-13 13:28 | XMS_ITS | Encounter Summary ---
:1965 Author Organization [facility] [place] [address] Care Team Providers Name Role Phone None Primary Care Provider Unavailable Encounter Details Date Type Department Care Team Description 10/30/2011 Follow-Up Rheumatology at [facility] Tony Aguilar MD [facility] [address] R[place]UMATOLOG[place] [address] Sarcoidosis ([facility] Kena Lopez MD [facility] [address] [place]HEUMATOLOGY [place] [address] Dx) [place] [address] Social History Tobacco Use Types Packs/Day [...] Sign Reading Time Taken Comments Blood Pressure 128/87 10/30/2011 1:23 PM EDT Pulse 67 10/30/2011 1:23 PM EDT Temperature - - Respiratory Rate - - Oxygen Saturation 96% 10/30/2011 1:23 PM EDT Inhaled Oxygen Concentration - - Weight 112.5 kg (248 lb) 10/30/2011 1:23 PM EDT Height 188 cm (6' 2) 10/30/2011 1:23 PM EDT Body Mass Index 31.84 10/30/2011 1:23 PM EDT documented in this encounter Patient Instructions Patient InstructionsKena Pierce MD - 10/30/2011 2:42 PM EDT See an eye doctor. Start methotrexate, folic acid, prednisone 40mg daily and Bactrim three times a week. Wait 1 week to start the methotrexate. F/u in December. documented in this encounter Progress Notes Tony Aguilar MD - 11/01/2011 7:55 AM EDT I have seen the patient and reviewed the resident's above history and I agree with the details as written. The assessment and plan were formulated in discussion with me and I agree with them as documented. Pertinent History: sarcoidosis s/p splenectomy Pertinent Exam: increasing lymphadenopathy Major issues addressed: Management of active sarcoidosis. Plan: prednisone 40mg per day, methotrexate weekly Kena Pierce MD - 10/30/2011 2:25 PM EDT Rheumatology Fellow Outpatient Progress Note Rheumatologic Problem List 1. 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 2 laproscopic knee surgeries due to ACL tears x2 and meniscal tear with chronic knee pain and effusions Prior anabolic steroid use Prior heavy alcohol use HPI: Robb Chester Sloane is a 46 y.o. male returns today for f/u of sarcoidosis. Has intermittent abdominal pain in his LUQ and RUQ. The LUQ pain worsens when he lays down. The ruq pain happens around 3x/week usually when he lays down, this happens at night when he is sleeping and is improved if he walks around. No change with food or BM. No dyspnea. Has been off prednisone around 2 months. Appetitite, no recent weight loss, no N/V, diarrhea, hematochezia. Does report some hematuria about 1.5 months ago. Sometimes has some on and off dull achy L flank pain for the last few years. Patient has some chronic joint pains related to prior injuries but nothing new. Patient no-showed for his ophthalmology and ID appointments because it is too far to come. Is getting established with a PCP Dr. Bustamante (is not sure about spelling) who he is seeing for the first time in November. Past Medical History Diagnosis Date ??? Hypertension Social: Quit etoh, no drugs, no smoking. ROS: otherwise negative Physical Examination: BP 128/87 Pulse 67 Ht 188 cm (6' 2) Wt 112.492 kg (248 lb) BMI 31.84 kg/m2 SpO2 96% General: AAOx3, NAD HEENT: Mucous membranes are moist, no oral mucosal ulcerations, temporal artery palpable Skin: No rash, has a scab over an area of his abdominal scar Neck: Supple, no lymphadenopathy, full range of motion. Cardiovascular: RR, (-)murmurs, rubs, or gallops. Lungs: Clear to auscultation bilaterally Abdomen: Soft, ttp over ruq and luq, no CVA tenderness, no rebound/guarding, + BS, no mass or hepatomegaly, no ascites Back: Nontender over the spine and costovertebral angles bilaterally. Neuro: Alert and oriented x3. Cranial nerves II through XII grossly intact. Strength 5/5 throughout Extremities: No edema MSK- no synovitis Vascular: Pulses are equal in all extremities. Studies: CT a/p from 08/2011 with increased RP lymphadenopathy CXR 08/2011- continue reticulonodular lung opacities Assessment: Robb Anton is a 46 y.o. male with sarcoidosis who p/w continued abdominal pain and worsening intraabdominal lymphadenopathy c/w active sarcoidosis. His abdominal pain could certainly be due to his sarcoid causing lymphadenoapthy. Will also check for liver abnormalities or pancreatitis as well. Hislung disease is asymptomatic. Plan: - since he recurred after tapering steroids, will restart prednisone at 40mg with methotrexate 15mg - check cbc, cmp, U/A (since c/o intermittent hematuria), lipase - check hep B/C in preparation for therapy - patient also never saw the change coordinator, said here is too far so advised him to see one closer to him and have report sent to us to rule out sarcoid in his eyes - oxycodone prn for pain (helps him sleep, uses sparingly) RTC in 6 weeks for followup. documented in this encounter Plan of Treatment Scheduled Orders Name Type Priority Associated Diagnoses Order S chedule CBC (with Diff) Lab Routine Sarcoidosis Expected: (Approximate), Expires: 2012 Comprehensive metabolic Lab Routine Sarcoidosis Expe cted: 11/01/2011 panel (non-fasting) (Approxi mate), Expires: 2012 documented as of this encounter Procedures Procedure Name Priority Date/Time Associated Comments Diagnosis URINALYSIS WITH REFLEX Routine 10/30/2011 3:01 PM Sarcoidosis Results for this CULTURE EDT procedure are i n the results section. DIFFERENTIAL, Routine 10/30/2011 2:53 PM Results for this AUTOMATED EDT procedure are i n the results section. HEPATITIS C ANTIBODY Routine 10/30/2011 2:53 PM Sarcoidosis R esults for this EDT procedure are i n the results section. HEPATITIS B CORE Routine 10/30/2011 2:53 PM Sarcoidosis Resul ts for this ANTIBODY, TOTAL EDT procedure ar e in the results section. HEPATITIS B SURFACE Routine 10/30/2011 2:53 PM Sarcoidosis Re sults for this ANTIBODY EDT procedure are i n the results section. HEPATITIS B SURFACE Routine 10/30/2011 2:53 PM Sarcoidosis Re sults for this ANTIGEN EDT procedure are i n the results section. SEDIMENTATION RATE Routine 10/30/2011 2:53 PM Sarcoidosis Res ults for this EDT procedure are i n the results section. CBC (WITH DIFF) Routine 10/30/2011 2:53 PM Sarcoidosis Result s for this EDT procedure are i n the results section. CRP, CARDIAC RISK (HS Routine 10/30/2011 2:53 PM Sarcoidosis Results for this CRP) EDT procedure are i n the results section. LIPASE Routine 10/30/2011 2:53 PM Sarcoidosis Results f or this EDT procedure are i n the results section. COMPREHENSIVE Routine 10/30/2011 2:53 PM Sarcoidosis Results for this METABOLIC PANEL EDT procedure ar e in (NON-FASTING) the results section. documented in this encounter Results (ABNORMAL) Urinalysis with microscopic (10/30/2011 3:01 PM EDT) Patholo gist Method Time Signature Glucose UA Negative Negative CERNER mg/dL MILLENNIUM Protein UA Negative mg/dL CERNER MILLENNIUM Bilirubin UA Negative Negative CERNER mg/dL MILLENNIUM Urobilinogen UA Normal mg/dL CERNER MILLENNIUM pH UA 5.0 5.0 - 8.0 CERNER MILLENNIUM Blood UA Negative mg/dL CERNER MILLENNIUM Ketones UA Negative mg/dL CERNER MILLENNIUM Nitrite UA Negative CERNER MILLENNIUM Leukocytes UA Negative mcL CERNER MILLENNIUM Appearance UA Clear Clear CERNER MILLENNIUM Spec [place] UA 1.019 1.002 - CERNER 1.030 MILLENNIUM Color UA Yellow Yellow CERNER MILLENNIUM RBC UA Not Present 0 - 3 CERNER MILLENNIUM WBC UA <1 0 - 3 /HPF CERNER MILLENNIUM Bacteria UA Rare (A) None /HPF CERNER MILLENNIUM Specimen Anatomical Collection Method Collection Time Receive d Time (Source) Location / / Volume Laterality Urine specimen 10/30/2011 3:01 PM 012 3:16 (specimen) EDT PM EDT Resulting Agency Comment Spec In Lab Tony Aguilar MD URINE ORDERABLES Performing Organization Address City/State/ZIP Code Phon e Number [place] [phone] CERNER MILLENNIUM DIFFERENTIAL, AUTOMATED (10/30/2011 2:53 PM EDT) athologist Signature Neutrophils % 44.5 34.0 - CERNER 71.0 % MILLENNIUM Neutr Abs (ANC) 3.36 1.50 - CERNER 6.30 MILLENNIUM x10(3)/mcL Lymphocytes % 37.8 19.0 - CERNER 53.0 % MILLENNIUM Lymphocytes Abs 2.8 1.0 - 3.6 CERNER x10(3)/mcL MILLENNIUM Monocytes % 10.2 4.0 - 13.0 CERNER % MILLENNIUM Monocyte Abs 0.8 0.2 - 1.0 CERNER x10(3)/mcL MILLENNIUM Eosinophils % 6.8 0.0 - 7.0 CERNER % MILLENNIUM Eosinophils Abs 0.5 0.0 - 0.5 CERNER x10(3)/mcL MILLENNIUM Basophils % 0.4 0.0 - 2.0 CERNER % MILLENNIUM Basophils Abs 0.0 0.0 - 0.2 CERNER x10(3)/mcL MILLENNIUM Immature Gran % 0.30 0.00 - CERNER [...] Location / / Volume Laterality Blood specimen 10/30/2011 2:53 PM 012 2:58 (specimen) EDT PM EDT Tony Aguilar MD HEMATOLOGY ORDERABLES Performing Organization Address City/State/ZIP Code Phon e Number [place] [phone] CERNER MILLENNIUM (ABNORMAL) Comprehensive metabolic panel (non-fasting) (10/30/2011 2:53 PM EDT) athologist Signature Glucose Lvl 93 60 - 199 CERNER mg/dL MILLENNIUM Comment: Diabetes: >=200 mg/dL plus symp toms BUN 17 10 - 20 mg/dL CERNER MILLENNIU M Creatinine 1.08 0.80 - 1.50 mg/dL CERNER MILL ENNIUM Comment: Please note that the pediatric reference intervals supplied above were not validated at [facility]. Results from pediatri c patients should be interpreted in conjunction to the patient's age, height and muscle mass. Sodium 137 135 - 145 mmol/L CERNER IVAN NIUM Potassium 4.1 3.5 - 5.0 mmol/L CERNER IVAN NIUM Comment: Please note: ??Patients with WBC >100,00 0 may have falsely elevated Potassium levels. ??For accurate Potassium quantif ication in these patients send serum separator tube (gold top) for subsequent determinations. ??Contact the Clinical Chemistry Laboratory if there are any qu estions. Chloride 101 98 - 107 mmol/L CERNER MILLENN IUM CO2 29 22 - 31 mmol/L CERNER MILLENNI UM Anion Gap 7 5 - 15 mmol/L CERNER MILLENNIU M Calcium 9.8 8.5 - 10.5 mg/dL CERNER IVAN NIUM Total Protein 7.6 6.4 - 8.3 gm/dL CERNER MIL LENNIUM Albumin 4.3 3.2 - 5.2 gm/dL CERNER MILLENN IUM AST 25 0 - 39 unit/L CERNER MILLENNIU M ALT 29 0 - 55 unit/L CERNER MILLENNIU M Alk Phos 140 (H) 40 - 120 unit/L CERNER MILLENN IUM Total Bilirubin 0.4 0.2 - 1.3 mg/dL CERNER M ILLENNIUM Bili, Direct 0.1 0.0 - 0.3 mg/dL CERNER MILL ENNIUM Estimated GFR >60 >=60 CERNER MILLENNIU M [...] disease. References: http://nkdep.nih.gov/resources/NKDEP_Sug gestn4Labs_0606_508.pdf http://www.kidney.org/professionals/kls/ pdf/faq_gfr.pdf Blanco Ho, Toya NA, Kwan AK, Cooper TS, Azam AD, Juanis DIMITRI. Relative performance of the MDRD and CKD-EPI equa tions for estimating glomerular filtration rate among patients with vari ed clinical presentations. Clin J Am Soc Nephrol;6:1963-72. Specimen Anatomical Collection Method Collection Time Receive d Time (Source) Location / / Volume Laterality Blood specimen 10/30/2011 2:53 PM 012 2:58 (specimen) EDT PM EDT Resulting Agency Comment Spec In Lab Tony Aguilar MD CHEMISTRY ORDERABLES Performing Organization Address City/State/ZIP Code Phon e Number [place] [phone] [facility] MILLEN[facility]UM (ABNORMAL) CBC (with Diff) (10/30/2011 2:53 PM EDT) P athologist Signature WBC 7.5 4.0 - 10.0 CERNER x10(3)/mcL MILLENNIUM RBC 4.72 4.63 - CERNER 6.08 MILLENNIUM x10(6)/mcL Hemoglobin 14.1 13.7 - CERNER 17.5 gm/dL MILLENNIUM Hematocrit 41.6 40.0 - CERNER 51.0 % MILLENNIUM MCV 88.1 79.0 - CERNER 92.0 fL MILLENNIUM MCH 29.9 25.6 - CERNER 32.2 pg MILLENNIUM MCHC 33.9 32.0 - CERNER 36.5 gm/dL MILLENNIUM Platelets 325 145 - 370 CERNER x10(3)/mcL MILLENNIUM RDWSD 53.2 (H) 35.0 - CERNER 46.0 fL MILLENNIUM RDWCV 16.5 (H) 10.9 - CERNER 14.4 % MILLENNIUM MPV 10.7 9.0 - 12.0 CERNER fL [facility] Specimen Anatomical Collection Method Collection Time Receive d Time (Source) Location / / Volume Laterality Blood specimen 10/30/2011 2:53 PM 012 2:58 (specimen) EDT PM EDT Resulting Agency Comment Spec In Lab Tony Aguilar MD HEMATOLOGY ORDERABLES Performing Organization Address City/[facility] [place] [address] [facility] Hepatitis C Antibody (10/30/2011 2:53 PM EDT) Analysis Performed At Patho logist Time Signature Hepatitis C Ab Negative Negative [facility] Specimen Anatomical Collection Method Collection Time Receive d Time (Source) Location / / Volume Laterality Blood specimen 10/30/2011 2:53 PM 012 2:58 (specimen) EDT PM EDT Resulting Agency Comment Spec In Lab Tony Aguilar MD IMMUNOLOGY ORDERABLES Performing Organization Address City/[facility]/[place] [address] [facility] Hepatitis B Surface Antigen (10/30/2011 2:53 PM EDT) Analysis Performed At Patho logist Time Signature HepB Surface Negative Negative [facility] Specimen Anatomical Collection Method Collection Time Receive d Time (Source) Location / / Volume Laterality Blood specimen 10/30/2011 2:53 PM 012 2:58 (specimen) EDT PM EDT Resulting Agency Comment Spec In Lab Tony Aguilar MD CHEMISTRY ORDERABLES Performing Organization Address City/[facility]/ZIP [facility] [place] [address] [facility] Hepatitis B Surface Antibody (10/30/2011 2:53 PM EDT) Analysis Performed At [facility] Signature HepB Surface Negative CERNER Ab [facility] Comment: Expected Results: Vaccinated: Positive Unvaccinated: Negative Please note: A positive result for this assay is consistent with a concentration of anti-HBs antibodies >10 mIU/ml, which indicates that anti-HBs antibodies have been detected at levels consistent with protective immunity against HBV infection. Specimen Anatomical Collection Method Collection Time Receive d Time (Source) Location / / Volume Laterality Blood specimen 10/30/2011 2:53 PM 012 2:58 (specimen) EDT PM EDT Resulting Agency Comment Spec In Lab Tony Aguilar MD IMMUNOLOGY ORDERABLES Performing Organization Address City/[facility]/ZIP [facility] Phon e Number [address] [facility] Hepatitis B Core Antibody, Total (10/30/2011 2:53 PM EDT) Analysis Performed At [facility] Hep B Core Ab Negative Negative CERNER [facility] Specimen Anatomical Collection Method Collection Time Receive d Time (Source) Location / / Volume Laterality Blood specimen 10/30/2011 2:53 PM 012 2:58 (specimen) EDT PM EDT Resulting Agency Comment Spec In Lab Tony Aguilar MD CHEMISTRY ORDERABLES Performing Organization Address City/[facility]/ZIP Code Phon e Number [address] CERNER MILLENNIUM Lipase (10/30/2011 2:53 PM EDT) athologist [facility] Lipase 31 0 - 60 CERNER unit/L MILLENNIUM Specimen Anatomical Collection Method Collection Time Receive d Time (Source) Location / / Volume Laterality Blood specimen 10/30/2011 2:53 PM 012 2:58 (specimen) EDT PM EDT Resulting Agency Comment Spec In Lab Tony Aguilar MD CHEMISTRY ORDERABLES Performing Organization Address City/[facility]/ZIP [facility] [place] [address] [facility] High Sensitivity CRP (10/30/2011 2:53 PM EDT) P athologist Signature CRP High Sens 30.8 mg/L CERTROY [employer] Comment: Interpretations: 1) For cardiac risk assessment, two valu es (fasting or nonfasting sample acceptable) taken at least 2 weeks apart , should be averaged to provide a more reliable estimate of marker level. ??Thi s laboratory uses the recommendations from the AHA/CDC Scientific Statement fo r interpretations of future risks of cardiovascular events: ? <1.0 mg/L: low risk 1.0 - 3.0 mg/L: moderate risk >3.0 mg/L: high risk groups for future c ardiovascular events 2) The general reference range of appare ntly healthy individuals using this test is <5.0 mg/L (derived from the test package insert) A few words of caution: For cardiac asse ssment, when a value >10 mg/L is encountered, there should be a search fo r an acute inflammatory condition or infection (in patients with acute inflam mation, the concentration can increase to >500 mg/L). ??The >10 mg/L should be discarded if such a situation exists, since the risk for coronary heart diseas e cannot be provided, and a repeat specimen, taken at least two weeks after resolution of the acute inflammatory condition, may allow for appraisal of co ronary risk information. Please note that significantly decreased CRP values may be obtained from samples taken from patients who have bee n treated with carboxypenicillins. References: 1. Julio CROCKER et. al. ??AHA/CDC Scientif ic Statement: Markers of Inflammation and Cardiovascular Disease. ??Circulatio n 2003; 107:499-511 2. Analisa PM. ??Clinical applications of C-reactive protein for cardiovascular disease detection and prevention. ??Circ ulation 2003; 107:363-369 Specimen Anatomical Collection Method Collection Time Receive d Time (Source) Location / / Volume Laterality Blood specimen 10/30/2011 2:53 PM 012 2:58 (specimen) EDT PM EDT Resulting Agency Comment Spec In Lab Tony Aguilar MD CHEMISTRY ORDERABLES Performing Organization Address City/State/ZIP [place] [address] [employer] (ABNORMAL) Sedimentation rate (10/30/2011 2:53 PM EDT) P athologist Signature Sed Rate 28 (H) 0 - 15 CERNER mm/hr MILLENNIUM Specimen Anatomical Collection Method Collection Time Receive d Time (Source) Location / / Volume Laterality Blood specimen 10/30/2011 2:53 PM 012 2:58 (specimen) EDT PM EDT Resulting Agency Comment Spec In Lab Tony Aguilar MD HEMATOLOGY ORDERABLES Performing Organization Address City/State/ZIP [place] [address] [facility] documented in this encounter Visit Diagnoses Diagnosis Sarcoidosis - Primary documented in this encounter Care Teams Plate Grainer Apprentice Relationship Specialty Start Date End Date None PCP - General 08/30/11 06/15/13 None documented as of this encounter
--- OUTSIDE RECORDS SUMMARY | 2022-02-13 13:28 | XMS_ITS | Encounter Summary ---
:1965 Author Organization [facility] [address] Care Team Providers Name Role Phone Sharon Sanabria MD Primary Care Provider Encounter Details Date Type Department Care Team Description 07/26/2016 Hospital [place] [address] Social History Tobacco Use Types Packs/Day [...] Refills Start Date End Date ibuprofen (ADVIL;MOTRIN) Take 1.5 tablets 30 tablet 12 01/29 400 mg tablet by mouth every 6 hours as needed for Pain. gabapentin (NEURONTIN) 300 Take 4 capsules 120 capsule 12 11/14/2018 mg Capsule by mouth 3 times daily. Increase dose as directed up to a maximum of 1200 mg three times daily naproxen (EC NAPROSYN) 500 Take 1 tablet by 90 tablet 2 11/14/2018 mg Tablet, Delayed Release mouth 3 times (E.C.) daily (with meals). oxyCODONE (ROXICODONE) 15 Take 1 tablet by 120 tablet 0 02/0411/14/2018 mg Tablet mouth every 4 hours as needed for Pain. atenolol (TENORMIN) 50 mg Take 50 mg by 0 11/14/2018 tablet mouth daily. acetaminophen (TYLENOL) 500 Take 2 tablets 30 tablet 1 01/0511/14/2018 mg tablet by mouth every 6 hours as needed for Pain. hydrochlorothiazide Take 25 mg by 0 (HYDRODIURIL) 25 mg tablet mouth daily. simvastatin (ZOCOR) 10 mg Take 10 mg by 0 11/14/2018 tablet mouth nightly. documented as of this encounter Plan of Treatment Not on filedocumented as of this encounter Procedures Procedure Name Priority Date/Time Associated Diagnosis Comme [facility] SURGICAL PATHOLOGY Routine 07/26/2016 5:30 PM Res ults for this REPORT EDT procedure are i n the results section. documented in this encounter Results Surgical Pathology Report (07/26/2016 5:30 PM EDT) Component Value Ref Test Analysis Performed At [facility] Range Method Time Signature Surgical [id number] ?Location: [facility] Pathology CARLOCK Report The signing pathologist has (i) examined the relevant preparation(s) for the [facility] specimen(s) and (ii) rendered or confirmed the diagnosis(es) . HOSPITAL LABORATORY . ?Surgic al Pathology DIAGNOSIS Fifth metatarsal and bone right foot, resection - ?? Metatarsal with focal subchondral necrosis and cystic ma rrow. ?? Periosteal woven bone and fibrosis. ?? Viable margin. Electronically signed by: ??Zunilda Piedra DO Verified: ??08/02/2016 ?Pathologist CLINICAL INFORMATION Specimen Submitted: A - 5th metatarsal + bone right foot Clinical History: Possible osteomyelitis at fifth toe Clinical Diagnosis: Same SPECIMEN PROCESSING A - ??Labeled/Fixative: The fifth metatarsal and bone righ t foot, formalin. Quantity/Size: Two, 8.0 x 2.0 x 1.7 cm. Tissue Description: Amputated digit josep sly consistent with the fifth toe. The larger fragment is disartic ulated at the metatarsal phalangeal joint with up to 3.0 cm of exposed underlyin g soft tissue and bone (inked blue). No skin lesions are identified. The nail is unremarkable. There is no gross softening of any of the phalanges. The smaller frag ment is a smoothly resected (inked blue) metatarsal head without evidence of bone softening. Sections/Processing: The spe cimen is sectioned longitudinally with a full length sections submitted. Blocks submitted for decalcification: ??(1-4) ?. (1-2) bisected metatarsal; (3-4) bisected digit. ?? (R4) ??MITCHELL Specimen (Source) Anatomical Collection Method Collection Time Re ceived Time Location / / Volume Laterality 07/26/2016 5:30 PM EDT Resulting Agency Comment Spec In Lab / WKS Ankit Verde DPM PATHOLOGY/CYTOLOGY ORDERAB LES Performing Organization Address City/State/ZIP [place] [address] documented in this encounter Visit Diagnoses Not on filedocumented in this encounter Care Teams Cold Molding Press Operator Relationship Specialty Start Date End Date Sharon Sanabria MD PCP - General 06/16/13 [address] [place] [address] documented as of this encounter
--- OUTSIDE RECORDS SUMMARY | 2022-02-13 13:28 | XMS_ITS | Encounter Summary ---
:1965 Author Organization [facility] [place] [address] Care Team Providers Name Role Phone Sharon Sanabria MD Primary Care Provider Encounter Details Date Type Department Care Team Description 07/06/2011 Telephone Rheumatology at [facility] [place] Kena Pierce MD [facility] [place] [address] RHEUMATOLOGY DEPT [phone] [place] [phone] (Wo rk) Social History Tobacco Use Types [...] this encounter Miscellaneous Notes Telephone Encounter - Kena Pierce MD - 07/06/2011 1:05 PM EST Pathology on patient's spleen came back with noncaseating granulomas c/w sarcoidosis. Spoke with patient who still does not have respiratory symptoms. Since he has stage 2 lung disease which is asymptomatic and his only other organ involvement is the spleen which is now removed, he longer has an indication for treatment with steroids. Therefore, will taper off steroids. Currently is on 20mg, will decrease by 2.5mg every 7 days until off. Patient no-showed for appointment, advised him to call to reschedule sometimes within the next 1-2 months. Will want to repeat chest imaging at some point as well.PFTs were normal. documented in this encounter Plan of Treatment Not on filedocumented as of this encounter Visit Diagnoses Diagnosis Sarcoidosis - Primary documented in this encounter Care Teams Water Use Inspector Relationship Specialty Start Date End Date Sharon Sanabria MD PCP - General 03/28/10 08/29/11 [address] [place] [address] documented as of this encounter
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
--- OUTSIDE RECORDS SUMMARY | 2022-02-13 13:28 | XMS_ITS | Encounter Summary ---
:1965 Author Organization [place] [address] Care Team Providers Name Role Phone Sharon Sanabria MD Primary Care Provider Encounter Details Date Type Department Care Team Description 08/21/2011 Telephone General Surgery at [facility] Patrica Cowart, [place] [address] Social History Tobacco Use Types Packs/Day [...] this encounter Miscellaneous Notes Telephone Encounter - Patrica Cowart RN - 08/21/2011 5:36 PM EDT Nursing Triage - Phone Note DATE OF CALL: 08/21/2011 TIME OF CALL: 3:25PM PATIENT DATE OF : 1965 CALLER: Pt to the general surgery clinic nurses line REASON FOR CALL: SUBJECTIVE - I am having serious problems NURSING ASSESSMENT: Pt is s/p @SPLENECTOMY, TOTAL MARGIEDEUS L MD EVERARDO - Primary * DILLON JUDD MD - Fellow Preoperative diagnosis: SPLENOMAGLY 06/12/11 Pt calling about the above. He states that for the last 5-6 days he has had pain beneath his right rib cage. He states it feels puffy and sore. He states he has had a fever but could not tell me what it was. He is moving his bowels without issues. He has nausea but denies vomiting. He is not eating orsleeping much. He describes the pain as achy in nature and excruciating. He states that standing andbeing upright is more comfortable than laying down. Nothing makes it go away completely. He states that he does not have a PCP any longer. PLAN(Triage Level): Disucssed with Dr. Hartman. I explained to the patient that his current symptoms are not related to the surgery Dr. Hartman performed. Dr. Hartman is willing to see the pt with an abdominal ultrasound as it sounds like it may be his gallbladder, but I let the patient know that I was unsure when his next available appointment was. I also explained that this is something that a PCP would work up. I encouraged him to seek care at a local fast track or walk in clinic if there is one near him,otherwise he would have to go to the ED if his pain became intolerable. He would like to schedule with Dr. Hartman and will try to work something on his end as well. I will have the secretary board of commissioners be in touch with an appointment. Pt verbalizes his understanding and agrees with the plan. If your symptoms do not improve, or they worsen, report to your local emergency department. CALLER AGREES: Yes PCP: SHARON SANABRIA MD documented in this encounter Plan of Treatment Not on filedocumented as of this encounter Visit Diagnoses Diagnosis RUQ abdominal pain Abdominal pain, right upper quadrant documented in this encounter Care Teams Injection Molding Process Technician Relationship Specialty Start Date End Date Sharon Sanabria MD PCP - General 03/28/10 08/29/11 [address] [place] [address] documented as of this encounter
--- OUTSIDE RECORDS SUMMARY | 2022-02-13 13:28 | XMS_ITS | Encounter Summary ---
:1965 Author Organization [facility] [place] [address] Care Team Providers Name Role Phone None Primary Care Provider Unavailable Reason for Visit Reason Comments Established incisional hernia Encounter Details Date Type Department Care Team Description 12/18/2012 Follow-Up General Surgery at CLINIC, DR CYN QUINTEROS (h ypertension) (Primary Dx); [facility] [place] Noah Hartman MD [facility] [place] [address] [place] [address] Social History Tobacco Use Types Packs/Day [...] documented as of this encounter Progress Notes Noah Hartman MD - 12/21/2012 8:19 AM EDT I have seen the patient and reviewed Dr. Tolentino's above history and I agree with the details as written. The assessment and plan were formulated in discussion with me and I agree with them as documented. Roshan Kiran MD - 12/18/2012 4:42 PM EDT Mr. Anton returns for follow-up after a CT scan of the abdomen today. He reports continued abdominal discomfort, but no episodes of incarceration. CT scan shows multiple incisional hernias (south su[place]ese-cheese type defects). On exam he has multiple small defects in his midline incision. We discussed the options for hernia repair versus observation. We discussed that a laparoscopic mesh repair would be thebest option to visualize and cover the defects. We discussed the risks, benefits, and alternatives to surgery. He understands the risks include but are not limited to bleeding, infection, mesh infection requiring removal, bowel injury requiring repair with delayed abdominal wall repair, conversion to open, chronic pain, recurrence, and anesthetic-related problems. His questions were answered and he wishes to proceed with repair at a mutually convenient date. I discussed that he will likely require ashort hospital stay secondary to postoperative pain and would not be a candidate for having [place] [facility] documented in this encounter Plan of Treatment Not on filedocumented as of this encounter Procedures Procedure Name Priority Date/Time Associated Diagnosis Comme nts CREATININE STAT 12/18/2012 2:28 PM HTN (hypertension) Res ults for this EDT procedure are i n the results section . documented in this encounter Results Creatinine (12/18/2012 2:28 PM EDT) athologist Signature Creatinine 1.07 0.80 - 1.50 CERNER mg/dL [facility] Comment: Please note that the pediatric reference intervals supplied above were not validated at [facility] [place]. Results from pediatri c patients should be interpreted in conjunction to the patient's age, height and muscle mass. Estimated GFR >60 >=60 JAIR Marrufo Comment: This estimated GFR (eGFR) value [...] Organization Address City/State/ZIP Code Phon e Number [place] [phone] [facility] documented in this encounter Visit Diagnoses Diagnosis HTN (hypertension) - Primary Unspecified essential hypertension Ventral hernia Ventral hernia, unspecified, without men tion of obstruction or gangrene documented in this encounter Care Teams Solid Waste Engineer Relationship Specialty Start Date End Date None PCP - General 08/30/11 06/15/13 None documented as of this encounter
--- OUTSIDE RECORDS SUMMARY | 2022-02-13 13:28 | XMS_ITS | Encounter Summary ---
:1965 Author Organization [facility] [place] [address] Care Team Providers Name Role Phone Sharon Sanabria MD Primary Care Provider Encounter Details Date Type Department Care Team Description 09/26/2018 Ancillary Procedure Radiology Library at [facility]ria, [facility] [address] [address] [place] [address] [phone] Social History Tobacco Use Types Packs/Day Years [...] Associated Diagnosis Comme nts FILM LIBRARY Routine 09/26/2018 12:00 AM Results for this STORAGE ONLY MR EDT procedure ar e in ANKLE the results section. documented in this encounter Results Film Library- Storage Only MR Ankle (09/26/2018 12:00 AM EDT) Specimen (Source) Anatomical Location Collection Method / Collectio n Time Received Time / Laterality Volume Narrative RAD - 10/07/2018 3:28 PM EDT This exam is auto-finalizing. It's purpo se is for storage only. Sharon Sanabria MD IMG FILM LIBRARY ORDERABLES Performing Organization Address City/State/ZIP Code Phon e Number RAD [place], [place] documented in this encounter Visit Diagnoses Not on filedocumented in this encounter Care Teams System Manager Relationship Specialty Start Date End Date Sharon Sanabria MD PCP - General 06/16/13 [address] [place] [address] documented as of this encounter
--- OUTSIDE RECORDS SUMMARY | 2022-02-13 13:28 | XMS_ITS | Encounter Summary ---
:1965 Author Organization [facility] [place] [address] Care Team Providers Name Role Phone Sharon Sanabria MD Primary Care Provider Encounter Details Date Type Department Care Team Description 09/01/2018 Ancillary Procedure Radiology Library at [facility]ria, [facility] [address] [address] [place] [address] [phone] Social History Tobacco Use Types Packs/Day Years [...] Procedure Name Priority Date/Time Associated Comments Diagnosis FILM LIBRARY STORAGE Routine 09/01/2018 12:05 AM Results for this ONLY ULTRASOUND EDT procedure ar e in STUDY the results section. documented in this encounter Results Film Library- Storage Only Ultrasound Study (09/01/2018 12:05 AM EDT) Specimen (Source) Anatomical Location Collection Method / Collectio n Time Received Time / Laterality Volume Narrative RAD - 10/07/2018 3:28 PM EDT This exam is auto-finalizing. It's purpo se is for storage only. Sharon Sanabria MD IMG FILM LIBRARY ORDERABLES Performing Organization Address City/State/ZIP Code Phon e Number [facility] [place], [place] documented in this encounter Visit Diagnoses Not on filedocumented in this encounter Care Teams Retail Product Advisor Relationship Specialty Start Date End Date Sharon Sanabria MD PCP - General 06/16/13 [address] [place] [address] documented as of this encounter
--- OUTSIDE RECORDS SUMMARY | 2022-02-13 13:28 | XMS_ITS | Encounter Summary ---
:1965 Author Organization [facility] [place] [address] Care Team Providers Name Role Phone Sharon Sanabria MD Primary Care Provider Encounter Details Date Type Department Care Team Description 09/17/2018 Ancillary Procedure Radiology Library at [facility] Sanabria, [facility] [address] [address] [place] [address] [phone] Social History Tobacco Use Types Packs/Day Years [...] Associated Diagnosis Comme nts FILM LIBRARY Routine 09/17/2018 12:00 AM Results for this STORAGE ONLY DX EDT procedure ar e in ANKLE the results section. documented in this encounter Results Film Library- Storage Only DX Ankle (09/17/2018 12:00 AM EDT) Specimen (Source) Anatomical Location Collection Method / Collectio n Time Received Time / Laterality Volume Narrative RAD - 10/07/2018 3:28 PM EDT This exam is auto-finalizing. It's purpo se is for storage only. Sharon Sanabria MD IMG FILM LIBRARY ORDERABLES Performing Organization Address City/State/ZIP Code Phon e Number RAD [place], [place] documented in this encounter Visit Diagnoses Not on filedocumented in this encounter Care Teams Mercerizer Relationship Specialty Start Date End Date Sharon Sanabria MD PCP - General 06/16/13 [address] [place] [address] documented as of this encounter
--- OUTSIDE RECORDS SUMMARY | 2022-02-13 13:29 | XMS_ITS | Encounter Summary ---
:1965 Author Organization [facility] [place] [address] Care Team Providers Name Role Phone Sharon Sanabria MD Primary Care Provider Encounter Details Date Type Department Care Team Description 03/26/[address] Scan at [facility] ADDISON [facility] Koko Hull MD [facility] [place] [address] [place] [address] Social History Tobacco Use Types Packs/Day Years Used Date Never Assessed Sex Assigned at Date Recorded Not on file documented as of this encounter Last Filed Vital Signs Vital Sign Reading Time Taken Comments Blood Pressure 166/115 03/26/2011 10:00 AM EST Pulse 72 03/26/2011 10:00 AM EST Temperature 36.7 ??C (98.1 ??F) 03/26/2011 7:00 AM EST Respiratory Rate 18 03/26/2011 10:00 AM EST Oxygen Saturation 93% 03/26/2011 10:00 AM EST Inhaled Oxygen Concentration - - Weight - - Height - - Body Mass Index - - documented in this encounter Medications at Time of Discharge Medication Sig Dispensed Refills Start Date End Date hydrochlorothiazide Take 25 mg by 0 (HYDRODIURIL) 25 mg tablet mouth daily. atenolol (TENORMIN) 25 mg Take 75 mg by 0 05/28/2011 tablet mouth daily. VALSARTAN (DIOVAN ORAL) 0 09/23/2008 1 06/07/2010 METHADONE HCL (METHADONE ORAL) 0 09/2304/06/2011 documented as of this encounter Progress Notes Kierra Torrez RN - 03/26/2011 10:09 AM EST [facility] Vascular and Interventional Radiology Biopsy Discharge Instructions Retroperitoneal biopsy: call your doctor immediately if you develop a sudden onset of weakness, increased pain or swelling at the biopsy site or heavy bleeding at the biopsy site. Activity And Diet: Go home and rest quietly for the remainder of the day. You may resume your normal activities tomorrow. Resume your usual diet after the procedure. Do not drive, sign any important/legal documents, or make any important decisions for 24 hours following sedation medications. When to call your healthcare provider: If you see any redness, swelling or drainage at the biopsy site. If you develop chills. If you have a fever greater than or equal to 101 degrees Fahrenheit. If you develop pain around the biopsy site. Bandage: Check the dressing/bandaid throughout the day for an increase in drainage. Keep the biopsy site dryfor 24 hours. Replace the bandaid as needed. You may shower 24 hours after the biopsy. Medication: DO NOT take aspirin-containing products, ibuprofen, or blood-thinning medication for the next 24 hours unless your doctor says you may do so. Generally you may use acetaminophen as needed for discomfort unless you have liver disease and are instructed not to take acetaminophen. Biopsy Results The results of your biopsy should be available within 5 business days and will be reported to you by your primary nursing care partner or the clinician who ordered the biopsy. Please do not call us for results as we will not have them. If you have not been contacted by your clinician within 5 business days you should call that officefor further information. When to call the Interventional Radiology Department: Please call with any questions or concerns. Ifit is during regular office hours, please call [phone]. If it is after regular office hours, oron weekends or holidays, please call [phone] and ask to speak to the [employer] Worker on callfor Interventional Radiology. You have received medication during your procedure to help lesson anxiety and keep you comfortable.We recommend that you do not drive, operate equipment, sign any important documents, or smoke unattended for 24 hours following your procedure. Revised 12/29/10 Koko King MD - 03/26/2011 8:24 AM EST PRE-PROCEDURE VIR NOTE: PCP: SHARON SANABRAI MD Referring Physician: Jose Gamboa MD ([facility]) Procedure Indication: Retroperitoneal adenopathy Planned Procedure: CT-guided para-aortic node biopsy. Presenting Diagnosis/ Complaint: Sweta Mclean is a 45 y.o. male with new diagnosis of splenomegaly and retroperitoneal adenopathy. 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 VALSARTAN (DIOVAN ORAL) ??? METHADONE HCL (METHADONE ORAL) Hydrochlorothiazide 25 mg qd Atenolol 25 mg qd Allergies: Review of patient's allergies indicates no known allergies. Social History and Habits: History Social History ??? Marital Status: N/A Spouse Name: N/A Number of Children: N/A ??? Years of Education: N/A Occupational History ??? Not on file. Social History Main Topics ??? Smoking status: Not on file ??? Smokeless tobacco: Not on file ??? Alcohol Use: Not on file ??? Drug Use: Not on file ??? Sexually Active: Not on file Other Topics Concern ??? Not on file Social History Narrative ??? No narrative on file Significant Family History: No family history on file. Physical Exam: Recent Review Flowsheet Data View Complete Flowsheet Oncology Vitals 03/26/2011 Temp 98.1 Temp src 1 Pulse 76 Heart Rate Source SaO2 Resp 18 BP 186/124 SpO2 99 Physical Exam Heart: RRR Lungs: clear ASA Classification: ASA 2 - Patient with mild systemic disease with no functional limitations Mallampati Classification: I (soft palate, uvula, fauces, tonsillar pillars visible) Labs: 03/20/11: Cr 1.3, BUN 16, Alb 3.8, T Bili 0.54, WBC 4.89, Hct 40.3, Plt 144 Prior Imaging: [facility] to send electronically reticularl nodular densities throughout the lungs. Evidence of hilar and mediastinal adenopathy. Splenomegaly 25 cm. Retroperitoneal enlarged lymph nodes c/w lymphoma or leukemia. Assessment/Plan: 45 yo gentleman with work-up for abdominal wall mass identifying massive splenomegaly on CT, with periaortic adenopathy. Suspect lymphoma, need biopsy. Risks (including hemorrhage, infection, allergic reaction,respiratory depression), and benefits discussed and patient consented to the procedure. Prophylactic antibiotic: none Medications to discontinue: none Patient Positioning / Access site: Prone / paraspinal Nadine Steiner RN - 03/23/2011 2:38 PM EST [facility] NURSING DATABASE Name: SWETA MCLEAN Date of : 1965 Address: [address] [place] [address] Phone: There are no phone numbers on file. Referring Provider: Koko Hull Reason for Visit: [address] for [address] guided retroperitoneal biopsy (Dr. Hull's group)... abdominal wall mass identifying massive splenomegaly on CT, with periaortic adenopathy. Suspect lymphoma, need biopsy. Allergies no known allergies Pertinent PMH: There is no problem list on file for this patient. HTN 09/11 left hip arthroscopy due to an acetabular tear Hip surgery x 4, l knee surgery x 2 1992 crush injury in a logging accident in [place], subsequent back pain rx'd with steroid injections Pertinent PSH: No past surgical history on file. Date/Procedure Comments: 03/26/2011 CT guided retroperitoneal lymph node Biopsy Versed 3mg IV, fentanyl 150 mcgs IV, tolerated well Laboratory Results: No results found for this basename: inr No results found for this basename: PT, PTT No results found for this basename: BUN No results found for this basename: creatinine No results found for this basename: k No results found for this basename: PLATELET Medications: Prior to Admission medications Medication Sig Start Date End Date Taking? Authorizing Provider VALSARTAN (DIOVAN ORAL) 09/23/08 METHADONE HCL (METHADONE ORAL) 09/23/08 documented in this encounter Procedure Notes Koko Hull MD - 03/26/2011 9:41 AM ESTProcedure(s): CT GUIDED BIOPSY RETROPERITONEAL MASS; CT GUIDED BIOPSY RETROPERITONEAL MASS Pre-Procedure Diagnose(s): Adenopathy; Splenomegaly; Adenopathy; Splenomegaly Post-Procedure Diagnose(s): Adenopathy; Splenomegaly; Adenopathy; Splenomegaly VIR PROCEDURE NOTE: CT-guided retroperitoneal node biopsy ACC#: [id number] Indication: new splenomegaly and retroperitoneal adenopathy Technique: After discussing risks (including infection and hemorrhage), and benefits, patient consented to the procedure. Due to the painful nature of the procedure, split doses of fentanyl and versed were administered by the IR nurse during continuous monitoring of pulse, blood pressure and oxygen saturation. Lesion was localized with CT. After sterile preparation of the overlying skin, 1% lidocaine SQ was administered for anesthesia, and a 17 ga needle guide was advanced coaxially under CT guidance into the mass. The 18 ga biopsy gun was advanced coaxially and specimen obtained x 6 and submitted to pathology. Needle was removed and hemostasis obtained by manual compression. Patient tolerated the procedure well. There were no immediate complications. Findings: Specimen obtained from mass. Adequate per Pathologist. Impression: Technically successful biopsy left para-aortic node. documented in this encounter Plan of Treatment Not on filedocumented as of this encounter Procedures Procedure Name Priority Date/Time Associated Comments Diagnosis CT GUIDED BIOPSY LYMPH Routine 03/26/2011 9:32 Enlargement of Results for this NODE HEAD/NECK AM EST lymph nodes procedure are in the results section. IMMUNOPHENOTYPING FLOW Routine 03/26/2011 9:15 Re sults for this CYTOMETRY AM EST procedure are i n the results section. PLATELET COUNT STAT 03/26/2011 7:39 Results fo r this AM EST procedure are i n the results section. documented in this encounter Results CT GUIDED LYMPH NODE BIOPSY (03/26/2011 9:32 AM EST) Anatomical Region Laterality Modality Computed Tomography Specimen (Source) Anatomical Collection Method Collection Time Re ceived Time Location / / Volume Laterality 03/26/2011 9:32 AM EST Impressions 03/31/2011 9:25 AM EST Impression: Technically successful biops y left para-aortic node. Narrative 03/31/2011 9:25 AM EST VIR PROCEDURE NOTE: CT-guided retroperit gurrola node biopsy ?? ACC#: [id number] ?? Indication: new splenomegaly and retrope ritoneal adenopathy ?? Technique: After discussing risks (inclu ding infection and hemorrhage), and benefits, patient consented to the proce dure. Due to the painful nature of the procedure, split doses of fentanyl and v ersed were administered by the IR nurse during continuous monitoring of pulse, b lood pressure and oxygen saturation. ?? Lesion was localized with CT. After ster ile preparation of the overlying skin, 1% lidocaine SQ was administered for ane sthesia, and a 17 ga needle guide was advanced coaxially under CT guidance int o the mass. The 18 ga biopsy gun was advanced coaxially and specimen obtained x 6 and submitted to pathology. Needle was removed and hemostasis obtained by m anual compression. Patient tolerated the procedure well. There were no immedi ate complications. ?? Findings: Specimen obtained from mass. A dequate per Pathologist. ?? Procedure Note Koko Hull MD - 03/31/2011Formattin g of this note might be different from the original. VIR PROCEDURE NOTE: CT-guided retroperit gurrola node biopsy ACC#: [id number] Indication: new splenomegaly and retrope ritoneal adenopathy Technique: After discussing risks (inclu ding infection and hemorrhage), and benefits, patient consented to the proce dure. Due to the painful nature of the procedure, split doses of fentanyl and v ersed were administered by the IR nurse during continuous monitoring of pulse, b lood pressure and oxygen saturation. Lesion was localized with CT. After ster ile preparation of the overlying skin, 1% lidocaine SQ was administered for ane sthesia, and a 17 ga needle guide was advanced coaxially under CT guidance int o the mass. The 18 ga biopsy gun was advanced coaxially and specimen obtained x 6 and submitted to pathology. Needle was removed and hemostasis obtained by m anual compression. Patient tolerated the procedure well. There were no immedi ate complications. Findings: Specimen obtained from mass. A dequate per Pathologist. IMPRESSION Impression: Technically successful biops y left para-aortic node. Koko Hull MD [facility] [place] CT ORDERABLES IMMUNOPHENOTYPING FLOW CYTOMETRY (03/26/2011 9:15 AM EST) Component Value Ref Test Analysis Performed At Patholo gist Range Method Time Signature Type of Specimen FNA LN CERNER [facility] Panel Requested Lymphoma CERNER Panel [facility] Immunophenotyping See Comment CERNER Flow [facility] Comment: When completed by the Pathologist, the F low Cytometry Report ([id number]) will display under the Flow Cytometry result section in [facility]. Specimen Anatomical Collection Method Collection Time Receive d Time (Source) Location / / Volume Laterality Body fluid 03/26/2011 9:15 AM 1 specimen EST 10:33 AM EST (specimen) Koko Hull MD HEMATOLOGY ORDERABLES Performing Organization Address City/State/ZIP Code Phon e Number [address] [facility] (ABNORMAL) Platelet count (03/26/2011 7:39 AM EST) P athologist Signature Platelets 134 (L) 145 - 370 CERNER x10(3)/[facility] Specimen Anatomical Collection Method Collection Time Receive d Time (Source) Location / / Volume Laterality Blood specimen 03/26/2011 7:39 AM 011 7:45 (specimen) EST AM EST Koko Hull MD HEMATOLOGY ORDERABLES Performing Organization Address City/State/[place] [address] [facility] documented in this encounter Visit Diagnoses Diagnosis Adenopathy Enlargement of lymph nodes documented in this encounter Administered Medications Inactive Administered Medications - up to 3 most recent administrations Medication Order MAR Action Action Date Dose Rate Site fentaNYL 50mcg/mL injection Given 03/26/2011 9:20 AM EST 150 mcg 25-50 mcg, Intravenous, EVERY 5 MIN PRN, Starting on Sat03/26/11 at 0829, Until Sat04/06/11 at 1453, Pain, per protocol, Angio/IR (Day of Procedure), Routine midazolam (VERSED) injection 1-2 mg Given 03/26/2011 9:20 AM EST 3 mg 1-2 mg, Intravenous, EVERY 5 MIN PRN, Starting on 03/26/11 at 0829, Until Sat04/06/11 at 1453, Sleep, per protocol, Angio/IR (Day of Procedure), Routine documented in this encounter Care Teams Banquet Food Server Relationship Specialty Start Date End Date Sharon Sanabria MD PCP - General 03/28/10 08/29/11 [address] [place] [address] documented as of this encounter
--- OUTSIDE RECORDS SUMMARY | 2022-02-13 13:29 | XMS_ITS | Encounter Summary ---
:1965 Author Organization [facility] [place] [address] Care Team Providers Name Role Phone Sharon Sanabria MD Primary Care Provider Encounter Details Date Type Department Care Team Description 03/26/2011 Hospital Encounter Radiology at [facility] [place] [address] Social History Tobacco Use Types Packs/Day [...] as of this encounter Progress Notes Kierra Maldonado RN - 03/27/2011 9:00 AM EST Interventional and Vascular Radiology Post-Procedure Call Name: Sweta Anton Age: 45 y.o. Sex; Male Date of : 1965 Telephone Number: There is no home phone number on file. PCP SHARON SANABRIA MD [phone] Date/Time of call: March 27, 2011/9:02 AM/ Procedure: Ct Guided Retroperitoneal Biopsy Contact with patient If not patient, whom? Message left on answering machine: Call attempted - unable to contact patient: No phone number listed for patient attempted to call emergency contact number no answer or message machine Are you having pain related to your procedure now? How are you managing your pain? Are you having any other problems related to you procedure? Comments: How would you rate your pain management during the procedure? Comments: Did you have anxiety during your procedure? Comments: Did the discharge instructions you received answer your questions Comments: Did you feel you were given adequate instructions prior to your procedure? Comments: On a scale of 0 to 10, how well were you satisfied with the care you received in Interventional Radiology? Comments: Is there anything we could have done differently? Comments: Nurse Comments: documented in this encounter Miscellaneous Notes Miscellaneous - Provider, Scanning - 04/04/2011 10:03 AM EST Miscellaneous - Provider, Scanning - 04/04/2011 9:26 AM EST documented in this encounter Plan of Treatment Pending Results Name Type Priority Associated Diagnoses Date/Ti me IR CVIR ANGIO RECOVERY Imaging Routine 03/26 9:35 AM EST ROOM Scheduled Orders Name Type Priority Associated Diagnoses Order S chedule IR CVIR ANGIO RECOVERY Imaging Routine Once PRN (for Radiant ROOM use) for 1 Occu rrences starting 2010 until 03/26/2011 documented as of this encounter Procedures Procedure Name Priority Date/Time Associated Diagnosis Comme nts NON-STEP FINISHER FLOW Routine 03/26/2011 9:44 AM Results f or this CYTOMETRY REPORT EST procedure a re in the results section. NON-STEP FINISHER FINAL Routine 03/26/2011 9:44 AM Results for this REPORT EST procedure are i n the results section. documented in this encounter Results NON-STEP FINISHER FINAL REPORT (03/26/2011 9:44 AM EST) Component Value Ref Test Analysis Performed At [facility] Range Method Time Signature Non-Die Equipment Operator CERNER Final Report ? [facility] ? Provider: ?? SHRUTI CASILLAS ?Pt. Name: ?? CUSHYaron AN, SWETA ? Acc #: ?[id number] ?Pt. MRN: ?[id number] ? Col Date: ?? 03/26/20 11 ?/Sex: ?1965,(45 years),Male ? Rec Date: ?? 03/26/2011 ?LOC: ?3W ? CYTOPATHOLOGY: ??NGYN ? ---Adequacy--- ? Specimen submitted is satisfactory. ? ---Cytopathologic Diagnosis--- ? See Comment ? 03/26/11 ?Screened by: ? FMQ ? Rescreened by: ?? FCL,FCL ? 03/28/11 ?Verified by: ? Asa WEBSTER, Seb Dorado ?Cytopa thologist ? (Electronic Signature) ? ---Comment--- ? Lymph node: retroperi toneal (CT-guided needle core biopsy and touch imprint ? cytology) - ? Granulomatous inflammation (see note). ? Note: Non-caseating granulomas are present. ? Negative for malignancy. ? Recommend clinicopathologic correlation. ? Special stains: GMS (silver) and AFB - negative for m icroorganisms. ? (Most of the diagnostic material is in the cell block ). ? Dr. Mooney has reviewed the histopathology of this case and concurs with the ? diagnosis. ? ---Clinical Information--- ? Specimen Source: ?Lymph node: retr operitoneal (CT-guided needle core biopsy and touch ? imprint cytology - assisted) ? Site: ?Lymph node: retroperitoneal. ? Clinical History/Impression: ?New splenomegaly and retroperitoneal adenopathy. ? [facility] ? Provider: ?? SHRUTI CASILLAS ?Pt. Name: ?? JENN MORENO, SWETA ? Acc #: ?[id number] ?Pt. MRN: ?[id number] ? Col Date: ?? 03/26/20 11 ?/Sex: ?1965,(45 years),Male ? Rec Date: ?? 03/26/2011 ?LOC: ?3W ? CYTOPATHOLOGY: ??NGYN ? lymphoma. ? Gross Description: ?Received in 10 m L of Physiosol, labeled with the patient's name and ? medical record number , are 6 davenport needle core biopsies, ranging in size from ? 0.3 x <0.1 cm to 0.7 x <0.1 cm. (KAD/PPS) ?Total Preparatio n: Touch Imprint 7; Needle Core Biopsy Block 2. (T2) ? Intra-procedural Immediate Assessment: ? Total number of sites: ?7 ? Immediate Assessment on: ??5 ? Sites 1-4: ? Inadequate for final diagnosis. ? Hypocellular. ? Mostly red blood cells; a few mononuclear cells noted . ? Site 5: ? Adequate for final diagnosis. ? Mononuclear cells present. ? Immediate Assessment by: Ailyn Hernandez MD (fellow) and Bayron Bray, ? MD. ? The attending physician examined the cytologic slides and confirmed the ? preliminary assessment. ? Note: Immediate Asses sment results are preliminary assessments of adequacy ? and diagnosis. See fi mamadou diagnosis and diagnostic comments for completed ? interpretation. Specimen (Source) Anatomical Collection Method Collection Time Re ceived Time Location / / Volume Laterality 03/26/2011 9:44 AM EST Shruti Casillas MD PATHOLOGY/CYTOLOGY ORDERABLE S Performing Organization Address City/State/[place] [address] CERNER MILLENNIUM NON-STEP FINISHER FLOW CYTOMETRY REPORT (03/26/2011 9:44 AM EST) Component Value Ref Test Analysis Performed At [facility] gist Range Method Time Signature Non-STEP FINISHER Flow CERNER Cytometry ? [facility] Report ? Provider: ?? SHRUTI CASILLAS ?Pt. Name: ?? JENN MORENO, SWETA ? Acc #: ?[id number] ?Pt. MRN: ?[id number] ? Col Date: ?? 03/26/20 11 ?/Sex: ?1965,(45 years),Male ? Rec Date: ?? 03/26/2011 ?LOC: ?3W ? ANALYTICAL CELL PATHOLOGY ? ---Clinical Information--- ? Retroperitoneal adenopathy and splenomegaly, assess f or lymphoma ? ---Preparation--- ? FNA biopsy, lymph node ? [id number], [id number] ? ---Markers--- ?Lymphoid (T) ? CD3 ? pos ? CD2/CD3 ? pos ? CD4/CD3 ? pos ? CD8/CD3 ? pos ? CD7/CD3 ? partial ? CD5 ? pos ?Lymphoid (B) ? CD19 ?pos ? CD20 ?pos ? CD10 ?neg ? CD23 ?neg ? FMC7 ?neg ? kappa ? TFTC ? lambda ?TFTC ? CD5/CD20 ?neg ? ---Interpretation--- ?Cells for imm unophenotypic analysis were derived from biopsy. ??A ? lymphoid region, comp rising approximately 4-6% of all cells was used for ? gated analysis. ??The specimen is paucicellular, pr eventing complete ? analysis. The majorit y of lymphocytes are mature CD3 positive T cells, 67%, ? with 19% B cells and 3% CD56 positive NK cells. There are too few B cells ? for accurate light ch ain quantitation, but both kappa and lambda positive ? cells are seen. T cells display no clear loss o f khalil T cell antigens. ?DIAGNOSIS: PA UCICELLULAR SPECIMEN WITH NO CLEAR EVIDENCE OF B OR T ? [facility] ? Provider: ?? SHRUTI CASILLAS ?Pt. Name: ?? JENN MORENO, SWETA ? Acc #: ?[id number] ?Pt. MRN: ?[id number] ? Col Date: ?? 03/26/20 11 ?/Sex: ?1965,(45 years),Male ? Rec Date: ?? 03/26/2011 ?LOC: ?3W ? ANALYTICAL CELL PATHOLOGY ? CELL CLONALITY-SEE COMMENT ? 03/26/11 ? TMS ? 03/27/11 Verified by: ? Krishna Mooney MD ? Hematopatholog ist ? (Electronic Si [...] by the Clinical Flow Cytometry Laboratory at [facility] ? Center. It has not been cleared [...] Time Location / / Volume Laterality 03/26/2011 9:44 AM EST Shruti Casillas MD PATHOLOGY/CYTOLOGY ORDERABLE S Performing Organization Address City/State/ZIP Code Phon e Number [address] LABORATORY [facility] documented in this encounter Visit Diagnoses Not on filedocumented in this encounter Care Teams Patient Monitor Relationship Specialty Start Date End Date Sharon Sanabria MD PCP - General 03/28/10 08/29/11 [address] [place] [address] documented as of this encounter
--- OUTSIDE RECORDS SUMMARY | 2022-02-13 13:29 | XMS_ITS | Encounter Summary ---
:1965 Author Organization [facility] [place] [address] Care Team Providers Name Role Phone Sharon Sanabria MD Primary Care Provider Encounter Details Date Type Department Care Team Description 03/26/2011 Hospital Encounter Laboratory Koko Hull MD [facility] [place] [address] DIAGNOSTIC RADIOLOGY [phone] [place] [address] (Wo rk) Social History Tobacco Use Types [...] 0 09/2304/06/2011 documented as of this encounter Plan of Treatment Not on filedocumented as of this encounter Visit Diagnoses Not on filedocumented in this encounter Care Teams Wrapper Sorter Relationship Specialty Start Date End Date Shaorn Sanabria MD PCP - General 03/28/10 08/29/11 [address] [place] [address] documented as of this encounter
--- OUTSIDE RECORDS SUMMARY | 2022-02-13 13:29 | XMS_ITS | Encounter Summary ---
:1965 Author Organization [facility] [place] [address] Care Team Providers Name Role Phone Sharon Sanabria MD Primary Care Provider Encounter Details Date Type Department Care Team Description 05/17/2011 Orders Only General Surgery at [facility] Noah Hartman MD [facility] [place] [address] GENERAL SURGERY [phone] [place] [address] (Wo rk) Social History Tobacco Use Types Packs/Day Years Used Date Never Smoker Smokeless Tobacco: Current User Chew Comments: one can chew per day Alcohol Use Standard Drinks/Week Comments No 0 (1 standard drink = 0.6 oz pure alcoho l) None for 3 weeks Alcohol Habits Answer Date Recorded How [...] Associated Diagnosis Comme nts FILM LIBRARY Routine 05/17/2011 12:35 PM Results for this STORAGE ONLY CT EST procedure ar e in ABDOMEN AND PELVIS the resul ts section. documented in this encounter Results FILM LIBRARY- STORAGE ONLY CT ABDOMEN & PELVIS (05/17/2011 12:35 PM EST) Specimen (Source) Anatomical Collection Method Collection Time Re ceived Time Location / / Volume Laterality 05/17/2011 12:35 PM EST Narrative RAD - 09/29/2013 11:33 AM EDT This is a non-reportable exam. Procedure Note Jay Espinoza - 09/29/2013Formatting of t his note might be different from the original. This is a non-reportable exam. Noah Hartman MD IMG FILM LIBRARY ORDERABLES Performing Organization Address City/State/ZIP Code Phon e Number [facility] RAD [address] [facility] [place] [address] documented in this encounter Visit Diagnoses Not on filedocumented in this encounter Care Teams Family Resource Coordinator Relationship Specialty Start Date End Date Sharon Sanabria MD PCP - General 03/28/10 08/29/11 [address] [place] [address] documented as of this encounter
--- OUTSIDE RECORDS SUMMARY | 2022-02-13 13:29 | XMS_ITS | Encounter Summary ---
:1965 Author Organization [place] [address] Care Team Providers Name Role Phone Sharon Sanabria MD Primary Care Provider Reason for Visit Reason Comments Splenomegaly Encounter Details Date Type Department Care Team Description 04/06/2011 Office Visit Hematology Oncology at [facility] Yong jeter MD Sarcoidosis; [address] HEMATOLOGY/ONCOLOGY [place], [place] [id number] [phone] Social History Tobacco Use Types Packs/Day Years [...] Sign Reading Time Taken Comments Blood Pressure 133/100 04/06/2011 2:40 PM EST Pulse 80 04/06/2011 2:40 PM EST Temperature 36.7 ??C (98.1 ??F) 04/06/2011 2:40 PM EST Respiratory Rate 18 04/06/2011 2:40 PM EST Oxygen Saturation 98% 04/06/2011 2:40 PM EST Inhaled Oxygen Concentration - - Weight 89.5 kg (197 lb 5 oz) 04/06/2011 2:40 PM EST Height - - Body Mass Index - - documented in this encounter Progress Notes Yong Guadarrama MD - 04/06/2011 5:22 PM EST Subjective: Left upper quadrant abdominal pain. Patient ID: Robb Anton is a 45 y.o. male. HPI this is 45 years old gentleman who was in his regular state of health until about 3 months ago when his appetite got worse. About 6 weeks ago he has experienced left upper quadrant discomfort. He was seen by his primary care doctor and found to have left upper quadrant mass. He was referred to a surgeon for Dr. Jose Alford for evaluation. CT scan of chest/abdomen/pelvis was done and revealed marked enlargement of the spleen and enlarged retroperitoneal lymph nodes. Basilar reticulonodular infiltrates im the lungs and mediastinal adenopathy. He was referred for a biopsy to [facility]. Biopsy revealed granulomatous inflammation, non-caseating granulomas. Patient was reffered to us by Dr. Alford for management of splenomegaly. PMH: 1.HTN 2. 4 left knee and left hip surgeries 3. Pelvic fx in 80-s Social: Non-smoker, drinks up to 12 pack beer, as not been drinking over last 3 weeks. No drugs. Family No history of cancer i te family. Allergies: NKDA Current outpatient prescriptions Medication Sig Dispense Refill ??? hydrochlorothiazide (HYDRODIURIL) 25 mg tablet Take 25 mg by mouth daily. ??? atenolol (TENORMIN) 25 mg tablet Take 25 mg by mouth daily. ??? DISCONTD: METHADONE HCL (METHADONE ORAL) Current facility-administered medications Medication Dose Route Frequency Provider Last Rate Last Dose ??? DISCONTD: fentaNYL 50mcg/mL injection 25-50 mcg Intravenous Q5 Min PRN Koko Hull MD Last Dose: 150 mcg at 03/26/11919 ??? DISCONTD: midazolam (VERSED) injection 1-2 mg 1-2 mg Intravenous Q5 Min PRN Koko Hull MD Last Dose: 3 mg at 03/26/11919 ??? DISCONTD: sodium chloride 0.9% infusion 100 mL/hr Intravenous Continuous Koko Hull MD Review of Systems Constitutional: Positive for diaphoresis, activity change, appetite change and unexpected weight change. Negative for fever, chills and fatigue. Poor appetite. Mild night sweats. 50 Lbs weight loss over last 3 months HENT: Negative for congestion, sore throat, neck pain, neck stiffness and voice change. Eyes: Negative for photophobia, pain and visual disturbance. Respiratory: Positive for cough. Negative for apnea, shortness of breath, wheezing and stridor. Mild dry cough Cardiovascular: Negative for chest pain, palpitations and leg swelling. Gastrointestinal: Positive for abdominal pain. Negative for nausea, vomiting, diarrhea, constipation, blood in stool, abdominal distention, anal bleeding and rectal pain. Left upper quadrant pain 6-11/12 Genitourinary: Negative for dysuria, urgency, hematuria, flank pain, decreased urine volume, penile swelling, enuresis, penile pain and testicular pain. Musculoskeletal: Positive for arthralgias. Negative for myalgias, joint swelling and gait problem. Left knee and left hip intermittent pain Skin: Negative for color change, pallor, rash and wound. Neurological: Negative for dizziness, tremors, seizures, speech difficulty, weakness, light-headedness, numbness and headaches. Hematological: Negative for adenopathy. Does not bruise/bleed easily. Psychiatric/Behavioral: Negative for behavioral problems, confusion, decreased concentration and agitation. all 12 systems were reviewed and otherwise negative. Objective: Physical Exam Constitutional: He is oriented to person, place, and time. He appears well- developed and well-nourished. No distress. HENT: Head: Normocephalic and atraumatic. Mouth/Throat: No oropharyngeal exudate. Eyes: Conjunctivae are normal. Pupils are equal, round, and reactive to light. No scleral icterus. Neck: Normal range of motion. Neck supple. No JVD present. No tracheal deviation present. No thyromegaly present. Cardiovascular: Normal rate, regular rhythm, normal heart sounds and intact distal pulses. Exam reveals no gallop and no friction rub. No murmur heard. Pulmonary/Chest: Effort normal and breath sounds normal. No respiratory distress. He has no wheezes.He has no rales. He exhibits no tenderness. Abdominal: Soft. He exhibits distension. Tenderness is present. He has no rebound and no guarding. Spleen palpable 25 cm below left costal margin, tender to palpation. Liver not palpable. Lymphadenopathy: He has no cervical adenopathy. He has no axillary adenopathy. Right: No inguinal and no supraclavicular adenopathy present. Left: No supraclavicular adenopathy present. Neurological: He is alert and oriented to person, place, and time. No cranial nerve deficit. Coordination normal. Skin: Skin is warm and dry. He is not diaphoretic. Psychiatric: He has a normal mood and affect. Judgment normal. BP 133/100 Pulse 80 Temp(Src) 36.7 ??C (98.1 ??F) (Oral) Resp 18 Wt 89.5 kg (197 lb 5 oz) SpO2 98% Pathology 03/28/11 Granulomatous inflammation. Non-caseating granulomas present CT chest/abs/pelvis: Marked enlargement of the spleen measuring almost 25 cm. Enlarged retroperitoneal lymph nodes. Leukemia or lymphoma should be considered for this patient. Bilateral basilar reticulonodular infiltrates and nodules in the lungs. There is evidence of hilar and mediastinal adenopathy. Labs 03/20/11: WBC 4.89, HGB 14, PLT 144, ANC 3.35, Ca 9.6 Cr. 1.3, Alb 3.8, AP 144, AST 24, ALT 38.BUN 16. Na138, K 4. Assessment and Plan: 45 years old male with 50 pound weight loss over last 3 months, splenomegaly, multiple lung opacities and generalized lymphadenopathy on CT scan. Pathology positive for granulomatous inflammation with non-caseating granulomas present. No evidence of malignancy. Most likely srini is sarcoidosis. 1. Splenomegaly: Is likely related to sarcoidosis. Patient is symptomatic from splenomegaly. He is to start treatment for his systemic disease and see what how spleen responde to the treatment. 2. Sarcoidosis: discussed with Dr. Rozina Alford and primary care Dr. Sharon Sanders [phone]. Hehas an appointment with the PCP on coming Saturday. Most lkely he needs steroid therapy. 3. Generalized lymphadenopathy: No signs of malignant diseases this moment. 4.HTN - on HTCZ Will be happy to see if patient is necessary.At this point there is no evidence of malignancy. Patient is accompanied by his mother today. All questions were answered to patient's satisfaction. Thank you for courtesy of consult. Please do not hesitate to call with any questions or concerns. No problem-specific visit notes found for this encounter. Anat Resendiz RN - 04/06/2011 2:31 PM EST MEDICAL ONCOLOGY INITIAL NURSING ASSESSMENT ADVANCE DIRECTIVES: In EDH [ ] Has documents [ ] Will bring in [ ] IF NO: Advance Directive pamphlet provided : No, declines Referral to Care Management : PRESENTING SYSTEMS and PATHOLOGY: REVIEW OF SYSTEMS: Review of Systems Constitutional: Positive for weight loss (recent weight loss of about 60 pounds per patient report) and diaphoresis (c/o some night sweats). Negative for fever, chills and malaise/fatigue. HENT: Negative for hearing loss, ear pain, nosebleeds, congestion, sore throat, neck pain, tinnitus and ear discharge. Eyes: Negative for blurred vision, double vision, photophobia, pain, discharge and redness. Respiratory: Negative for cough, hemoptysis, sputum production, shortness of breath, wheezing and stridor. Cardiovascular: Negative for chest pain, palpitations, orthopnea, claudication, leg swelling and PND. Gastrointestinal: Positive for heartburn, vomiting and abdominal pain. Negative for nausea, diarrhea, constipation, blood in stool and melena. Genitourinary: Negative. Musculoskeletal: Negative for myalgias, back pain, joint pain and falls. Skin: Negative for itching and rash. Neurological: Negative for dizziness, tingling, tremors, sensory change, speech change, focal weakness, seizures, loss of consciousness, weakness and headaches. Endo/Heme/Allergies: Negative for environmental allergies. Does not bruise/bleed easily. Psychiatric/Behavioral: Negative for depression, suicidal ideas, hallucinations, memory loss and substance abuse. The patient has insomnia (up quite a bit). The patient is not nervous/anxious. Prior Radiotherapy: no[x ] Yes[ ]Site Date Facility Prior Chemotherapy: no[ x ] Yes[ ] Drug: Oncologist- LastTreatment: NO: YES: Claustrophobia or requires sedation for MRIs X - with MRI a couple years ago Allergy to CT or MRI contrast agent or iodine or shellfish x Diabetic and on metformin x Metal in body, implanted device, worked with metal, body piercings,braces X - - plates in pelvis Dentures or hearing device x Pacemaker x Difficulty breathing while lying flat x Kidney problems/creatinine x Balance difficulty: [ x ]no [ ]yes At risk for fall: [ x ] no [ ] yes If yes, actions implemented to prevent fall. Patient/family instructed to avoid independent ambulation. Use wheelchair and ask for assistance of staff while in the clinic. ADL [x ] no limits [ ] needs dressing assistance [ ] needs meal assistance Assistive device:[ x ]none [ ]cane [ ]walker [ ]wheelchair [ ]other: explain SOCIAL ASSESSMENT: See [facility] social assessment information entered. Support Systems: Barriers to treatment: Referrals/Interventions: LEARNING STYLE: Visual and verbal, wants written material and verbal discussion. TEACHING: __ NCI ???Chemotherapy and You?? and folder given __ Specific chemotherapy literature provided and reviewed with patient documented in this encounter Plan of Treatment Not on filedocumented as of this encounter Visit Diagnoses Diagnosis Sarcoidosis Splenomegaly documented in this encounter Care Teams Crusher Operator Relationship Specialty Start Date End Date Sharon Sanabria MD PCP - General 03/28/10 08/29/11 [address] [place] [address] documented as of this encounter
--- OUTSIDE RECORDS SUMMARY | 2022-02-13 13:29 | XMS_ITS | Encounter Summary ---
:1965 Author Organization [facility] [place] [address] Care Team Providers Name Role Phone Sharon Sanabria MD Primary Care Provider Reason for Referral Surgical (Routine) - Closed Specialty Diagnoses / Procedures Referred By Contact Refer red To Contact General Surgery Diagnoses Splenomegaly Kena Pierce MD Trus, Noah Stein MD [facility] RHEUMATOLOGY [place] [address] Fax: Referral ID Status Reason Start Date Expiration Date Visits V isits Requested Authorized [id number] Closed Consult, 05/18/2011 11/14/2011 1 1 Test & Treat Encounter Details Date Type Department Care Team Description 05/18/2011 Telephone Rheumatology at [facility] Kena Pierce MD [place] [address] RHEUMATOLOGY DEPT [phone] [place] [id number] (Wo rk) Social History Tobacco Use Types [...] Telephone Encounter - Kena Pierce MD - 05/18/2011 4:39 PM EST Received repeat CT scan which shows only minimal improvement in the splenomegaly and lympadenopathy.Spoke with the patient's mother (patient unavailable) who states that he was just in their local ER due to severe LUQ abdominal pain so the pain is worsening despite rx with prednisone. Sarcoidosis is not typically associated with PAINFUL splenomegaly and should respond to steroids so this is concerning for another process, possibly maliganant, that is involving the spleen. Malignancy can also cause a granulomatous reaction in local lymph nodes that resembles sarcoidosis. Therefore, given the diagnostic uncertaintly and continued severe pain, I believe this patient would benefit from splenectomy bot h to obtain pathology and control his symptoms. Will refer to surgery on a semi- urgent basis given his level of pain. documented in this encounter Plan of Treatment Scheduled Referrals Name Type Priority Associated Diagnoses Order S chedule REFERRAL TO Outpatient Referral Routine Splenomegaly Ordered: GENERAL SURGERY 05/18/2011 documented as of this encounter Visit Diagnoses Diagnosis Splenomegaly - Primary documented in this encounter Care Teams Car Whacker Relationship Specialty Start Date End Date Sharon Sanabria MD PCP - General 03/28/10 08/29/11 [address] [place] [address] documented as of this encounter
--- OUTSIDE RECORDS SUMMARY | 2022-02-13 13:29 | XMS_ITS | Encounter Summary ---
:1965 Author Organization [facility] [place] [address] Care Team Providers Name Role Phone Sharon Sanabria MD Primary Care Provider Reason for Visit Reason Comments Sarcoidosis Encounter Details Date Type Department Care Team Description 05/10/2011 Office Visit Rheumatology at [facility] Chely Cannon MD [address] [place] [address] [place] [address] Sarcoidosis ([facility] Kena Pierce MD [facility] [place] [address] [place]x) [place] [address] Social History Tobacco Use Types Packs/Day [...] Sign Reading Time Taken Comments Blood Pressure 130/89 05/10/2011 1:12 PM EST Pulse 82 05/10/2011 1:12 PM EST Temperature 37.2 ??C (99 ??F) 05/10/2011 1:12 PM EST Respiratory Rate 20 05/10/2011 1:12 PM EST Oxygen Saturation 96% 05/10/2011 1:12 PM EST Inhaled Oxygen Concentration - - Weight 110.7 kg (244 lb) 05/10/2011 1:12 PM EST Height 188 cm (6' 2) 05/10/2011 1:12 PM EST Body Mass Index 31.33 05/10/2011 1:12 PM EST documented in this encounter Progress Notes Chely Cannon MD - 05/11/2011 4:22 PM EST This patient was seen with Dr. Pierce. I agree with her documentation of the encounter. We are disturbed by the persistent pain and swelling unresponsive to 60 mg of prednisone. The literature notes that pain and massive swelling of the spleen is not compatible with sarcoidosis. Will proceed with a repeat CT of the abdomen with the results treated as Dr. Pierce reports. I feel he will probably need aspleen resection. Kena Pierce MD - 05/10/2011 2:13 PM EST Rheumatology Fellow Outpatient Consultation Note Reason for Consult: The patient is seen at the request of Dr. SHARON SANABRIA MD for evaluation andtreatment of sarcoidosis History of Present Illness: Robb Anton is a 46 y.o. male who presents today for evaluation of sarcoidosis. Pt lost 60 lbs in 6weeks but now has gained 40 lbs back, may not have been eating as well, low appetite. Had LUQ pain where his spleen is. His PCP felt splenomegaly and was referred to heme/onc. 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 Started prednisone 30 days ago 60mg a day and gained most of the weight back but his LUQ pain and spleen size have not improved. 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 Also with 2 laproscopicknee surgeries due to meniscal and ACL tear and has had chronic knee pain with effusions since then. H/o anabolic steroid use which he thinks wore out his joints. ROS: General (-)fevers, (-)chills, (-)night sweats, (-)wt loss/gain, (-) fatigue HEENT (-)vision change (-) eye pain, (-)oral ulcers, (-)dry eyes, (-)dry mouth, (-)dysphagia, (-)GERD, (-)Hair loss CVS (-)chest pain, (-)pedal edema, (-)orthopnea. Pulm (-)shortness of breath, (-)XIOA, (-)cough GI (-)N/V, (-)abdominal pain, (-)emesis, (-)hematemesis, (-)hematochezia, (- )change in appetite (-) diarrhea (-)hematuria, (-)dysuria, (-)frequency, (-)genital ulcers Endo (-)temperature intolerance. Neuro (-)weakness, (-)paresthesias Skin/musculo (-)Raynaud's (-) ulcers, (-)rash or photosensitivity Psych (-) mood disorder. Family Hx: No fam h/o autoimmune dz Social hx: Nonsmoker, 12 pack etoh/day quit 2 months ago, no drug use. , 3 kids. 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 Physical Examination: BP 130/89 Pulse 82 Temp(Src) 37.2 ??C (99 ??F) (Oral) Resp 20 Ht 188 cm (6' 2) Wt 110.678kg (244 lb) BMI 31.33 kg/m2 SpO2 96% General: AAOx3, NAD, tall, muscular HEENT: Mucous membranes are moist, no oral mucosal ulcerations, temporal artery palpable, Dr. Cannon felt some parotid enlargement Skin: (-)ulcers, (-)rash Neck: Supple, no lymphadenopathy, full range of motion. Cardiovascular: RR, (-)murmurs, rubs, or gallops. Lungs: Clear to auscultation bilaterally Abdomen: Soft, markedly enlarged spleen which is ttp, no hepatomegaly or other abdominal masses Back: Nontender over the spine and costovertebral angles bilaterally. Neuro: Alert and oriented x3. Cranial nerves II through XII grossly intact. Strength 5/5 throughout,DTRs are 2+ throughout, sensation intact Extremities: No edema Shoulders: FROM, non-tender to palpation Elbows:FROM, (-)pain, (-)nodules Wrists: FROM, no swelling, non-tender Hands: No synovitis, no MCP compression tenderness, full claw and fist Hips: FROM Knees: (-)effusions, non-tender ROM Ankles: FROM, non-tender, no swelling Feet: no MTP compression tenderness Vascular: Pulses are equal in all extremities. Laboratory Data: PFTs normal per PCP, CBC with lymphopenia ALC 790, cr 1.3, phos 5.2, alk phos 144, ggt 104 Studies: CT= splenomegaly, RP and mediastinal adenopathy, reticulonodular infiltrates basilar in lungs FNA RP lymph node- noncaseating granulomas PFTs wnl Impression: Robb Antno is a 46 y.o. male who presents today with painful splenomegaly, RP and hilar adenopathy, asymptomatic reticulonodular opacities and 50lb wt loss with noncaseating granulomas on biopsy. This seems c/w sarcoidosis, however would have expected improvement in his splenomegaly and pain with steroids. He also has an extensive etoh history but no other s/s or lab values c/w cirrhosis as a causefor his splenomegaly and the CT scan did not remark on a cirrhotic appearing liver. Malignancy stillcould be a consideration. Recommendations: - will continue on 60mg of prednisone for now - start Bactrim for pjp ppx, pt drinks 5 gallons of milk per week so likely has enough jacqueline and D in his diet - check KIP level, U/A and chem since cr is 1.3 and phos slightly elevated to look for renal involvement of sarcoid but given patient's size ans muscularity, a creatinine of 1.3 is not unusual. Check esr, crp, HIV - will repeat the CT a/p with contrast to see if his lymphadenopathy, splenomegaly and basilar ILD has improved - if the lymphadenopathy and ILD has improved with steroids but the splenomegaly remains, would continue prednisone at 60mg for another month and then taper hoping that the spleen will eventually respond. Might divide the prednisone to 30mg bid. - if nothing has improved, will likely add an immunomodulatory agent such as azathioprine - if splenomegaly has worsened, would consider splenectomy both for diagnostic purposes and symptom control. Apparantly he met with a surgeon who told him his spleen is too big at this time. - will manage options for his splenomegaly in concern with his judicial administrative assistant RTC in 1 month The patient was seen and discussed with Dr. Chely Cannon documented in this encounter Plan of Treatment Not on filedocumented as of this encounter Visit Diagnoses Diagnosis Sarcoidosis - Primary documented in this encounter Care Teams Solder Cream Maker Relationship Specialty Start Date End Date Sharon Sanabria MD PCP - General 03/28/10 08/29/11 [address] [place] [address] documented as of this encounter
--- OUTSIDE RECORDS SUMMARY | 2022-02-13 13:29 | XMS_ITS | Encounter Summary ---
:1965 Author Organization [facility] [place] [address] Care Team Providers Name Role Phone Sharon Sanabria MD Primary Care Provider Encounter Details Date Type Department Care Team Description 03/16/2011 Orders Only Radiology Koko Hull MD [facility] [place] [address] DIAGNOSTIC RADIOLOGY [phone] [place] [address] (Wo rk) Social History Tobacco Use Types Packs/Day Years Used Date Never Assessed Sex Assigned at Date Recorded Not on file documented as of this encounter Plan of Treatment Not on filedocumented as of this encounter Procedures Procedure Name Priority Date/Time Associated Diagnosis Comme nts FILM LIBRARY Routine 03/16/2011 9:01 AM Results f or this STORAGE ONLY CT EST procedure ar e in ABDOMEN AND PELVIS the resul ts section. documented in this encounter Results FILM LIBRARY- STORAGE ONLY CT ABDOMEN & PELVIS (03/16/2011 9:01 AM EST) Specimen (Source) Anatomical Collection Method Collection Time Re ceived Time Location / / Volume Laterality 03/16/2011 9:01 AM EST Narrative RAD - 09/29/2013 11:33 AM EDT This is a non-reportable exam. Procedure Note Jay Espinoza - 09/29/2013Formatting of t his note might be different from the original. This is a non-reportable exam. Koko Hull MD G FILM LIBRARY ORDERABLES Performing Organization Address City/State/ZIP Code Phon e Number RAD RAD [address] [facility] [place] [address] documented in this encounter Visit Diagnoses Not on filedocumented in this encounter Care Teams National Expansion Recruiter Relationship Specialty Start Date End Date Sharon Sanabria MD PCP - General 03/28/10 08/29/11 [address] [place] [address] documented as of this encounter
--- OUTSIDE RECORDS SUMMARY | 2022-02-13 13:29 | XMS_ITS | Encounter Summary ---
:1965 Author Organization [place] [address] Care Team Providers Name Role Phone Sharon Sanabria MD Primary Care Provider Encounter Details Date Type Department Care Team Description 06/12/2011 Surgery Main Operating Room Agustina Mcgee MD @[facility] (WRVU 19.55) [place] [address] [place] [address] [phone] Social History Tobacco Use Types Packs/Day Years [...] concerning symptoms The number for questions is [phone] before 5 PM weekdays and [phone] after 5 PM and on weekends (ask for the General Surgery resident flight communications specialist). Activity level: No heavy lifting greater [...] do so please call our office at [phone] to schedule for staple removal. Follow-Up: Dr. Trus July 18 at 4:20 PM General Surgery Clinic, Desk 4L Please call [phone] if you need to change the date [...] with combination of oral oxycodone w/ dilaudid PATHOLOGY TECH Temperature Temp: 36.6 ??C (97.9 ??F) Temp: [...] today - pain management w/ oxycodone, dilaudid PATHOLOGY TECH, toradol - nexium and TID SQH - home meds: metoprolol 25 BID and prednisone 20 mg daily - ativan assessment scale - post-splenectomy vaccinations already given Lita Up RN - 06/13/2011 10:18 AM EST Care Management/ CRC/ Assessment S: I am going to be staying with my parents for awhile when I am discharged. They are in [facility]. O: Met with patient this morning. Notes reviewed. Patient usually lives alone, but as noted above patient will be staying with family when discharged from [facility]. Patient has Medicare insurance. No Advance Directives on file here at [facility]. Patient is POD #1 open splenectomy. At this time patient is on Clear liquids po, IVF at 75/hr. Cefazolin IV q8hr n0gujpx. Hydromorphone PATHOLOGY TECH. Toradol IV q6hr x80ihmib. Oxycodone po q3hr prn. Prednisone 20mg po [...] Pain: 10/10, 2 mg dilaudid used on PATHOLOGY TECH, patient reports taking 15 mg oxycodone PRN [...] pain control will add oral oxycodone to PATHOLOGY TECH due to home opioid use and high [...] FH F--ASCVD Brother-- at age 47 of [place] Brother--ASCVD s/p [place] Mother healthy SH Previous tobacco use Previous [...] Studies and Lab Data: Recent Labs Basename 2 0708 06/14/ 0411 06/13/113 // 1600 ??? WBC 8.0 7.8 9.0 18.8* ??? HGB 8.5* 8.5* 9.1* 11.7* ??? HCT 25.7* 25.2* 27.5* 35.2* ??? PLATELET 213 160 130* 132* ??? PT -- -- -- -- ??? INR -- -- -- -- ??? PTT -- -- -- -- Recent Labs Basename 212 0411 06/13/113 ??? NA 139 137 ??? K 3.8 [...] concerning symptoms The number for questions is [phone] before 5 PM weekdays and [phone] after 5 PM and on weekends (ask for the General Surgery resident flight communications specialist). Activity level: No heavy lifting greater [...] do so please call our office at [phone] to schedule for staple removal. Follow-Up: Dr. Mcgee July 18 at 4:20 PM General Surgery Clinic, Desk 4L Please call [phone] if you need to change the date or time of your appointment. Future Appointments and Orders Future Appointments: Provider: Department: Dept Phone: Center: 06/19/2011 12:45 PM Kena Pierce MD [facility] Rheumatology [phone] [facility] Joint Appt Rheumatology Nurse Res Leb [phone] [facility] 06/19/2011 1:15 PM MD Krysten Candelariab Rheumatology [phone] [facility] 07/19/2011 4:20 PM MD Krysten Weissb Gen Surgery [facility] Provider Contact Information: Dr. Mcgee [facility] [phone] Discharge References/Attachments: Discharge References/Attachments None Signed: BLOSSOM MCCOY MD 06/15/2011 Med Student Progress Note - Kailee Cook - 06/15/2011 5:09 AM EST General Surgery - Medical Student Progress Note Patient Name: Sweta Anton : [id number] MR#: [id number] 06/12/2011 Hospital Day 3 days 46 y/o [...] Medical Student Progress Note Patient Name: Sweta Briggs Sloane : [id number] MR#: [id number] 06/12/2011 Hospital Day 2 days 46 y/o M s/p open splenectomy. POD #2. Subjective: Passed flatus this morning. No bowel movements. Pain comes in and out but no complaints. Reports no change in PATHOLOGY TECH usage. Voiding without issue after cath removal. [...] alcohol use. Neuro: Attempt to wean off PATHOLOGY TECH today and give oral pain medications alone, [...] oral medications and bowel activity. KAILEE COOK, DMS III 06/14/2011 Plan of Care - Rosemary [...] and also reports incisional pain. Pt uses PATHOLOGY TECH appropriately, receives PRN oxycodone and schedule Toradol, [...] receiving 10 mg oxycodone and using dilaudid PATHOLOGY TECH of 0.2/7/4 consistently. PATHOLOGY TECH noted to have been locked out x2 due to reaching maximum dose alllowed. Dr. Mccoy notified. Med Student Progress Note - Kailee Cook - 06/13/2011 5:18 AM EST Patient Name: Sweta Anton Patient Age: 46 y.o. Birthdate: 1965 Admit date: 06/12/2011 Attending Physician: Noah Mcege MD 46 y/o M s/p open splenectomy. [...] Ab Screen Interp Negative ??? Specimen OD [id number] CBC (WITH DIFF) Component Value Range ??? [...] POD #1. Doing well. Pain controlled by PATHOLOGY TECH and oral medications with some breakthrough between oral doses. Neuro: Continue PATHOLOGY TECH and oral pain medication. CV: Hypertension in last 24 hours. Likely secondary to pain. Resp: Monitor on RA. FEN/GI: Tolerating clear diet. Advance normal diet today if no nausea/vomiting. Renal: Creatinine stable. : Remove salvador today. ID: ---- Heme: ----- Endo: ------ Dispo: Pending pain control and signs of active bowels. KAILEE COOK JUN 13, 2011 Plan of [facility] - Rosemary Osborne RN - 06/13/2011 12:59 AM [...] Ingram MD - 06/12/2011 4:11 PM EST [facility] Operative Note Patient Name: Sweta Anton : [id number] MR#: [id number] Case Date: 06/12/2011 Surgeon: Surgeon(s) and Role: [...] was divided using two firings of the [place] laparoscopic stapler using white loads. After the [...] Operative Note Patient Name: Sweta Anton : [id number] MR#: [id number] Case Date: 06/12/2011 Surgeon: Surgeon(s) and Role: [...] SCREEN, SDP STAT 06/12/2011 10:38 (FUTURE SURGERY, [facility] AM EST SAME DAY PROGRAM ONLY) documented in this encounter Results (ABNORMAL) DIFFERENTIAL, AUTOMATED (06/15/2011 7:08 AM EST) [facility] Method Time Signature Neutrophils % 61.1 [...] Organization Address City/State/[place] [address] CERNER MILLENNIUM (ABNORMAL) CBC [...] Organization Address City/State/[place] [address] CERNER MILLENNIUM (ABNORMAL) DIFFERENTIAL, [...] Mcgee MD HEMATOLOGY ORDERABLES Performing Organization Address City/[facility]/[place] [address] CERNER MILLENNIUM Magnesium (06/14/2011 4:11 AM EST) P athologist Signature Magnesium 0.81 0.69 - 1.07 CERNER mmol/L MILLENNIUM Specimen Anatomical Collection Method Collection Time Receive d Time (Source) Location / / Volume Laterality Blood specimen 06/14/2011 4:11 AM 012 4:31 (specimen) EST AM EST Noah Mcgee MD CHEMISTRY ORDERABLES Performing Organization Address City/[facility]/ZIP Code [place] [address] CERNER MILLENNIUM Basic Metabolic [...] Mcgee MD CHEMISTRY ORDERABLES Performing Organization Address City/State/[place] [address] CERNER MILLENNIUM (ABNORMAL) CBC [...] Mcgee MD HEMATOLOGY ORDERABLES Performing Organization Address City/[facility]/[place] [address] CERNER MILLENNIUM DIFFERENTIAL, AUTOMATED [...] Ingram MD HEMATOLOGY ORDERABLES Performing Organization Address City/[facility]/ZIP Code Phon e Number [address] CERNER MILLENNIUM Magnesium (06/13/2011 4:53 AM EST) athologist Signature Magnesium 0.73 0.69 - 1.07 CERNER mmol/L MILLENNIUM Specimen Anatomical Collection Method Collection Time Receive d Time (Source) Location / / Volume Laterality Blood specimen 06/13/2011 4:53 AM 012 5:03 (specimen) EST AM EST Dillon Ingram MD CHEMISTRY ORDERABLES Performing Organization Address City/State/ZIP Code Phon e Number [place] [phone] CERNER MILLENNIUM Creatinine, serum [...] Ingram MD CHEMISTRY ORDERABLES Performing Organization Address City/[facility]/[place] [address] CERNER MILLENNIUM (ABNORMAL) BUN (06/13/2011 4:53 AM EST) P athologist Signature BUN 24 (H) 10 - 20 CERNER mg/dL MILLENNIUM Specimen Anatomical Collection Method Collection Time Receive d Time (Source) Location / / Volume Laterality Blood specimen 06/13/2011 4:53 AM 012 5:03 (specimen) EST AM EST Dillon Ingram MD CHEMISTRY ORDERABLES Performing Organization Address City/[facility] [place] [address] CERNER MILLENNIUM Electrolytes panel [...] Ingram MD CHEMISTRY ORDERABLES Performing Organization Address City/[facility] [place] [place] [address] CERNER MILLENNIUM (ABNORMAL) CBC [...] Organization Address City/State/[place] [address] [facility] SURGICAL PATHOLOGY REPORT (06/12/2011 4:42 PM EST) Component Value Ref Test Analysis Performed At Patholo gist Range Method Time Signature Surgical [facility] Pathology ? [facility] Report ? Provider: ?? TRUS, MARGIEDEUS L ? Pt. Name: ?? JENN ANSWETA P ? Acc #: ?[id number] ?Pt. MRN: ?[id number] ? Col Date: ?? 06/12/2011 ?/Sex: ?1965,(46 [...] etiology ( ? sarcoid). Polarizable material seen. Trimmer Sawyer sections will be sent ? for EM studies for further delineation. Addendum to bart govea. ? Select sections, Slide A1 has been review ed by Dr. Sanchez and Slide A4 ? reviewed with Dr Vic Tuttle who concur with the above diagnoses. ? Dictated by: ??Angelia Bess MD ? Hematopathology Fellow ? As the attending phys ician, I attest that I examined the histologic [...] mass lesions are moira ntified. ? Sections/Processing: ??Trimmer Sawyer section is submitted for possible flow ? cytometry. ??(R5) ?? aje/SNS ? [facility] ? Provider: ?? TRUS, THADEUS L ? Pt. Name: ?? CUSHM AN, SWETA P ? Acc #: ?[id number] ?Pt. MRN: ?[id number] ? Col Date: ?? 06/12/2011 ?/Sex: ?1965,(46 [...] Organization Address City/State/[place] [address] CERNER MILLENNIUM PATHOLOGY FLOW CYTOMETRY REPORT (06/12/2011 4:42 PM EST) Component Value Ref Test Analysis Performed At [facility] gist Range Method Time Signature Flow CERNER Cytometry ? [facility] ? Provider: ?? EVERARDO, NOAH Stein ? Pt. Name: ?? SWETA OSORIO ? Acc #: ?[id number] ?Pt. MRN: ?[id number] ? Col Date: ?? 06/12/2011 ?/Sex: ?1965,(46 years),Male ? Rec Date: ?? 06/12/2011 ?LOC: ?4WST ? ANALYTICAL CELL PATHOLOGY ? ---Clinical Information--- ? splenomegaly, ? Lymphoma ? ---Preparation--- ? Surgical Biopsy ? [id number], [id number] ? ---Markers--- ?Lymphoid (T) ? CD3 ? [...] expression of surface ? immunoglobulin light chain ([place]:Lambda ratio at 1.4). The T-cells are an ? admixture of CD4+ and CD8+ T lymphocytes (ratio of 0. 9). No loss or ? atypical intensity di stributions are seen for any khalil T antigen (CD2, 3, ? 4+8, 5, 7). ? [facility] ? Provider: ?? TRUS, THADEUS L ? Pt. Name: ?? JENN MORENO, SWETA P ? Acc #: ?[id number] ?Pt. MRN: ?[id number] ? Col Date: ?? 06/12/2011 ?/Sex: ?1965,(46 [...] by the Clinical Flow Cytometry Laboratory at [facility] ? Center. It has not been cleared [...] Organization Address City/State/[place] [address] CERNER MILLENNIUM (ABNORMAL) DIFFERENTIAL, AUTOMATED (06/12/2011 4:00 PM EST) [facility] Method Time Signature Neutrophils % 90.7 [...] Ingram MD HEMATOLOGY ORDERABLES Performing Organization Address City/[facility]/[place] [address] CERNER MILLENNIUM (ABNORMAL) CBC [...] Ingram MD HEMATOLOGY ORDERABLES Performing Organization Address City/[facility]/[place] [address] CERNER MILLENNIUM Specimen to [...] MD PATHOLOGY/CYTOLOGY ORDERABLE S Performing Organization Address City/[facility]/[place] [address] CERNER MILLENNIUM IMMUNOPHENOTYPING FLOW CYTOMETRY (06/12/2011 1:09 PM EST) Component Value Ref Test Analysis Performed At [facility] [employer] Range Method Time Signature Type of Specimen Spleen CERNER MILLENNIUM Panel Requested Lymphoma CERNER Panel MILLENNIUM Immunophenotyping See Comment CERNER Flow MILLENNIUM Comment: When completed by the Pathologist, the F low Cytometry Report ([id number]) will display under the Flow Cytometry result section in [facility]. Specimen Anatomical Collection Method Collection Time Receive d Time (Source) Location / / Volume Laterality Body fluid 06/12/2011 1:09 PM 2 1:42 specimen EST PM EST (specimen) Noah Mcgee MD HEMATOLOGY ORDERABLES Performing Organization Address City/[facility]/ZIP Code Phon e Number [address] CERNER MILLENNIUM (ABNORMAL) DIFFERENTIAL, AUTOMATED (06/12/2011 10:49 AM EST) [facility] gist Method Time Signature Neutrophils % [...] Organization Address City/State/[place] [address] CERNER MILLENNIUM (ABNORMAL) CBC [...] 15.2 (H) 10.9 - CERNER 14.4 % [facility] MPV 10.2 9.0 - 12.0 CERNER [facility] Specimen Anatomical Collection Method Collection Time Receive d Time (Source) Location / / Volume Laterality Blood specimen 06/12/2011 10:49 2 (specimen) AM EST 11:15 AM EST Robson Ledesma MD HEMATOLOGY ORDERABLES Performing Organization Address City/State/[place] [address] [facility] ANTIBODY SCREEN (06/12/2011 10:49 AM EST) Analysis Performed At [facility] logist Time Signature Ab Screen Negative [facility] Expires at [id number] [facility] 2358 on: [facility] Specimen Anatomical Collection Method Collection Time Receive d Time (Source) Location / / Volume Laterality Blood specimen 06/12/2011 10:49 2 (specimen) AM EST 11:09 AM EST Noah Mcgee MD BLOOD BANK ORDERABLES Performing Organization Address City/State/ZIP Code Phon e Number [address] [facility] ABO/RH TYPING (06/12/2011 10:49 AM EST) P athologist Signature ABORh Type O Pos [facility] Specimen Anatomical Collection Method Collection Time Receive d Time (Source) Location / / Volume Laterality Blood specimen 06/12/2011 10:49 2 (specimen) AM EST 11:09 AM EST Noah Mcgee MD BLOOD BANK ORDERABLES Performing Organization Address City/[facility]/ZIP Code Phon e Number [address] [facility] (ABNORMAL) Platelet count (06/12/2011 10:49 AM EST) P athologist Signature Platelets 85 (L) 145 - 370 CERNER x10(3)/[facility] Specimen Anatomical Collection Method Collection Time Receive d Time (Source) Location / / Volume Laterality Blood specimen 06/12/2011 10:49 2 (specimen) AM EST 11:15 AM EST Robson Ledesma MD HEMATOLOGY ORDERABLES Performing Organization Address City/State/ZIP Code [facility] e Number [place] [phone] [facility] documented in this encounter Visit Diagnoses Not on filedocumented in this encounter Administered Medications Inactive Administered Medications - up to 3 most recent administrations Medication Order MAR Action Action Date Dose Rate Site BUpivacaine (PF) (MARCAINE) 0.25 % Given 06/12/2011 3:12 PM EST 50 mg (2.5 mg/mL) injection ONCE PRN, Starting on Sat06/12/11 at 1512, Until Sat06/12/11 at 1749, Intra-Operative (Intra-Procedure), Routine ceFAZolin (ANCEF) 2g in dextrose 5% 100m L Given 06/12/2011 1:12 PM EST 2 g 2 g, Intravenous, ONCE, 1 dose, On Sat06/12/11 at 1130, Administer over 30 Minutes, Redose after 4 hours., Day of Surgery (Day of Procedure) heparin (porcine) subcutaneous injection Given 012 1:30 PM EST 5,000 Units 5,000 Units 5,000 Units, Subcutaneous, EVERY 12 HOURS SCHEDULED (2 times per day), First dose on Sat06/12/11 at 1130, Until Discontinued, Day of Surgery (Day of Procedure), Routine documented in this encounter Active and Recently Administered Medications Times are shown in EST. Scheduled Medication Order 06/13/2011 06/14/2011 06/15/2011 ceFAZolin (ANCEF) 2g in dextrose 5% 100mL (COMPLETED) 0500 (Given - Provider: Rosemary Osborne, POLINA) 2 g, Intravenous, EVERY 8 HOURS, 2 doses , First dose on Sat06/12/11 at 2100, Last dose on Sat06/13/11 at 0500, for 30 Minutes, Redose after 4 hours. esomeprazole (NEXIUM) capsule 40 mg (CANCELED) 905 (G iven - Provider: Tita Hall, POLINA) 0821 (Given - Provider: Tita Hall, POLINA) 0900 (Gi asha - Provider: Taya Eid RN) 40 mg, Oral, DAILY, First dose on 11/14 at 1900, Until Discontinued, If unable to take PO, may give IV, Routine folic acid (FOLVITE) tablet 1,000 mcg (CANCELED) 1724 (Given - Provider: Tita Hall RN) 0821 (Given - Provider: Tita Hall RN) 0900 (No t Given - Provider: Taya Eid RN - Reason: Patient/family refused) 1 mg = 1,000 mcg, Oral, DAILY, First dos e on Sat06/13/11 at 1445, Until Discontinued, Routine heparin (porcine) subcutaneous injection 5,000 Units ( CANCELED) 0600 (Given - Provider: Rosemary Osborne RN)1433 (Given - Provider: Tita Hall RN)2201 (Given - Provider: Rosemary Osborne RN) 0600 (Given - Provider: Rosemary Osborne RN)1400 (Given - Provider: Tita Hall RN)2200 (Given [...] Rosemary Osborne, POLINA)0600 (Given - Provider: Rosemary Osborne RN)1155 (Given - Provider: Tita Hall RN)1800 (Given - Provider: Neva Arndt RN) 0000 (Given - Provider: Daisha Lowe RN)0600 (Given - Provider: Daisha Lowe RN) 30 mg, Intravenous, EVERY 6 HOURS SCHEDU LED, 12 doses, First dose on Sat06/12/11 at 1700, Last dose on Sat06/15/11 at 1200, Routine lactated ringers 500 mL IV bolus (COMPLETED) 0545 (Giv en - Provider: Rosemary Osborne, RN) Intravenous, ONCE, 1 dose, Sat06/13/11 at 0545 metoprolol tartrate (LOPRESSOR) tablet 25 mg (CANCELED ) 09 (Given - Provider: Tita Hall RN)2100 (Given - Provider: Rosemary Osborne, RN) 08 (Given - Provider: Tita Hall, POLINA)2100 (Given - Provider: Daisha Lowe, POLINA) 0900 (Given - Provider: Taya Eid, POLINA) 25 mg, Oral, EVERY 12 HOURS SCHEDULED (2 times per day), First dose on Sat06/12/11 at 2100, Until Discontinued, Hold for hr <60, sbp <110, Routine multivitamin with minerals (THERA-M) tablet 1 tablet ( CANCELED) 1725 (Given - Provider: Tita Hall RN) 08 (Given - Provider: Tita Hall RN) 0900 (Not Given - Provider: Taya Eid RN - Reason: Patient/family refused) 1 tablet, Oral, DAILY, First dose on Sat06/13/11 at 1445, Until Discontinued, Routine OXYcodone (oxyCONTIN) CR tablet 10 mg 10 (Given - Provider: Tita Hall RN)2099 (Given - Provider: Daisha Lowe RN) 0900 (Given - Provider: Taya Eid, POLINA) 10 mg, Oral, EVERY 12 HOURS SCHEDULED (2 times per day), First dose on Sat06/14/11 at 0915, Until Discontinued, Routine predniSONE (DELTASONE) tablet 20 mg (CANCELED) 09 (G iven - Provider: Tita Hall RN) 0821 (Given - Provider: Tita Hall, POLINA) 0900 (Gi asah - Provider: Taya Eid, POLINA) 20 mg, Oral, DAILY, First dose on 2/ 8/12 at 0900, Until Discontinued, Routine sodium chloride [...] Sat06/13/11 at 1742 HYDROmorphone (DILAUDID) 1 mg/mL PATHOLOGY TECH 30 mL (CANCELED) 1022 (Rate/Dose Change - Provider: Tita Hall RN)2245 (New Syringe/Cartridge - Provider: Rosemary Osborne, POLINA) Intravenous, PATHOLOGY TECH ONLY, Starting Sat06/13/11 at 1015, Until Noris 06/14/11 at 0847 lactated ringers infusion (CANCELED) 0600 (New Bag - P rovider: Rosemary Osborne RN) 125 mL/hr, at 125 mL/hr, Intravenous, CO NTINUOUS, Starting Sat06/12/11 at 1615, Until Sat06/13/11 at 0647 PRN Medication Order 06/13/2011 06/14/2011 06/15/2011 OXYcodone (ROXICODONE) immediate release tablet 10 mg (CANCELED) 0004 (Given - Provider: Rosemary Osborne RN)0303 (Given - Provider: Rosemary Osborne RN)0602 (Given - Provider: Rosemary Osborne, POLINA)0903 (Given - Provider: Tita Hall RN)1220 (Given - Provider: Tita Hall RN) 0039 (Given - Provider: Rosemary Osborne RN)0348 (Given - Provider: Tao Aviles RN)0644 (Given - Provider: Rosemary Osborne RN) 10 [...] early) documented in this encounter Care Teams Head Scorer Relationship Specialty Start Date End Date Sharon Sanabria MD PCP - General 03/28/10 08/29/11 [address] [place] [address] documented as of this encounter
--- OUTSIDE RECORDS SUMMARY | 2022-02-13 13:29 | XMS_ITS | Encounter Summary ---
:1965 [place] [address] Care Team Providers Name Role Phone Sharon Sanbaria MD Primary Care Provider Encounter Details Date Type Department Care Team Description 06/12/2011 Anesthesia Event Main Operating Room Manish Fermin MD [facility] [place] [address] [facility] Diana Trujillo [facility] [place] [address] [facility] [place] [address] Anesthesia Record Procedure Summary Procedure Name Responsible Anesthesia Start Anesthesia Stop Time Anesthesiologist Time @SPLENECTOMY, TOTAL Manish Melendez MD 06/12/11 1246 06/12/11 1541 (WRVU 19.55) (N/A Abdomen) Events Date Time Event Comment 06/12/2011 1116 1246 Start 1541 Stop No medications on file. Agents No agents on file. Blood No blood administrations on file. Lines, Drains, and Airways Type Details Placement Removal PIV 06/12/11; 1121; 06/12/11 1121 by 06/15/11 1355 b y 06/15/11; 1355 Fidelia Nieto Blais, Val erie R RN RN Urethral Catheter 06/12/11; 1310; 06/12/11 1310 by 06/13/11 0745 by indwelling double lumen Aurelia Vazquez RN Pomkoski, Donna E, catheter; latex; 16; RN inserted; 1; drainage bag to dependent drainage; 06/13/11; 0745 PIV 06/12/11; 1320; 06/12/11 1320 by 06/15/11 1355 b y 06/15/11; 1355 Aurelia Vazquez RN Blais, Sp Kumari RN Incision 06/12/11; 1340; abdomen; 06/12/11 1340 by 1715 by 01/01/22 (LDA cleanup Aurelia Vazquez RN Mu ller, Dierdre L utility RA#[id number]); 1715 (LDA cleanup utility RA#[id number]) documented in this encounter Social History Tobacco [...] as of this encounter OR Notes Anesthesia Preprocedure Evaluation - Manish Melendez MD - 06/12/2011 11:13 AM EST Anesthesia Evaluation Patient summary reviewed No hx of anesthetic complications Airway Mallampati: II TM distance: >3 FB Neck ROM: full Dental - normal exam Pulmonary - normal exam (-) pneumonia, COPD, asthma, shortness of breath, recent URI and sleep apnea Cardiovascular (+) hypertension well controlled, (-) pacemaker, valvular problems/murmurs, past TX, CAD, CABG/stent, dysrhythmias, angina, CHF, orthopnea, PND and XIAO Rhythm: regular Rate: normal Neuro/Psych (-) seizures, neuromuscular disease, TIA, CVA, headaches and psychiatric history GI/Hepatic/Renal (+) GERD poorly controlled, (-) hiatal hernia, PUD, hepatitis, liver disease, renal disease and bowel prep Comments: Abdominal pain, progressive, 11/12 Endo/Other (+) C-spine cleared (-) Type I DM, Type II DM, hypothyroidism, hyperthyroidism and clotting problem Comments: Sarcoidosis splenomegaly Pred-adrenal insuff Abdominal - normal exam Anesthesia Plan ASA 2 General with intravenous induction RSI/ETT, additional IV, arterial line, possible central line, and rescue epidural. Stress dose steroids R/B discussed. Consent signed. Anesthetic plan and risks discussed with patient. Use of blood products discussed with patient. Anesthesia Postprocedure Evaluation - Manish Melendez MD - 06/12/2011 12:00 AM EST Patient: Robb Anton Procedure(s) Performed: @SPLENECTOMY, TOTAL Patient location: PACU Post-op pain: Adequate analgesia Post-op nausea: no nausea or vomiting Last Vitals: Filed Vitals: 06/15/11 1127 BP: 120/81 Pulse: 71 Temp: 36.4 ??C (97.5 ??F) Resp: 18 Post-op cardiovascular and respiratory status: is stable Level of consciousness: awake Complications: no apparent complications Fluid Status: normal documented in this encounter Plan of Treatment Not on filedocumented as of this encounter Visit Diagnoses Not on filedocumented in this encounter Care Teams Database Development Project Manager Relationship Specialty Start Date End Date Sharon Sanabria MD PCP - General 03/28/10 08/29/11 [address] [place] [address] documented as of this encounter
--- OUTSIDE RECORDS SUMMARY | 2022-02-13 13:29 | XMS_ITS | Encounter Summary ---
:1965 Author Organization [facility] [place] [address] Care Team Providers Name Role Phone Sharon Sanabria MD Primary Care Provider Encounter Details Date Type Department Care Team Description 03/20/2011 Orders Only Radiology Koko Hull MD [facility] [place] [address] DIAGNOSTIC RADIOLOGY [phone] [place] [address] (Wo rk) Social History Tobacco Use Types Packs/Day Years Used Date Never Assessed Sex Assigned at Date Recorded Not on file documented as of this encounter Plan of Treatment Not on filedocumented as of this encounter Procedures Procedure Name Priority Date/Time Associated Diagnosis Comme nts FILM LIBRARY Routine 03/20/2011 9:00 AM Results f or this STORAGE ONLY CT EST procedure ar e in CHEST the results section. documented in this encounter Results FILM LIBRARY- STORAGE ONLY CT CHEST (03/20/2011 9:00 AM EST) Specimen (Source) Anatomical Collection Method Collection Time Re ceived Time Location / / Volume Laterality 03/20/2011 9:00 AM EST Narrative RAD - 09/29/2013 11:33 AM EDT This is a non-reportable exam. Procedure Note Jay Espinoza - 09/29/2013Formatting of t his note might be different from the original. This is a non-reportable exam. Koko Hull MD [facility] FILM LIBRARY ORDERABLES Performing Organization Address City/State/ZIP Code Phon e Number [facility] [address] [place] [address] documented in this encounter Visit Diagnoses Not on filedocumented in this encounter Care Teams Probate Clerk Relationship Specialty Start Date End Date Sharon Sanabria MD PCP - General 03/28/10 08/29/11 [address] [place] [address] documented as of this encounter
--- OUTSIDE RECORDS SUMMARY | 2022-02-13 13:29 | XMS_ITS | Encounter Summary ---
:1965 Author Organization [facility] [place] [address] Care Team Providers Name Role Phone Sharon Sanabria MD Primary Care Provider Reason for Visit Reason Comments Splenomegaly Encounter Details Date Type Department Care Team Description 05/28/2011 Office Visit General Surgery at [facility] [place], Anil Hogan ([place] [facility] [place] [address] [place] [facility] [address] [place] [address] [phone] Social History Tobacco Use Types Packs/Day Years [...] Sign Reading Time Taken Comments Blood Pressure 152/98 05/28/2011 12:11 PM EST Pulse 67 05/28/2011 12:11 PM EST Temperature 36.6 ??C (97.9 ??F) 05/28/2011 12:11 PM EST Respiratory Rate 16 05/28/2011 12:11 PM EST Oxygen Saturation 99% 05/28/2011 12:11 PM EST Inhaled Oxygen Concentration - - Weight 112.9 kg (248 lb 14.4 oz) 05/28/2011 12:11 PM EST Height 185.4 cm (6' 1) 05/28/2011 12:11 PM EST Body Mass Index 32.84 05/28/2011 12:11 PM EST documented in this encounter Progress Notes Trey Zaman MD - 05/28/2011 1:41 PM EST Minimally Invasive Surgery Outpatient Consultation Reason for consult: splenomegaly HPI 46M referred [...] FH F--ASCVD Brother-- at age 47 of [place] Brother--ASCVD s/p [place] Mother healthy SH Previous tobacco use Previous [...] have seen the patient and reviewed Dr. Miramontes's above history and I agree with the details as written. The assessment and plan were formulated in discussion with me and I agree with them as documented. 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 documented in this encounter Results SCAN DOC: ORDS - PROVIDER CARE (05/31/2011 11:40 AM EST) Narrative 05/31/2011 11:40 AM EST Procedure Note Provider, Scanning - 05/31/2011 11:40 AM EST Scanning Provider MEDIA MGR SCAN EXT ORDR/RSLT documented in this encounter Visit Diagnoses Diagnosis Splenomegaly - Primary documented in this encounter Administered Medications Inactive Administered Medications - up to 3 most recent administrations Medication Order MAR Action Action Date Dose Rate Site OXYcodone (ROXICODONE) immediate Given 05/28/2011 2:27 PM EST 10 mg release tablet 10 mg 10 mg, Oral, ONCE, 1 dose, On 05/28/11 at 1430, May give additional 5 mg in 30 minutes times 1 if pain not relieved., Routine documented in this encounter Care Teams Air Intercept Controller Relationship Specialty Start Date End Date Sharon Sanabria MD PCP - General 03/28/10 08/29/11 [address] [place] [address] documented as of this encounter
== END 2022-02-13 13:44 ==
LOC: DI 13:25
PROVIDERS: PCP Family Medicine; Visit Provider Family Medicine
DX: M79.89 Other specified soft tissue disorders (principal)
CPT/HCPCS: 73630

== ENCOUNTER 2022-06-07 13:54 | Outpatient (REF) | payer MEDICARE, SELFPAY | END 2022-06-07 13:55 | disposition home or self-care (01) | LOC: NCHCN 13:54 | PROVIDERS: PCP Family Medicine; Visit Provider Family Medicine | DX: Z51.89 Encounter for other specified aftercare (principal) | CPT/HCPCS: 87077; 87070; 87186; 87205 ==

== ENCOUNTER 2025-02-26 11:21 | Outpatient (REF) | payer MEDICARE, SELFPAY ==
[2025-02-26 16:03] LABS: HCT 40.7 % (40.0-50.0); HGB 13.6 g/dL (13.5-17.5); MCH 32.7 pg (27.0-33.0); MCHC 33.4 % (32.0-36.0); MCV 98 fL (80-95); MPV 11.6 fL (8.0-11.0); Platelet Count 264 10^3/uL (130-400); RBC 4.16 10^6/uL (4.36-5.78); RDW 14.0 % (11.8-14.1); RDW-SD 50.4 fL; WBC 12.32 10^3/uL (4.4-10.8)
[2025-02-26 16:05] LABS: ESR 13 mm/hr (0-20)
[2025-02-26 16:32] LABS: ALT 26 U/L (16-63); AST 32 U/L (15-37); Albumin 3.7 g/dL (3.4-5.0); Alkaline Phosphatase 106 U/L (46-116); Anion Gap 8.6 mmol/L (3-11); BUN 20 mg/dL (7-18); Bilirubin, Total 0.7 mg/dL (0.2-1.0); CO2 26.4 mmol/L (21.0-32.0); Calcium 8.9 mg/dL (8.5-10.1); Chloride 107 mmol/L (98-107); Estimated GFR 97.78 (mL/min/1.73m2); Glucose 82 mg/dL (74-106); Potassium 4.3 mmol/L (3.5-5.1); Sodium 142 mmol/L (136-145); Total Protein 7.2 g/dL (6.4-8.2)
[2025-02-26 16:35] LABS: Hemoglobin A1C 5.6 % (<5.7)
[2025-02-26 23:24] LABS: CRP, High Sensitivity 8.40 mg/L (See Note)
== END 2025-02-26 11:22 | disposition home or self-care (01) ==
LOC: NCHCN 11:21
PROVIDERS: PCP Family Medicine; Visit Provider Family Medicine
DX: M86.9 Osteomyelitis, unspecified (principal); I10 Essential (primary) hypertension
CPT/HCPCS: 80053; 85027; 85652; 86141; 87077; 83036; 87070; 87186; 87205